=== PATIENT | female | born 1965 | race Caucasian/White ===

== ENCOUNTER 2019-06-19 15:06 | Outpatient (REF) | payer SELFPAY ==
[2019-06-19 17:06] LABS: Chol HDL Ratio 3.38 mg/dL (0.0-4.40); Cholesterol 169 mg/dL (0-200); Glucose 138 mg/dL (65-115); HDL Cholesterol 50 mg/dL (60-100); LDL Cholesterol Calculated 78 mg/dL (50-129); LDL HDL Ratio 1.56 RATIO (0.00-3.22); Triglycerides 207 mg/dL (0-150)
[2019-06-19 18:41] LABS: Estmated Average Glucose 148; Hemoglobin A1C 6.8 % (4.0-6.0)
== END 2019-06-19 15:07 | disposition home or self-care (01) ==
LOC: LAB 15:06
PROVIDERS: Family Provider Family Medicine; PCP Family Medicine; Visit Provider Dermatology
DX: Z13.9 Encounter for screening, unspecified (principal)
CPT/HCPCS: 80061; 82947; 83036

== ENCOUNTER 2019-12-12 13:38 | Emergency (ER) | payer MEDICARE, MEDICAID, SELFPAY ==
[2019-12-12 13:39] VITALS: BP 88/72; PULSE 121; RESP 17; TEMP 36.8; O2SAT 97; BMI 41.7
[2019-12-12 13:54] VITALS: BP 88/72; RESP 24; O2SAT 95
--- NOTE | 2019-12-12 13:54 | ECG_ITS ---
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 Measurements Intervals Willis Rate: 117 P: 197 ND: 238 QRS: 5 QRSD: 81 T: 30 QT: 346 QTc: 484 Interpretive Statements SINUS TACHYCARDIA WITH FIRST DEGREE AV BLOCK LOW QRS VOLTAGE IN PRECORDIAL LEADS [QRS DEFLECTION < 1.0 mV IN CHEST LEADS] NONSPECIFIC T-WAVE ABNORMALITY Compared to ECG 08/17/2016 05:46:40 First degree AV block now present Low QRS voltage now present T-wave abnormality now present Sinus rhythm no longer present Sinus arrhythmia no longer present Electronically Signed On 12-13-2019 19:34:55 CDT by Mamadou Mccarthy M.D. [id number]
--- NOTE | 2019-12-12 13:54 | XR_ITS ---
WS: [id number] EXAM: RIGHT HIP: 2 VIEWS DATE OF EXAMINATION: 12/12/2019, 1413 hours COMPARISON: None. HISTORY: Patient is 54 years old with hip pain status post fall. FINDINGS: Bone density is decreased in appearance. There are minimal changes of arthritis within the right hip. No fracture or dislocation is seen. No soft tissue abnormality noted other than slight arterial calc ified plaque changes. XR/XR hip RT 2-3V wo/w pel* [id number] IMPRESSION: No acute bony abnormality.
--- NOTE | 2019-12-12 13:54 | XR_ITS ---
WS: [id number] EXAM: XR lumbar spine 2-3V* [id number] DATE OF EXAMINATION: 12/12/2019, 1415 hours COMPARISON: CT of the abdomen and pelvis from 08/16/2016 HISTORY: 54 years old with fall injury. Complaining of pain. FINDINGS: Lower thoracic and lumbar vertebrae are of normal height. Multilevel degenerative spondylosis changes seen. Slight facet arthropathy changes lower lumbar spine. There is an abnormal appearance of the di stal sacrum involving segments from below S3 and extending inferiorly. There appears be marked demine ralization or bony destruction. Further evaluation with CT recommended for clarification. Aorta shows calcified plaque changes without aneurysmal dilatation. All pedicles are present on the AP radiograp h. Flecks of density within the bowel felt to be ingested material. Slight arthritis within the right SI joint. Changes of arthritis within the left hip joint. No acute fracture or subluxation is seen. No pars fracture noted. All pedicles are appreciated on the AP radiograph. XR/XR lumbar spine 2-3V* [id number] IMPRESSION: SCATTERED CHANGES OF ARTHRITIS IN LUMBAR SPINE. NO ACUTE FRACTURE IS SEEN. ABNORMAL APPEARANCE TO THE DISTAL SACRUM SUGGESTING A DESTRUCTIVE PROCESS. CT O F THE PELVIS RECOMMENDED WITH ATTENTION TO THE SACRUM FOR CLARIFICATION.
--- NOTE | 2019-12-12 13:54 | ED_ITS ---
HPI - Fall General: Chief Complaint: Fall Stated Complaint: FALL/ LE PAIN/ BACK PAIN Time Seen by Provider: 12/12/19 13:39 History of Present Illness: HPI Narrative: Patient arrives via ambulance with complaint of low back pain right hip pain from a fall when she tried to sit down on a bench and she missed a bench and landed on her buttocks low back area. right hip hurts in her low back hurts. Just finished dialysis she is tachycardic and she says she normally runs tachycardic for a couple hours after dialysis denies any other problem MD complaint: fall Onset (ago): minute(s) Fall from: standing (Trying to sit on the bench) Fall witnessed: yes, by family Place fall occurred: home Loss of consciousness: None Prolonged down time: no Symptoms prior to fall: lightheadedness Context: tripped/slipped Location of injury: back and pelvis Quality: aching Associated symptoms-after fall: Reports no associated symptoms; Denies abdominal pain, chest pain or headache(s) Review of Systems Const: Denies: fever(s), chills or body aches Eyes: Denies: change in vision or blurry vision ENMT: Denies: throat pain or nasal congestion Card: Denies: chest pain or dyspnea on exertion Resp: Denies: dyspnea, productive cough or non-productive cough GI: Denies: abdominal pain, nausea or vomiting Musc: Reports: back pain and joint pain (Right hip); Denies: extremity pain Skin/Breast: Denies: rash Neuro: Denies: headache(s) Psych: Denies: anxiety or depression Latrell/Lymph: Denies: easy bruising PFSH ED PFSH: Medical History (Updated 07/08/19 @ 08:46 by Chris Cohen DPM) Diabetes mellitus Kidney failure Psoriasis Surgical History (Updated 07/08/19 @ 08:43 by Chris Cohen DPM) H/O hernia repair History of appendectomy Family History Family/Other Diabetes Brother Diabetes Denies family history of CAD (coronary artery disease) Clotting disorder Dementia Hyperlipidemia Psychiatric illness Chronic kidney disease (CKD) Suicide Anesthesia complication Bleeding disorder Family history of premature coronary artery disease Lung disease Cancer Hypertension Stroke Social History (Reviewed 07/08/19 @ 08:18 by ZAHEER Atwood Smoking and tobacco status: never smoked Alcohol intake: never Current occupational status: disabled Physical Exam Const: COMMON NORMALS: no acute distress, average body habitus and patient oriented x3 HENMT: COMMON NORMALS: normocephalic HEAD & SCALP: normal to inspection and normocephalic FACE & SINUS: normal facial exam Eye: COMMON NORMALS: conjunctivae normal GENERAL EYE: appearance normal, both eyes and all related structures CONJUNCTIVA: Yes conjunctivae normal Neck/C-Spine: COMMON NORMALS: no JVD Chest: COMMONS NORMALS: normal inspection of the chest Resp: COMMON NORMALS: normal respiratory effort and clear to auscultation bilaterally AUSCULTATION: clear to auscultation bilaterally Cardio: COMMON NORMALS: no JVD, regular rate and regular rhythm RATE: regular rate RHYTHM: regular rhythm GI: COMMON NORMALS: Normal to inspection, nondistended, normoactive bowel sounds present Extremity: COMMON NORMALS: full ROM NARRATIVE EXTREMITY EXAM: Patient is able to lift the right leg and move it. Does have some pain lumbar hip area patient is obese does have psoriasis of the lower extremities Neuro: COMMON NORMALS: patient oriented x3 Course Vital Signs: Vital signs: Vital Signs Temperature 98.2 F 12/12/19 13:39 Pulse Rate 78 12/12/19 13:54 Respiratory Rate 24 H 12/12/19 13:54 Blood Pressure 93/48 12/12/19 13:54 Pulse Oximetry 97 12/12/19 13:39 Discharge Plan Discharge Prescriptions: No Action trazodone 50 mg tablet 50 mg PO .bedtime RF: 0 clopidogrel [Plavix] 75 mg tablet 75 mg PO DAILY RF: 0 pramipexole 0.5 mg tablet 0.5 mg PO .bedtime RF: 0 hydroxyzine HCl 25 mg tablet 25 mg PO TID RF: 0 citalopram [Celexa] 20 mg tablet 20 mg PO DAILY Qty: 30 RF: 2 citalopram [Celexa] 10 mg tablet 10 mg PO DAILY Qty: 30 RF: 2 bupropion HCl [Wellbutrin XL] 150 mg tablet extended release 24 hr 150 mg PO QAM Qty: 30 RF: 2 Coding Level of Care Code ED 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
--- NOTE | 2019-12-12 14:34 | CT_ITS ---
WS: [id number] EXAM: CT pelvis wo con [id number] DATE OF EXAMINATION: 12/12/2019, 1514 hours COMPARISON: Lumbar spine plain films from the same date. HISTORY: 54 years old with fall injury. Complaining of pain. Abnormal plain films of the sacrum. TECHNIQUE: Transaxial computed tomography images obtained through the pelvis without contrast. Images viewed in soft tissue and bone window with reconstructions. Iterative reconstruction dose reduction technique was utilized during the performance of the examinat ion. DLP: 1076.[address] scans at [facility] use at least one of these dose optimization techniques: automat ed exposure control; mA and/or kV adjustment per patient size (includes targeted exams where dose is matched to clinical indication); or iterative reconstruction. FINDINGS: Overall bone density is slightly decreased. There are degenerative spondylosis changes L3-4 level wit h spinal canal stenosis. Additional changes of spinal canal stenosis L4-5 level as well. Both sacroil iac joints are fairly normal in appearance. The abnormality on plain film is not reproduced on the CT exam. The sacrum appears normal without a destructive process. Presacral space is normal. No appreciable hematoma seen. 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 Bowel is normal in caliber. A large ventral hernia noted on the prior examination has undergone interval surgical repair. There is a recurrent hernia along superior margin of this larger hernia repair containing a loop of small bow el without evidence of incarceration. No acute fracture is seen. Uterus is unremarkable. No adnexal mass. CT/CT pelvis wo con [id number] IMPRESSION: Abnormality on plain film is not reproduced on the CT examination. No findings of an abnormality involving the sacrum demonstrated. Arthritis lower lumbar spine with findings of spinal canal stenosis. No fracture is seen. Interval repair of the anterior abdominal wall hernia with recurrence of hernia along the superior margin of the hernia repair containing a loop of small kristian l without incarceration.
[2019-12-12 16:44] VITALS: BP 97/49; RESP 20; O2SAT 96
== END 2019-12-12 16:36 | disposition home or self-care (01) ==
PROVIDERS: Emergency Provider Nurse Practitioner Family; PCP Family Medicine
DX: M54.5 Low back pain (principal); Z79.02 Long term (current) use of antithrombotics/antiplatelets; E11.9 Type 2 diabetes mellitus without complications
CPT/HCPCS: 12345; 72100; 72192; 73502; 93005; 99282; 99283

== ENCOUNTER 2020-02-26 11:04 | Outpatient (CLI) | payer MEDICARE, MEDICAID, SELFPAY ==
--- NOTE | 2020-02-26 11:30 | MM_ITS ---
WS: [id number] BILATERAL DIGITAL SCREENING MAMMOGRAPHY WITH CAD CLINICAL INFORMATION: Screening HISTORY: Screening mammogram. No current complaints. COMPARISON: TECHNIQUE: Bilateral CC and MLO views. FINDINGS: Scattered fibroglandular densities bilaterally. No suspicious focal mass, asymmetry, calcifications, or architectural distortion. No evidence of malignancy. Vascular calcification. Stable punctate and c lustered calcifications. MM/[place] [id number] IMPRESSION: BI-RADS: 2-Benign FOLLOW UP: 1 Year Follow-up Recommend return to annual screening mammography.
== END 2020-02-26 11:05 | disposition home or self-care (01) ==
LOC: RADSHAW 11:12
PROVIDERS: PCP Family Medicine; Visit Provider Family Medicine
DX: Z12.31 Encounter for screening mammogram for malignant neoplasm of breast (principal)
CPT/HCPCS: 77067

== ENCOUNTER → 2020-02-27 15:52 | Outpatient (BNVA) | payer MEDICARE, MEDICAID, SELFPAY | PROVIDERS: PCP Family Medicine; Visit Provider Surgery | DX: Z86.010 Personal history of colon polyps (principal) | CPT/HCPCS: 87635 ==

== ENCOUNTER 2020-03-02 07:47 | Day surgery (SDC) | payer MEDICARE, MEDICAID, SELFPAY ==
[2020-02-27 13:12] VITALS: BMI 24.0
[2020-03-02 08:18] VITALS: BP 123/70; PULSE 90; RESP 18; TEMP 36.6; O2SAT 93
[2020-03-02 08:42] LABS: Glucose Point of Care 149 mg/dL (70-110)
[2020-03-02] MEDS: sodium chloride 0.9% 1,000 ML 30 ML IV (09:03)
[2020-03-02 09:05] VITALS: BMI 44.6
--- NOTE | 2020-03-02 09:22 | ANES.PREANE2 ---
Pre-Anesthetic Assessment Pre-Anesthetic Assessment: Height/Weight: Height 1.63 m Weight 118 kg Temp Pulse Resp BP Pulse Ox 97.9 F 90 18 123/70 93 03/02/20 08:18 03/02/20 08:18 03/02/20 08:18 03/02/20 08:18 03/02/20 08:18 Preop Diagnosis: Surveillance colonoscopy Proposed Procedure: Operation Date: 03/02/20 09:30 Proposed Procedures p Colonoscopy 22654 Z86.010(Not Applicable) - Anand Brand MD Familial anesthetic complications: Says she developed alopecia after a previous surgery Was Beta Rodney taken within 24 hours: N/A Last intake: Intake Last Liquid Date 03/01/20 Last Liquid Time 22:00 Last Solid Date 03/01/20 Last Solid Time 20:00 Social: Social History: No alcohol and No tobacco Exam: Pre-Anes Outpt Exam: alert, oriented x 3, clear to auscultation bilaterally and regular rate & rhythm Airway: Cervical ROM: WNL MP: 3 Dentition: Full Pulmonary: Pulmonary: COPD and Sleep apnea CV/HEM: CV/HEM: HTN : : Chronic renal failure (ESRD on dialysis) Hepatic: Hepatic: None reported GI: GI: GERD Metabolic: Metabolic: DM and Morbid obesity Musc/skel: Comments: plaque psoriasis Anesthetic Plan: ASA status: 4 Anesthesia: MAC Risk of > 500 ml blood loss (7ml/kg in children): No Meds/Allergies Current Medications: Current Medications Generic Name Dose Route Start Last Admin Trade Name Freq PRN Reason Stop Dose Admin Sodium Chloride 1,000 mls @ 30 ml s/hr 03/02/20 08:30 03/02/20 09:03 Sodium Chloride 0.9% IV 03/03/20 08:29 30 mls/hr .Q24H ABIGAIL Administration PFSH Anesthesia PFSH: Medical History Allergic rhinitis CKD (chronic kidney disease) COPD (chronic obstructive pulmonary disease) Diabetes mellitus Encounter for screening colonoscopy Mixed stress and urge urinary incontinence LUIS EDUARDO (obstructive sleep apnea) Plaque psoriasis Psoriasis Surgical History H/O hernia repair History of appendectomy Family History Family/Other Diabetes Brother Diabetes Grandmother CAD (coronary artery disease) Mother CAD (coronary artery disease) Cancer Denies family history of Clotting disorder Dementia Hyperlipidemia Psychiatric illness Chronic kidney disease (CKD) Suicide Anesthesia complication Bleeding disorder Family history of premature coronary artery disease Lung disease Hypertension Stroke Social History (Updated 02/24/20 @ 14:36 by Nancy Lentz LPN) Smoking and tobacco status: never smoked Alcohol intake: never Lives independently: Yes Marital status: Single Current occupational status: disabled History of recent travel: No Current gender identity: Female Female Reproductive History: Spontaneous abortions: No Data Anesthesia Other Labs: Laboratory Results - last 48 hr 03/02/20 08:38 POC Glucose 149 Cardiac Studies: No Data to Display
--- NOTE | 2020-03-02 10:10 | W.PM.OPSUD ---
Surgery/Procedure H&P Update DATE OF PROCEDURE: March 02, 2020 DATE H&P PERFORMED: 02/24/20 H&P UPDATE INFORMATION: I have reviewed H&P completed within last 30 days, I have examined patient prior to procedure and No changes to prior documentation PREOP DIAGNOSIS: Surveillance colonoscopy PRIMARY INDICATION FOR PROCEDURE: The same PLANNED PROCEDURE: Operation Date: 03/02/20 09:30 Proposed Procedures p Colonoscopy 57118 Z86.010(Not Applicable) - Anand Brand MD
--- NOTE | 2020-03-02 10:47 | ANE.PACU2 ---
Inpatient post-anesthesia follow up: Airway intact: Yes Vital signs: Temperature 97.9 F Pulse Rate 90 Respiratory Rate 18 Blood Pressure 123/70 Pulse Oximetry 93 Oxygen Delivery Me thod Room Air Oxygen Flow Rate Fraction of Inspir ed Oxygen Hydration adequate: Yes Nausea and vomiting: No Pain level: 1 Mental status: Baseline
[2020-03-02 10:49] VITALS: BP 85/44; PULSE 81; RESP 16; TEMP 36.9; O2SAT 98
[2020-03-02 11:17] VITALS: BP 101/55; PULSE 84; RESP 18; O2SAT 100
== END 2020-03-02 11:19 | disposition home or self-care (01) ==
PROVIDERS: PCP Family Medicine; Visit Provider Surgery
PROC: 0DJD8ZZ Inspection of Lower Intestinal Tract, Via Natural or Artificial Opening Endoscopic (ICD-10-PCS; CPT 45378; principal; 2020-03-02 09:30)
DX: Z12.11 Encounter for screening for malignant neoplasm of colon (principal); Z86.010 Personal history of colon polyps; I12.0 Hypertensive chronic kidney disease with stage 5 chronic kidney disease or end stage renal disease; E11.22 Type 2 diabetes mellitus with diabetic chronic kidney disease; N18.6 End stage renal disease; Z99.2 Dependence on renal dialysis; G47.33 Obstructive sleep apnea (adult) (pediatric); E66.01 Morbid (severe) obesity due to excess calories; Z68.41 Body mass index [BMI] 40.0-44.9, adult; Z79.82 Long term (current) use of aspirin; Z79.02 Long term (current) use of antithrombotics/antiplatelets; L40.0 Psoriasis vulgaris; K21.9 Gastro-esophageal reflux disease without esophagitis; J44.9 Chronic obstructive pulmonary disease, unspecified
CPT/HCPCS: 12345; 36416; 45378; 82962; G0121; J2704; J7030

== ENCOUNTER 2020-03-09 08:10 | Outpatient (CLI) | payer MEDICARE, MEDICAID, SELFPAY ==
[2020-03-09 08:42] VITALS: BMI 42.0
--- NOTE | 2020-03-09 08:42 | ECG_ITS ---
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 Interpretive Statements NAME OF STUDY: LEXISCAN SESTAMIBI STRESS TEST INDICATION: Dyspnea PROCEDURE: At the baseline, the blood pressure was 122/57 mmHg, oxygen saturation 90% with a heart rate of 81 bpm. The electrocardiogram showed normal sinus rhythm, normal axis. Possible old anteroseptal infarct. The Lexiscan was infused over a period of 20 seconds. A total of 0.4 milligrams of Lexiscan was infused. The stress phase was continued for a total of 5 minutes. Heart rate at the end of the stress phase was 93 bpm, oxygen saturation 94% with a blood pressure of 122/57 mmHg. The EKG at the peak infusion revealed sinus rhythm with no significant ST-T wave changes. The study was terminated due to protocol completion. Sestamibi was injected 20 seconds after the Lexiscan infusion. Blood pressure at the end of the recovery phase was 127/66 mmHg, oxygen saturation 98% with a heart rate of 93 beats per minute. CONCLUSION: 1. Normal EKG response to LexiScan infusion. 2. No LexiScan induced chest pain or cardiac arrhythmia. 3. Normal blood pressure and heart rate response. 4. Sestamibi/sestamibi perfusion scan pending; see separate report. RESULTS TO WHITNEY CABRERA Electronically Signed On 03-10-2020 10:06:17 GLASS PRODUCTION MACHINE OPERATOR by Yasmin Priest M.D. [id number]
--- NOTE | 2020-03-09 08:43 | NMCV_ITS ---
NM marixa perf SPECT r/s* [id number] Kerri Fregoso Age: 54 Gender: F : 1965 Exam Date: 03/09/2020 09:44 Ordering Phys: Yasmin Priest MD ([email or web address]) Technologist: JANAY Hernadez Exam [facility]: [facility] Indications: DYSPNEA STRESS TEST Please see separate stress test report in [facility] for full findings IMAGE PROTOCOL Rest/Stress 1 Lexiscan Day Radiopharmaceutical Dose (mCi) Administration Site Administered by Rest: Tc-99m 10.8 IV JANAY Hernadez Sestamibi Stress:Tc-99m 32.9 IV JANAY Chris Sestamibi Rest: 09-Mar-2020 60 Discovery 630 Stress: 09-Mar-2020 30 Discovery 630 0.4mg Lexiscan. Supine position only as patient was unable to lay prone. SPECT RESULTS Technical Quality: Excellent Raw Data Analysis: Normal Image Corrections: No attenuation or motion correction applied Summed Stress Score: 3 Summed Rest Score: 1 Summed Difference Score: 3 PERFUSION FINDINGS Small sized perfusion abnormality of mild severity of basal inferior wall with some reversibility noted in mid inferoseptal and apical septal goldman on stress images. FUNCTIONAL RESULTS (calculated via Gated SPECT) Stress Image LV EF (%): 83 Stress EDV (mL):82 TID: 0.63 Stress ESV (mL):14 FUNCTIONAL FINDINGS: The left ventricle is normal in size. Transient Ischemia Dilatation of 0.63. There is normal left ventricular systolic function. The left ventricular ejection fraction is hyperdynamic with a value of 83%. Left ventricular ejection fraction is likely overestimated due to small left ventricle cavity. Normal left end-diastolic end-systolic volumes. IMPRESSIONS 1. Small sized reversible perfusion abnormality of mild severity of mid inferoseptal and apical septal goldman. 2. This may represent small area of ischemia in right coronary artery territory. However, in abscence of prone imaginng attenuation artifact cannot be completely ruled out. 3. Overall left ventricular systolic function is normal without regional wall motion abnormalities. 4. No prior similar studies to compare Yasmin Priest MD (Electronically Signed) Final Date: 10 March 2020 12:33 S
--- NOTE | 2020-03-09 10:35 | SUR.PREOP ---
Patient reports no pain or discomfort prior to the start of the procedure.
[2020-03-09] MEDS: regadenoson 0.4 Mg/5 ml Syringe IVP (10:41)
[2020-03-09 11:03] VITALS: BP 122/73; PULSE 99
== END 2020-03-09 08:11 | disposition home or self-care (01) ==
PROVIDERS: PCP Family Medicine; Visit Provider Internal Medicine Cardiovascular Disease
DX: R06.00 Dyspnea, unspecified (principal)
CPT/HCPCS: 78452; 93017; A9500; J2785

== ENCOUNTER → 2020-03-30 08:50 | Outpatient (BNVA) | payer MEDICARE, MEDICAID, SELFPAY | PROVIDERS: PCP Family Medicine; Visit Provider Podiatrist Foot & Ankle Surgery | DX: M25.571 Pain in right ankle and joints of right foot (principal) | CPT/HCPCS: 73610 ==

== ENCOUNTER → 2020-04-08 09:34 | Outpatient (BNVA) | payer MEDICARE, MEDICAID, SELFPAY | PROVIDERS: PCP Family Medicine; Visit Provider Family Medicine | DX: M54.5 Low back pain (principal); K59.00 Constipation, unspecified; F33.2 Major depressive disorder, recurrent severe without psychotic features; G47.00 Insomnia, unspecified; E11.22 Type 2 diabetes mellitus with diabetic chronic kidney disease; N18.6 End stage renal disease; J41.0 Simple chronic bronchitis; K59.04 Chronic idiopathic constipation; F51.04 Psychophysiologic insomnia | CPT/HCPCS: 80061; 83036 ==

== ENCOUNTER → 2020-05-24 09:39 | Outpatient (BNVA) | payer MEDICARE, MEDICAID, SELFPAY | PROVIDERS: PCP Family Medicine; Referring Provider Registered Nurse; Visit Provider Registered Nurse | DX: Z79.899 Other long term (current) drug therapy (principal) | CPT/HCPCS: 36415; 80061; 83036; 83721 ==

== ENCOUNTER → 2020-05-28 11:20 | Outpatient (BNVA) | payer MEDICARE, MEDICAID, SELFPAY ==
[2020-05-25 09:01] VITALS: BP 153/85; BMI 44.4
== END ==
PROVIDERS: PCP Family Medicine; Visit Provider Podiatrist Foot & Ankle Surgery
DX: I70.298 Other atherosclerosis of native arteries of extremities, other extremity (principal); E11.621 Type 2 diabetes mellitus with foot ulcer; L97.509 Non-pressure chronic ulcer of other part of unspecified foot with unspecified severity; M21.612 Bunion of left foot; M21.611 Bunion of right foot; M81.0 Age-related osteoporosis without current pathological fracture; M20.42 Other hammer toe(s) (acquired), left foot; M20.41 Other hammer toe(s) (acquired), right foot
CPT/HCPCS: 73630

== ENCOUNTER 2020-06-23 13:33 | Outpatient (CLI) | payer MEDICARE, MEDICAID, SELFPAY ==
[2020-05-25 09:01] VITALS: BP 153/85; BMI 44.4
--- NOTE | 2020-06-23 13:42 | USCV_ITS ---
Kerri Fregoso Age: 54 Gender: F : 1965 Exam Date: 06/23/2020 14:36 Ordering Phys: Zay Cohen Technologist: Luis Guy Exam [place] [facility] [place] Indication: FOOT PAIN Risk Factors: Previous Vascular Surgery: RIGHT LEFT BP: 152.0 / 104.00 BP: / 0 Waveform Velocity (cm/s) Velocity (cm/s) Waveform Triphasic 105.3 Iliac Prox 121.3 Triphasic Triphasic 99.5 Iliac Mid 92.2 Triphasic Triphasic Iliac Distal Triphasic 90.0 98.2 Triphasic 138.5 MUNICIPAL FIREFIGHTER 156.8 Triphasic Triphasic 154.7 SFA Prox 160.8 Triphasic Triphasic 142.1 SFA Mid 170.9 Triphasic Triphasic 160.1 SFA Dist 130.6 Triphasic Triphasic 102.0 POP 183.0 Triphasic Monophasic 94.0 SUPERVISOR CHASSIS ASSEMBLY 94.5 Monophasic Triphasic 139.3 DPA 138.7 Triphasic 0.7 MODESTO 0.7 FINDINGS Mild to moderate diffuse heterogeneous plaques in the femoral arteries bilaterally with color flow turbulence Diminished resting ABIs bilaterally. CONCLUSIONS 1. Abnormal resting ABIs and Doppler features suggestive of mild to moderate peripheral artery disease possibly involving the superficial femoral arteries bilaterally Consider exercise ABIs to better evaluate the functional significance Dr Jono Wilson MD [facility] (Electronically Signed) Final Date: 24 June 2020 09:18 S
== END 2020-06-23 13:34 | disposition home or self-care (01) ==
LOC: US 13:35
PROVIDERS: PCP Family Medicine; Visit Provider Emergency Medicine
DX: I73.9 Peripheral vascular disease, unspecified (principal); M79.672 Pain in left foot; M79.671 Pain in right foot
CPT/HCPCS: 93925

== ENCOUNTER → 2020-07-19 08:08 | Outpatient (BNVA) | payer MEDICARE, MEDICAID, SELFPAY ==
[2020-05-25 09:01] VITALS: BP 153/85; BMI 44.4
== END ==
PROVIDERS: PCP Family Medicine; Referring Provider Family Medicine; Visit Provider Internal Medicine
DX: E11.22 Type 2 diabetes mellitus with diabetic chronic kidney disease (principal); N18.6 End stage renal disease; E11.319 Type 2 diabetes mellitus with unspecified diabetic retinopathy without macular edema; E11.49 Type 2 diabetes mellitus with other diabetic neurological complication; L84 Corns and callosities
CPT/HCPCS: 99205

== ENCOUNTER → 2020-08-18 10:04 | Outpatient (BNVA) | payer MEDICARE, MEDICAID, SELFPAY ==
[2020-05-25 09:01] VITALS: BP 153/85; BMI 44.4
== END ==
PROVIDERS: PCP Family Medicine; Visit Provider Family Medicine
DX: M25.562 Pain in left knee (principal); J41.0 Simple chronic bronchitis; M23.50 Chronic instability of knee, unspecified knee; R06.02 Shortness of breath; G47.33 Obstructive sleep apnea (adult) (pediatric); M17.12 Unilateral primary osteoarthritis, left knee; M85.862 Other specified disorders of bone density and structure, left lower leg
CPT/HCPCS: 73562

== ENCOUNTER → 2020-09-13 10:09 | Outpatient (BNVA) | payer MEDICARE, MEDICAID, SELFPAY ==
[2020-05-25 09:01] VITALS: BP 153/85; BMI 44.4
== END ==
PROVIDERS: PCP Family Medicine; Referring Provider Family Medicine; Visit Provider Specialist
DX: M25.562 Pain in left knee (principal); M25.561 Pain in right knee
CPT/HCPCS: 73560; 73565

== ENCOUNTER → 2020-09-24 15:20 | Outpatient (BNVA) | payer MEDICARE, MEDICAID, SELFPAY ==
[2020-05-25 09:01] VITALS: BP 153/85; BMI 44.4
== END ==
PROVIDERS: PCP Family Medicine; Visit Provider Internal Medicine Critical Care Medicine
DX: Z20.822 Contact with and (suspected) exposure to COVID-19 (principal)
CPT/HCPCS: 87635

== ENCOUNTER → 2020-10-18 09:36 | Outpatient (BNVA) | payer MEDICARE, MEDICAID, SELFPAY ==
[2020-05-25 09:01] VITALS: BP 153/85; BMI 44.4
== END ==
PROVIDERS: PCP Family Medicine; Visit Provider Family Medicine
DX: Z00.00 Encounter for general adult medical examination without abnormal findings (principal); J44.9 Chronic obstructive pulmonary disease, unspecified; M54.5 Low back pain; G25.81 Restless legs syndrome; F51.04 Psychophysiologic insomnia; G47.33 Obstructive sleep apnea (adult) (pediatric); E11.9 Type 2 diabetes mellitus without complications; G47.00 Insomnia, unspecified; E11.22 Type 2 diabetes mellitus with diabetic chronic kidney disease; Z99.2 Dependence on renal dialysis; N18.6 End stage renal disease; J45.40 Moderate persistent asthma, uncomplicated; L40.0 Psoriasis vulgaris; F33.2 Major depressive disorder, recurrent severe without psychotic features; Z71.89 Other specified counseling; Z23 Encounter for immunization; Z12.11 Encounter for screening for malignant neoplasm of colon; Z12.4 Encounter for screening for malignant neoplasm of cervix
CPT/HCPCS: 80053; 80061; 83036; 83721; 85025; 87635

== ENCOUNTER 2020-10-20 12:10 | Emergency (ER) | payer MEDICARE, MEDICAID, SELFPAY ==
[2020-05-25 09:01] VITALS: BP 153/85; BMI 44.4
[2020-10-20] VITALS (7 sets, daily range): BP systolic 106–164; BP diastolic 59–84; PULSE 80–91; RESP 16–19; TEMP 37.3; O2SAT 97–98; BMI 42.9
--- NOTE | 2020-10-20 12:22 | CT_ITS ---
WS: [id number] CT HEAD TECHNIQUE: Noncontrast CT of the head obtained from the skullbase to the vertex. CLINICAL INFORMATION: trauma COMPARISON: None. DLP: 926.[address] scans at [facility] use at least one of these dose optimization techniques: automat ed exposure control; mA and/or kV adjustment per patient size (includes targeted exams where dose is matched to clinical indication); or iterative reconstruction. FINDINGS: No evidence of intracranial hemorrhage or mass effect. Ventricular system and basal cisterns are lara nt. Mild small vessel changes with mild parenchymal volume loss. Chronic lacunar infarct left caudate . Intracranial vascular calcifications. No extra-axial fluid collections. No evidence of mass or mass effect. Normal obrien-white differentiation. Soft tissue edema overlying the right frontal calvarium. Retention cyst left maxillary sinus. Paranas al sinuses are otherwise well aerated. Mastoid air cells well aerated. CT/CT head wo con* [id number] IMPRESSION: 1. No evidence of intracranial hemorrhage or mass effect. 2. Mild small vessel changes. Mild parenchymal volume loss. 3. Chronic lacunar infarct left caudate. 4. Soft tissue edema overlying the right frontal calvarium. No underlying frac tures. 5. No acute intracranial findings.
--- NOTE | 2020-10-20 12:22 | XR_ITS ---
WS: [id number] Right knee, 3 views, 10/20/2020 Clinical Data: trauma Comparison: AP knees, 09/13/2020. Findings: No fractures or dislocations are seen. There is slight medial and lateral joint compartment narrowing .. The patella is intact. There are vascular calcifications in the superolateral official femoral art joshua and its distal branches. XR/XR knee RT 3V* [id number] Impression: Mild osteoarthritis right knee with no fracture. Kellgren-Carlos Classification: grade 1 (doubtful): doubtful joint space narr owing and possible osteophytic lipping
--- NOTE | 2020-10-20 12:22 | CT_ITS ---
WS: [id number] CT CERVICAL TRAUMA TECHNIQUE: Noncontrast CT of the cervical spine with coronal and sagittal reformatted images. CLINICAL INFORMATION: trauma COMPARISON: None. DLP: 1207.[address] scans at [facility] use at least one of these dose optimization techniques: automat ed exposure control; mA and/or kV adjustment per patient size (includes targeted exams where dose is matched to clinical indication); or iterative reconstruction. FINDINGS: Straightening of the normal cervical lordosis. Mild cervical curve convex right. Mild spondylitic radha nges with disc osteophyte complexes worse at C5-C6 and C6-C7. Normal craniocervical junction. Normal C1-C2 articulation. Dens is normal in appearance. Normal occip ital condyles. No high-grade spinal canal narrowing. Normal C1 ring. No evidence of acute fracture or dislocation. Normal prevertebral soft tissues. 0.5 cm right thyroid nodule. Lung apices are well aerated. Mastoids air cells are well aerated. CT/CT cervical spin wo con* [id number] IMPRESSION: No evidence of acute fracture or dislocation.
--- NOTE | 2020-10-20 12:22 | XR_ITS ---
WS: [id number] Left shoulder, 3 views, 10/20/2020 Clinical Data: trauma Comparison: Left shoulder, 04/29/2015. Findings: No new fractures or dislocations are seen. The AC joint is normal. The adjacent left clavicle, left s capula and ribs are normal. The soft tissues are unremarkable. There is a healed fracture of the neck of the left humerus. XR/XR shoulder LT min 2V* [id number] Impression: Healed fracture of neck of left humerus.
--- NOTE | 2020-10-20 12:22 | XR_ITS ---
WS: [id number] Right hip, AP and frog-leg views, 10/20/2020 Clinical Data: trauma Comparison: Right hip, 12/12/2019. Findings: No fractures or dislocations are seen. The right hip joint is intact. There is acetabular lip. There are possible injection granulomas in the soft tissues of the right hip. There are calcifications in t he pelvis which may be calcified fibroids. XR/XR hip RT 2-3V wo/w pel* [id number] Impression: 1. Negative for right hip fracture. 2. Mild osteoarthritis of the right hip. Tonnis classification: grade 1: sclerosis of femoral head and acetabulum or sli ght joint space narrowing or slight lipping at joint margins
--- NOTE | 2020-10-20 12:27 | XR_ITS ---
WS: [id number] Portable AP upright chest, 10/20/2020 Clinical Data: cp Comparison: Portable chest, 07/03/2017. Findings: No nodules, masses or effusions are seen. The heart is slightly enlarged. The pulmonary vas cularity is not increased. No pneumonia or pneumothorax is seen. The patient has a poor inspiratory e ffort. XR/XR chest 1V portable [id number] Impression: Minimal cardiomegaly.
--- NOTE | 2020-10-20 12:27 | ECG_ITS ---
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 Measurements Intervals [place] Rate: 87 P: 73 [place]: 190 QRS: 59 QRSD: 84 T: 80 QT: 369 QTc: 446 Interpretive Statements SINUS RHYTHM WITH OCCASIONAL VENTRICULAR PREMATURE COMPLEXES POSSIBLE RIGHT VENTRICULAR CONDUCTION DELAY [RSR (QR) IN V1/V2] ANTEROSEPTAL MYOCARDIAL INFARCTION [40+ ms Q WAVE IN V1-V4], OF INDETERMINATE AGE Compared to ECG 12/12/2019 14:34:07 Ventricular premature complex(es) now present Myocardial infarct finding now present Sinus tachycardia no longer present First degree AV block no longer present T-wave abnormality no longer present Electronically Signed On 10-21-2020 7:03:09 CDT by Yasmin Priest M.D. [id number]
[2020-10-20 13:14] LABS: Basophils # 0.1 10^3/uL (0.0-0.1); Basophils % 0.8 %; Eosinophils # 0.7 10^3/uL (0.0-0.8); Eosinophils % 7.5 %; Hematocrit 38.2 % (37.0-47.0); Hemoglobin 11.9 g/dL (11.5-15.3); Lymphocytes # 0.9 10^3/uL (0.8-4.8); Lymphocytes % 10.2 %; Mean Corpuscular HGB Conc 31.2 g/dL (30.0-36.0); Mean Corpuscular Hemoglobin 31.5 pg (28.0-34.0); Mean Corpuscular Volume 101.1 fL (81-99); Mean Platelet Volume 10.7 fL (7.4-10.4); Monocytes # 0.5 10^3/uL (0.2-0.9); Monocytes % 5.6 %; Neutrophils # 6.72 10^3/uL (1.8-7.7); Neutrophils % 75.3 %; Nucleated Red Blood Cells % 0 %; Platelet Count 140 10^3/cmm (130-400); Red Blood Count 3.78 10^6/uL (4.1-5.3); Red Cell Distribution Width 15.2 % (12.1-15.1); White Blood Count 8.9 10^3/uL (4.0-10.0)
[2020-10-20 13:38] LABS: Troponin(5th) Baseline 64 ng/L (0-10)
[2020-10-20 13:41] LABS: Albumin Level 4.1 g/dL (3.5-5.2); Alkaline Phosphatase 123 IU/L (35-105); Blood Urea Nitrogen 43 mg/dL (6-20); Calcium 8.9 mg/dL (8.5-10.5); Carbon Dioxide 30 mmol/L (22-29); Chloride 95 mmol/L (98-107); Globulin 3.1 g/dL (1.3-4.6); Glomerular Filtration Rate 7.7 mL/min (90-130); Glucose 183 mg/dL (65-115); Osmolality Calculated 298 mOsm/kg (285-295); Sodium 136 mmol/L (136-145); Total Bilirubin 0.6 mg/dL (0.15-1.2); Total Protein 7.2 g/dL (6.6-8.7)
[2020-10-20 13:45] LABS: Alanine Aminotransferase 15 U/L (0-33); Anion Gap 15.8 (5-19); Aspartate Amino Transferase 19 U/L (0-32); Potassium 4.8 mmol/L (3.5-5.1)
--- NOTE | 2020-10-20 14:27 | ECG_ITS ---
[facility] Test Date: 2020-10-20 Pat Name: Kerri Fregoso Department: Room: Gender: Female Acute Care Clinical Nurse Specialist: : 1965 Requested By: Ramya Portillo Order Number: [id number] Reading MD: Yasmin Priest M.D. Measurements Intervals [place] Rate: 81 P: 17 [place]: 169 QRS: 74 QRSD: 87 T: 76 QT: 383 QTc: 446 Interpretive Statements SINUS RHYTHM SEPTAL MYOCARDIAL INFARCTION [40+ ms Q WAVE IN V1/V2], OF INDETERMINATE AGE Compared to ECG 10/20/2020 13:15:14 Ventricular premature complex(es) no longer present Myocardial infarct finding still present Electronically Signed On 10-21-2020 7:15:33 CDT by Yasmin Priest M.D. [id number]
[2020-10-20 15:36] LABS: Glucose Point of Care 132 mg/dL (70-110)
[2020-10-20 16:25] LABS: Troponin 5 2HR 59.28 ng/L (0-10)
[2020-10-20 16:26] LABS: Troponin 5 2HR Delta -4.72 ABS# (0-10)
--- NOTE | 2020-10-20 16:26 | W.ED.FALL ---
Documented by User: Ramya Christianolen 10/20/20 16:31 HPI - Fall General: Chief Complaint: Fall Stated Complaint: FALL Time Seen by Provider: 10/20/20 12:15 Source: patient Mode of arrival: EMS Limitations: no limitations History of Present Illness: HPI Narrative: 55 yo presents to ER c/o fall with pain to head neck, left shoulder, right knee and hip. Pt states she had diaylsis and got dizzy afterwards and fell at home. Pt denies any new symptoms currently and states she doesnt have any chest pain or dizziness just pain from the fall. Pt denies any LOC pt denies being on blood thinners. Associated symptoms-after fall: Reports neck pain; Denies abdominal pain, chest pain, confusion, difficulty walking, headache(s), hematuria, lightheadedness or vertigo Review of Systems Const: Denies: fever(s), chills, body aches, change in appetite, change in weight, fatigue, malaise or diaphoresis Eyes: Denies: change in vision, blurry vision, blind spots, photophobia, eye discomfort, eye discharge, eye redness, floaters or seeing flashes ENMT: Denies: throat pain, uvular edema, enlarged tonsils, odynophagia, hoarseness, mouth pain, swelling of lips/tongue, oral sores, bleeding gums, dental pain, dry mouth, ear or mastoid pain, ear discharge, change in hearing, tinnitus, disequilibrium, nasal discharge, nasal congestion, post nasal drip or sinus pain Card: Denies: chest pain, palpitations, irregular heart rhythm, edema, swelling of feet/ankles, lightheadedness, syncope, pre-syncope, dyspnea on exertion, orthopnea, leg pain with exertion or acrocyanosis Resp: Denies: dyspnea, productive cough, non-productive cough, wheezing, stridor, pain on inspiration, change in phlegm color, hemoptysis or chest congestion GI: Denies: abdominal pain, nausea, vomiting, hematemesis, dysphagia, diarrhea, constipation, GI cramping, change in bowel habits or rectal pain : Denies: flank pain, difficulty voiding, dysuria, urinary frequency, urinary urgency, urinary hesitancy or hematuria Musc: Reports: neck pain and extremity pain; Denies: back pain, extremity swelling, joint pain, joint swelling, joint redness, joint warmth or deformity Skin/Breast: Denies: rash, pruritus, erythema, sores, new lesions, changes in skin color or dry skin Neuro: Denies: headache(s), numbness in extremities, weakness in extremities, sensory changes, lack of coordination, difficulty walking, frequent falls, dizziness, vertigo, confusion, behavioral changes, Slurred speech present, difficulty communicating thoughts or seizure-like activity Psych: Denies: anxiety, depression, suicidal ideation or homicidal ideation Endo: Denies: polyuria, polydipsia, tired all the time, cold intolerance, excessive sweating, flushing, hot flashes or heat intolerance Latrell/Lymph: Denies: easy bruising, easy bleeding, petechiae, purpura, enlarged lymph nodes or tender lymph nodes All/Imm: Denies: urticaria, throat swelling, tongue swelling, facial swelling, acute wheezing or itchy eyes PFSH ED PFSH: Medical History Allergic rhinitis COPD (chronic obstructive pulmonary disease) Diabetes mellitus Encounter for screening colonoscopy History of 2019 novel coronavirus disease (COVID-19) + swab on 04/12/2020 Insomnia Major depressive disorder, recurrent severe without psychotic features Mixed stress and urge urinary incontinence LUIS EDUARDO (obstructive sleep apnea) Plaque psoriasis Psoriasis Restless leg syndrome Surgical History H/O hernia repair History of appendectomy Family History Family/Other Diabetes Brother Diabetes Grandmother CAD (coronary artery disease) Mother CAD (coronary artery disease) Cancer Denies family history of Clotting disorder Dementia Hyperlipidemia Psychiatric illness Chronic kidney disease (CKD) Suicide Anesthesia complication Bleeding disorder Family history of premature coronary artery disease Lung disease Hypertension Stroke Social History Smoking and tobacco status: never smoked Second hand smoke exposure: Yes Alcohol intake: never Adopted: No Caregiver/support person: No Lives independently: Yes Housing: Apartment Marital status: Single Current occupational status: disabled History of recent travel: No Current gender identity: Female Female Reproductive History: Spontaneous abortions: No Physical Exam Const: COMMON NORMALS: no acute distress, patient oriented x3, healthy appearing, alert and well nourished GENERAL APPEARANCE: cooperative, comfortable, well kempt and well developed; not ill appearing ORIENTATION/CONSCIOUSNESS: Yes awake, Yes oriented to person, Yes oriented to place and Yes oriented to time HENMT: COMMON NORMALS: normocephalic, atraumatic, hearing grossly normal bilaterally, external ears normal, EAC's normal, TM's normal bilaterally, Normal external nose present, Normal nasal mucous membranes and turbinates present and moist oral mucous membranes HEAD & SCALP: normal to inspection, normocephalic and atraumatic FACE & SINUS: normal facial exam, sinuses nontender and face symmetric NOSE: Normal external nose present, Normal nares present, Normal nasal mucous membranes and turbinates present, No nasal discharge present and Abnormal external nose present EXTERNAL EAR: Yes external ears normal and Yes mastoids normal EXTERNAL AUDITORY CANAL: EAC's normal TYMPANIC MEMBRANE: TM's normal bilaterally MOUTH: Normal oral and palatal mucosa present, lip normal, tongue normal and Normal salivary glands and ducts present THROAT: no uvular edema Eye: COMMON NORMALS: Equal, round and reactive pupils present, EOMs intact bilaterally, conjunctivae normal, no scleral icterus and no papilledema GENERAL EYE: appearance normal, both eyes and all related structures EYELID: eyelids normal CONJUNCTIVA: Yes conjunctivae normal SCLERA: sclerae normal CORNEA: Yes corneas normal PUPIL: Yes Equal, round and reactive pupils present DIRECT OPHTHALMOSCOPY: Yes no papilledema Neck/C-Spine: COMMON NORMALS: full ROM, no lymphadenopathy, supple, no meningeal signs, no JVD and Thyroid normal GENERAL: Yes normal visual inspection and Yes trachea midline THYROID: Thyroid normal CERVICAL SPINE: Yes cervical ROM normal Lymph: LYMPHATIC: no lymphadenopathy noted and no lymphedema noted Chest: COMMONS NORMALS: normal inspection of the chest and normal palpation of entire chest wall Resp: COMMON NORMALS: normal respiratory effort, No retractions, No use of accessory muscles and clear to auscultation bilaterally EFFORT & INSPECTION: Yes able to speak in complete sentences and Yes symmetric chest movement AUSCULTATION: clear to auscultation bilaterally Cardio: COMMON NORMALS: no JVD, regular rate and regular rhythm RATE: regular rate RHYTHM: regular rhythm GI: COMMON NORMALS: Normal to inspection, nondistended, normoactive bowel sounds present, Soft to palpation, non-tender, No hepatosplenomegaly present, no masses and no bruits INSPECTION: Yes normal to inspection AUSCULTATION: Yes normoactive bowel sounds PALPATION: Yes Soft to palpation and Yes No hepatosplenomegaly present PERCUSSION: normal to percussion RECTAL EXAM: deferred : COMMON NORMALS: Yes no CVA tenderness, Yes normal external appearance, Yes normal appearance of the vagina, Yes normal appearance of the cervix, Yes normal bimanual exam, Yes No adnexal tenderness and Yes no masses BLADDER/KIDNEY EXAM: Yes no CVA tenderness BIMANUAL EXAM - VAGINA & UTERUS: Yes normal bimanual exam Back/Pelvis: COMMON NORMALS: no CVA tenderness, thoracic and lumbar spine normal to inspection, no thoracic nor lumbar tenderness, thoraco-lumbar ROM normal and straight leg raise negative bilaterally THORACIC SPINE/UPPER BACK: Yes normal to inspection LUMBAR SPINE/LOWER BACK: Yes normal to inspection Extremity: COMMON NORMALS: normal to inspection, full ROM and capillary refill normal GENERAL: Yes normal exam except as noted OTHER: Pt has abrasion to right knee. Pt has pain with ROM to left shoulder but is NVI distally. Pt has pain with rocking to left hip Neuro: COMMON NORMALS: patient oriented x3, CN's II-XII intact bilaterally, moves all extremities, no focal motor deficits, no sensory deficits noted, deep tendon reflexes 2+ bilaterally and gait normal SENSORIUM/ORIENTATION: Yes alert, Yes oriented to person, Yes oriented to place and Yes oriented to time MENINGEAL SIGNS: Yes no meningeal signs CRANIAL NERVES: Yes CN normal except as noted SPEECH: speech normal GAIT: Yes Normal gait present SENSORY EXAM: Yes extremities MOTOR EXAM: 5/5 motor strength present throughout Psych: COMMON NORMALS: mental status grossly normal, Normal thought process present, cooperative, normal affect, speech normal, activity/motor behavior normal, denies hallucinations, denies homicidal ideation and denies suicidal ideation APPEARANCE: Yes grossly normal and Yes well kempt ATTITUDE: Yes calm ACTIVITY/MOTOR BEHAVIOR: Yes appropriate eye contact SPEECH: Yes normal speech THOUGHT PROCESS: Normal thought process present THOUGHT CONTENT: Yes Normal thought content present ATTENTION/CONCENTRATION: Yes attention grossly intact MEMORY/COGNITION: Yes memory grossly intact INSIGHT: Good insight present (Psych) JUDGEMENT: Good judgement present (Psych) Skin: COMMON NORMALS: no rashes or lesions noted, no wounds, turgor normal, no jaundice, no petechiae and no mottling GENERAL SKIN EXAM: no rashes or lesions noted and turgor normal Course Vital Signs: Vital signs: Vital Signs Temperature 99.1 F 10/20/20 12:16 Pulse Rate 91 10/20/20 20:44 Respiratory Rate 18 10/20/20 20:44 Blood Pressure 149/82 10/20/20 20:44 Pulse Oximetry 98 10/20/20 20:44 - Fall Lab Data: Labs: Lab Results 10/20/20 10/20/20 10/20/20 Range/Units 13:07 13:07 13:07 WBC 8.9 (4.0-10.0) 10^3/ uL RBC 3.78 L (4.1-5.3) 10^6/u L Hgb 11.9 (11.5-15.3) g/dL Hct 38.2 (37.0-47.0) % MCV 101.1 H (81-99) fL MCH 31.5 (28.0-34.0) pg MCHC 31.2 (30.0-36.0) g/dL RDW 15.2 H (12.1-15.1) % Plt Count 140 (130-400) 10^3/c mm MPV 10.7 H (7.4-10.4) fL Neut % (Auto) 75.3 % Lymph % (Auto) 10.2 % [place] % (Auto) 5.6 % Eos % (Auto) 7.5 % Baso % (Auto) 0.8 % Neut # (Auto) 6.72 (1.8-7.7) 10^3/u L Lymph # (Auto) 0.9 (0.8-4.8) 10^3/u L [place] # (Auto) 0.5 (0.2-0.9) 10^3/u L Eos # (Auto) 0.7 (0.0-0.8) 10^3/u L Baso # (Auto) 0.1 (0.0-0.1) 10^3/u L Nucleated RBC % (a uto) 0 % Nucleated RBCs # 0.0 /100WBC Sodium 136 (136-145) mmol/L Potassium 4.8 (3.5-5.1) mmol/L Chloride 95 L (98-107) mmol/L Carbon Dioxide 30 H (22-29) mmol/L Anion Gap 15.8 (5-19) BUN 43 H (6-20) mg/dL Creatinine 5.7 H* (0.5-0.9) mg/dL GFR Calculation 7.7 L (90-130) mL/min Glucose 183 H (65-115) mg/dL POC Glucose (70-110) mg/dL Calculated Osmolal ity 298 H (285-295) mOsm/k g Calcium 8.9 (8.5-10.5) mg/dL Total Bilirubin 0.6 (0.15-1.2) mg/dL AST 19 (0-32) U/L ALT 15 (0-33) U/L Alkaline Phosphata se 123 H (35-105) IU/L Troponin T Baselin e 64 H (0-10) ng/L Troponin T 120 Min [place] (0-10) ng/L Delta Troponin T (0-10) ABS# Troponin T Hi Sens 6Hr (0-10) ng/L Troponin T Hi Sens 6Hr Delta (0-12) ng/L Total Protein 7.2 (6.6-8.7) g/dL Albumin 4.1 (3.5-5.2) g/dL Globulin 3.1 (1.3-4.6) g/dL 10/20/20 10/20/20 10/20/20 Range/Units 15:30 15:33 19:10 WBC (4.0-10.0) 10^3/ uL RBC (4.1-5.3) 10^6/u L Hgb (11.5-15.3) g/dL Hct (37.0-47.0) % MCV (81-99) fL MCH (28.0-34.0) pg MCHC (30.0-36.0) g/dL RDW (12.1-15.1) % Plt Count (130-400) 10^3/c mm MPV (7.4-10.4) fL Neut % (Auto) % Lymph % (Auto) % [place] % (Auto) % Eos % (Auto) % Baso % (Auto) % Neut # (Auto) (1.8-7.7) 10^3/u L Lymph # (Auto) (0.8-4.8) 10^3/u L [place] # (Auto) (0.2-0.9) 10^3/u L Eos # (Auto) (0.0-0.8) 10^3/u L Baso # (Auto) (0.0-0.1) 10^3/u L Nucleated RBC % (a uto) % Nucleated RBCs # /100WBC Sodium (136-145) mmol/L Potassium (3.5-5.1) mmol/L Chloride (98-107) mmol/L Carbon Dioxide (22-29) mmol/L Anion Gap (5-19) BUN (6-20) mg/dL Creatinine (0.5-0.9) mg/dL GFR Calculation (90-130) mL/min Glucose (65-115) mg/dL POC Glucose 132 H 124 H (70-110) mg/dL Calculated Osmolal ity (285-295) mOsm/k g Calcium (8.5-10.5) mg/dL Total Bilirubin (0.15-1.2) mg/dL AST (0-32) U/L ALT (0-33) U/L Alkaline Phosphata se (35-105) IU/L Troponin T Baselin e (0-10) ng/L Troponin T 120 Min [place] 59.28 H (0-10) ng/L Delta Troponin T -4.72 L (0-10) ABS# Troponin T Hi Sens 6Hr (0-10) ng/L Troponin T Hi Sens 6Hr Delta (0-12) ng/L Total Protein (6.6-8.7) g/dL Albumin (3.5-5.2) g/dL Globulin (1.3-4.6) g/dL 10/20/20 Range/Units 19:18 WBC (4.0-10.0) 10^3/ uL RBC (4.1-5.3) 10^6/u L Hgb (11.5-15.3) g/dL Hct (37.0-47.0) % MCV (81-99) fL MCH (28.0-34.0) pg MCHC (30.0-36.0) g/dL RDW (12.1-15.1) % Plt Count (130-400) 10^3/c mm MPV (7.4-10.4) fL Neut % (Auto) % Lymph % (Auto) % [place] % (Auto) % Eos % (Auto) % Baso % (Auto) % Neut # (Auto) (1.8-7.7) 10^3/u L Lymph # (Auto) (0.8-4.8) 10^3/u L [place] # (Auto) (0.2-0.9) 10^3/u L Eos # (Auto) (0.0-0.8) 10^3/u L Baso # (Auto) (0.0-0.1) 10^3/u L Nucleated RBC % (a uto) % Nucleated RBCs # /100WBC Sodium (136-145) mmol/L Potassium (3.5-5.1) mmol/L Chloride (98-107) mmol/L Carbon Dioxide (22-29) mmol/L Anion Gap (5-19) BUN (6-20) mg/dL Creatinine (0.5-0.9) mg/dL GFR Calculation (90-130) mL/min Glucose (65-115) mg/dL POC Glucose (70-110) mg/dL Calculated Osmolal ity (285-295) mOsm/k g Calcium (8.5-10.5) mg/dL Total Bilirubin (0.15-1.2) mg/dL AST (0-32) U/L ALT (0-33) U/L Alkaline Phosphata se (35-105) IU/L Troponin T Baselin e (0-10) ng/L Troponin T 120 Min [place] (0-10) ng/L Delta Troponin T (0-10) ABS# Troponin T Hi Sens 6Hr 62.82 H (0-10) ng/L Troponin T Hi Sens 6Hr Delta -1.18 L (0-12) ng/L Total Protein (6.6-8.7) g/dL Albumin (3.5-5.2) g/dL Globulin (1.3-4.6) g/dL Discharge Plan Discharge Patient Disposition: Home Clinical Impression: Fall as cause of accidental injury at home as place of occurrence Qualifiers: Encounter type: initial encounter Qualified Code(s): W19.XXXA - Unspecified fall, initial encounter Knee pain Qualifiers: Chronicity: acute Laterality: right Qualified Code(s): M25.561 - Pain in right knee Headache Qualifiers: Headache type: post-traumatic Headache chronicity pattern: acute headache Intractability: not intractable Qualified Code(s): G44.319 - Acute post-traumatic headache, not intractable Condition: Stable Prescriptions: No Action epoetin favio 10,000 unit/mL solution See Rx Instructions .ROUTE .COMPLEX RF: 0 acetaminophen 325 mg tablet 650 mg PO Q6H PRN (Reason: Pain) RF: 0 polyethylene glycol 3350 17 gram/dose powder 17 g PO DAILY RF: 0 Venofer 100 mg iron/5 mL solution 100 mg IV DAILY RF: 0 midodrine 10 mg tablet 10 mg PO DAILY RF: 0 miscellaneous medical supply Misc See Rx Instructions miscellaneous .COMPLEX Qty: 1 RF: 0 magnesium sulfate (bulk) [Epsom Salt] 100 % crystals 1 applic topical BID Qty: 2500 RF: 1 mupirocin 2 % ointment 1 applic topical BID Qty: 22 RF: 1 insulin lispro 100 unit/mL insulin pen 5 unit SUBCUT TID RF: 0 ammonium lactate 12 % cream 1 applic topical BID Qty: 140 RF: 5 albuterol sulfate [ProAir HFA] 90 mcg/actuation HFA aerosol inhaler 2 puff INHALATION QID PRN (Reason: shortness of breath or wheezing) 30 Days Qty: 18 RF: 5 clopidogrel [Plavix] 75 mg tablet 75 mg PO DAILY 90 Days Qty: 90 RF: 1 gabapentin 300 mg capsule 300 mg PO TID PRN (Reason: pain in leg) 30 Days Qty: 90 RF: 2 cyclobenzaprine 5 mg tablet 5 mg PO TID PRN (Reason: muscle spasm) Qty: 90 RF: 2 ropinirole 0.5 mg tablet 0.5 mg PO DAILY 30 Days Qty: 30 RF: 2 trazodone 50 mg tablet 150 mg PO BEDTIME Qty: 30 RF: 2 citalopram [Celexa] 20 mg tablet 20 mg PO DAILY Qty: 30 RF: 2 aspirin [Adult Aspirin Regimen] 81 mg tablet,delayed release (DR/EC) 81 mg PO DAILY RF: 0 Lactobacillus acidophilus [Acidophilus] Capsule 10 mg PO DAILY RF: 0 Breo Ellipta 100-25 mcg/dose blister with device 1 inh inhalation DAILY 30 Days Qty: 60 RF: 3 (DME) Depend Underwear For Women [facility] See Rx Instructions .ROUTE .MEDSUPPLY Qty: 120 RF: 11 triamcinolone acetonide 0.1 % ointment 1 applic topical BID Qty: 453.6 RF: 2 hydrocortisone 2.5 % ointment 1 applic topical BID PRN (Reason: skin irritation) Qty: 453.6 RF: 1 miscellaneous medical supply [facility] See Rx Instructions miscellaneous .COMPLEX Qty: 1 RF: 0 nitroglycerin 0.4 mg tablet, sublingual 0.4 mg sublingual Q5M PRN (Reason: chest pain) Qty: 25 RF: 3 pravastatin 10 mg tablet 10 mg PO DAILY Qty: 30 RF: 5 midodrine 5 mg tablet See Rx Instructions .ROUTE .COMPLEX RF: 0 calcium acetate(phosphat bind) 667 mg capsule See Rx Instructions .ROUTE .COMPLEX RF: 0 lanthanum 750 mg tablet,chewable See Rx Instructions .ROUTE .COMPLEX RF: 0 RenaPlex-D 800 mcg-12.5 mg -2,000 unit tablet 1 tab PO DAILY RF: 0 hydroxyzine pamoate 25 mg capsule 25 mg PO TID RF: 0 Wellbutrin XL 150 mg tablet extended release 24 hr 150 mg PO DAILY RF: 0 atorvastatin 10 mg Tablet 10 mg PO DAILY RF: 0 pramipexole 0.5 mg tablet 1 mg PO TID RF: 0 Discharge Orders: Discharge ED (Routine); Ordered 10/20/20 Ordered By: Arjun Pemberton Referrals: Kate Marcelino MD [Primary Care Provider] - Discharge Diet: Regular Discharge Activity: Increase activity as tolerated Patient Instructions: Fall Prevention (ED) Activity Restrictions/Additional Instructions: Follow-up with medical provider as directed in 5 to 7 days for reevaluation. Continue taking all home medications as prescribed. Rest, ice and elevate right leg to help with symptoms. Take lnop-lcl-[id number] Tylenol as needed for pain. Return to the ER or your medical provider if condition worsens. Please read and understand discharge instructions. Thank you for choosing [facility] for your healthcare needs today. Please realize this is an emergency room and that we are providing you with a medical screening exam and this may not be complete and all inclusive of all the testing and or work up that you may need to determine your ailment or severity of your illness. It is very important that you follow up as instructed or that you return to the Emergency Department should you have concerns or if your condition changes or worsens in any way. Sign Out Sign Out Data: Patient Sign Out occurred on 10/20/20 at 17:15. Patient's care was discussed, and care was transferred from to REJI Camacho. Coding Level of Care Code ED Cloth Measurer for Chg Fwd Exam Comprehensive Documented by User: REJI Camacho 10/21/20 02:59 HPI - Fall General: Chief Complaint: Fall Stated Complaint: FALL Time Seen by Provider: 10/20/20 12:15 PFSH ED PFSH: Medical History Allergic rhinitis COPD (chronic obstructive pulmonary disease) Diabetes mellitus Encounter for screening colonoscopy History of 2019 novel coronavirus disease (COVID-19) + swab on 04/12/2020 Insomnia Major depressive disorder, recurrent severe without psychotic features Mixed stress and urge urinary incontinence LUIS EDUARDO (obstructive sleep apnea) Plaque psoriasis Psoriasis Restless leg syndrome Surgical History H/O hernia repair History of appendectomy Family History Family/Other Diabetes Brother Diabetes Grandmother CAD (coronary artery disease) Mother CAD (coronary artery disease) Cancer Denies family history of Clotting disorder Dementia Hyperlipidemia Psychiatric illness Chronic kidney disease (CKD) Suicide Anesthesia complication Bleeding disorder Family history of premature coronary artery disease Lung disease Hypertension Stroke Social History Smoking and tobacco status: never smoked Second hand smoke exposure: Yes Alcohol intake: never Adopted: No Caregiver/support person: No Lives independently: Yes Housing: Apartment Marital status: Single Current occupational status: disabled History of recent travel: No Current gender identity: Female Course Vital Signs: Vital signs: Vital Signs Temperature 99.1 F 10/20/20 12:16 Pulse Rate 91 10/20/20 20:44 Respiratory Rate 18 10/20/20 20:44 Blood Pressure 149/82 10/20/20 20:44 Pulse Oximetry 98 10/20/20 20:44 MDM - Fall MDM Narrative: Medical decision making narrative: Patient is a 55-year-old female comes to the ED after having a fall. Patient says she was weak from getting dialysis yesterday and states that she had a fall she has right knee pain, headache. I took over patient care from Ramya Portillo nurse practitioner at 5 PM today. She performed the initial history physical exam lab and imaging work-up. When I took over patient, Ramya discussed patient with Dr. Kramer and they wanted a 6-hour troponin done and if that lab looks good she can be discharged. All imaging done, chest x-ray, shoulder x-ray, knee x-ray, hip x-ray, head CT and CT cervical spine all came back negative for any acute findings or fractures. 6-hour troponin was negative. Patient was diagnosed with a fall, right knee pain and headache. She was told to follow-up with her PCP 7 days for reevaluation. Return to ED precautions given. Patient understood and agreed with plan. Lab Data: Attestation: I reviewed the patient's lab results. Labs: Lab Results 10/20/20 10/20/20 10/20/20 Range/Units 13:07 13:07 13:07 WBC 8.9 (4.0-10.0) 10^3/ uL RBC 3.78 L (4.1-5.3) 10^6/u L Hgb 11.9 (11.5-15.3) g/dL Hct 38.2 (37.0-47.0) % MCV 101.1 H (81-99) fL MCH 31.5 (28.0-34.0) pg MCHC 31.2 (30.0-36.0) g/dL RDW 15.2 H (12.1-15.1) % Plt Count 140 (130-400) 10^3/c mm MPV 10.7 H (7.4-10.4) fL Neut % (Auto) 75.3 % Lymph % (Auto) 10.2 % [place] % (Auto) 5.6 % Eos % (Auto) 7.5 % Baso % (Auto) 0.8 % Neut # (Auto) 6.72 (1.8-7.7) 10^3/u L Lymph # (Auto) 0.9 (0.8-4.8) 10^3/u L [place] # (Auto) 0.5 (0.2-0.9) 10^3/u L Eos # (Auto) 0.7 (0.0-0.8) 10^3/u L Baso # (Auto) 0.1 (0.0-0.1) 10^3/u L Nucleated RBC % (a uto) 0 % Nucleated RBCs # 0.0 /100WBC Sodium 136 (136-145) mmol/L Potassium 4.8 (3.5-5.1) mmol/L Chloride 95 L (98-107) mmol/L Carbon Dioxide 30 H (22-29) mmol/L Anion Gap 15.8 (5-19) BUN 43 H (6-20) mg/dL Creatinine 5.7 H* (0.5-0.9) mg/dL GFR Calculation 7.7 L (90-130) mL/min Glucose 183 H (65-115) mg/dL POC Glucose (70-110) mg/dL Calculated Osmolal ity 298 H (285-295) mOsm/k g Calcium 8.9 (8.5-10.5) mg/dL Total Bilirubin 0.6 (0.15-1.2) mg/dL AST 19 (0-32) U/L ALT 15 (0-33) U/L Alkaline Phosphata se 123 H (35-105) IU/L Troponin T Baselin e 64 H (0-10) ng/L Troponin T [address] [place] (0-10) ng/L Delta Troponin T (0-10) ABS# Troponin T Hi Sens 6Hr (0-10) ng/L Troponin T Hi Sens 6Hr Delta (0-12) ng/L Total Protein 7.2 (6.6-8.7) g/dL Albumin 4.1 (3.5-5.2) g/dL Globulin 3.1 (1.3-4.6) g/dL 10/20/20 10/20/20 10/20/20 Range/Units 15:30 15:33 19:10 WBC (4.0-10.0) 10^3/ uL RBC (4.1-5.3) 10^6/u L Hgb (11.5-15.3) g/dL Hct (37.0-47.0) % MCV (81-99) fL MCH (28.0-34.0) pg MCHC (30.0-36.0) g/dL RDW (12.1-15.1) % Plt Count (130-400) 10^3/c mm MPV (7.4-10.4) fL Neut % (Auto) % Lymph % (Auto) % [place] % (Auto) % Eos % (Auto) % Baso % (Auto) % Neut # (Auto) (1.8-7.7) 10^3/u L Lymph # (Auto) (0.8-4.8) 10^3/u L [place] # (Auto) (0.2-0.9) 10^3/u L Eos # (Auto) (0.0-0.8) 10^3/u L Baso # (Auto) (0.0-0.1) 10^3/u L Nucleated RBC % (a uto) % Nucleated RBCs # /100WBC Sodium (136-145) mmol/L Potassium (3.5-5.1) mmol/L Chloride (98-107) mmol/L Carbon Dioxide (22-29) mmol/L Anion Gap (5-19) BUN (6-20) mg/dL Creatinine (0.5-0.9) mg/dL GFR Calculation (90-130) mL/min Glucose (65-115) mg/dL POC Glucose 132 H 124 H (70-110) mg/dL Calculated Osmolal ity (285-295) mOsm/k g Calcium (8.5-10.5) mg/dL Total Bilirubin (0.15-1.2) mg/dL AST (0-32) U/L ALT (0-33) U/L Alkaline Phosphata se (35-105) IU/L Troponin T Baselin e (0-10) ng/L Troponin T 120 Min [place] 59.28 H (0-10) ng/L Delta Troponin T -4.72 L (0-10) ABS# Troponin T Hi Sens 6Hr (0-10) ng/L Troponin T Hi Sens 6Hr Delta (0-12) ng/L Total Protein (6.6-8.7) g/dL Albumin (3.5-5.2) g/dL Globulin (1.3-4.6) g/dL 10/20/20 Range/Units 19:18 WBC (4.0-10.0) 10^3/ uL RBC (4.1-5.3) 10^6/u L Hgb (11.5-15.3) g/dL Hct (37.0-47.0) % MCV (81-99) fL MCH (28.0-34.0) pg MCHC (30.0-36.0) g/dL RDW (12.1-15.1) % Plt Count (130-400) 10^3/c mm MPV (7.4-10.4) fL Neut % (Auto) % Lymph % (Auto) % [place] % (Auto) % Eos % (Auto) % Baso % (Auto) % Neut # (Auto) (1.8-7.7) 10^3/u L Lymph # (Auto) (0.8-4.8) 10^3/u L [place] # (Auto) (0.2-0.9) 10^3/u L Eos # (Auto) (0.0-0.8) 10^3/u L Baso # (Auto) (0.0-0.1) 10^3/u L Nucleated RBC % (a uto) % Nucleated RBCs # /100WBC Sodium (136-145) mmol/L Potassium (3.5-5.1) mmol/L Chloride (98-107) mmol/L Carbon Dioxide (22-29) mmol/L Anion Gap (5-19) BUN (6-20) mg/dL Creatinine (0.5-0.9) mg/dL GFR Calculation (90-130) mL/min Glucose (65-115) mg/dL POC Glucose (70-110) mg/dL Calculated Osmolal ity (285-295) mOsm/k g Calcium (8.5-10.5) mg/dL Total Bilirubin (0.15-1.2) mg/dL AST (0-32) U/L ALT (0-33) U/L Alkaline Phosphata se (35-105) IU/L Troponin T Baselin e (0-10) ng/L Troponin T [address] [place] (0-10) ng/L Delta Troponin T (0-10) ABS# Troponin T Hi Sens 6Hr 62.82 H (0-10) ng/L Troponin T Hi Sens 6Hr Delta -1.18 L (0-12) ng/L Total Protein (6.6-8.7) g/dL Albumin (3.5-5.2) g/dL Globulin (1.3-4.6) g/dL Discharge Plan Discharge Patient Disposition: Home Clinical Impression: Fall as cause of accidental injury at home as place of occurrence Qualifiers: Encounter type: initial encounter Qualified Code(s): W19.XXXA - Unspecified fall, initial encounter Knee pain Qualifiers: Chronicity: acute Laterality: right Qualified Code(s): M25.561 - Pain in right knee Headache Qualifiers: Headache type: post-traumatic Headache chronicity pattern: acute headache Intractability: not intractable Qualified Code(s): G44.319 - Acute post-traumatic headache, not intractable Condition: Stable Prescriptions: No Action epoetin favio 10,000 unit/mL solution See Rx Instructions .ROUTE .COMPLEX RF: 0 acetaminophen 325 mg tablet 650 mg PO Q6H PRN (Reason: Pain) RF: 0 polyethylene glycol 3350 17 gram/dose powder 17 g PO DAILY RF: 0 Venofer 100 mg iron/5 mL solution 100 mg IV DAILY RF: 0 midodrine 10 mg tablet 10 mg PO DAILY RF: 0 miscellaneous medical supply Misc See Rx Instructions miscellaneous .COMPLEX Qty: 1 RF: 0 magnesium sulfate (bulk) [Epsom Salt] 100 % crystals 1 applic topical BID Qty: 2500 RF: 1 mupirocin 2 % ointment 1 applic topical BID Qty: 22 RF: 1 insulin lispro 100 unit/mL insulin pen 5 unit SUBCUT TID RF: 0 ammonium lactate 12 % cream 1 applic topical BID Qty: 140 RF: 5 albuterol sulfate [ProAir HFA] 90 mcg/actuation HFA aerosol inhaler 2 puff INHALATION QID PRN (Reason: shortness of breath or wheezing) 30 Days Qty: 18 RF: 5 clopidogrel [Plavix] 75 mg tablet 75 mg PO DAILY 90 Days Qty: 90 RF: 1 gabapentin 300 mg capsule 300 mg PO TID PRN (Reason: pain in leg) 30 Days Qty: 90 RF: 2 cyclobenzaprine 5 mg tablet 5 mg PO TID PRN (Reason: muscle spasm) Qty: 90 RF: 2 ropinirole 0.5 mg tablet 0.5 mg PO DAILY 30 Days Qty: 30 RF: 2 trazodone 50 mg tablet 150 mg PO BEDTIME Qty: 30 RF: 2 citalopram [Celexa] 20 mg tablet 20 mg PO DAILY Qty: 30 RF: 2 aspirin [Adult Aspirin Regimen] 81 mg tablet,delayed release (DR/EC) 81 mg PO DAILY RF: 0 Lactobacillus acidophilus [Acidophilus] Capsule 10 mg PO DAILY RF: 0 Breo Ellipta 100-25 mcg/dose blister with device 1 inh inhalation DAILY 30 Days Qty: 60 RF: 3 (DME) Depend Underwear For Women XL Misc See Rx Instructions .ROUTE .MEDSUPPLY Qty: 120 RF: 11 triamcinolone acetonide 0.1 % ointment 1 applic topical BID Qty: 453.6 RF: 2 hydrocortisone 2.5 % ointment 1 applic topical BID PRN (Reason: skin irritation) Qty: 453.6 RF: 1 [facility] See Rx Instructions miscellaneous .COMPLEX Qty: 1 RF: 0 nitroglycerin 0.4 mg tablet, sublingual 0.4 mg sublingual Q5M PRN (Reason: chest pain) Qty: 25 RF: 3 pravastatin 10 mg tablet 10 mg PO DAILY Qty: 30 RF: 5 midodrine 5 mg tablet See Rx Instructions .ROUTE .COMPLEX RF: 0 calcium acetate(phosphat bind) 667 mg capsule See Rx Instructions .ROUTE .COMPLEX RF: 0 lanthanum 750 mg tablet,chewable See Rx Instructions .ROUTE .COMPLEX RF: 0 RenaPlex-D 800 mcg-12.5 mg -2,000 unit tablet 1 tab PO DAILY RF: 0 hydroxyzine pamoate 25 mg capsule 25 mg PO TID RF: 0 Wellbutrin XL 150 mg tablet extended release 24 hr 150 mg PO DAILY RF: 0 atorvastatin 10 mg Tablet 10 mg PO DAILY RF: 0 pramipexole 0.5 mg tablet 1 mg PO TID RF: 0 Discharge Orders: Discharge ED (Routine); Ordered 10/20/20 Ordered By: Arjun Pemberton Referrals: Kate Marcelino MD [Primary Care Provider] - Discharge Diet: Regular Discharge Activity: Increase activity as tolerated Patient Instructions: Fall Prevention (ED) Activity Restrictions/Additional Instructions: Follow-up with medical provider as directed in 5 to 7 days for reevaluation. Continue taking all home medications as prescribed. Rest, ice and elevate right leg to help with symptoms. Take [id number] Tylenol as needed for pain. Return to the ER or your medical provider if condition worsens. Please read and understand discharge instructions. Thank you for choosing [facility] for your healthcare needs today. Please realize this is an emergency room and that we are providing you with a medical screening exam and this may not be complete and all inclusive of all the testing and or work up that you may need to determine your ailment or severity of your illness. It is very important that you follow up as instructed or that you return to the Emergency Department should you have concerns or if your condition changes or worsens in any way. Sign Out Sign Out Data: Patient Sign Out occurred on 10/20/20 at 17:15. Patient's care was discussed, and care was transferred from to REJI Camacho. Coding Level of Care Code ED Cloth Measurer for Chg Fwd Exam Comprehensive Documented by User: Mick Kramer MD 10/21/20 11:15 HPI - Fall General: Chief Complaint: Fall Stated Complaint: FALL Time Seen by Provider: 10/20/20 12:15 [facility] PFSH: Medical History Allergic rhinitis COPD (chronic obstructive pulmonary disease) Diabetes mellitus Encounter for screening colonoscopy History of 2019 novel coronavirus disease (COVID-19) + swab on 04/12/2020 Insomnia Major depressive disorder, recurrent severe without psychotic features Mixed stress and urge urinary incontinence LUIS EDUARDO (obstructive sleep apnea) Plaque psoriasis Psoriasis Restless leg syndrome Surgical History H/O hernia repair History of appendectomy Family History Family/Other Diabetes Brother Diabetes Grandmother CAD (coronary artery disease) Mother CAD (coronary artery disease) Cancer Denies family history of Clotting disorder Dementia Hyperlipidemia Psychiatric illness Chronic kidney disease (CKD) Suicide Anesthesia complication Bleeding disorder Family history of premature coronary artery disease Lung disease Hypertension Stroke Social History Smoking and tobacco status: never smoked Second hand smoke exposure: Yes Alcohol intake: never Adopted: No Caregiver/support person: No Lives independently: Yes Housing: Apartment Marital status: Single Current occupational status: disabled History of recent travel: No Current gender identity: Female Course Vital Signs: Vital signs: Vital Signs Temperature 99.1 F 10/20/20 12:16 Pulse Rate 91 10/20/20 20:44 Respiratory Rate 18 10/20/20 20:44 Blood Pressure 149/82 10/20/20 20:44 Pulse Oximetry 98 10/20/20 20:44 MDM - Fall Lab Data: Labs: Lab Results 10/20/20 10/20/20 10/20/20 Range/Units 13:07 13:07 13:07 WBC 8.9 (4.0-10.0) 10^3/ uL RBC 3.78 L (4.1-5.3) 10^6/u L Hgb 11.9 (11.5-15.3) g/dL Hct 38.2 (37.0-47.0) % MCV 101.1 H (81-99) fL MCH 31.5 (28.0-34.0) pg MCHC 31.2 (30.0-36.0) g/dL RDW 15.2 H (12.1-15.1) % Plt Count 140 (130-400) 10^3/c mm MPV 10.7 H (7.4-10.4) fL Neut % (Auto) 75.3 % Lymph % (Auto) 10.2 % [place] % (Auto) 5.6 % Eos % (Auto) 7.5 % Baso % (Auto) 0.8 % Neut # (Auto) 6.72 (1.8-7.7) 10^3/u L Lymph # (Auto) 0.9 (0.8-4.8) 10^3/u L [place] # (Auto) 0.5 (0.2-0.9) 10^3/u L Eos # (Auto) 0.7 (0.0-0.8) 10^3/u L Baso # (Auto) 0.1 (0.0-0.1) 10^3/u L Nucleated RBC % (a uto) 0 % Nucleated RBCs # 0.0 /100WBC Sodium 136 (136-145) mmol/L Potassium 4.8 (3.5-5.1) mmol/L Chloride 95 L (98-107) mmol/L Carbon Dioxide 30 H (22-29) mmol/L Anion Gap 15.8 (5-19) BUN 43 H (6-20) mg/dL Creatinine 5.7 H* (0.5-0.9) mg/dL GFR Calculation 7.7 L (90-130) mL/min Glucose 183 H (65-115) mg/dL POC Glucose (70-110) mg/dL Calculated Osmolal ity 298 H (285-295) mOsm/k g Calcium 8.9 (8.5-10.5) mg/dL Total Bilirubin 0.6 (0.15-1.2) mg/dL AST 19 (0-32) U/L ALT 15 (0-33) U/L Alkaline Phosphata se 123 H (35-105) IU/L Troponin T Baselin e 64 H (0-10) ng/L Troponin T [address] [place] (0-10) ng/L Delta Troponin T (0-10) ABS# Troponin T Hi Sens 6Hr (0-10) ng/L Troponin T Hi Sens 6Hr Delta (0-12) ng/L Total Protein 7.2 (6.6-8.7) g/dL Albumin 4.1 (3.5-5.2) g/dL Globulin 3.1 (1.3-4.6) g/dL 10/20/20 10/20/20 10/20/20 Range/Units 15:30 15:33 19:10 WBC (4.0-10.0) 10^3/ uL RBC (4.1-5.3) 10^6/u L Hgb (11.5-15.3) g/dL Hct (37.0-47.0) % MCV (81-99) fL MCH (28.0-34.0) pg MCHC (30.0-36.0) g/dL RDW (12.1-15.1) % Plt Count (130-400) 10^3/c mm MPV (7.4-10.4) fL Neut % (Auto) % Lymph % (Auto) % [place] % (Auto) % Eos % (Auto) % Baso % (Auto) % Neut # (Auto) (1.8-7.7) 10^3/u L Lymph # (Auto) (0.8-4.8) 10^3/u L [place] # (Auto) (0.2-0.9) 10^3/u L Eos # (Auto) (0.0-0.8) 10^3/u L Baso # (Auto) (0.0-0.1) 10^3/u L Nucleated RBC % (a uto) % Nucleated RBCs # /100WBC Sodium (136-145) mmol/L Potassium (3.5-5.1) mmol/L Chloride (98-107) mmol/L Carbon Dioxide (22-29) mmol/L Anion Gap (5-19) BUN (6-20) mg/dL Creatinine (0.5-0.9) mg/dL GFR Calculation (90-130) mL/min Glucose (65-115) mg/dL POC Glucose 132 H 124 H (70-110) mg/dL Calculated Osmolal ity (285-295) mOsm/k g Calcium (8.5-10.5) mg/dL Total Bilirubin (0.15-1.2) mg/dL AST (0-32) U/L ALT (0-33) U/L Alkaline Phosphata se (35-105) IU/L Troponin T Baselin e (0-10) ng/L Troponin T [address] [place] 59.28 H (0-10) ng/L Delta Troponin T -4.72 L (0-10) ABS# Troponin T Hi Sens 6Hr (0-10) ng/L Troponin T Hi Sens 6Hr Delta (0-12) ng/L Total Protein (6.6-8.7) g/dL Albumin (3.5-5.2) g/dL Globulin (1.3-4.6) g/dL 10/20/20 Range/Units 19:18 WBC (4.0-10.0) 10^3/ uL RBC (4.1-5.3) 10^6/u L Hgb (11.5-15.3) g/dL Hct (37.0-47.0) % MCV (81-99) fL MCH (28.0-34.0) pg MCHC (30.0-36.0) g/dL RDW (12.1-15.1) % Plt Count (130-400) 10^3/c mm MPV (7.4-10.4) fL Neut % (Auto) % Lymph % (Auto) % [place] % (Auto) % Eos % (Auto) % Baso % (Auto) % Neut # (Auto) (1.8-7.7) 10^3/u L Lymph # (Auto) (0.8-4.8) 10^3/u L [place] # (Auto) (0.2-0.9) 10^3/u L Eos # (Auto) (0.0-0.8) 10^3/u L Baso # (Auto) (0.0-0.1) 10^3/u L Nucleated RBC % (a uto) % Nucleated RBCs # /100WBC Sodium (136-145) mmol/L Potassium (3.5-5.1) mmol/L Chloride (98-107) mmol/L Carbon Dioxide (22-29) mmol/L Anion Gap (5-19) BUN (6-20) mg/dL Creatinine (0.5-0.9) mg/dL GFR Calculation (90-130) mL/min Glucose (65-115) mg/dL POC Glucose (70-110) mg/dL Calculated Osmolal ity (285-295) mOsm/k g Calcium (8.5-10.5) mg/dL Total Bilirubin (0.15-1.2) mg/dL AST (0-32) U/L ALT (0-33) U/L Alkaline Phosphata se (35-105) IU/L Troponin T Baselin e (0-10) ng/L Troponin T 120 Min [place] (0-10) ng/L Delta Troponin T (0-10) ABS# Troponin T Hi Sens 6Hr 62.82 H (0-10) ng/L Troponin T Hi Sens 6Hr Delta -1.18 L (0-12) ng/L Total Protein (6.6-8.7) g/dL Albumin (3.5-5.2) g/dL Globulin (1.3-4.6) g/dL Discharge Plan Discharge Patient Disposition: Home Clinical Impression: Fall as cause of accidental injury at home as place of occurrence Qualifiers: Encounter type: initial encounter Qualified Code(s): W19.XXXA - Unspecified fall, initial encounter Knee pain Qualifiers: Chronicity: acute Laterality: right Qualified Code(s): M25.561 - Pain in right knee Headache Qualifiers: Headache type: post-traumatic Headache chronicity pattern: acute headache Intractability: not intractable Qualified Code(s): G44.319 - Acute post-traumatic headache, not intractable Condition: Stable Prescriptions: No Action epoetin favio 10,000 unit/mL solution See Rx Instructions .ROUTE .COMPLEX RF: 0 acetaminophen 325 mg tablet 650 mg PO Q6H PRN (Reason: Pain) RF: 0 polyethylene glycol 3350 17 gram/dose powder 17 g PO DAILY RF: 0 Venofer 100 mg iron/5 mL solution 100 mg IV DAILY RF: 0 midodrine 10 mg tablet 10 mg PO DAILY RF: 0 miscellaneous medical supply Misc See Rx Instructions miscellaneous .COMPLEX Qty: 1 RF: 0 magnesium sulfate (bulk) [Epsom Salt] 100 % crystals 1 applic topical BID Qty: 2500 RF: 1 mupirocin 2 % ointment 1 applic topical BID Qty: 22 RF: 1 insulin lispro 100 unit/mL insulin pen 5 unit SUBCUT TID RF: 0 ammonium lactate 12 % cream 1 applic topical BID Qty: 140 RF: 5 albuterol sulfate [ProAir HFA] 90 mcg/actuation HFA aerosol inhaler 2 puff INHALATION QID PRN (Reason: shortness of breath or wheezing) 30 Days Qty: 18 RF: 5 clopidogrel [Plavix] 75 mg tablet 75 mg PO DAILY 90 Days Qty: 90 RF: 1 gabapentin 300 mg capsule 300 mg PO TID PRN (Reason: pain in leg) 30 Days Qty: 90 RF: 2 cyclobenzaprine 5 mg tablet 5 mg PO TID PRN (Reason: muscle spasm) Qty: 90 RF: 2 ropinirole 0.5 mg tablet 0.5 mg PO DAILY 30 Days Qty: 30 RF: 2 trazodone 50 mg tablet 150 mg PO BEDTIME Qty: 30 RF: 2 citalopram [Celexa] 20 mg tablet 20 mg PO DAILY Qty: 30 RF: 2 aspirin [Adult Aspirin Regimen] 81 mg tablet,delayed release (DR/EC) 81 mg PO DAILY RF: 0 Lactobacillus acidophilus [Acidophilus] Capsule 10 mg PO DAILY RF: 0 Breo Ellipta 100-25 mcg/dose blister with device 1 inh inhalation DAILY 30 Days Qty: 60 RF: 3 (DME) Depend Underwear For Women XL Misc See Rx Instructions .ROUTE .MEDSUPPLY Qty: 120 RF: 11 triamcinolone acetonide 0.1 % ointment 1 applic topical BID Qty: 453.6 RF: 2 hydrocortisone 2.5 % ointment 1 applic topical BID PRN (Reason: skin irritation) Qty: 453.6 RF: 1 miscellaneous medical supply Misc See Rx Instructions miscellaneous .COMPLEX Qty: 1 RF: 0 nitroglycerin 0.4 mg tablet, sublingual 0.4 mg sublingual Q5M PRN (Reason: chest pain) Qty: 25 RF: 3 pravastatin 10 mg tablet 10 mg PO DAILY Qty: 30 RF: 5 midodrine 5 mg tablet See Rx Instructions .ROUTE .COMPLEX RF: 0 calcium acetate(phosphat bind) 667 mg capsule See Rx Instructions .ROUTE .COMPLEX RF: 0 lanthanum 750 mg tablet,chewable See Rx Instructions .ROUTE .COMPLEX RF: 0 RenaPlex-D 800 mcg-12.5 mg -2,000 unit tablet 1 tab PO DAILY RF: 0 hydroxyzine pamoate 25 mg capsule 25 mg PO TID RF: 0 Wellbutrin XL 150 mg tablet extended release 24 hr 150 mg PO DAILY RF: 0 atorvastatin 10 mg Tablet 10 mg PO DAILY RF: 0 pramipexole 0.5 mg tablet 1 mg PO TID RF: 0 Discharge Orders: Discharge ED (Routine); Ordered 10/20/20 Ordered By: Arjun Pemberton Referrals: Kate Marcelino MD [Primary Care Provider] - Discharge Diet: Regular Discharge Activity: Increase activity as tolerated Patient Instructions: Fall Prevention (ED) Activity Restrictions/Additional Instructions: Follow-up with medical provider as directed in 5 to 7 days for reevaluation. Continue taking all home medications as prescribed. Rest, ice and elevate right leg to help with symptoms. Take [id number] Tylenol as needed for pain. Return to the ER or your medical provider if condition worsens. Please read and understand discharge instructions. Thank you for choosing [facility] for your healthcare needs today. Please realize this is an emergency room and that we are providing you with a medical screening exam and this may not be complete and all inclusive of all the testing and or work up that you may need to determine your ailment or severity of your illness. It is very important that you follow up as instructed or that you return to the Emergency Department should you have concerns or if your condition changes or worsens in any way. Sign Out Sign Out Data: Patient Sign Out occurred on 10/20/20 at 17:15. Patient's care was discussed, and care was transferred from to REJI Camacho. Coding Level of Care Code ED Cloth Measurer for Kulwinder Fwaldo Exam Comprehensive
--- NOTE | 2020-10-20 18:27 | ECG_ITS ---
[facility] Test Date: 2020-10-20 Pat Name: Kerri Fregoso Department: Room: Gender: Female Wig Stylist: : 1965 Requested By: Ramya Portillo Order Number: [id number] Marisela MD: Yasmin Priest M.D. Measurements Intervals Roland Rate: 79 P: 56 [place]: 180 QRS: 84 QRSD: 88 T: 77 QT: 381 QTc: 437 Interpretive Statements SINUS RHYTHM LOW QRS VOLTAGE IN PRECORDIAL LEADS [QRS DEFLECTION < 1.0 mV IN CHEST LEADS] SEPTAL MYOCARDIAL INFARCTION [40+ ms Q WAVE IN V1/V2], OF INDETERMINATE AGE Compared to ECG 10/20/2020 15:24:48 Low QRS voltage now present Myocardial infarct finding still present Electronically Signed On 10-21-2020 7:07:34 CDT by Yasmin Priest M.D. [email or web address]
[2020-10-20 19:13] LABS: Glucose Point of Care 124 mg/dL (70-110)
--- NOTE | 2020-10-20 19:13 | PC.NURSE ---
pt updates on plan of care of possible dc pending results of 2hr trop
[2020-10-20 20:10] LABS: Troponin 5 6HR 62.82 ng/L (0-10); Troponin 5 6HR Delta -1.18 ng/L (0-12)
== END 2020-10-20 20:38 | disposition home or self-care (01) ==
PROVIDERS: Registered Nurse; Emergency Provider Physician Assistant; PCP Family Medicine
DX: G44.319 Acute post-traumatic headache, not intractable (principal); M25.561 Pain in right knee; Z79.02 Long term (current) use of antithrombotics/antiplatelets; Z79.82 Long term (current) use of aspirin; J44.9 Chronic obstructive pulmonary disease, unspecified; E11.9 Type 2 diabetes mellitus without complications; Z77.22 Contact with and (suspected) exposure to environmental tobacco smoke (acute) (chronic)
CPT/HCPCS: 36416; 70450; 71045; 72125; 73030; 73502; 73562; 80053; 82962; 84484; 85025; 93005; 99284

== ENCOUNTER 2020-10-21 04:12 | Emergency (ER) | payer MEDICARE, MEDICAID, SELFPAY ==
[2020-05-25 09:01] VITALS: BP 153/85; BMI 44.4
[2020-10-21] MEDS: HYDROcodone-acetaminophen 7.5-325 mg Tablet 1 TAB PO (04:31)
[2020-10-21 04:32] VITALS: BP 99/45; PULSE 74; RESP 18; TEMP 36.6; O2SAT 99; BMI 42.9
--- NOTE | 2020-10-21 04:35 | PC.NURSE ---
vo obtained from for АННА wrap R knee and apply ice pack. Pt tolerated procedure well
--- NOTE | 2020-10-21 04:36 | ED_ITS ---
HPI - Extremity Problem General: Chief complaint: Extremity Problem,Nontraumatic Stated complaint: Rt leg Pain Time Seen by Provider: 10/21/20 04:23 Source: patient Mode of arrival: ambulatory Limitations: no limitations History of Present Illness: HPI Narrative: 55-year-old female who came in by ambulance 12 hours ago and was seen here in the ER after a fall. Patient had imaging done was all negative discharge. She has been waiting for ride outside states her knee is gotten stiff and painful. She states it is her right knee and rates the pain a 4 out of 10 currently. Denies any worsening proving factors. Associated symptoms: Deny chest pain, fever(s) or rash Review of Systems Const: Denies: fever(s), chills, body aches or change in appetite Eyes: Denies: blurry vision or eye discomfort ENMT: Denies: throat pain or dental pain Card: Denies: chest pain Resp: Denies: dyspnea GI: Denies: abdominal pain, nausea, vomiting or diarrhea : Denies: dysuria Musc: Reports: extremity pain Skin/Breast: Denies: rash Neuro: Denies: headache(s) Psych: Denies: depression Latrell/Lymph: Denies: easy bruising All/Imm: Denies: urticaria PFSH ED PFSH: Medical History Allergic rhinitis COPD (chronic obstructive pulmonary disease) Diabetes mellitus Encounter for screening colonoscopy History of 2019 novel coronavirus disease (COVID-19) + swab on 04/12/2020 Insomnia Major depressive disorder, recurrent severe without psychotic features Mixed stress and urge urinary incontinence LUIS EDUARDO (obstructive sleep apnea) Plaque psoriasis Psoriasis Restless leg syndrome Surgical History H/O hernia repair History of appendectomy Family History Family/Other Diabetes Brother Diabetes Grandmother CAD (coronary artery disease) Mother CAD (coronary artery disease) Cancer Denies family history of Clotting disorder Dementia Hyperlipidemia Psychiatric illness Chronic kidney disease (CKD) Suicide Anesthesia complication Bleeding disorder Family history of premature coronary artery disease Lung disease Hypertension Stroke Social History Smoking and tobacco status: never smoked Second hand smoke exposure: Yes Alcohol intake: never Adopted: No Caregiver/support person: No Lives independently: Yes Housing: Apartment Marital status: Single Current occupational status: disabled History of recent travel: No Current gender identity: Female Female Reproductive History: Spontaneous abortions: No Physical Exam Const: COMMON NORMALS: no acute distress, patient oriented x3 and healthy appearing HENMT: COMMON NORMALS: normocephalic and atraumatic HEAD & SCALP: normocephalic and atraumatic Eye: COMMON NORMALS: Equal, round and reactive pupils present and EOMs intact bilaterally PUPIL: Yes Equal, round and reactive pupils present Neck/C-Spine: COMMON NORMALS: full ROM and supple Chest: COMMONS NORMALS: normal inspection of the chest and normal palpation of entire chest wall Resp: COMMON NORMALS: normal respiratory effort, No retractions, No use of accessory muscles and clear to auscultation bilaterally AUSCULTATION: clear to auscultation bilaterally Cardio: COMMON NORMALS: regular rate, regular rhythm and No murmurs present (Cardio) RATE: regular rate RHYTHM: regular rhythm GI: COMMON NORMALS: Normal to inspection, nondistended, normoactive bowel sounds present, Soft to palpation, non-tender and no masses PALPATION: Yes Soft to palpation Extremity: COMMON NORMALS: full ROM NARRATIVE EXTREMITY EXAM: Slight tenderness to right knee with no obvious deformity patient is able to ambulate. Neuro: COMMON NORMALS: patient oriented x3, moves all extremities and no focal motor deficits Psych: COMMON NORMALS: mental status grossly normal, Normal thought process present and cooperative THOUGHT PROCESS: Normal thought process present Skin: COMMON NORMALS: no rashes or lesions noted and no wounds GENERAL SKIN EXAM: no rashes or lesions noted Course Vital Signs: Vital signs: Vital Signs Temperature 97.9 F 10/21/20 04:32 Pulse Rate 74 10/21/20 04:32 Respiratory Rate 18 10/21/20 04:32 Blood Pressure 99/45 10/21/20 04:32 Pulse Oximetry 99 10/21/20 04:32 MDM - Extremity (Nontraumatic) MDM Narrative: Medical decision making narrative: Patient presents with knee pain. Her x-ray earlier was negative. She likely got stiff sitting in chair in the waiting room for 12 hours. Patient given pain meds here and she feels improved. She is stable for discharge. Discharge Plan Discharge Patient Disposition: Home Clinical Impression: Pain in right knee Qualifiers: Chronicity: acute Qualified Code(s): M25.561 - Pain in right knee Condition: Stable Prescriptions: No Action epoetin favio 10,000 unit/mL solution See Rx Instructions .ROUTE .COMPLEX RF: 0 acetaminophen 325 mg tablet 650 mg PO Q6H PRN (Reason: Pain) RF: 0 polyethylene glycol 3350 17 gram/dose powder 17 g PO DAILY RF: 0 Venofer 100 mg iron/5 mL solution 100 mg IV DAILY RF: 0 midodrine 10 mg tablet 10 mg PO DAILY RF: 0 miscellaneous medical supply Misc See Rx Instructions miscellaneous .COMPLEX Qty: 1 RF: 0 magnesium sulfate (bulk) [Epsom Salt] 100 % crystals 1 applic topical BID Qty: 2500 RF: 1 mupirocin 2 % ointment 1 applic topical BID Qty: 22 RF: 1 insulin lispro 100 unit/mL insulin pen 5 unit SUBCUT TID RF: 0 ammonium lactate 12 % cream 1 applic topical BID Qty: 140 RF: 5 albuterol sulfate [ProAir HFA] 90 mcg/actuation HFA aerosol inhaler 2 puff INHALATION QID PRN (Reason: shortness of breath or wheezing) 30 Days Qty: 18 RF: 5 clopidogrel [Plavix] 75 mg tablet 75 mg PO DAILY 90 Days Qty: 90 RF: 1 gabapentin 300 mg capsule 300 mg PO TID PRN (Reason: pain in leg) 30 Days Qty: 90 RF: 2 cyclobenzaprine 5 mg tablet 5 mg PO TID PRN (Reason: muscle spasm) Qty: 90 RF: 2 ropinirole 0.5 mg tablet 0.5 mg PO DAILY 30 Days Qty: 30 RF: 2 trazodone 50 mg tablet 150 mg PO BEDTIME Qty: 30 RF: 2 citalopram [Celexa] 20 mg tablet 20 mg PO DAILY Qty: 30 RF: 2 aspirin [Adult Aspirin Regimen] 81 mg tablet,delayed release (DR/EC) 81 mg PO DAILY RF: 0 Lactobacillus acidophilus [Acidophilus] Capsule 10 mg PO DAILY RF: 0 Breo Ellipta 100-25 mcg/dose blister with device 1 inh inhalation DAILY 30 Days Qty: 60 RF: 3 (DME) Depend Underwear For Women XL Misc See Rx Instructions .ROUTE .MEDSUPPLY Qty: 120 RF: 11 triamcinolone acetonide 0.1 % ointment 1 applic topical BID Qty: 453.6 RF: 2 hydrocortisone 2.5 % ointment 1 applic topical BID PRN (Reason: skin irritation) Qty: 453.6 RF: 1 miscellaneous medical supply Misc See Rx Instructions miscellaneous .COMPLEX Qty: 1 RF: 0 nitroglycerin 0.4 mg tablet, sublingual 0.4 mg sublingual Q5M PRN (Reason: chest pain) Qty: 25 RF: 3 pravastatin 10 mg tablet 10 mg PO DAILY Qty: 30 RF: 5 midodrine 5 mg tablet See Rx Instructions .ROUTE .COMPLEX RF: 0 calcium acetate(phosphat bind) 667 mg capsule See Rx Instructions .ROUTE .COMPLEX RF: 0 lanthanum 750 mg tablet,chewable See Rx Instructions .ROUTE .COMPLEX RF: 0 RenaPlex-D 800 mcg-12.5 mg -2,000 unit tablet 1 tab PO DAILY RF: 0 hydroxyzine pamoate 25 mg capsule 25 mg PO TID RF: 0 Wellbutrin XL 150 mg tablet extended release 24 hr 150 mg PO DAILY RF: 0 atorvastatin 10 mg Tablet 10 mg PO DAILY RF: 0 pramipexole 0.5 mg tablet 1 mg PO TID RF: 0 Discharge Orders: Discharge ED (Routine); Ordered 10/21/20 Ordered By: Efren Husain Referrals: Kate Marcelino MD [Primary Care Provider] - Discharge Diet: Advance as tolerated Discharge Activity: Resume usual activity Patient Instructions: Knee Pain (ED) Coding Level of Care Code ED Manufacturing Maintenance Technician for Chg Fwd Exam Comprehensive
[2020-10-21 05:46] VITALS: BP 109/57; PULSE 81; RESP 16; O2SAT 95
== END 2020-10-21 05:47 | disposition home or self-care (01) ==
PROVIDERS: Emergency Provider Emergency Medicine; PCP Family Medicine
DX: M25.561 Pain in right knee (principal)
CPT/HCPCS: 99283

== ENCOUNTER → 2020-11-15 15:35 | Outpatient (BNVA) | payer MEDICARE, MEDICAID, SELFPAY ==
[2020-05-25 09:01] VITALS: BP 153/85; BMI 44.4
== END ==
PROVIDERS: PCP Family Medicine; Referring Provider Family Medicine; Visit Provider Obstetrics & Gynecology
DX: Z12.4 Encounter for screening for malignant neoplasm of cervix (principal)
CPT/HCPCS: 88175

== ENCOUNTER 2020-12-28 16:16 | Emergency (ER) | payer MEDICARE, MEDICAID, SELFPAY ==
[2020-05-25 09:01] VITALS: BP 153/85; BMI 44.4
[2020-12-28 16:27] VITALS: BP 116/54; PULSE 92; RESP 20; TEMP 36.9; O2SAT 91; BMI 41.5
--- NOTE | 2020-12-28 19:34 | W.ED.GENADLT ---
HPI - General Adult General: Chief complaint: General Medical Stated complaint: PAIN ALL EXTREMITIES/ CHAUDHRY Time Seen by Provider: 12/28/20 19:27 History of Present Illness: HPI narrative: Patient said she felt bad after dialysis today that she had pain all over but now that it is gone she did arrive by EMS. She has no complaints or problems at this time and requesting go home. Onset (ago): hour(s) Associated symptoms: Reports nausea and rash; Deny chest pain, dyspnea, headache(s) or vomiting Review of Systems Narrative: Originally had pain and weakness after dialysis today but has no complaints problems this time Const: Denies: fever(s), chills or body aches Eyes: Denies: change in vision or blurry vision ENMT: Denies: throat pain or nasal congestion Card: Denies: chest pain or dyspnea on exertion Resp: Denies: dyspnea, productive cough or non-productive cough GI: Reports: nausea; Denies: abdominal pain or vomiting Musc: Denies: extremity pain Skin/Breast: Reports: rash Neuro: Denies: headache(s) Psych: Denies: anxiety or depression Latrell/Lymph: Denies: easy bruising PFSH ED PFSH: Medical History Allergic rhinitis COPD (chronic obstructive pulmonary disease) Diabetes mellitus Encounter for screening colonoscopy History of 2019 novel coronavirus disease (COVID-19) + swab on 04/12/2020 Insomnia Major depressive disorder, recurrent severe without psychotic features Mixed stress and urge urinary incontinence LUIS EDUARDO (obstructive sleep apnea) Plaque psoriasis Psoriasis Restless leg syndrome Surgical History H/O hernia repair History of appendectomy Family History Family/Other Diabetes Brother Diabetes Grandmother CAD (coronary artery disease) Bleeding disorder Maternal Mother CAD (coronary artery disease) Cancer stomach cancer Denies family history of Clotting disorder Dementia Hyperlipidemia Psychiatric illness Chronic kidney disease (CKD) Suicide Anesthesia complication Family history of premature coronary artery disease Lung disease Hypertension Stroke Social History Smoking and tobacco status: never smoked Second hand smoke exposure: Yes Alcohol intake: never Adopted: No Caregiver/support person: No Lives independently: Yes Housing: Apartment Marital status: Single Current occupational status: disabled History of recent travel: No Current gender identity: Female Female Reproductive History: Spontaneous abortions: No Physical Exam Const: COMMON NORMALS: no acute distress GENERAL APPEARANCE: cooperative Resp: COMMON NORMALS: normal respiratory effort and No use of accessory muscles Psych: COMMON NORMALS: mental status grossly normal Skin: OTHER: Has dry skin to face and forehead. Chronic Course Vital Signs: Vital signs: Vital Signs Temperature 98.5 F 12/28/20 16:27 Pulse Rate 92 12/28/20 16:27 Respiratory Rate 20 H 12/28/20 16:27 Blood Pressure 116/54 12/28/20 16:27 Pulse Oximetry 91 12/28/20 16:27 MDM - General Adult MDM Narrative: Medical decision making narrative: Patient says she feels fine now requesting go home. Asked for a ride to get her home. Does not want a work-up. Discharge Plan Discharge Patient Disposition: Home Clinical Impression: ESRD on dialysis Condition: Stable Prescriptions: No Action epoetin favio 10,000 unit/mL solution See Rx Instructions .ROUTE .COMPLEX RF: 0 acetaminophen 325 mg tablet 650 mg PO Q6H PRN (Reason: Pain) RF: 0 polyethylene glycol 3350 17 gram/dose powder 17 g PO DAILY RF: 0 Venofer 100 mg iron/5 mL solution 100 mg IV DAILY RF: 0 midodrine 10 mg tablet 10 mg PO DAILY RF: 0 magnesium sulfate (bulk) [Epsom Salt] 100 % crystals 1 applic topical BID Qty: 2500 RF: 1 mupirocin 2 % ointment 1 applic topical BID Qty: 22 RF: 1 insulin lispro 100 unit/mL insulin pen 5 unit SUBCUT TID PRNRF: 0 ammonium lactate 12 % cream 1 applic topical BID Qty: 140 RF: 5 albuterol sulfate [ProAir HFA] 90 mcg/actuation HFA aerosol inhaler 2 puff INHALATION QID PRN (Reason: shortness of breath or wheezing) 30 Days Qty: 18 RF: 5 clopidogrel [Plavix] 75 mg tablet 75 mg PO DAILY 90 Days Qty: 90 RF: 1 gabapentin 300 mg capsule 300 mg PO TID PRN (Reason: pain in leg) 30 Days Qty: 90 RF: 2 cyclobenzaprine 5 mg tablet 5 mg PO TID PRN (Reason: muscle spasm) Qty: 90 RF: 2 ropinirole 0.5 mg tablet 0.5 mg PO DAILY 30 Days Qty: 30 RF: 2 trazodone 50 mg tablet 150 mg PO BEDTIME Qty: 30 RF: 2 aspirin [Adult Aspirin Regimen] 81 mg tablet,delayed release (DR/EC) 81 mg PO DAILY RF: 0 Lactobacillus acidophilus [Acidophilus] Capsule 10 mg PO DAILY RF: 0 Breo Ellipta 100-25 mcg/dose blister with device 1 inh inhalation DAILY 30 Days Qty: 60 RF: 3 (DME) Depend Underwear For Women XL Misc See Rx Instructions .ROUTE .MEDSUPPLY Qty: 120 RF: 11 triamcinolone acetonide 0.1 % ointment 1 applic topical BID Qty: 453.6 RF: 2 calcipotriene 0.005 % cream 1 applic topical BID Qty: 120 RF: 2 clobetasol 0.05 % ointment 1 applic topical BID 14 Days Qty: 60 RF: 3 hydrocortisone 2.5 % ointment 1 applic topical BID PRN (Reason: skin irritation) Qty: 453.6 RF: 1 Wellbutrin XL 150 mg tablet extended release 24 hr 150 mg PO DAILY Qty: 30 RF: 3 citalopram [Celexa] 20 mg tablet 20 mg PO DAILY Qty: 30 RF: 3 miscellaneous medical supply Misc See Rx Instructions miscellaneous .COMPLEX Qty: 1 RF: 0 miscellaneous medical supply [facility] [place] Rx Instructions miscellaneous .COMPLEX Qty: 1 RF: 0 nitroglycerin 0.4 mg tablet, sublingual 0.4 mg sublingual Q5M PRN (Reason: chest pain) Qty: 25 RF: 3 pravastatin 10 mg tablet 10 mg PO DAILY Qty: 30 RF: 5 midodrine 5 mg tablet See Rx Instructions .ROUTE .COMPLEX RF: 0 calcium acetate(phosphat bind) 667 mg capsule See Rx Instructions .ROUTE .COMPLEX RF: 0 lanthanum 750 mg tablet,chewable See Rx Instructions .ROUTE .COMPLEX RF: 0 RenaPlex-D 800 mcg-12.5 mg -2,000 unit tablet 1 tab PO DAILY RF: 0 hydroxyzine pamoate 25 mg capsule 25 mg PO TID RF: 0 atorvastatin 10 mg Tablet 10 mg PO DAILY RF: 0 pramipexole 0.5 mg tablet 1 mg PO TID RF: 0 Discharge Orders: Discharge ED (Routine); Ordered 12/28/20 Ordered By: Cosme Rowley Referrals: Kate Marcelino MD [Primary Care Provider] - Discharge Diet: Usual diet Discharge Activity: Increase activity as tolerated Activity Restrictions/Additional Instructions: Follow-up with dialysis clinic as scheduled. Follow-up your family medical provider as necessary. Can return to ER if condition worsens. 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
--- NOTE | 2020-12-28 19:45 | PC.NURSE ---
pt states she had dialysis today and she 'never feels this bad' everyone told her she needed to be here. pt had o2 had home.
[2020-12-28 20:03] VITALS: BP 103/66; PULSE 88; RESP 21; O2SAT 98
== END 2020-12-28 20:10 | disposition home or self-care (01) ==
PROVIDERS: Emergency Provider Nurse Practitioner Family; PCP Family Medicine
DX: E11.22 Type 2 diabetes mellitus with diabetic chronic kidney disease (principal); N18.6 End stage renal disease; Z99.2 Dependence on renal dialysis; Z79.02 Long term (current) use of antithrombotics/antiplatelets; Z79.82 Long term (current) use of aspirin; Z79.4 Long term (current) use of insulin; J44.9 Chronic obstructive pulmonary disease, unspecified; Z77.22 Contact with and (suspected) exposure to environmental tobacco smoke (acute) (chronic)
CPT/HCPCS: 99281

== ENCOUNTER → 2021-01-18 09:50 | Outpatient (BNVA) | payer MEDICARE, MEDICAID, SELFPAY ==
[2020-05-25 09:01] VITALS: BP 153/85; BMI 44.4
== END ==
PROVIDERS: PCP Family Medicine; Visit Provider Family Medicine
DX: E11.22 Type 2 diabetes mellitus with diabetic chronic kidney disease (principal); N18.6 End stage renal disease
CPT/HCPCS: 80048; 83036

== ENCOUNTER → 2021-01-20 08:38 | Outpatient (BNVA) | payer MEDICARE, MEDICAID, SELFPAY ==
[2020-05-25 09:01] VITALS: BP 153/85; BMI 44.4
== END ==
PROVIDERS: PCP Family Medicine; Visit Provider Internal Medicine
DX: E11.49 Type 2 diabetes mellitus with other diabetic neurological complication (principal); E11.319 Type 2 diabetes mellitus with unspecified diabetic retinopathy without macular edema; E11.22 Type 2 diabetes mellitus with diabetic chronic kidney disease; N18.6 End stage renal disease; L84 Corns and callosities
CPT/HCPCS: 99214

== ENCOUNTER → 2021-04-14 14:38 | Outpatient (BNVA) | payer MEDICARE, MEDICAID, SELFPAY ==
[2020-05-25 09:01] VITALS: BP 153/85; BMI 44.4
== END ==
PROVIDERS: PCP Family Medicine; Visit Provider Registered Nurse
DX: Z79.899 Other long term (current) drug therapy (principal)
CPT/HCPCS: 36415; 80061

== ENCOUNTER 2021-04-18 08:04 | Inpatient (IN) | payer MEDICARE, MEDICAID, SELFPAY ==
[2020-05-25 09:01] VITALS: BP 153/85; BMI 44.4
[2021-04-18] VITALS (13 sets, daily range): BP systolic 67–136; BP diastolic 37–83; PULSE 104–147; RESP 18–24; TEMP 37–39; O2SAT 91–97; BMI 38.6
--- NOTE | 2021-04-18 08:18 | CT_ITS ---
WS: [id number] CT HEAD TECHNIQUE: Noncontrast CT of the head obtained from the skullbase to the vertex. CLINICAL INFORMATION: AMS COMPARISON: October 20, 2020 DLP: 1549.[address] scans at [facility] use at least one of these dose optimization techniques: automated e xposure control; mA and/or kV adjustment per patient size (includes targeted exams where dose is matc hed to clinical indication); or iterative reconstruction. FINDINGS: No evidence of intracranial hemorrhage or mass effect. Ventricular system and basal cisterns are lara nt. Moderate small vessel changes with mild parenchymal volume loss. Chronic lacunar infarcts left co shravan radiata and left thalamus. This is unchanged from previous. Intracranial vascular calcification. No extra-axial fluid collections. No evidence of mass or mass effect. Normal obrien-white differentiat ion. Paranasal sinuses and mastoid air cells are well aerated. .Normal visualized soft tissues. CT/CT head wo con* [id number] IMPRESSION: 1. No evidence of intracranial hemorrhage or mass effect. 2. Moderate small vessel changes. Mild parenchymal volume loss. 3. No acute intracranial findings.
--- NOTE | 2021-04-18 08:19 | XR_ITS ---
WS: [id number] Portable AP supine chest, 04/18/2021 Clinical Data: dyspnea/cough Comparison: Portable chest, 10/20/2020. Findings: No nodules, masses or effusions are seen. The heart is enlarged. The pulmonary vascularity is not increased. No pneumonia or pneumothorax is seen. There is a dialysis catheter entering the rig ht internal jugular vein and ending in the caval atrial junction. Monitor leads are on the chest wall . XR/XR chest 1V portable [id number] Impression: 1. Cardiomegaly. 2. Right dialysis catheter.
--- NOTE | 2021-04-18 08:19 | XR_ITS ---
WS: [id number] Pelvis, AP view, 04/18/2021 Clinical Data: fall Comparison: Bilateral hips, 10/20/2020 Findings: No fractures or dislocations are seen. The SI joints and pubic symphysis are intact. The soft tissues are not remarkable. The patient's soft tissue obscures detail over the hips and pelvis. XR/XR pelvis 1-2V* [id number] Impression: Negative AP pelvis with limitation of detail.
--- NOTE | 2021-04-18 08:19 | ECG_ITS ---
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 Measurements Intervals [place] Rate: 110 P: AK: QRS: 64 QRSD: 89 T: 78 QT: 317 QTc: 430 Interpretive Statements POSSIBLE ATRIAL FIBRILLATION WITH RAPID VENTRICULAR RESPONSE SEPTAL MYOCARDIAL INFARCTION , OF INDETERMINATE AGE [40+ ms Q WAVE IN V1/V2] Compared to ECG 10/20/2020 18:40:50 Sinus rhythm no longer present Myocardial infarct finding still present Electronically Signed On 04-18-2021 22:21:50 OIL SPREADER OPERATOR by Yasmin Priest M.D. [email or web address]
--- NOTE | 2021-04-18 08:20 | ED_ITS ---
HPI - General Adult General: Chief complaint: Fall Stated complaint: FALL FROM CHAIR/ HIP PAIN Time Seen by Provider: 04/18/21 08:09 History of Present Illness: HPI narrative: 55-year-old female presents emergency room from home via ambulance complaining of pelvic and hip pain. She has limited mobility and usually uses a walker. She went to sit in a chair this morning slipped out of the chair and went to the ground has a controlled fall she essentially just landed on her hip. She was unable to get herself back up so she was down for around 3 to 3-1/2 hours. She had a scheduled appointment with a neighbor for breakfast did not show up on times her neighbors and her caregiver over to check on this patient. They found her unable to get up and EMS was called. On her presentation here she is febrile although she does not have any complaints past the buttock and hip pain. She complains of pain in both hips. She is diabetic she denies any recent change in medications or missing any medication she denies any shortness of breath any chest pain any abdominal pain dysuria urgency or frequency. No nausea or vomiting. Onset (ago): hour(s) Location: buttocks Radiation: non-radiation Severity: mild Relieving factors: none Exacerbating factors: none Associated symptoms: Deny chest pain, confusion, cough, diaphoresis, decreased appetite, dyspnea, fevers/chills, headache(s), malaise, nausea, rash, palpitations, seizures, short of breath, syncope, vomiting or weakness Treatments prior to arrival: none Review of Systems Const: Denies: malaise or diaphoresis ENMT: Denies: throat pain, ear or mastoid pain, nasal discharge or nasal congestion Card: Denies: chest pain, palpitations or syncope Resp: Denies: dyspnea GI: Denies: nausea or vomiting : Denies: flank pain, difficulty voiding, dysuria, urinary frequency or urin christiano urgency Skin/Breast: Denies: rash Neuro: Denies: headache(s) or confusion PFS ED PFSH: Medical History Allergic rhinitis COPD (chronic obstructive pulmonary disease) Diabetes mellitus Encounter for screening colonoscopy History of 2019 novel coronavirus disease (COVID-19) + swab on 04/12/2020 Insomnia Major depressive disorder, recurrent severe without psychotic features Mixed stress and urge urinary incontinence LUIS EDUARDO (obstructive sleep apnea) Plaque psoriasis Psoriasis Psychiatric care Restless leg syndrome Surgical History H/O hernia repair History of appendectomy Family History Family/Other Diabetes Brother Diabetes Grandmother CAD (coronary artery disease) Bleeding disorder Maternal Mother CAD (coronary artery disease) Cancer stomach cancer Denies family history of Clotting disorder Dementia Hyperlipidemia Psychiatric illness Chronic kidney disease (CKD) Suicide Anesthesia complication Family history of premature coronary artery disease Lung disease Hypertension Stroke Social History Second hand smoke exposure: Yes Alcohol intake: never Adopted: No Caregiver/support person: Yes Lives independently: Yes Household members: none Housing: Apartment Marital status: Single Number of children: 0 Number of grandchildren: 0 Highest education level completed: Bachelor's Degree Education level details: Education service: No Current occupational status: disabled Current occupational exposures/hazards: No Pets and animals: No History of recent travel: Yes ([facility] to [place]) Out of state: Yes Leisure activites: music, reading and other Leisure activities details: crafting Sexually active: Yes Current gender identity: Female Anna/Spiritism: Taoist Special anna needs: No Agree to transfusion: Yes Financial difficulty paying for basics: Somewhat Hard Female Reproductive History: Para: 0 Spontaneous abortions: No Physical Exam Const: COMMON NORMALS: no acute distress GENERAL APPEARANCE: cooperative and comfortable ORIENTATION/CONSCIOUSNESS: Yes awake HENMT: COMMON NORMALS: normocephalic, atraumatic and hearing grossly normal bilaterally HEAD & SCALP: normocephalic and atraumatic Neck/C-Spine: COMMON NORMALS: no JVD Resp: COMMON NORMALS: normal respiratory effort, No retractions, No use of accessory muscles and clear to auscultation bilaterally AUSCULTATION: clear to auscultation bilaterally Cardio: COMMON NORMALS: no JVD, regular rate, regular rhythm and No murmurs present (Cardio) RATE: regular rate RHYTHM: regular rhythm GI: COMMON NORMALS: Soft to palpation and No hepatosplenomegaly present AUSCULTATION: Yes normoactive bowel sounds PALPATION: Yes Soft to palpation, No Tenderness to palpation present (GI), No Guarding due to palpation present (GI) and Yes No hepatosplenomegaly present Extremity: COMMON NORMALS: normal to inspection, capillary refill normal, no clubbing, cyanosis or edema, no calf tenderness and no pedal edema Skin: COMMON NORMALS: no rashes or lesions noted GENERAL SKIN EXAM: no rashes or lesions noted Course Vital Signs: Vital signs: Vital Signs Temperature 98.6 F 04/18/21 10:10 Pulse Rate 104 H 04/18/21 10:10 Blood Pressure 101/56 04/18/21 10:10 Pulse Oximetry 96 04/18/21 10:53 MDM - General Adult MDM Narrative: Medical decision making narrative: Patient acute exacerbation of his end-stage renal disease and needs dialysis. Was given treatment for hyperkalemia. Contacted nephrology they will write orders for dialysis. Also need empiric treatment for possible sepsis was started on ceftriaxone and blood cultures are done. Patient does still make small amount of urine daily and has a Bowie in place to evaluate that. Chest x-ray did not show any acute infiltrates. She is on oxygen but is chronically on that same dose. Discussed with hospitalist and with nephrology. Lab Data: Labs: Lab Results 04/18/21 04/18/21 04/18/21 08:28 08:28 08:28 WBC 13.1 10^3/uL H 10 ^3/uL (4.0-10.0) RBC 3.26 10^6/uL L 10 ^6/uL (4.1-5.3) Hgb 10.0 g/dL L g/dL (11.5-15.3) Hct 33.4 % L % (37.0-47.0) MCV 102.5 fl H fl (81-99) MCH 30.7 pg pg (28.0-34.0) MCHC 29.9 g/dL L g/dL (30.0-36.0) RDW 17.0 % H % (12.1-15.1) Plt Count 140 10^3/cmm 10^3 /cmm (130-400) MPV 10.8 fL H fL (7.4-10.4) Neut % (Auto) 91.3 % % Lymph % (Auto) 3.6 % % Tate % (Auto) 3.6 % % Eos % (Auto) 0.5 % % Baso % (Auto) 0.5 % % Neut # (Auto) 11.99 10^3/uL H 1 0^3/uL (1.8-7.7) Lymph # (Auto) 0.5 10^3/uL L 10^ 3/uL (0.8-4.8) Tate # (Auto) 0.5 10^3/uL 10^3/ uL (0.2-0.9) Eos # (Auto) 0.1 10^3/uL 10^3/ uL (0.0-0.8) Baso # (Auto) 0.1 10^3/uL 10^3/ uL (0.0-0.1) Nucleated RBC % (a uto) 0 % % Nucleated RBCs # 0.0 /100WBC /100W BC Specimen Type Sample Site ABG pH ABG pCO2 ABG pO2 ABG HCO3 ABG O2 Saturation ABG Base Excess Joel Test A-a O2 Gradient Hematocrit Hgb O2 Saturation Carboxyhemoglobin Methemoglobin Total Hemoglobin Ionized Calcium O2 Delivery Device O2 Liters/Min FiO2 [employer] ID Sodium 134 mmol/L L mmol /L (136-145) Potassium 6.9 mmol/L H* mmo l/L (3.5-5.1) Chloride 92 mmol/L L mmol/ L (98-107) Carbon Dioxide 22 mmol/L mmol/L (22-29) Anion Gap 26.9 H (5-19) BUN 48 mg/dL H mg/dL (6-20) Creatinine 7.7 mg/dL H* mg/d L (0.5-0.9) GFR Calculation 5.4 mL/min L mL/m in (90-130) Glucose 317 mg/dL H mg/dL (65-115) Calculated Osmolal ity 303 mOsm/kg H mOs m/kg (285-295) Lactic Acid 1.9 mmol/L mmol/L (0.5-2.2) Calcium 8.2 mg/dL L mg/dL (8.5-10.5) Magnesium 2.3 mg/dL mg/dL (1.7-2.3) Total Bilirubin 0.7 mg/dL mg/dL (0.15-1.2) AST 20 U/L U/L (0-32) ALT 22 U/L U/L (0-33) Alkaline Phosphata se 101 IU/L IU/L (35-105) Creatine Kinase 28 U/L U/L (26-192) Troponin T Baselin e Total Protein 8.9 g/dL H g/dL (6.6-8.7) Albumin 3.8 g/dL g/dL (3.5-5.2) Globulin 5.1 g/dL H g/dL (1.3-4.6) Lipase 14 U/L U/L (13-60) 04/18/21 04/18/21 08:28 09:12 WBC RBC Hgb Hct MCV MCH MCHC RDW Plt Count MPV Neut % (Auto) Lymph % (Auto) Tate % (Auto) Eos % (Auto) Baso % (Auto) Neut # (Auto) Lymph # (Auto) Tate # (Auto) Eos # (Auto) Baso # (Auto) Nucleated RBC % (a uto) Nucleated RBCs # Specimen Type Arterial Sample Site Radial, right ABG pH 7.34 L (7.35-7.45) ABG pCO2 43.3 mmHg mmHg (35-45) ABG pO2 73.9 mmHg L mmHg (80.0-100.0) ABG HCO3 23.6 mmol/L mmol/ L (22-26) ABG O2 Saturation 94.2 ABG Base Excess -2.1 mmol/L L mmo l/L (-2.0-2.0) Joel Test Pos A-a O2 Gradient 9.2 mmHg mmHg (5-10) Hematocrit 29.9 % L % (37-47) Hgb O2 Saturation 91.5 % L % (95-100) Carboxyhemoglobin 1.8 %THgb %THgb (0.4-20.1) Methemoglobin 1.1 % % (0.4-1.5) Total Hemoglobin 9.8 g/dL L g/dL (12-16) Ionized Calcium 1.1 mmol/L mmol/L (1.1-1.4) O2 Delivery Device Nc O2 Liters/Min 2.0 % % FiO2 28.0 % % [employer] ID Alex Sodium 137.0 mmol/L mmol /L (131-143) Potassium 6.0 mmol/L H mmol /L (3.5-5.0) Chloride Carbon Dioxide Anion Gap BUN Creatinine GFR Calculation Glucose 365.0 mg/dL H mg/ dL (70-115) Calculated Osmolal ity Lactic Acid Calcium Magnesium Total Bilirubin AST ALT Alkaline Phosphata se Creatine Kinase Troponin T Baselin e 127 ng/L H* ng/L (0-10) Total Protein Albumin Globulin Lipase Discharge Plan Discharge Patient Disposition: Admitted As Inpatient Clinical Impression: ESRD on dialysis, Fever, COPD (chronic obstructive pulmonary disease), LUIS EDUARDO (obstructive sleep apnea), 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 renal disease) Condition: Stable Coding Level of Care Code ED Atmospheric Technician for Chg Fwd Exam Comprehensive
[2021-04-18 09:03] LABS: Lactic Sepsis W/Reflex 1.9 mmol/L (0.5-2.2)
[2021-04-18 09:05] LABS: Alanine Aminotransferase 22 U/L (0-33); Albumin Level 3.8 g/dL (3.5-5.2); Alkaline Phosphatase 101 IU/L (35-105); Anion Gap 26.9 (5-19); Aspartate Amino Transferase 20 U/L (0-32); Blood Urea Nitrogen 48 mg/dL (6-20); Calcium 8.2 mg/dL (8.5-10.5); Carbon Dioxide 22 mmol/L (22-29); Chloride 92 mmol/L (98-107); Creatine Phosphokinase 28 U/L (26-192); Globulin 5.1 g/dL (1.3-4.6); Glomerular Filtration Rate 5.4 mL/min (90-130); Glucose 317 mg/dL (65-115); Lipase 14 U/L (13-60); Magnesium 2.3 mg/dL (1.7-2.3); Osmolality Calculated 303 mOsm/kg (285-295); Sodium 134 mmol/L (136-145); Total Bilirubin 0.7 mg/dL (0.15-1.2); Total Protein 8.9 g/dL (6.6-8.7)
[2021-04-18 09:28] LABS: ABG PCO2 43.3 mmHg (35-45); ABG PH Result 7.34 (7.35-7.45); Alveolar-Arterial Oxygen Gradi 9.2 mmHg (5-10); Arterial Blood Gas Hematocrit 29.9 % (37-47); Base Excess ABG -2.1 mmol/L (-2.0-2.0); Blood Gas Allen Test Pos; Blood Gas Sample Site Radial, right; Blood Gas Sample Type Arterial; Carboxyhemoglobin 1.8 %THgb (0.4-20.1); HCO3 ABG 23.6 mmol/L (22-26); HGB O2 Sat 91.5 % (95-100); Ionized Calcium Level - ABG 1.1 mmol/L (1.1-1.4); Methemoglobin 1.1 % (0.4-1.5); Oxygen Device NC; Oxygen Saturation ABG 94.2; PO2 ABG 73.9 mmHg (80.0-100.0); Total Hemoglobin 9.8 g/dL (12-16)
[2021-04-18 09:36] LABS: Potassium 6.9 mmol/L (3.5-5.1)
[2021-04-18 09:37] LABS: Troponin(5th) Baseline 127 ng/L (0-10)
[2021-04-18] MEDS: insulin regular-human 100 units/1 mL 10 UNIT IVP (09:59)
[2021-04-18] MEDS: calcium gluconate 0.1 gm/mL 10% SDV 10mL 2 GM IVP (10:04)
[2021-04-18] MEDS: sodium bicarbonate 8.4% 1 mEq/mL 50mL Syr 100 MEQ IVP (10:06)
--- NOTE | 2021-04-18 10:19 | ECG_ITS ---
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 Measurements Intervals Kane Rate: 103 P: AL: QRS: 36 QRSD: 85 T: 49 QT: 325 QTc: 427 Interpretive Statements Sinus tachycardia with PACs LOW QRS VOLTAGE IN PRECORDIAL LEADS [QRS DEFLECTION < 1.0 mV IN CHEST LEADS] POSSIBLE RIGHT VENTRICULAR CONDUCTION DELAY [RSR (QR) IN V1/V2] SEPTAL MYOCARDIAL INFARCTION , OF INDETERMINATE AGE [40+ ms Q WAVE IN V1/V2] Compared to ECG 10/20/2020 18:40:50 Sinus rhythm no longer present Myocardial infarct finding still present Electronically Signed On 04-20-2021 0:08:48 TILE DECORATOR by Jono Wilson M.D. [id number]
[2021-04-18] MEDS: cefTRIAXone 1,000 MG in sodium chloride 0.9% (plus) 50 ML 100 MG IV (11:39)
[2021-04-18 11:43] LABS: Ketone (Acetest) Serum Negative (Negative)
[2021-04-18] MEDS: sodium chloride 0.9% 1,000 ML 999 ML IV (11:44)
[2021-04-18 12:09] LABS: Troponin 5 2HR 124.4 ng/L (0-10); Troponin 5 2HR Delta -2.6 ABS# (0-10)
[2021-04-18 14:15] LABS: Adenovirus Not Detected (NOT DETECT); Chlamydia Pneumoniae Not Detected (NOT DETECT); Coronavirus 229E,HKU1,NL63,OC4 Not Detected (NOT DETECT); Human Metapneumovirus Not Detected (NOT DETECT); Human Rhinovirus/Enterovirus Not Detected (NOT DETECT); Influenza A Not Detected (NOT DETECT); Influenza A H1 Not Detected (NOT DETECT); Influenza A H1-2009 Not Detected (NOT DETECT); Influenza A H3 Not Detected (NOT DETECT); Influenza B Not Detected (NOT DETECT); Mycoplasma Pneumoniae Not Detected (NOT DETECT); Parainfluenza Virus Type 1 Not Detected (NOT DETECT); Parainfluenza Virus Type 2 Not Detected (NOT DETECT); Parainfluenza Virus Type 3 Not Detected (NOT DETECT); Parainfluenza Virus Type 4 Not Detected (NOT DETECT); Respiratory Syncytial Virus A Not Detected (NOT DETECT); Respiratory Syncytial Virus B Not Detected (NOT DETECT); SARS-COV-2 Not Detected (NOT DETECT)
--- NOTE | 2021-04-18 14:45 | P.CONIM_ITS ---
Providers/Reason For Consult Consulting Physician/Specialty*: Nephrology Reason for Consult*: Eval for ESRD mgmt Primary Care Provider: Kate Marcelino MD History of Present Illness History of Present Illness Thank for consultation comments that the pleasure of reviewing this 55 old female for evaluation and management of end-stage kidney disease. She been on dialysis now for for 5 years. Recently had a line placed as her fistula thrombosed and is yet to be surgically corrected. She felt generally unwell for the last few days although she denies specific fevers and chills. It is noted that she does not have a clean dressing on her dialysis catheter and the is some crusting over it. She last got dialysis on Sunday She was weak today, and she went to sit down and slumped off a chair onto the floor, she did not sustain any injury. Due to her weakness she came to the hospital for evaluation. On arrival here she is noted to have leukocytosis of 13.1, heart rate 105, blood pressure 107/41 afebrile. She is also noted to have a potassium of 6.9. Review of Systems Narrative: 12 point review of systems completed per HPI and subjective assessment, this includes....Constitutional: Some weakness, fatigue. Respiratory: No SOB on exertion, comfortable at rest. CardioVasc: No chest pain, palpitations. Gastrointestinal: No nausea, no vomiting. Neurological: No seizures, no AMS. Derm: No new rashes, lesions or wounds. Immunological: No seasonal and no food allergies Meds/Allergies Home Medications and Allergies Home Medications Medication Instructions Recorded Confirmed Last Taken Type RenaPlex-D 1 tab PO DAILY 12/12/19 04/18/21 10/19/20 History calcium acetate(phosphat bind) See Rx Instructions .ROUTE .COMPLEX 12/12/19 04/18/21 10/19/20 History lanthanum See Rx Instructions .ROUTE .COMPLEX 12/12/19 04/18/21 10/19/20 History diaper,brief,adult,disposable #120 each 02/04/20 04/18/21 Unknown Rx miscellaneous medical supply See Rx Instructions MISCELLANEOUS 02/09/20 04/18/21 Unknown Rx .COMPLEX #1 each acetaminophen 325 mg tablet 650 mg PO Q6H PRN tab 05/12/20 04/18/21 10/19/20 History epoetin favio 10,000 unit/mL See Rx Instructions .ROUTE .COMPLEX 05/12/20 04/18/21 Unknown History injection solution iron sucrose 100 mg iron/5 mL 100 mg IV DAILY 05/12/20 04/18/21 Unknown History intravenous solution polyethylene glycol 3350 17 17 g PO DAILY 05/12/20 04/18/21 Unknown History gram/dose oral powder magnesium sulfate (bulk) 100 % 1 applic TOPICAL BID #2500 g 05/19/20 04/18/21 10/19/20 Rx crystals mupirocin 2 % topical ointment 1 applic TOPICAL BID #22 g 05/19/20 04/18/21 10/19/20 Rx ammonium lactate 12 % topical cream 1 applic TOPICAL BID #140 g 06/11/20 04/18/21 10/19/20 Rx Lactobacillus acidophilus 10 mg PO DAILY 09/06/20 04/18/21 10/19/20 History aspirin 81 mg tablet,delayed 81 mg PO DAILY 09/06/20 04/18/21 10/19/20 History release fluticasone furoate 100 1 inh INHALATION DAILY 30 Days #60 09/06/20 04/18/21 10/19/20 Rx mcg-vilanterol 25 mcg/dose ea inhalation powder pravastatin 10 mg tablet 10 mg PO DAILY #30 tab 09/21/20 04/18/21 10/19/20 Rx albuterol sulfate 90 mcg/actuation 2 puff INHALATION QID PRN 30 Days 10/18/20 04/18/21 10/19/20 Rx aerosol inhaler #18 gm clopidogrel 75 mg tablet 75 mg PO DAILY 90 Days #90 tab 10/18/20 04/18/21 10/19/20 Rx miscellaneous medical supply See Rx Instructions MISCELLANEOUS 11/03/20 04/18/21 Unknown Rx .COMPLEX #1 ea calcipotriene 0.005 % topical cream 1 applic TOPICAL BID #120 g 11/17/20 04/18/21 Unknown Rx clobetasol 0.05 % topical ointment 1 applic TOPICAL BID 14 Days #60 g 11/17/20 04/18/21 Unknown Rx hydrocortisone 2.5 % topical 1 applic TOPICAL BID PRN #453.6 g 11/17/20 04/18/21 Unknown Rx ointment triamcinolone acetonide 0.1 % 1 applic TOPICAL BID #453.6 g 11/17/20 04/18/21 Unknown Rx topical ointment cyclobenzaprine 5 mg tablet 5 mg PO TID PRN #90 tab 01/18/21 04/18/21 Unknown Rx gabapentin 300 mg capsule 300 mg PO TID PRN 30 Days #90 cap 01/18/21 04/18/21 Unknown Rx ropinirole 0.5 mg tablet 0.5 mg PO DAILY 30 Days #30 tab 01/18/21 04/18/21 Unknown Rx linagliptin 5 mg tablet 5 mg PO DAILY #90 tab 01/20/21 04/18/21 Unknown Rx cetirizine 10 mg tablet 10 mg PO DAILY 30 Days #30 tab 01/23/21 04/18/21 Unknown Rx midodrine 5 mg tablet See Rx Instructions .ROUTE 01/27/21 04/18/21 Unknown Rx .COMPLEX #30 tab nitroglycerin 0.4 mg sublingual 0.4 mg SUBLINGUAL Q5M PRN #30 tab 01/27/21 04/18/21 Unknown Rx tablet hydroxyzine pamoate 25 mg capsule See Rx Instructions .ROUTE 02/23/21 04/18/21 Unknown Rx .COMPLEX #90 capsule bupropion HCl 150 mg 24 hr tablet, 150 mg PO DAILY #30 tab 04/14/21 04/18/21 Unknown Rx extended release citalopram 20 mg tablet 20 mg PO DAILY #30 tab 04/14/21 04/18/21 Unknown Rx trazodone 150 mg tablet 75 - 150 mg PO BEDTIME #30 tab 04/14/21 04/18/21 Unknown Rx lidocaine-prilocaine 1 applic TOPICAL . DIRECTED PRN 04/18/21 04/18/21 Unknown History Allergies Allergy/AdvReac Type Severity Reaction Status Date / Time codeine Allergy algy-rash Verified 04/18/21 08:12 latex Allergy algy-rash Verified 04/18/21 08:12 Milk Containing Products Allergy ADR-Abdominal Verified 04/18/21 08:12 Pain penicillamine Allergy ALGY-Difficulty Verified 04/18/21 08:12 Swallowing PFSH Acute PFSH: Medical History Allergic rhinitis COPD (chronic obstructive pulmonary disease) Diabetes mellitus Encounter for screening colonoscopy History of 2019 novel coronavirus disease (COVID-19) + swab on 04/12/2020 Insomnia Major depressive disorder, recurrent severe without psychotic features Mixed stress and urge urinary incontinence LUIS EDUARDO (obstructive sleep apnea) Plaque psoriasis Psoriasis Psychiatric care Restless leg syndrome Surgical History H/O hernia repair History of appendectomy Family History Family/Other Diabetes Brother Diabetes Grandmother CAD (coronary artery disease) Bleeding disorder Maternal Mother CAD (coronary artery disease) Cancer stomach cancer Denies family history of Clotting disorder Dementia Hyperlipidemia Psychiatric illness Chronic kidney disease (CKD) Suicide Anesthesia complication Family history of premature coronary artery disease Lung disease Hypertension Stroke Social History Second hand smoke exposure: Yes Alcohol intake: never Adopted: No Caregiver/support person: Yes Lives independently: Yes Household members: none Housing: Apartment Marital status: Single Number of children: 0 Number of grandchildren: 0 Highest education level completed: Bachelor's Degree Education level details: Education service: No Current occupational status: disabled Current occupational exposures/hazards: No Pets and animals: No History of recent travel: Yes (wet to [place]) Out of state: Yes Leisure activites: music, reading and other Leisure activities details: crafting Sexually active: Yes Current gender identity: Female Anna/Adventist: Denominational Special anna needs: No Agree to transfusion: Yes Financial difficulty paying for basics: Somewhat Hard Female Reproductive History: Para: 0 Spontaneous abortions: No Vitals/I&O/Wt Last Vital Signs Temp 98.6 F 04/18/21 10:10 Pulse 105 H 04/18/21 13:34 BP 107/41 04/18/21 13:34 Pulse Ox 95 04/18/21 13:34 Weight last 48 hrs Weight 102.058 kg Physical Exam Narrative: EXAM NARRATIVE: Constitutional: Awake, comfortable. HEENT: Wet mucosa, no jvp, non icteric. Lungs: Bilaterally clear without discernible wheeze, rales in all lung zones. CVS: S1, S2, no murmurs. Abdo: Soft, BS ok. Ext 4: Minimal edema, peripheral perfusion with no cyanosis. Neurological: Grossly non-focal Data Micro: Micro: Microbiology 12/27/21 11:22 Blood Culture - Pr eliminary Blood SPECIMEN THERESA MCNAMARA A&P Additional A&P Information 1. ESRD We will plan to dialyze her today to bring down the critically elevated potassium. 2K bath, ultrafiltration 3 L. Continue Sunday, Sunday and Sunday dialysis schedule Dose medications for GFR less than 15 on dialysis 2. Hyperkalemia Dialysis will definitively treat, to get some temporizing therapy in the emergency room 3. Weakness Given leukocytosis and crusting over her exit site, I am suspicious that she has a central line associated bacteremia We will use it today, monitor closely for dissemination of sepsis, if blood cultures turn positive, will remove the line. Broad-spectrum antibiotics in the meantime per medical team. 4. Hemodynamics Hemodynamics currently soft, she was given midodrine prior to dialysis and I prescribed this for her. Close monitoring during dialysis 5. Chronic ESRD issues These will be managed as an outpatient including management of anemia of ESRD, secondary hyperparathyroidism, hyperphosphatemia etc. She is on lanthanum as an outpatient, give her some PhosLo while she is admitted. 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
[2021-04-18] MEDS: midodrine 5 mg TABLET 10 MG PO (15:07)
--- NOTE | 2021-04-18 16:53 | PM.HP ---
Providers/Chief Complaint Admitting Physician: Leelee Love MD Primary Care Provider: Kate Marcelino MD Chief Complaint: FALL FROM CHAIR/ HIP PAIN History of Present Illness Kerri Fregoso is a 55 year old female who has history of multiple comorbid conditions, end-stage renal disease, COPD, psoriasis, restless leg syndrome, presented today for evaluation of fall. Patient is stating that she missed her last 2 dialysis sessions, she did not go for dialysis on Sunday and on Sunday. Today she was trying to sit in a chair when she felt weak and landed on the floor on her hips. She did not lose consciousness, no seizure-like activities. No recent fever. She has been experiencing diarrhea for quite some time which is chronic for her. She been on dialysis for last 5 years, she has a dialysis catheter, AV fistula has been thrombosed no surgical intervention has been done yet. She also carries history of sleep apnea. In the ER her BMP was consistent with hyperkalemia for which she received hyperkalemia treatment cocktail, EKG was consistent with A. fib which is new onset, however when I saw her in dialysis room her EKGs revealed sinus tachycardia, patient was complaining of leg cramps, her blood pressure was soft during dialysis after removal of 2 L, 250ml bolus was given which improved her blood pressure and heart rate Review of Systems Const: Reports: chills, body aches and fatigue; Denies: fever(s) Eyes: Denies: change in vision ENMT: Denies: throat pain Card: Reports: palpitations and irregular heart rhythm; Denies: chest pain Resp: Reports: dyspnea GI: Reports: abdominal pain : Denies: flank pain Musc: Denies: neck pain Skin/Breast: Reports: rash and lesions Neuro: Reports: difficulty walking; Denies: headache(s) Psych: Reports: anxiety Endo: Denies: polyuria Latrell/Lymph: Denies: easy bruising All/Imm: Denies: urticaria Medications/Allergies Home Medications Medication Instructions Recorded Confirmed Last Taken Type RenaPlex-D 1 tab PO DAILY 12/12/19 04/18/21 10/19/20 History calcium acetate(phosphat bind) See Rx Instructions .ROUTE .COMPLEX 12/12/19 04/18/21 10/19/20 History lanthanum See Rx Instructions .ROUTE .COMPLEX 0804/18/21 10/19/20 History diaper,brief,adult,disposable #120 each 02/04/20 04/18/21 Unknown Rx miscellaneous medical supply See Rx Instructions MISCELLANEOUS 02/09/20 04/18/21 Unknown Rx .COMPLEX #1 each acetaminophen 325 mg tablet 650 mg PO Q6H PRN tab 05/12/20 04/18/21 10/19/20 History epoetin favio 10,000 unit/mL See Rx Instructions .ROUTE .COMPLEX 05/12/20 04/18/21 Unknown History injection solution iron sucrose 100 mg iron/5 mL 100 mg IV DAILY 05/12/20 04/18/21 Unknown History intravenous solution polyethylene glycol 3350 17 17 g PO DAILY 05/12/20 04/18/21 Unknown History gram/dose oral powder magnesium sulfate (bulk) 100 % 1 applic TOPICAL BID #2500 g 05/19/20 04/18/21 10/19/20 Rx crystals mupirocin 2 % topical ointment 1 applic TOPICAL BID #22 g 05/19/20 04/18/21 10/19/20 Rx ammonium lactate 12 % topical cream 1 applic TOPICAL BID #140 g 06/11/20 04/18/21 10/19/20 Rx Lactobacillus acidophilus 10 mg PO DAILY 09/06/20 04/18/21 10/19/20 History aspirin 81 mg tablet,delayed 81 mg PO DAILY 09/06/20 04/18/21 10/19/20 History release fluticasone furoate 100 1 inh INHALATION DAILY 30 Days #60 09/06/20 04/18/21 10/19/20 Rx mcg-vilanterol 25 mcg/dose ea inhalation powder pravastatin 10 mg tablet 10 mg PO DAILY #30 tab 09/21/20 04/18/21 10/19/20 Rx albuterol sulfate 90 mcg/actuation 2 puff INHALATION QID PRN 30 Days 10/18/20 04/18/21 10/19/20 Rx aerosol inhaler #18 gm clopidogrel 75 mg tablet 75 mg PO DAILY 90 Days #90 tab 10/18/20 04/18/21 10/19/20 Rx miscellaneous medical supply See Rx Instructions MISCELLANEOUS 11/03/20 04/18/21 Unknown Rx .COMPLEX #1 ea calcipotriene 0.005 % topical cream 1 applic TOPICAL BID #120 g 11/17/20 04/18/21 Unknown Rx clobetasol 0.05 % topical ointment 1 applic TOPICAL BID 14 Days #60 g 11/17/20 04/18/21 Unknown Rx hydrocortisone 2.5 % topical 1 applic TOPICAL BID PRN #453.6 g 11/17/20 04/18/21 Unknown Rx ointment triamcinolone acetonide 0.1 % 1 applic TOPICAL BID #453.6 g 11/17/20 04/18/21 Unknown Rx topical ointment cyclobenzaprine 5 mg tablet 5 mg PO TID PRN #90 tab 01/18/21 04/18/21 Unknown Rx gabapentin 300 mg capsule 300 mg PO TID PRN 30 Days #90 cap 01/18/21 04/18/21 Unknown Rx ropinirole 0.5 mg tablet 0.5 mg PO DAILY 30 Days #30 tab 01/18/21 04/18/21 Unknown Rx linagliptin 5 mg tablet 5 mg PO DAILY #90 tab 01/20/21 04/18/21 Unknown Rx cetirizine 10 mg tablet 10 mg PO DAILY 30 Days #30 tab 01/23/21 04/18/21 Unknown Rx midodrine 5 mg tablet See Rx Instructions .ROUTE 01/27/21 04/18/21 Unknown Rx .COMPLEX #30 tab nitroglycerin 0.4 mg sublingual 0.4 mg SUBLINGUAL Q5M PRN #30 tab 01/27/21 04/18/21 Unknown Rx tablet hydroxyzine pamoate 25 mg capsule See Rx Instructions .ROUTE 02/23/21 04/18/21 Unknown Rx .COMPLEX #90 capsule bupropion HCl 150 mg 24 hr tablet, 150 mg PO DAILY #30 tab 04/14/21 04/18/21 Unknown Rx extended release citalopram 20 mg tablet 20 mg PO DAILY #30 tab 04/14/21 04/18/21 Unknown Rx trazodone 150 mg tablet 75 - 150 mg PO BEDTIME #30 tab 04/14/21 04/18/21 Unknown Rx lidocaine-prilocaine 1 applic TOPICAL . DIRECTED PRN 04/18/21 04/18/21 Unknown History Allergies Allergy/AdvReac Type Severity Reaction Status Date / Time codeine Allergy algy-rash Verified 04/18/21 08:12 latex Allergy algy-rash Verified 04/18/21 08:12 Milk Containing Products Allergy ADR-Abdominal Verified 04/18/21 08:12 Pain penicillamine Allergy ALGY-Difficulty Verified 04/18/21 08:12 Swallowing PFSH Acute PFSH: Medical History Allergic rhinitis COPD (chronic obstructive pulmonary disease) Diabetes mellitus Encounter for screening colonoscopy History of 2019 novel coronavirus disease (COVID-19) + swab on 04/12/2020 Insomnia Major depressive disorder, recurrent severe without psychotic features Mixed stress and urge urinary incontinence LUIS EDUARDO (obstructive sleep apnea) Plaque psoriasis Psoriasis Psychiatric care Restless leg syndrome Surgical History H/O hernia repair History of appendectomy Family History Family/Other Diabetes Brother Diabetes Grandmother CAD (coronary artery disease) Bleeding disorder Maternal Mother CAD (coronary artery disease) Cancer stomach cancer Denies family history of Clotting disorder Dementia Hyperlipidemia Psychiatric illness Chronic kidney disease (CKD) Suicide Anesthesia complication Family history of premature coronary artery disease Lung disease Hypertension Stroke Social History Second hand smoke exposure: Yes Alcohol intake: never Adopted: No Caregiver/support person: Yes Lives independently: Yes Household members: none Housing: Apartment Marital status: Single Number of children: 0 Number of grandchildren: 0 Highest education level completed: Bachelor's Degree Education level details: Education service: No Current occupational status: disabled Current occupational exposures/hazards: No Pets and animals: No History of recent travel: Yes ([facility] to [place]) Out of state: Yes Leisure activites: music, reading and other Leisure activities details: crafting Sexually active: Yes Current gender identity: Female Anna/Protestant: Yazidi Special anna needs: No Agree to transfusion: Yes Financial difficulty paying for basics: Somewhat Hard Female Reproductive History: Para: 0 Spontaneous abortions: No Vitals/I&O/Wt Last Vital Signs Temp 98.6 F 04/18/21 10:10 Pulse 105 H 04/18/21 15:08 BP 107/41 04/18/21 15:08 Pulse Ox 95 04/18/21 15:08 Weight last 48 hrs Weight 102.058 kg Physical Exam Narrative: EXAM NARRATIVE: Middle-age female who appears more than stated age Diffuse psoriatic skin rash Patient is a dialysis home Tachyarrhythmia noted Tachycardia Patient is awake and alert Nonfocal neuro exam Diminished airflow Currently on 2 L nasal cannula Distended abdomen cramps obesity No signs of peritonitis, deep tenderness does elicit pain Data : 04/18/21 08:28 04/18/21 08:28 Micro: Microbiology 04/18/21 15:59 Blood Culture - Preliminary Blood SPECIMEN COLLECTED 04/18/21 11:22 Blood Culture - Preliminary Blood SPECIMEN COLLECTED A&P Assessment and plan (1) ESRD on dialysis: Status: Acute (2) Fall: Status: Acute (3) Obesity, morbid, BMI 40.0-49.9: Status: Acute (4) Restless leg syndrome: Status: Acute (5) 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 renal disease): Status: Acute (6) LUIS EDUARDO (obstructive sleep apnea): Status: Acute (7) Plaque psoriasis: Status: Acute (8) Hyperkalemia: Status: Acute Additional A&P Information Generalized weakness and fall seems secondary to underlying comorbid condition with hyperkalemia Patient is stating that she lives with her family at home, We will get PT evaluation Nonfocal neuro exam my suspicion for stroke is low at this point End-stage renal disease: She has missed 2 dialysis session, patient was examined in the hemodialysis room Hypotension and tachyarrhythmia noted during dialysis: Which improved with 250 mL bolus Decrease ultrafiltration, nephrology updated Hyperkalemia: Treated, will repeat BMP after the dialysis Obstructive sleep apnea/COPD: We will keep her on CPAP overnight DuoNeb Restless leg syndrome: Psoriasis plaque: Conservative management Paroxysmal atrial fibrillation she is not on any anticoagulating agent, current EKG did show sinus tachycardia, will monitor on telemetry for now , Hyperglycemia: Sliding scale, she received fluids in the ER as well No signs of DKA DVT prophylaxis: Heparin Renal diet, Sliding scale Full code Attestations Medical Necessity Statement*: More than 2 midnights anticipated Time Spent in Patient Care: Greater than 35 minutes Coding Level of Care Code Acute Director Of Emergency Nursing for [facility] Fwd Diagnoses ESRD on dialysis N18.6; Z99.2 Fall W19.XXXA Obesity, morbid, BMI 40.0-49.9 E66.01 Restless leg syndrome G25.81 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 renal disease) E11.22; N18.6 LUIS EDUARDO (obstructive sleep apnea) G47.33 Plaque psoriasis L40.0 Hyperkalemia E87.5
[2021-04-18 16:54] LABS: Troponin 5 6HR 121.2 ng/L (0-10); Troponin 5 6HR Delta -5.8 ng/L (0-12)
--- NOTE | 2021-04-18 17:05 | ECG_ITS ---
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 Measurements Intervals [place] Rate: 110 P: 87 [place]: 151 QRS: 54 QRSD: 81 T: 51 QT: 317 QTc: 430 Interpretive Statements SINUS TACHYCARDIA LOW QRS VOLTAGE IN PRECORDIAL LEADS [QRS DEFLECTION < 1.0 mV IN CHEST LEADS] SEPTAL MYOCARDIAL INFARCTION , OF INDETERMINATE AGE [40+ ms Q WAVE IN V1/V2] Compared to ECG 04/18/2021 11:14:03 Atrial fibrillation no longer present Myocardial infarct finding still present Electronically Signed On 04-18-2021 22:20:11 [employer] SERV[employer] SUPERVISOR by Yasmin Priest M.D. [id number]
--- NOTE | 2021-04-18 19:14 | PC.NURSE ---
Shift report received from Lelo RUSSO. Patient in bed/resting. O2 4L NC. Bowie / no output in bag at this time. No s/s of pain or discomfort. No needs noted at this time.
[2021-04-18 21:13] LABS: Glucose Point of Care 151 mg/dL (70-110)
[2021-04-18] MEDS: calcium acetate 667 mg Capsule 1334 MG PO (22:40)
[2021-04-18] MEDS: mupirocin oint 22 gm 1 APPLIC TOPICAL (22:47)
--- NOTE | 2021-04-18 22:49 | PC.NURSE ---
Patient is alittle more alert than at shift change. Able to state name// place. Able to follow commands/ drink water and swallow night medications. Denies pain. No s/s of pain or discomfort. No needs voiced at this time.
[2021-04-19] VITALS (10 sets, daily range): BP systolic 88–110; BP diastolic 46–66; PULSE 87–110; RESP 16–20; TEMP 36.4–39; O2SAT 94–100
--- NOTE | 2021-04-19 00:28 | PC.NURSE ---
Patient sleeping at this time. No s/s of pain or discomfort. No needs noted.
--- NOTE | 2021-04-19 03:33 | PC.NURSE ---
patient in bed resting/ no s/s of pain or discomfort. Patient has had intermittent episodes of confusion: yelling out for help thinking it is dinnertime/ wanting to color and points to objects that are not there. Bed alarm on for fall prevention.
[2021-04-19] MEDS: acetaminophen 325 mg Tablet 650 MG PO (04:54)
[2021-04-19] MEDS: heparin 5,000 unit/mL INJ 1 mL 5000 UNIT SUBCUT ×3 (04:55→22:34)
[2021-04-19 06:17] LABS: Basophils % 0.4 %; Eosinophils # 0.1 10^3/uL (0.0-0.8); Eosinophils % 0.8 %; Hematocrit 28.6 % (37.0-47.0); Hemoglobin 8.6 g/dL (11.5-15.3); Lymphocytes # 0.8 10^3/uL (0.8-4.8); Lymphocytes % 7.7 %; Mean Corpuscular HGB Conc 30.1 g/dL (30.0-36.0); Mean Corpuscular Hemoglobin 30.7 pg (28.0-34.0); Mean Corpuscular Volume 102.1 fl (81-99); Mean Platelet Volume 11.3 fL (7.4-10.4); Monocytes # 0.6 10^3/uL (0.2-0.9); Monocytes % 5.8 %; Neutrophils # 8.65 10^3/uL (1.8-7.7); Neutrophils % 84.8 %; Nucleated Red Blood Cells % 0 %; Platelet Count 123 10^3/cmm (130-400); Red Cell Distribution Width 16.8 % (12.1-15.1); White Blood Count 10.2 10^3/uL (4.0-10.0)
--- NOTE | 2021-04-19 06:21 | PC.NURSE ---
patient in bed/resting Denies pain. No s/s of pain or discomfort. No urine output this shift. No needs voiced at this time.
[2021-04-19 06:33] LABS: Anion Gap 19.4 (5-19); Blood Urea Nitrogen 29 mg/dL (6-20); C Reactive Protein 343.4 mg/L (0.0-4.9); Calcium 8.3 mg/dL (8.5-10.5); Carbon Dioxide 27 mmol/L (22-29); Chloride 93 mmol/L (98-107); Glomerular Filtration Rate 8.3 mL/min (90-130); Glucose 146 mg/dL (65-115); Osmolality Calculated 286 mOsm/kg (285-295); Potassium 5.4 mmol/L (3.5-5.1); Sodium 134 mmol/L (136-145)
[2021-04-19 06:35] LABS: Creatinine Clr Calc Pharmacy 14.6215
[2021-04-19] MEDS: atorvastatin 40 mg Tablet 20 MG PO (08:36)
[2021-04-19] MEDS: ropinirole 0.25 mg Tablet 0.5 MG PO (08:36)
[2021-04-19] MEDS: citalopram 20 mg Tablet PO (08:36)
[2021-04-19] MEDS: buPROPion XL (24 HR) 150 mg Tablet PO (08:36)
[2021-04-19] MEDS: clopidogrel 75 mg Tablet PO (08:36)
[2021-04-19] MEDS: calcium acetate 667 mg Capsule 1334 MG PO ×2 (08:37→22:35)
[2021-04-19] MEDS: aspirin 81 mg EC Tablet PO (08:37)
--- NOTE | 2021-04-19 10:36 | P.PN_ITS ---
Subjective Subjective: Interval history: She feels better today than yesterday. More energy. She did spike a fever this morning, afebrile on my examination. No uremic symptoms. Blood pressure is a little soft this morning. Vitals/I&O/Wt Last Vital Signs Temp 100.7 F H 04/19/21 07:25 Pulse 97 04/19/21 08:36 Resp 18 04/19/21 08:36 BP 91/55 04/19/21 07:25 Pulse Ox 96 04/19/21 08:36 04/18/21 04/19/21 04/19/21 22:59 06:59 14:59 Intake Total 670 / 670 240 / 240 Output Total 2904 / 2904 Balance -2234 / -2234 240 / 240 Weight last 48 hrs Weight 115.666 kg Weight 102.058 kg Physical Exam Narrative: EXAM NARRATIVE: Constitutional: Awake, comfortable. HEENT: Wet mucosa, no jvp, non icteric. Lungs: Bilaterally clear without discernible wheeze, rales in all lung zones. CVS: S1, S2, no murmurs. Abdo: Soft, BS ok. Ext 4: Minimal edema, peripheral perfusion with no cyanosis. Neurological: Grossly non-focal Data : 04/19/21 05:35 04/19/21 05:35 Micro: Microbiology 04/18/21 11:22 Blood Culture - Preliminary Blood 04/18/21 15:59 Blood Culture - Preliminary Blood SPECIMEN COLLECTED A&P Additional A&P Information 1. ESRD Dialysis planned for tomorrow. 2K bath, ultrafiltration 3 L. Continue Sunday, Sunday and Sunday dialysis schedule Dose medications for GFR less than 15 on dialysis 2. Hyperkalemia Dialysis will bring down tomorrow, non critical today 3. Weakness Given leukocytosis and crusting over her exit site, I am suspicious that she has a central line associated bacteremia We will use it today, monitor closely for dissemination of sepsis, if blood cultures turn positive, will remove the line. Broad-spectrum antibiotics in the meantime per medical team. D/w team to add Vanco and cefepime today 4. Hemodynamics Hemodynamics currently soft, she was given midodrine prior to dialysis and I prescribed this for her. Close monitoring during dialysis 5. Chronic ESRD issues These will be managed as an outpatient including management of anemia of ESRD, secondary hyperparathyroidism, hyperphosphatemia etc. She is on lanthanum as an outpatient, give her some PhosLo while she is admitted. Arjun Cavazos MD Nephrology [phone] Patient seen and examined via telemedicine, with the assistance of the bedside RN > 25 min spent in evaluation and mgmt of patient Attestations Medical Necessity Statement*: Eval for eSRD mgmt Coding Level of Care Code Acute Palliative Care Physician for [facility]
[2021-04-19] MEDS: vancomycin 1,500 MG/300 ML PIGGYBACK 200 MG IV (11:12)
--- NOTE | 2021-04-19 11:37 | PM.PN ---
Subjective Subjective: Interval history: Overnight febrile episodes, leukocytosis 10.2, potassium improved Blood culture pending Started vancomycin and cefepime Concern for dialysis catheter infection Has history of AV fistula thrombosis Clinically she is doing better No active complaints this morning Heart rate seems to be in sinus rhythm less than 100 Vitals/I&O/Wt Last Vital Signs Temp 100.7 F H 04/19/21 07:25 Pulse 97 04/19/21 08:36 Resp 18 04/19/21 08:36 BP 91/55 04/19/21 07:25 Pulse Ox 96 04/19/21 08:36 04/18/21 04/19/21 04/19/21 22:59 06:59 14:59 Intake Total 670 / 670 240 / 240 Output Total 2904 / 2904 Balance -2234 / -2234 240 / 240 Weight last 48 hrs Weight 115.666 kg Weight 102.058 kg Physical Exam Narrative: EXAM NARRATIVE: Patient was feeling much better today Was able to work with physical therapist She has psoriasis plaque all over her body No active signs of cellulitis Dialysis catheter does not show any active signs of infection Awake and alert Doing well on 4 L nasal cannula, at home she uses 2 L Distended abdomen, nontender Bowel sound present Data : 04/19/21 05:35 04/19/21 05:35 Micro: Microbiology 04/18/21 11:22 Blood Culture - Preliminary Blood 04/18/21 15:59 Blood Culture - Preliminary Blood SPECIMEN COLLECTED A&P Assessment and plan (1) Hyperkalemia: Status: Acute (2) Fall: Status: Acute (3) ESRD on dialysis: Status: Acute (4) Fever: Status: Acute (5) 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 renal disease): Status: Acute (6) Callus of foot: Status: Acute (7) LUIS EDUARDO (obstructive sleep apnea): Status: Acute (8) Plaque psoriasis: Status: Acute (9) Restless leg syndrome: Status: Acute Additional A&P Information Hyperkalemia, Improved Patient fell at home secondary to weakness and hyperkalemia: Patient was able to participate for physical therapy We will follow up with PT recommendations, patient lives alone, she 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 fib which improved: Patient is stating that she does have history of persistent A. fib, she was never put on any anticoagulating agent, monitor on telemetry for now Attestations Medical Necessity Statement*: Continue medical management, anticipating her stay to be prolonged secondary to positive blood cultures Time Spent in Patient Care: 16 - 35 minutes Coding Level of Care Code Acute Used Car Make Ready Worker for g Fwd Diagnoses Hyperkalemia E87.5 Fall W19.XXXA ESRD on dialysis N18.6; Z99.2 Fever R50.9 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 renal disease) E11.22; N18.6 Callus of foot L84 LUIS EDUARDO (obstructive sleep apnea) G47.33 Plaque psoriasis L40.0 Restless leg syndrome G25.81
--- NOTE | 2021-04-19 11:46 | USCV_ITS ---
Kerri Fregoso Age: 55 Gender: F : 1965 Exam Date: 04/19/2021 14:11 Ordering Phys: Leelee Love MD Technologist: ILIA [place] [facility] [place]: bacteremia. No hx cadiac intervention per patient. BP: 93 / 57 HR: 92 Rhythm: Sinus Technical Quality: Adequate MEASUREMENTS (Male / Female) Normal Values 2D ECHO LV Diastolic Diameter PLAX 4.4 cm 4.2 - 5.9 / 3.9 - 5.3 cm LV Systolic Diameter PLAX 2.8 cm IVS Diastolic Thickness 1.7 cm 0.6 - 1.0 / 0.6 - 0.9 cm IVS Systolic Thickness 1.7 cm LVPW Diastolic Thickness 1.3 cm 0.6 - 1.0 / 0.6 - 0.9 cm LVPW Systolic Thickness 1.7 cm LVOT Diameter 1.9 cm LV Ejection Fraction 2D Teich 65.3 % LV Ejection Fraction MOD 2C 54.2 % LV Ejection Fraction 2C AL 52.7 % LA Diameter 4.2 cm LA Width 3.9 cm LA Height 4.4 cm RA Width 4.8 cm RA Height 5.3 cm Aorta at Sinotubular Diameter 2.6 cm M-MODE Aortic Annulus Diameter 2.8 cm LA Ao Ratio MM 1.5 MV E Point Septal Separation 0.4 cm DOPPLER AV Peak Velocity 136.0 cm/s LVOT Peak Velocity 88.0 cm/s AV Area Cont Eq vti 2.0 cm squared AV Area Cont Eq pk 1.8 cm squared MV Peak Velocity 108.0 cm/s MV Area PHT 4.6 cm squared Mitral E to A Ratio 1.2 MV E' Velocity 63.0 cm/s Mitral E to MV E' Ratio 9.1 Mitral E to LV E' Lateral Ratio 7.8 Mitral E to LV E' Septal Ratio 10.8 TR Peak Velocity 306.0 cm/s TR Peak Gradient 37.5 mmHg TV Peak E Velocity 45.0 cm/s Right Atrial Pressure 5.0 mmHg Pulmonary Artery Systolic Pressu 42.5 mmHg PV Peak Velocity 113.0 cm/s RV Acceleration Time 0.1 s RV Ejection Time 0.3 s RV AcT/ET 0.3 FINDINGS Left Ventricle Normal left ventricular size and systolic function, EF 56 %. No regional wall motion abnormalities. Right Ventricle The right ventricle is normal in size and function. Right Atrium Echodensity in the right atrium, may suggest a catheter tip Left Atrium The left atrium is normal in size. Mitral Valve Echodensity in the posterior mitral annulus may suggest calcification. Cannot exclude any vegetation on the structure Aortic Valve Trace aortic valve regurgitation. Tricuspid Valve Moderate tricuspid valve regurgitation. Mild pulmonary hypertension with estimated pulmonary artery peak systolic pressure of 43 mmHg Pulmonic Valve Trace pulmonary valve regurgitation. Pericardium Normal pericardium without effusion. Aorta Normal ascending aorta dimension. CONCLUSIONS Normal left ventricular size and systolic function, EF 56 %. No regional wall motion abnormalities. Echodensity in the right atrium, may suggest a catheter tip. Echodensity in the posterior mitral annulus may suggest calcification. Cannot exclude any vegetation on this structure. Moderate tricuspid valve regurgitation. Mild pulmonary hypertension with estimated pulmonary artery peak systolic pressure of 43 mmHg. Trace pulmonary valve regurgitation. There is no pericardial effusion. There are no intracardiac masses. Consider DONI, to better evaluate for any vegetation, if clinically indicated Dr Jono Wilson MD FACC (Electronically Signed) Final Date: 19 April 2021 23:00 S
[2021-04-19 12:15] LABS: Glucose Point of Care 181 mg/dL (70-110)
[2021-04-19] MEDS: insulin lispro 100 unit/1 mL SUBCUT ×2 (12:41→17:16)
[2021-04-19] MEDS: cefepime 1,000 MG in sodium chloride 0.9% (plus) 50 ML 100 MG IV (12:42)
[2021-04-19 16:45] LABS: Glucose Point of Care 142 mg/dL (70-110)
[2021-04-19 17:02] LABS: Glucose Point of Care 215 mg/dL (70-110)
--- NOTE | 2021-04-19 19:07 | PC.NURSE ---
report to Cherise Lopez RN at this time.
--- NOTE | 2021-04-19 20:38 | PC.NURSE ---
Shift report received from Kami RUSSO. Patient in bed/ awake. Denies pain / no s/s of pain or discomfort. O2 3 1/2L NC. IV patent/SL. No needs noted at this time.
[2021-04-19 21:38] LABS: Glucose Point of Care 145 mg/dL (70-110)
[2021-04-19] MEDS: trazodone 150 mg Tablet 75 MG PO (22:34)
--- NOTE | 2021-04-19 22:43 | PC.NURSE ---
patient refuses to leave telemetry monitoring on
[2021-04-20] VITALS (8 sets, daily range): BP systolic 83–116; BP diastolic 52–78; PULSE 88–106; RESP 16–18; TEMP 36.7–37.1; O2SAT 91–97
--- NOTE | 2021-04-20 00:24 | PC.NURSE ---
patient resting at this time/ no s/s of pain or discomfort
[2021-04-20] MEDS: heparin 5,000 unit/mL INJ 1 mL 5000 UNIT SUBCUT (04:25)
[2021-04-20 06:05] LABS: Basophils % 0.4 %; Eosinophils # 0.6 10^3/uL (0.0-0.8); Eosinophils % 7.3 %; Hematocrit 26.5 % (37.0-47.0); Lymphocytes # 0.6 10^3/uL (0.8-4.8); Lymphocytes % 7.8 %; Mean Corpuscular HGB Conc 30.2 g/dL (30.0-36.0); Mean Corpuscular Hemoglobin 30.5 pg (28.0-34.0); Mean Corpuscular Volume 101.1 fl (81-99); Mean Platelet Volume 11.4 fL (7.4-10.4); Monocytes # 0.6 10^3/uL (0.2-0.9); Monocytes % 7.6 %; Neutrophils # 5.95 10^3/uL (1.8-7.7); Neutrophils % 76.3 %; Nucleated Red Blood Cells % 0 %; Platelet Count 115 10^3/cmm (130-400); Red Blood Count 2.62 10^6/uL (4.1-5.3); Red Cell Distribution Width 16.4 % (12.1-15.1); White Blood Count 7.8 10^3/uL (4.0-10.0)
[2021-04-20 06:35] LABS: Procalcitonin 86.96 ng/mL (0-0.5)
[2021-04-20 06:37] LABS: Anion Gap 25.2 (5-19); Blood Urea Nitrogen 48 mg/dL (6-20); Calcium 8.4 mg/dL (8.5-10.5); Carbon Dioxide 21 mmol/L (22-29); Chloride 94 mmol/L (98-107); Glomerular Filtration Rate 5.7 mL/min (90-130); Glucose 103 mg/dL (65-115); Osmolality Calculated 293 mOsm/kg (285-295); Potassium 5.2 mmol/L (3.5-5.1); Sodium 135 mmol/L (136-145)
[2021-04-20 06:56] LABS: Glucose Point of Care 120 mg/dL (70-110)
[2021-04-20] MEDS: calcium acetate 667 mg Capsule 1334 MG PO ×3 (08:00→20:45)
[2021-04-20] MEDS: aspirin 81 mg EC Tablet PO (08:00)
[2021-04-20] MEDS: ropinirole 0.25 mg Tablet 0.5 MG PO (08:00)
[2021-04-20] MEDS: clopidogrel 75 mg Tablet PO (08:00)
[2021-04-20] MEDS: atorvastatin 40 mg Tablet 20 MG PO (08:00)
[2021-04-20] MEDS: midodrine 5 mg TABLET PO (08:00)
[2021-04-20] MEDS: citalopram 20 mg Tablet PO (08:00)
[2021-04-20] MEDS: buPROPion XL (24 HR) 150 mg Tablet PO (08:07)
--- NOTE | 2021-04-20 10:08 | PM.PN ---
Subjective Subjective: Interval history: Doing ok on dialysis, got midodrine prior to dialysis. She feels a lot better today. Mild trace edema otherwise no new hypervolemic Sx. Last fever yesterday morning Mobilizing without assistance NC with 3.5L Vitals/I&O/Wt Last Vital Signs Temp 98.8 F 04/20/21 07:30 Pulse 88 04/20/21 07:30 Resp 16 04/20/21 07:30 BP 116/64 04/20/21 07:30 Pulse Ox 97 04/20/21 07:30 04/19/21 04/20/21 04/20/21 22:59 06:59 14:59 Intake Total 480 / 1070 240 / 1310 250 / 250 Balance 480 / 1070 240 / 1310 250 / 250 Weight last 48 hrs Weight 115.666 kg Physical Exam Narrative: EXAM NARRATIVE: Constitutional: Awake, comfortable. HEENT: Wet mucosa, no jvp, non icteric. Lungs: Bilaterally clear without discernible wheeze, rales in all lung zones. CVS: S1, S2, no murmurs. Abdo: Soft, BS ok. Ext 4: Minimal edema, peripheral perfusion with no cyanosis. Neurological: Grossly non-focal Data : 04/20/21 05:30 04/20/21 05:30 Micro: Microbiology 04/20/21 08:30 Blood Culture - Preliminary Blood SPECIMEN COLLECTED 04/18/21 15:59 Blood Culture - Preliminary Blood NEGATIVE TO DATE 04/18/21 11:22 Blood Culture - Preliminary Blood A&P Additional A&P Information 1. ESRD Seen on dialysis 2K bath, ultrafiltration 3 L. Continue Sunday, Sunday and Sunday dialysis schedule Dose medications for GFR less than 15 on dialysis 2. Lytes Pre-dialysis, anticipate dialysis will help to correct 3. Weakness Blood cultures remain negative I'm concerned about a line infiection Broad-spectrum antibiotics in the meantime per medical team. D/w team to add Vanco and cefepime today 4. Hemodynamics Hemodynamics currently soft, she was given midodrine prior to dialysis and I prescribed this for her. Close monitoring during dialysis 5. Chronic ESRD issues These will be managed as an outpatient including management of anemia of ESRD, secondary hyperparathyroidism, hyperphosphatemia etc. She is on lanthanum as an outpatient, give her some PhosLo while she is admitted. 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
--- NOTE | 2021-04-20 10:30 | PC.CHAP ---
Pastoral Care Encounter/Spiritual Assessment Type of Contact [] Declined dyed yarn operator visit [] Patient/Family/Request visit [] Outpatient visit [] Follow-up visit [] Physician referral [] Code/Alert [x] Routine visit [] Staff referral [] Actively dying [] Patient sleeping [] Family support [] [x] Out of room [] Palliative care [] [] Receiving care in room [] Pre-surgical visit [] Trauma [] Long length of stay [] ICU visit [] Other: Relational/Emotional Strength [] Patient feels connected with others/family/visitors/staff [] Distress [] Loneliness/isolation [] Abandonment Spirituality of Patient [] Person of Anna [] Attends Episcopal of their Anna [] Believes in Prayer [] Reads Bible or Religion materials [] There are Spiritual issues to be addressed Replenishment Specialist Interventions [] Prayer [] Active listening [] Non-anxious presence [] Spiritual/emotional support [] Crisis/trauma care [] Spiritual counseling [] Bereavement support [] Provided bereavement packet [] Provided Bible/devotional materials [] Provided toy/stuffed animal, coloring book to patient or family member [] Provided Communion [] Anointing/[place] [] Salvation [x] Completed spiritual assessment [] Other: Impact on Illness or Injury [] Angry [] Fearful [] Anxious [] Often cries [] Exhaustion [] Unable to work [] Unable to attend yazidi [] Unable to walk/stand [] Unable to read [] Unable to drive [] Unable to eat/drink [] Unable to sleep [] Unable to be with family [] Patient intubated [] Other: Summary Time spent with patient
[2021-04-20] MEDS: acetaminophen 325 mg Tablet 650 MG PO ×2 (10:56→20:45)
[2021-04-20 11:28] LABS: Glucose Point of Care 135 mg/dL (70-110)
--- NOTE | 2021-04-20 11:51 | P.PN_ITS ---
Subjective Subjective: Interval history: Blood culture final report pending Afebrile since initiation of antibiotics, getting dialyzed today She was able to participate for physical therapy Vitals/I&O/Wt Last Vital Signs Temp 98.8 F 04/20/21 07:30 Pulse 88 04/20/21 07:30 Resp 16 04/20/21 07:30 BP 116/64 04/20/21 07:30 Pulse Ox 97 04/20/21 07:30 04/19/21 04/20/21 04/20/21 22:59 06:59 14:59 Intake Total 480 / 1070 240 / 1310 250 / 250 Balance 480 / 1070 240 / 1310 250 / 250 Weight last 48 hrs Weight 115.666 kg Physical Exam Narrative: EXAM NARRATIVE: Clinically looks less fluid overloaded On 2 L nasal cannula No acute respiratory distress S1, S2 Distended abdomen nontender Venous stasis dermatitis Psoriasis plaque Nonfocal neuro exam Data : 04/20/21 05:30 04/20/21 05:30 Micro: Microbiology 04/20/21 10:39 Blood Culture - Preliminary Blood SPECIMEN COLLECTED 04/20/21 08:30 Blood Culture - Preliminary Blood SPECIMEN COLLECTED 04/18/21 15:59 Blood Culture - Preliminary Blood NEGATIVE TO DATE 04/18/21 11:22 Blood Culture - Preliminary Blood A&P Assessment and plan (1) Hyperkalemia: Status: Acute (2) Fall: Status: Acute (3) ESRD on dialysis: Status: Acute (4) Fever: Status: Acute (5) Restless leg syndrome: Status: Acute (6) LUIS EDUARDO (obstructive sleep apnea): Status: Acute (7) COPD (chronic obstructive pulmonary disease): Status: Acute (8) 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 renal disease): Status: Acute Additional A&P Information Fall secondary to electrolyte imbalance and underlying comorbid conditions Currently patient is doing well, able to participate for physical therapy Might benefit from home health services on discharge End-stage renal disease: Dialysis today Bacteremia: We will follow up with repeat blood cultures today, afebrile since initiation of antibiotics Hemodynamically stable Sleep apnea: CPAP overnight Tachyarrhythmia: Sinus rhythm, heart rate stable, heart rate did respond to fluid bolus Patient lives alone Type 2 diabetes renal dialysis diet Euglycemic continue sliding scale procalcitonin is high Calcium 8.4 Electrolyte replenishment as per nephro Attestations Medical Necessity Statement*: Continue medical management Time Spent in Patient Care: less than 15 minutes Coding Level of Care Code Acute Traffic Recorder for Chg Fwd Diagnoses Hyperkalemia E87.5 Fall W19.XXXA ESRD on dialysis N18.6; Z99.2 Fever R50.9 Restless leg syndrome G25.81 LUIS EDUARDO (obstructive sleep apnea) G47.33 COPD (chronic obstructive pulmonary disease) J44.9 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 renal disease) E11.22; N18.6
[2021-04-20] MEDS: cefepime 1,000 MG in sodium chloride 0.9% (plus) 50 ML 100 MG IV (13:00)
[2021-04-20] MEDS: vancomycin 1,000 MG in sodium chloride 0.9% 250 ML 250 MG IV (15:29)
--- NOTE | 2021-04-20 16:55 | PM.CONSULT ---
Providers/Reason For Consult Consulting Physician/Specialty*: General Surgery Dr. Chung Reason for Consult*: Removal of dialysis catheter Attending Physician: Leelee Love MD Primary Care Provider: Kate Marcelino MD History of Present Illness History of Present Illness Kerri Fregoso is a 55 year old female with ESRD who had a tunneled hemodialysis catheter placed due to thrombosis of her AV fistula.She was admitted after a fall and she missed her last 2 dialysis sessions. She was noted to be bacteremic and therefore the unstacker would like to have the dialysis catheter removed and sent for cultures. Review of Systems General: Reports: 10 or more systems reviewed and unremarkable except in HPI and below Meds/Allergies Home Medications and Allergies Home Medications Medication Instructions Recorded Confirmed Last Taken Type RenaPlex-D 1 tab PO DAILY 12/12/19 04/18/21 10/19/20 History calcium acetate(phosphat bind) See Rx Instructions .ROUTE .COMPLEX 12/12/19 04/18/21 10/19/20 History lanthanum See Rx Instructions .ROUTE .COMPLEX 12/12/19 04/18/21 10/19/20 History diaper,brief,adult,disposable #120 each 02/04/20 04/18/21 Unknown Rx miscellaneous medical supply See Rx Instructions MISCELLANEOUS 02/09/20 04/18/21 Unknown Rx .COMPLEX #1 each acetaminophen 325 mg tablet 650 mg PO Q6H PRN tab 05/12/20 04/18/21 10/19/20 History epoetin favio 10,000 unit/mL See Rx Instructions .ROUTE .COMPLEX 05/12/20 04/18/21 Unknown History injection solution iron sucrose 100 mg iron/5 mL 100 mg IV DAILY 05/12/20 04/18/21 Unknown History intravenous solution polyethylene glycol 3350 17 17 g PO DAILY 05/12/20 04/18/21 Unknown History gram/dose oral powder magnesium sulfate (bulk) 100 % 1 applic TOPICAL BID #2500 g 05/19/20 04/18/21 10/19/20 Rx crystals mupirocin 2 % topical ointment 1 applic TOPICAL BID #22 g 05/19/20 04/18/21 10/19/20 Rx ammonium lactate 12 % topical cream 1 applic TOPICAL BID #140 g 06/11/20 04/18/21 10/19/20 Rx Lactobacillus acidophilus 10 mg PO DAILY 09/06/20 04/18/21 10/19/20 History aspirin 81 mg tablet,delayed 81 mg PO DAILY 09/06/20 04/18/21 10/19/20 History release fluticasone furoate 100 1 inh INHALATION DAILY 30 Days #60 09/06/20 04/18/21 10/19/20 Rx mcg-vilanterol 25 mcg/dose ea inhalation powder pravastatin 10 mg tablet 10 mg PO DAILY #30 tab 09/21/20 04/18/21 10/19/20 Rx albuterol sulfate 90 mcg/actuation 2 puff INHALATION QID PRN 30 Days 10/18/20 04/18/21 10/19/20 Rx aerosol inhaler #18 gm clopidogrel 75 mg tablet 75 mg PO DAILY 90 Days #90 tab 10/18/20 04/18/21 10/19/20 Rx miscellaneous medical supply See Rx Instructions MISCELLANEOUS 11/03/20 04/18/21 Unknown Rx .COMPLEX #1 ea calcipotriene 0.005 % topical cream 1 applic TOPICAL BID #120 g 11/17/20 04/18/21 Unknown Rx clobetasol 0.05 % topical ointment 1 applic TOPICAL BID 14 Days #60 g 11/17/20 04/18/21 Unknown Rx hydrocortisone 2.5 % topical 1 applic TOPICAL BID PRN #453.6 g 11/17/20 04/18/21 Unknown Rx ointment triamcinolone acetonide 0.1 % 1 applic TOPICAL BID #453.6 g 11/17/20 04/18/21 Unknown Rx topical ointment cyclobenzaprine 5 mg tablet 5 mg PO TID PRN #90 tab 01/18/21 04/18/21 Unknown Rx gabapentin 300 mg capsule 300 mg PO TID PRN 30 Days #90 cap 01/18/21 04/18/21 Unknown Rx ropinirole 0.5 mg tablet 0.5 mg PO DAILY 30 Days #30 tab 01/18/21 04/18/21 Unknown Rx linagliptin 5 mg tablet 5 mg PO DAILY #90 tab 01/20/21 04/18/21 Unknown Rx cetirizine 10 mg tablet 10 mg PO DAILY 30 Days #30 tab 01/23/21 04/18/21 Unknown Rx midodrine 5 mg tablet See Rx Instructions .ROUTE 01/27/21 04/18/21 Unknown Rx .COMPLEX #30 tab nitroglycerin 0.4 mg sublingual 0.4 mg SUBLINGUAL Q5M PRN #30 tab 01/27/21 04/18/21 Unknown Rx tablet hydroxyzine pamoate 25 mg capsule See Rx Instructions .ROUTE 02/23/21 04/18/21 Unknown Rx .COMPLEX #90 capsule bupropion HCl 150 mg 24 hr tablet, 150 mg PO DAILY #30 tab 04/14/21 04/18/21 Unknown Rx extended release citalopram 20 mg tablet 20 mg PO DAILY #30 tab 04/14/21 04/18/21 Unknown Rx trazodone 150 mg tablet 75 - 150 mg PO BEDTIME #30 tab 04/14/21 04/18/21 Unknown Rx lidocaine-prilocaine 1 applic TOPICAL . DIRECTED PRN 04/18/21 04/18/21 Unknown History Allergies Allergy/AdvReac Type Severity Reaction Status Date / Time codeine Allergy algy-rash Verified 04/18/21 08:12 latex Allergy algy-rash Verified 04/18/21 08:12 Milk Containing Products Allergy ADR-Abdominal Verified 04/18/21 08:12 Pain penicillamine Allergy ALGY-Difficulty Verified 04/18/21 08:12 Swallowing Current Medications Current Medications Generic Name Dose Route Start Last Admin Trade Name Freq PRN Reason Stop Dose Admin Acetaminophen 650 mg 04/19/21 03:44 04/20/21 10:56 Acetaminophen 325 Mg Tablet PO 650 mg Q6H PRN Administration MILD PAIN Aspirin 81 mg 04/19/21 09:00 04/20/21 08:00 Aspirin 81 Mg Ec Tablet PO 81 mg DAILY ABIGAIL Administration Atorvastatin Calcium 20 mg 04/19/21 09:00 04/20/21 08:00 Atorvastatin 40 Mg Tablet PO 20 mg DAILY ABIGAIL Administration Bupropion HCl 150 mg 04/19/21 09:00 04/20/21 08:07 Bupropion Xl (24 Hr) 150 Mg Tablet PO 150 mg DAILY ABIGAIL Administration Calcium Acetate 1,334 mg 04/18/21 15:00 04/20/21 15:29 Calcium Acetate 667 Mg Capsule PO 1,334 mg TID ABIGAIL Administration Citalopram Hydrobromide 20 mg 04/19/21 09:00 04/20/21 08:00 Citalopram 20 Mg Tablet PO 20 mg DAILY ABIGAIL Administration Clopidogrel Bisulfate 75 mg 04/19/21 09:00 04/20/21 08:00 Clopidogrel 75 Mg Tablet PO 75 mg DAILY ABIGAIL Administration Heparin Sodium (Porcine) 5,000 unit 04/19/21 20:30 04/20/21 12:38 Heparin 5,000 Unit/Ml Inj 1 Ml SUBCUT Not Given Q8H ABIGAIL Vancomycin HCl 1,000 mg/ 250 mls @ 250 mls/hr 04/20/21 16:00 04/20/21 15:29 Sodium Chloride IV 250 mls/hr MoWeFr ABIGAIL Administration Protocol Insulin Human Lispro 0 unit 04/18/21 18:00 04/20/21 12:38 Insulin Lispro 100 Unit/1 Ml SUBCUT Not Given TIDWM [facility] Protocol Midodrine 5 mg 04/18/21 17:45 04/20/21 08:00 Midodrine 5 Mg Tablet PO 5 mg MoWeFr PRN Administration NEEDED BEFORE DIALYSIS Mupirocin 1 applic 04/18/21 18:00 04/20/21 08:03 Mupirocin Oint 22 Gm TOPICAL Not Given BID ABIGAIL Ropinirole HCl 0.5 mg 04/19/21 09:00 04/20/21 08:00 Ropinirole 0.25 Mg Tablet PO 0.5 mg DAILY ABIGAIL Administration Trazodone HCl 75 mg 04/18/21 21:00 04/19/21 22:34 Trazodone 150 Mg Tablet PO 75 mg BEDTIME ABIGAIL Administration PFSH Acute PFSH: Medical History Allergic rhinitis COPD (chronic obstructive pulmonary disease) Diabetes mellitus Encounter for screening colonoscopy History of 2019 novel coronavirus disease (COVID-19) + swab on 04/12/2020 Insomnia Major depressive disorder, recurrent severe without psychotic features Mixed stress and urge urinary incontinence LUIS EDUARDO (obstructive sleep apnea) Plaque psoriasis Psoriasis Psychiatric care Restless leg syndrome Surgical History H/O hernia repair History of appendectomy History of colonoscopy Family History Family/Other Diabetes Brother Diabetes Grandmother CAD (coronary artery disease) Bleeding disorder Maternal Mother CAD (coronary artery disease) Cancer stomach cancer Denies family history of Clotting disorder Dementia Hyperlipidemia Psychiatric illness Chronic kidney disease (CKD) Suicide Anesthesia complication Family history of premature coronary artery disease Lung disease Hypertension Stroke Social History Second hand smoke exposure: Yes Alcohol intake: never Adopted: No Caregiver/support person: Yes Lives independently: Yes Household members: none Housing: Apartment Marital status: Single Number of children: 0 Number of grandchildren: 0 Highest education level completed: Bachelor's Degree Education level details: Education service: No Current occupational status: disabled Current occupational exposures/hazards: No Pets and animals: No History of recent travel: Yes ([facility] to [place]) Out of state: Yes Leisure activites: music, reading and other Leisure activities details: crafting Sexually active: Yes Current gender identity: Female Anna/Faith: Lutheran Special anna needs: No Agree to transfusion: Yes Financial difficulty paying for basics: Somewhat Hard Female Reproductive History: Para: 0 Spontaneous abortions: No Vitals/I&O/Wt Last Vital Signs Temp 98.5 F 04/20/21 15:28 Pulse 99 04/20/21 15:28 Resp 17 04/20/21 15:28 BP 96/57 04/20/21 15:28 Pulse Ox 94 04/20/21 15:28 04/20/21 04/20/21 04/20/21 06:59 14:59 22:59 Intake Total 240 / 1310 840 / 840 Output Total 2330 / 2330 Balance 240 / 1310 -1490 / -1490 Weight last 48 hrs Weight 255 lb Physical Exam Narrative: EXAM NARRATIVE: HEENT: Normocephalic Eye: Sclera /conjunctiva normal Chest: IJ tunneled hemodialysis catheter Abdomen: Soft to palpation Neurological: Oriented to place person and time Skin: Intact, no lesions appreciated on gross exam Data Micro: Micro: Microbiology 04/18/21 11:22 Blood Culture - Pr eliminary Blood Staphylococcus aureus 04/18/21 15:59 Blood Culture - Pr eliminary Blood NEGATIVE TO BRUCE E 04/20/21 10:39 Blood Culture - Pr eliminary Blood SPECIMEN [facility]ERS 04/20/21 08:30 Blood Culture - Pr eliminary Blood SPECIMEN [facility] A&P Assessment and plan (1) ESRD on dialysis: 57-year-old female with ESRD who has a clotted AV fistula and bacteremia. Plan for removal of tunneled hemodialysis catheter under local anesthetic at the bedside Procedure, risks, benefits and alternatives have been discussed with the patient who wishes to proceed with surgery. If cultures remain negative for 48 hours then she will need a new tunneled dialysis catheter placed later this week Status: Acute Consult Attestations Medical Necessity Statement: As per attending physician Coding Level of Care Code Acute Public Records Officer for Kulwinder Hilario Diagnoses ESRD on dialysis N18.6; Z99.2
[2021-04-20 17:00] LABS: Glucose Point of Care 202 mg/dL (70-110)
--- NOTE | 2021-04-20 17:33 | PC.NURSE ---
Dr. Chung gave verbal order to stop plavix for now until after surgery. Order stopped
[2021-04-20] MEDS: lidocaine 1% INJ 20 mL 5 ML IV (17:42)
[2021-04-20] MEDS: insulin lispro 100 unit/1 mL SUBCUT (17:46)
--- NOTE | 2021-04-20 18:26 | PM.ACPR ---
Procedure/Consent Time out: Time Out Performed: Yes Consent: Consent for Procedure: Consent obtained from patient Procedure Narrative: Preop diagnosis: ESRD with bacteremia Postop diagnosis: Same Procedure: Removal of tunneled hemodialysis catheter from the right subclavian vein Anesthesia: Local Surgeon: Sheldon Culture: Catheter tip Description of the procedure: The right chest around the catheter was prepped and draped in sterile manner after consent was obtained. 1% lidocaine was infiltrated around the catheter entry site. Using hemostat the catheter was surgically dissected free from the surrounding subcutaneous tissue up to the cuff and the catheter was removed intact and the tip sent for cultures. Pressure dressings were applied. Patient tolerated the procedure well. Acute Procedures Epistaxis Control: Time out performed: Yes
--- NOTE | 2021-04-20 18:57 | PC.NURSE ---
Report to [facility] at this time.
--- NOTE | 2021-04-20 19:48 | P.CONIM_ITS ---
Providers/Reason For Consult Consulting Physician/Specialty*: COLTON Wilson MD/cardiology Reason for Consult*: Patient with end-stage renal disease, diabetes, presenting with a fever and positive blood culture. Abnormal transthoracic echocardiogram. Consult is requested to do a DONI to rule out endocarditis Attending Physician: Leelee Love MD Primary Care Provider: Kate Marcelino MD History of Present Illness History of Present Illness Kerri Fregoso is a 55 year old female is admitted to hospital through the emergency room where she presented with complaints of hip pain and pelvic pain following a fall. She is on hemodialysis for end-stage renal disease. Apparently she missed 2 of her dialysis sessions. She was found to have a low- grade fever in the emergency room. Her blood culture grew staph aureus. She had a transthoracic echocardiogram which revealed echodensities in the mitral annulus, cannot exclude vegetation. Patient has been afebrile for the last 24 hours. She had the dialysis catheter taken out today because of possible infection. She has a history of catheter infection in the past. Her AV fistula also was recently infected. She denies any chest pain or chest tightness. She has a history of difficulty in swallowing. According the patient, she had a DONI attempted many years ago here in this hospital. They had a difficulty in advancing the probe. She was sent to [facility]. Patient does not recall the details. Review of Systems Narrative: CONSTITUTIONAL: Recent fever. History of recurrent infections. EYES: No blurring of vision or other visual disturbances lately. ENT: No hoarseness of voice, auditory disturbances or sore throat. CARDIOVASCULAR: As mentioned above. RESPIRATORY: No significant cough. GASTROINTESTINAL: No hematemesis or melena. GENITOURINARY: Patient with end-stage renal disease on hemodialysis. INTEGUMENTARY: History of psoriasis NEURO: No transient ischemic attacks or amaurosis. PSYCHIATRIC: No history of psychosis or major depression. HEMATOLOGIC: No bleeding disorders or significant anemia. ENDOCRINE: No history of polyuria or polydipsia. MUSCULOSKELETAL: Recent fall sustaining hip pain and pelvic pain ALLERGY/IMMUNOLOGY: As mentioned above. Meds/Allergies Home Medications and Allergies Home Medications Medication Instructions Recorded Confirmed Last Taken Type RenaPlex-D 1 tab PO DAILY 12/12/19 04/18/21 10/19/20 History calcium acetate(phosphat bind) See Rx Instructions .ROUTE .COMPLEX 12/12/19 04/18/2121 History lanthanum See Rx Instructions .ROUTE .COMPLEX 12/12/19 04/18/21 10/19/20 History diaper,brief,adult,disposable #120 each 02/04/20 04/18/21 Unknown Rx miscellaneous medical supply See Rx Instructions MISCELLANEOUS 02/09/20 04/18/21 Unknown Rx .COMPLEX #1 each acetaminophen 325 mg tablet 650 mg PO Q6H PRN tab 05/12/20 04/18/21 10/19/20 History epoetin favio 10,000 unit/mL See Rx Instructions .ROUTE .COMPLEX 05/12/20 04/18/21 Unknown History injection solution iron sucrose 100 mg iron/5 mL 100 mg IV DAILY 05/12/20 04/18/21 Unknown History intravenous solution polyethylene glycol 3350 17 17 g PO DAILY 05/12/20 04/18/21 Unknown History gram/dose oral powder magnesium sulfate (bulk) 100 % 1 applic TOPICAL BID #2500 g 05/19/20 04/18/21 10/19/20 Rx crystals mupirocin 2 % topical ointment 1 applic TOPICAL BID #22 g 05/19/20 04/18/21 10/19/20 Rx ammonium lactate 12 % topical cream 1 applic TOPICAL BID #140 g 06/11/20 04/18/21 10/19/20 Rx Lactobacillus acidophilus 10 mg PO DAILY 09/06/20 04/18/21 10/19/20 History aspirin 81 mg tablet,delayed 81 mg PO DAILY 09/06/20 04/18/21 10/19/20 History release fluticasone furoate 100 1 inh INHALATION DAILY 30 Days #60 09/06/20 04/18/21 10/19/20 Rx mcg-vilanterol 25 mcg/dose ea inhalation powder pravastatin 10 mg tablet 10 mg PO DAILY #30 tab 09/21/20 04/18/21 10/19/20 Rx albuterol sulfate 90 mcg/actuation 2 puff INHALATION QID PRN 30 Days 10/18/20 04/18/21 10/19/20 Rx aerosol inhaler #18 gm clopidogrel 75 mg tablet 75 mg PO DAILY 90 Days #90 tab 10/18/20 04/18/21 10/19/20 Rx miscellaneous medical supply See Rx Instructions MISCELLANEOUS 11/03/20 04/18/21 Unknown Rx .COMPLEX #1 ea calcipotriene 0.005 % topical cream 1 applic TOPICAL BID #120 g 11/17/20 04/18/21 Unknown Rx clobetasol 0.05 % topical ointment 1 applic TOPICAL BID 14 Days #60 g 11/17/20 04/18/21 Unknown Rx hydrocortisone 2.5 % topical 1 applic TOPICAL BID PRN #453.6 g 11/17/20 04/18/21 Unknown Rx ointment triamcinolone acetonide 0.1 % 1 applic TOPICAL BID #453.6 g 11/17/20 04/18/21 Unknown Rx topical ointment cyclobenzaprine 5 mg tablet 5 mg PO TID PRN #90 tab 01/18/21 04/18/21 Unknown Rx gabapentin 300 mg capsule 300 mg PO TID PRN 30 Days #90 cap 01/18/21 04/18/21 Unknown Rx ropinirole 0.5 mg tablet 0.5 mg PO DAILY 30 Days #30 tab 01/18/21 04/18/21 Unknown Rx linagliptin 5 mg tablet 5 mg PO DAILY #90 tab 01/20/21 04/18/21 Unknown Rx cetirizine 10 mg tablet 10 mg PO DAILY 30 Days #30 tab 01/23/21 04/18/21 Unknown Rx midodrine 5 mg tablet See Rx Instructions .ROUTE 01/27/21 04/18/21 Unknown Rx .COMPLEX #30 tab nitroglycerin 0.4 mg sublingual 0.4 mg SUBLINGUAL Q5M PRN #30 tab 01/27/21 04/18/21 Unknown Rx tablet hydroxyzine pamoate 25 mg capsule See Rx Instructions .ROUTE 02/23/21 04/18/21 Unknown Rx .COMPLEX #90 capsule bupropion HCl 150 mg 24 hr tablet, 150 mg PO DAILY #30 tab 04/14/21 04/18/21 Unknown Rx extended release citalopram 20 mg tablet 20 mg PO DAILY #30 tab 04/14/21 04/18/21 Unknown Rx trazodone 150 mg tablet 75 - 150 mg PO BEDTIME #30 tab 04/14/21 04/18/21 Unknown Rx lidocaine-prilocaine 1 applic TOPICAL . DIRECTED PRN 04/18/21 04/18/21 Unknown History Allergies Allergy/AdvReac Type Severity Reaction Status Date / Time codeine Allergy algy-rash Verified 04/18/21 08:12 latex Allergy algy-rash Verified 04/18/21 08:12 Milk Containing Products Allergy ADR-Abdominal Verified 04/18/21 08:12 Pain penicillamine Allergy ALGY-Difficulty Verified 04/18/21 08:12 Swallowing Current Medications Current Medications Generic Name Dose Route Start Last Admin Trade Name Freq PRN Reason Stop Dose Admin Acetaminophen 650 mg 04/19/21 03:44 04/20/21 10:56 Acetaminophen 325 Mg Tablet PO 650 mg Q6H PRN Administration MILD PAIN Aspirin 81 mg 04/19/21 09:00 04/20/21 08:00 Aspirin 81 Mg Ec Tablet PO 81 mg DAILY ABIGAIL Administration Atorvastatin Calcium 20 mg 04/19/21 09:00 04/20/21 08:00 Atorvastatin 40 Mg Tablet PO 20 mg DAILY ABIGAIL Administration Bupropion HCl 150 mg 04/19/21 09:00 04/20/21 08:07 Bupropion Xl (24 Hr) 150 Mg Tablet PO 150 mg DAILY ABIGAIL Administration Calcium Acetate 1,334 mg 04/18/21 15:00 04/20/21 15:29 Calcium Acetate 667 Mg Capsule PO 1,334 mg TID ABIGAIL Administration Citalopram Hydrobromide 20 mg 04/19/21 09:00 04/20/21 08:00 Citalopram 20 Mg Tablet PO 20 mg DAILY ABIGAIL Administration Heparin Sodium (Porcine) 5,000 unit 04/19/21 20:30 04/20/21 12:38 Heparin 5,000 Unit/Ml Inj 1 Ml SUBCUT Not Given Q8H ABIGAIL Vancomycin HCl 1,000 mg/ 250 mls @ 250 mls/hr 04/20/21 16:00 04/20/21 16:29 Sodium Chloride IV Infused MoWeFr [facility] Infusion Protocol Insulin Human Lispro 0 unit 04/18/21 18:00 04/20/21 17:46 Insulin Lispro 100 Unit/1 Ml SUBCUT 6 unit TIDWM [facility] Administration Protocol Midodrine 5 mg 04/18/21 17:45 04/20/21 08:00 Midodrine 5 Mg Tablet PO 5 mg MoWeFr PRN Administration NEEDED BEFORE DIALYSIS Mupirocin 1 applic 04/18/21 18:00 04/20/21 17:43 Mupirocin Oint 22 Gm TOPICAL Not Given BID [facility] Non-Formulary Medication 1 applic 04/18/21 18:00 04/20/21 18:16 Ammonium Lactate TOPICAL Not Given BID ABIGAIL Non-Formulary Medication 1 applic 04/18/21 18:00 04/20/21 18:16 Clobetasol TOPICAL Not Given BID ABIGAIL Ropinirole HCl 0.5 mg 04/19/21 09:00 04/20/21 08:00 Ropinirole 0.25 Mg Tablet PO 0.5 mg DAILY ABIGAIL Administration Trazodone HCl 75 mg 04/18/21 21:00 04/19/21 22:34 Trazodone 150 Mg Tablet PO 75 mg BEDTIME ABIGAIL Administration PFSH Acute PFSH: Medical History Allergic rhinitis COPD (chronic obstructive pulmonary disease) Diabetes mellitus Encounter for screening colonoscopy History of 2019 novel coronavirus disease (COVID-19) + swab on 04/12/2020 Insomnia Major depressive disorder, recurrent severe without psychotic features Mixed stress and urge urinary incontinence LUIS EDUARDO (obstructive sleep apnea) Plaque psoriasis Psoriasis Psychiatric care Restless leg syndrome Surgical History H/O hernia repair History of appendectomy History of colonoscopy Family History Family/Other Diabetes Brother Diabetes Grandmother CAD (coronary artery disease) Bleeding disorder Maternal Mother CAD (coronary artery disease) Cancer stomach cancer Denies family history of Clotting disorder Dementia Hyperlipidemia Psychiatric illness Chronic kidney disease (CKD) Suicide Anesthesia complication Family history of premature coronary artery disease Lung disease Hypertension Stroke Social History Second hand smoke exposure: Yes Alcohol intake: never Adopted: No Caregiver/support person: Yes Lives independently: Yes Household members: none Housing: Apartment Marital status: Single Number of children: 0 Number of grandchildren: 0 Highest education level completed: Bachelor's Degree Education level details: Education service: No Current occupational status: disabled Current occupational exposures/hazards: No Pets and animals: No History of recent travel: Yes (wet to [place]) Out of state: Yes Leisure activites: music, reading and other Leisure activities details: crafting Sexually active: Yes Current gender identity: Female Anna/Buddhism: Islam Special anna needs: No Agree to transfusion: Yes Financial difficulty paying for basics: Somewhat Hard Female Reproductive History: Para: 0 Spontaneous abortions: No Vitals/I&O/Wt Last Vital Signs Temp 98.5 F 04/20/21 15:28 Pulse 99 04/20/21 15:28 Resp 17 04/20/21 15:28 BP 96/57 04/20/21 15:28 Pulse Ox 94 04/20/21 15:28 04/20/21 04/20/21 04/20/21 06:59 14:59 22:59 Intake Total 240 / 1310 840 / 840 490 / 1330 Output Total 2330 / 2330 Balance 240 / 1310 -1490 / -1490 490 / -1000 Physical Exam Narrative: EXAM NARRATIVE: GENERAL: The patient is alert and oriented times three. Not in any acute distress. HEENT: Minimal pallor. No icterus or lymphadenopathy NECK: Trachea appears to be central. No masses noted. No JVD or thyromegaly appreciated. RESPIRATORY: Chest is symmetrical. No intercostals muscle retraction or any accessory muscle activation. There is no chest wall tenderness. Breath sounds are heard bilaterally. No rales or rhonchi heard. No evidence of any consolidation. BREASTS: Deferred. HEART: The heart sounds are normal. No S3 or S4. Short systolic murmur in the left sternal border. No diastolic murmurs ABDOMEN: No vessel pulsations or distention. No tenderness. No organomegaly appreciated. Bowel sounds are normally heard. : Deferred. RECTAL: Deferred. LYMPHATIC: No lymphadenopathy noted in the neck . EXTREMITIES: Features of chronic venous stasis of both lower extremities. MUSCULOSKELETAL: No acute joint deformities or swelling SKIN: extensive dry scaly lesions in the skin NEUROPSYCHIATRIC: The patient is alert and oriented x3. Appears to be in a good mood. No tremors or rigidity noted. Data Labs: Other Labs: Laboratory Last Values WBC 7.8 10^3/uL (4.0- 10.0) 04/20/21 05:30 RBC 2.62 10^6/uL (4.1 -5.3) L 04/20/21 05:30 Hgb 8.0 g/dL (11.5-15 .3) L 04/20/21 05:30 Hct 26.5 % (37.0-47.0 ) L 04/20/21 05:30 MCV 101.1 fl (81-99) H 04/20/21 05:30 MCH 30.5 pg (28.0-34. 0) 04/20/21 05:30 MCHC 30.2 g/dL (30.0-3 6.0) 04/20/21 05:30 RDW 16.4 % (12.1-15.1 ) H 04/20/21 05:30 Plt Count 115 10^3/cmm (130 -400) L 04/20/21 05:30 MPV 11.4 fL (7.4-10.4 ) H 04/20/21 05:30 Neut % (Auto) 76.3 % 04/20/21 05:30 Lymph % (Auto) 7.8 % 04/20/21 05:30 Sanders % (Auto) 7.6 % 04/20/21 05:30 Eos % (Auto) 7.3 % 04/20/21 05:30 Baso % (Auto) 0.4 % 04/20/21 05:30 Neut # (Auto) 5.95 10^3/uL (1.8 -7.7) 04/20/21 05:30 Lymph # (Auto) 0.6 10^3/uL (0.8- 4.8) L 04/20/21 05:30 Sanders # (Auto) 0.6 10^3/uL (0.2- 0.9) 04/20/21 05:30 Eos # (Auto) 0.6 10^3/uL (0.0- 0.8) 04/20/21 05:30 Baso # (Auto) 0.0 10^3/uL (0.0- 0.1) 04/20/21 05:30 Nucleated RBC % (a uto) 0 % 04/20/21 05:30 Nucleated RBCs # 0.0 /100WBC 04/20/21 05:30 Specimen Type Arterial 04/18/21 09:12 Sample Site Radial, right 04/18/21 09:12 ABG pH 7.34 (7.35-7.45) L 04/18/21 09:12 ABG pCO2 43.3 mmHg (35-45) 04/18/21 09:12 ABG pO2 73.9 mmHg (80.0-1 00.0) L 04/18/21 09:12 ABG HCO3 23.6 mmol/L (22-2 6) 04/18/21 09:12 ABG O2 Saturation 94.2 04/18/21 09:12 ABG Base Excess -2.1 mmol/L (-2.0 -2.0) L 04/18/21 09:12 Joel Test Pos 04/18/21 09:12 A-a O2 Gradient 9.2 mmHg (5-10) 04/18/21 09:12 Hematocrit 29.9 % (37-47) L 04/18/21 09:12 Hgb O2 Saturation 91.5 % (95-100) L 04/18/21 09:12 Carboxyhemoglobin 1.8 %THgb (0.4-20 .1) 04/18/21 09:12 Methemoglobin 1.1 % (0.4-1.5) 04/18/21 09:12 Total Hemoglobin 9.8 g/dL (12-16) L 04/18/21 09:12 Sodium 137.0 mmol/L (131 -143) 04/18/21 09:12 Potassium 6.0 mmol/L (3.5-5 .0) H 04/18/21 09:12 Glucose 365.0 mg/dL (70-1 15) H 04/18/21 09:12 Ionized Calcium 1.1 mmol/L (1.1-1 .4) 04/18/21 09:12 O2 Delivery Device Nc 04/18/21 09:12 O2 Liters/Min 2.0 % 04/18/21 09:12 FiO2 28.0 % 04/18/21 09:12 Project Manager Industrial ID Alex 04/18/21 09:12 Sodium 135 mmol/L (136-1 45) L 04/20/21 05:30 Potassium 5.2 mmol/L (3.5-5 .1) H 04/20/21 05:30 Chloride 94 mmol/L (98-107 ) L 04/20/21 05:30 Carbon Dioxide 21 mmol/L (22-29) L 04/20/21 05:30 Anion Gap 25.2 (5-19) H 04/20/21 05:30 BUN 48 mg/dL (6-20) H 04/20/21 05:30 Creatinine 7.4 mg/dL (0.5-0. 9) H* 04/20/21 05:30 GFR Calculation 5.7 mL/min (90-13 0) L 04/20/21 05:30 Glucose 103 mg/dL (65-115 ) 04/20/21 05:30 POC Glucose 202 mg/dL (70-110 ) H 04/20/21 16:52 Calculated Osmolal ity 293 mOsm/kg (285- 295) 04/20/21 05:30 Lactic Acid 1.9 mmol/L (0.5-2 .2) 04/18/21 08:28 Calcium 8.4 mg/dL (8.5-10 .5) L 04/20/21 05:30 Magnesium 2.0 mg/dL (1.7-2. 3) 04/19/21 05:35 Total Bilirubin 0.7 mg/dL (0.15-1 .2) 04/18/21 08:28 AST 20 U/L (0-32) 04/18/21 08:28 ALT 22 U/L (0-33) 04/18/21 08:28 Alkaline Phosphata se 101 IU/L (35-105) 04/18/21 08:28 Creatine Kinase 28 U/L (26-192) 04/18/21 08:28 Troponin T Baselin e 127 ng/L (0-10) H* 04/18/21 08:28 Troponin T 120 Min [place] 124.4 ng/L (0-10) H 04/18/21 11:22 Delta Troponin T -2.6 ABS# (0-10) L 04/18/21 11:22 Troponin T Hi Sens 6Hr 121.2 ng/L (0-10) H 04/18/21 15:59 Troponin T Hi Sens 6Hr Delta -5.8 ng/L (0-12) L 04/18/21 15:59 C-Reactive Protein 343.4 mg/L (0.0-4 .9) H 04/19/21 05:35 Total Protein 8.9 g/dL (6.6-8.7 ) H 04/18/21 08:28 Albumin 3.8 g/dL (3.5-5.2 ) 04/18/21 08:28 Globulin 5.1 g/dL (1.3-4.6 ) H 04/18/21 08:28 Lipase 14 U/L (13-60) 04/18/21 08:28 Procalcitonin 86.96 ng/mL (0-0. 5) H 04/20/21 05:30 Serum Ketones Negative (Negati ve) 04/18/21 11:22 Coronavirus 229E ( PCR) Not detected (NO T DETECT) 04/18/21 12:15 SARS-CoV-2 (PCR) Not detected (NO T DETECT) 04/18/21 12:15 Micro: Micro: Microbiology 04/18/21 11:22 Blood Culture - Pr eliminary Blood Staphylococcus aureus 04/18/21 15:59 Blood Culture - Pr eliminary Blood NEGATIVE TO BRUCE E 04/20/21 10:39 Blood Culture - Pr eliminary Blood SPECIMEN COLLEC ANDERS 04/20/21 08:30 Blood Culture - Pr eliminary Blood SPECIMEN COLLEC ANDERS A&P Assessment and plan (1) Bacteremia: Patient apparently has features of dialysis catheter infection. Is not clear whether he has any endocarditis. DONI would be appropriate to further evaluate. Status: Acute (2) End stage renal disease on dialysis: Patient is on hemodialysis 3 times a week. Status: Acute (3) Dysphagia: She has a history of dysphagia and also difficulty of esophageal intubation by a DONI probe in the past?: Details are not available. The patient had upper endoscopy before proceeding with the DONI to see feasibility of doing this procedure. Status: Acute Consult Attestations Medical Necessity Statement: Patient requires continued hospital stay for close monitoring and further management Coding Level of Care Code Acute Principle Software Engineer for Chg Fwd History Expanded Problem Focused Exam Expanded Problem Focused Medical Decision Making Low Complexity Diagnoses Bacteremia R78.81 End stage renal disease on dialysis N18.6; Z99.2 Dysphagia R13.10
[2021-04-20] MEDS: trazodone 150 mg Tablet 75 MG PO (20:46)
[2021-04-20 21:53] LABS: Glucose Point of Care 266 mg/dL (70-110)
[2021-04-21] VITALS (7 sets, daily range): BP systolic 95–114; BP diastolic 49–63; PULSE 82–104; RESP 16–18; TEMP 36.6–37.2; O2SAT 93–99
--- NOTE | 2021-04-21 05:27 | PC.NURSE ---
SHIFT SUMMARY Says she slept well first part of the night but has been awake early this morning. Watching TV. Is NPO per order. To have a DONI this am. Has been up to bathroom with assist. Had a large formed BM.Brief was damp with urine and was changed. Says she doesn't have much urine out and usually just goes in the brief. Dressing to right upper chest is C&D. Has very dry/scaley skin over body from psoriasis
[2021-04-21 06:02] LABS: Basophils % 0.5 %; Eosinophils # 0.6 10^3/uL (0.0-0.8); Eosinophils % 7.8 %; Hematocrit 28.3 % (37.0-47.0); Hemoglobin 8.5 g/dL (11.5-15.3); Lymphocytes # 0.7 10^3/uL (0.8-4.8); Lymphocytes % 8.9 %; Mean Corpuscular Hemoglobin 30.7 pg (28.0-34.0); Mean Corpuscular Volume 102.2 fl (81-99); Mean Platelet Volume 12.3 fL (7.4-10.4); Monocytes # 0.5 10^3/uL (0.2-0.9); Neutrophils # 5.99 10^3/uL (1.8-7.7); Neutrophils % 76.4 %; Nucleated Red Blood Cells % 0 %; Platelet Count 136 10^3/cmm (130-400); Red Blood Count 2.77 10^6/uL (4.1-5.3); Red Cell Distribution Width 16.5 % (12.1-15.1); White Blood Count 7.8 10^3/uL (4.0-10.0)
[2021-04-21 06:24] LABS: Blood Urea Nitrogen 33 mg/dL (6-20); Calcium 8.5 mg/dL (8.5-10.5); Carbon Dioxide 20 mmol/L (22-29); Chloride 97 mmol/L (98-107); Glucose 159 mg/dL (65-115); Osmolality Calculated 291 mOsm/kg (285-295); Sodium 135 mmol/L (136-145)
[2021-04-21 06:27] LABS: Anion Gap 22.8 (5-19); Potassium 4.8 mmol/L (3.5-5.1)
[2021-04-21 06:29] LABS: Procalcitonin 51.63 ng/mL (0-0.5)
[2021-04-21 06:44] LABS: Glucose Point of Care 173 mg/dL (70-110)
--- NOTE | 2021-04-21 07:56 | FL_ITS ---
WS: [id number] Modified barium swallow, 04/21/2021 Clinical Data: Oral dysphagia Comparison: None. Fluoroscopy time: 1.9 minutes. Findings: The patient exhibited normal function with propulsion of the barium from anterior to posterior. The h ypopharynx was normal. There was no penetration or aspiration. There was poor esophageal motility. FL/FL barium swallow modifd [id number] Impression: 1. Negative modified barium swallow. 2. Poor esophageal motility.
--- NOTE | 2021-04-21 08:59 | PM.PN ---
Subjective Subjective: Interval history: Patient was kept n.p.o. evaluating her esophageal anatomy patient is stating that last time she had transesophageal echo scheduled however it was difficult to pass the probe and she was shipped to [place], she does have history of catheter infection, AV fistula thrombosis/infection Her tunnel catheter was removed by Dr. Chung yesterday Afebrile since initiation of antibiotics Staph aureus blood culture positive Afebrile, leukocytosis trending down Vitals/I&O/Wt Last Vital Signs Temp 99.0 F 04/21/21 07:10 Pulse 103 H 04/21/21 07:10 Resp 17 04/21/21 07:10 BP 104/62 04/21/21 07:10 Pulse Ox 98 04/21/21 07:10 04/20/21 04/21/21 04/21/21 22:59 06:59 14:59 Intake Total 610 / 1450 120 / 1570 Balance 610 / -880 120 / -760 Physical Exam Narrative: EXAM NARRATIVE: Resting comfortably in a chair outside her room Saturating well on room air Psoriasis plaque Patient is extremely dry Dry mucous membranes No active chest pain or shortness of breath Appropriate mood and affect Awake and alert Nonfocal exam Data : 04/21/21 05:23 04/21/21 05:23 Micro: Microbiology 04/20/21 08:30 Blood Culture - Preliminary Blood NEGATIVE TO DATE 04/18/21 11:22 Blood Culture - Preliminary Blood Staphylococcus aureus 04/18/21 15:59 Blood Culture - Preliminary Blood NEGATIVE TO DATE 04/20/21 10:39 Blood Culture - Preliminary Blood SPECIMEN COLLECTED A&P Assessment and plan (1) Dysphagia: Status: Acute (2) End stage renal disease on dialysis: Status: Acute (3) Bacteremia: Status: Acute (4) Hyperkalemia: Status: Acute (5) Fall: Status: Acute (6) ESRD on dialysis: Status: Acute (7) Fever: Status: Acute (8) Obesity, morbid, BMI 40.0-49.9: Status: Acute (9) Restless leg syndrome: Status: Acute (10) LUIS EDUARDO (obstructive sleep apnea): Status: Acute (11) 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 renal disease): Status: Acute Additional A&P Information Bacteremia Continue vancomycin for staph aureus Sensitivity report is pending First blood culture positive on 04/18 staph aureus 3/3 bottles Afebrile, leukocytosis trending down dialysis catheter removed on 04/[address] Sheldon Wilson evaluated her and recommended evaluating her for dysphagia first before DONI We will request barium swallow today however patient has been tolerating regular diet without any dysphagia, active vomiting or regurgitation of food during hospitalization Plan to proceed with DONI later today if no severe esophageal stricture End-stage renal disease: Dialysis catheter removed yesterday, repeat blood cultures negative to date, afebrile, leukocytosis trending down, will coordinate with Dr. Scott for another dialysis catheter placement possibly on Sunday Hyperkalemia: Improved Sleep apnea: CPAP at night Full code N.p.o. Sliding scale Attestations Medical Necessity Statement*: Continue meds continue medical management Time Spent in Patient Care: 16 - 35 minutes Coding Level of Care Code Acute Fence Machine Operator for Chg Fwd Diagnoses Dysphagia R13.10 End stage renal disease on dialysis N18.6; Z99.2 Bacteremia R78.81 Hyperkalemia E87.5 Fall W19.XXXA ESRD on dialysis N18.6; Z99.2 Fever R50.9 Obesity, morbid, BMI 40.0-49.9 E66.01 Restless leg syndrome G25.81 LUIS EDUARDO (obstructive sleep apnea) G47.33 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 renal disease) E11.22; N18.6
--- NOTE | 2021-04-21 09:53 | PM.PN ---
Subjective Subjective: Interval history: Ms. Li feels relatively okay today. No acute issues. Positive blood cultures noted, 3 out of 3 bottles of staph aureus. Final isolate and sensitivities are pending. No fevers or chills. Hemodynamically robust. Had dialysis yesterday. Vitals/I&O/Wt Last Vital Signs Temp 99.0 F 04/21/21 07:10 Pulse 103 H 04/21/21 07:10 Resp 17 04/21/21 07:10 BP 104/62 04/21/21 07:10 Pulse Ox 98 04/21/21 07:10 04/20/21 04/21/21 04/21/21 22:59 06:59 14:59 Intake Total 610 / 1450 120 / 1570 Balance 610 / -880 120 / -760 Physical Exam Narrative: EXAM NARRATIVE: Constitutional: Awake, comfortable. HEENT: Wet mucosa, no jvp, non icteric. Lungs: Bilaterally clear without discernible wheeze, rales in all lung zones. CVS: S1, S2, no murmurs. Abdo: Soft, BS ok. Ext 4: Minimal edema, peripheral perfusion with no cyanosis. Neurological: Grossly non-focal Data : 04/21/21 05:23 04/21/21 05:23 Micro: Microbiology 04/21/21 09:25 Blood Culture - Preliminary Blood SPECIMEN COLLECTED 04/20/21 08:30 Blood Culture - Preliminary Blood NEGATIVE TO DATE 04/18/21 11:22 Blood Culture - Preliminary Blood Staphylococcus aureus 04/18/21 15:59 Blood Culture - Preliminary Blood NEGATIVE TO DATE 04/20/21 10:39 Blood Culture - Preliminary Blood SPECIMEN COLLECTED A&P Additional A&P Information 1. ESRD I will plan to leave her without dialysis for as long as possible, i.e., at least 48 hours and hopefully longer, so that we may replace her line with a permacath next Sunday or Sunday. Renal diet, low potassium intake. Typical schedule Sunday, Sunday and Sunday dialysis schedule Dose medications for GFR less than 15 on dialysis 2. Lytes Appear to be stable 3. Weakness Blood cultures with Staph. Abx on board Line out DONI pending 4. Hemodynamics Hemodynamics currently soft, she was given midodrine prior to dialysis and I prescribed this for her. Close monitoring during dialysis 5. Chronic ESRD issues These will be managed as an outpatient including management of anemia of ESRD, secondary hyperparathyroidism, hyperphosphatemia etc. She is on lanthanum as an outpatient, give her some PhosLo while she is admitted. Arjun Cavazos MD Nephrology [phone] Patient seen and examined via telemedicine, with the assistance of the bedside RN > 25 min spent in evaluation and mgmt of patient Attestations Medical Necessity Statement*: Eval for ESRD mgmt Coding Level of Care Code Acute Transitions Manager Rn for Kulwinder Hilario
--- NOTE | 2021-04-21 10:17 | PC.SOCIAL ---
IMM update IMM updated with patient, verbalized an understanding. Copy Pg 2 provided. Initialled, dated, timed, and placed in chart.
[2021-04-21 11:34] LABS: Glucose Point of Care 167 mg/dL (70-110)
[2021-04-21] MEDS: doxycycline 100 MG in sodium chloride 0.9% (plus) 100 ML IV ×2 (11:40→22:37)
--- NOTE | 2021-04-21 14:53 | USCV_ITS ---
Kerri Fregoso Age: 55 Gender: F : 1965 Exam Date: 04/21/2021 15:53 Ordering Phys: Jono Wilson MD ([email or web address]) Technologist: KINGS Exam Location: [facility] [place] Indication: BACTERMIA BP: / HR: Rhythm: Sinus Technical Quality: MEASUREMENTS (Male / Female) Normal Values Medications IV propofol, administered by the anesthesia service Complications None Proc. Components The patient was brought to the ICU in a fasting state after obtaining an informed consent. The DONI probe was passed into the posterior pharynx , mid-esophagus and distal esophagusTEE was performed at multiple levels. The patient tolerated the procedure well and there were no complications. . FINDINGS Left Ventricle Possibly normal LV size ejection fraction. Some thickening in the chordal structures were noted Right Ventricle No intracardiac masses . Right Atrium No intracavitary masses Left Atrium No intracavitary masses LA Appendage Normal size and contractility . IA Septum Appears to be intact with no evidence of any ASD or patent foramen ovale, based on the color flow Doppler examination Mitral Valve Mild mitral annular calcification Aortic Valve Trileaflet with no masses or vegetation Tricuspid Valve No masses or vegetation. Mild tricuspid valve regurgitation. Pulmonic Valve No masses or vegetations Pericardium No pericardial effusion. Aorta Poor proximal ascending aorta CONCLUSIONS The aortic, mitral, tricuspid valve and pulmonic valves are visualized well. No masses or vegetations noted. Mild mitral annular calcification noted. 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 Possibly normal LV size and ejection fraction. No intracardiac shunts by color flow Doppler examination. Minimal plaques in the ascending aorta. Dr Jono Wilson MD FAC (Electronically Signed) Final Date: 21 April 2021 19:18 S
--- NOTE | 2021-04-21 15:50 | W.PM.OPSUD ---
Surgery/Procedure H&P Update DATE OF PROCEDURE: April 21, 2021 DATE H&P PERFORMED: 04/20/21 H&P UPDATE INFORMATION: I have reviewed H&P completed within last 30 days, I have examined patient prior to procedure and No changes to prior documentation PREOP DIAGNOSIS: Rule out endocarditis PRIMARY INDICATION FOR PROCEDURE: Staph aureus bacteremia PLANNED PROCEDURE: DONI
--- NOTE | 2021-04-21 15:58 | ANES.PREANE2 ---
Pre-Anesthetic Assessment Pre-Anesthetic Assessment: Height/Weight: Height 1.63 m Weight 115.666 kg Temp Pulse Resp BP Pulse Ox 98.3 F 89 16 107/63 96 04/21/21 11:21 04/21/21 15:03 04/21/21 15:03 04/21/21 11:21 04/21/21 15:03 Preop Diagnosis: Rule out endocarditis Was Beta Rodney taken within 24 hours: N/A Was Clonidine taken within 24 hours: N/A Last Intake: 00:00 Social: Social History: No alcohol and No tobacco Exam: Pre-Anes Outpt Exam: alert and oriented x 3 Airway: Additional comments: very poor dentition, mulitple loose, chipped and broken, and missing Pulmonary: Pulmonary: Asthma and Sleep apnea CV/HEM: CV/HEM: Murmur Comments: on midodrine : : Chronic renal failure (ESRD. received dialysis yesterday) Hepatic: Hepatic: None reported GI: GI: GERD (occasional) Metabolic: Metabolic: DM and Morbid obesity Musc/skel: Musc/skel: Lower Back Pain Neuropsych: Neuropsych: Anxiety and Depression Anesthetic Plan: ASA status: 3 Anesthesia: Anesthesia Evaluation and MAC Risk of > 500 ml blood loss (7ml/kg in children): No Meds/Allergies Current Medications: Current Medications Generic Name Dose Route Start Last Admin Trade Name Freq PRN Reason Stop Dose Admin Acetaminophen 650 mg 04/19/21 03:44 04/20/21 20:45 Acetaminophen 32 5 Mg Tablet PO 650 mg Q6H PRN Administration MILD PAIN Aspirin 81 mg 04/19/21 09:00 04/21/21 09:00 Aspirin 81 Mg Ec Tablet PO Not Given DAILY [facility] Atorvastatin Calci um 20 mg 04/19/21 09:00 04/21/21 09:00 Atorvastatin 40 Mg Tablet PO Not Given DAILY [facility] Bupropion HCl 150 mg 04/19/21 09:00 04/21/21 09:00 Bupropion Xl (24 Hr) 150 Mg Tablet PO Not Given DAILY [facility] Calcium Acetate 1,334 mg 04/18/21 15:00 04/21/21 09:00 Calcium Acetate 667 Mg Capsule PO Not Given TID [facility] Citalopram Hydrobr omide 20 mg 04/19/21 09:00 04/21/21 09:00 Citalopram 20 Mg Tablet PO Not Given DAILY [facility] Heparin Sodium (Po rcine) 5,000 unit 04/19/21 20:30 04/20/21 12:38 Heparin 5,000 Un it/Ml Inj 1 Ml SUBCUT Not Given Q8H [facility] Doxycycline Hyclat e 100 mg/ 100 mls @ 100 mls /hr 04/21/21 11:00 04/21/21 12:40 Sodium Chloride IV Infused Q12H [facility] Infusion Protocol Insulin Human Lisp ro 0 unit 04/18/21 18:00 04/21/21 12:38 Insulin Lispro 1 00 Unit/1 Ml SUBCUT Not Given TIDWM [facility] Protocol Midodrine 5 mg 04/18/21 17:45 04/20/21 08:00 Midodrine 5 Mg T ablet PO 5 mg MoWeFr PRN Administration NEEDED BEFORE DIALYSIS Mupirocin 1 applic 04/18/21 18:00 04/21/21 09:00 Mupirocin Oint 2 2 Gm TOPICAL Not Given BID [facility] Non-Formulary Medi cation 1 applic 04/18/21 18:00 04/21/21 12:35 Ammonium Lactate TOPICAL Not Given BID [facility] Non-Formulary Medi cation 1 applic 04/18/21 18:00 04/21/21 09:00 Clobetasol TOPICAL Not Given BID [facility] Ropinirole HCl 0.5 mg 04/19/21 09:00 04/21/21 09:00 Ropinirole 0.25 Mg Tablet PO Not Given DAILY [facility] Trazodone HCl 75 mg 04/18/21 21:00 04/20/21 20:46 Trazodone 150 Mg Tablet PO 75 mg BEDTIME [facility] Administration PFSH Anesthesia PFSH: Medical History Allergic rhinitis COPD (chronic obstructive pulmonary disease) Diabetes mellitus Encounter for screening colonoscopy History of 2019 novel coronavirus disease (COVID-19) + swab on 04/12/2020 Insomnia Major depressive disorder, recurrent severe without psychotic features Mixed stress and urge urinary incontinence LUIS EDUARDO (obstructive sleep apnea) Plaque psoriasis Psoriasis Psychiatric care Restless leg syndrome Surgical History H/O hernia repair History of appendectomy History of colonoscopy Family History Family/Other Diabetes Brother Diabetes Grandmother CAD (coronary artery disease) Bleeding disorder Maternal Mother CAD (coronary artery disease) Cancer stomach cancer Denies family history of Clotting disorder Dementia Hyperlipidemia Psychiatric illness Chronic kidney disease (CKD) Suicide Anesthesia complication Family history of premature coronary artery disease Lung disease Hypertension Stroke Social History Second hand smoke exposure: Yes Alcohol intake: never Adopted: No Caregiver/support person: Yes Lives independently: Yes Household members: none Housing: Apartment Marital status: Single Number of children: 0 Number of grandchildren: 0 Highest education level completed: Bachelor's Degree Education level details: Education service: No Current occupational status: disabled Current occupational exposures/hazards: No Pets and animals: No History of recent travel: Yes ([facility] to [place]) Out of state: Yes Leisure activites: music, reading and other Leisure activities details: crafting Sexually active: Yes Current gender identity: Female Anna/Jehovah'S Witness: Hoahaoism Special anna needs: No Agree to transfusion: Yes Financial difficulty paying for basics: Somewhat Hard Female Reproductive History: Para: 0 Spontaneous abortions: No Data Anesthesia CBC & Chem 7: 04/21/21 05:23 04/21/21 05:23 Other Labs: Laboratory Results - last 48 hr 04/18/21 04/19/21 04/19/21 08:28 05:35 06:34 WBC Cancelled Corrected WBC Cancelled RBC Cancelled Hgb Cancelled 8.6 L Hct Cancelled 28.6 L MCV Cancelled 102.1 H MCH Cancelled 30.7 MCHC Cancelled 30.1 RDW Cancelled Plt Count Cancelled 123 L MPV Cancelled Gran % Cancelled Neut % (Auto) Cancelled Lymph % (Auto) Cancelled [place] % (Auto) Cancelled Eos % (Auto) Cancelled Baso % (Auto) Cancelled Neut # (Auto) Cancelled Lymph # (Auto) Cancelled [place] # (Auto) Cancelled Eos # (Auto) Cancelled Baso # (Auto) Cancelled Absolute Gran (auto) Cancelled Nucleated RBC % (auto) Cancelled Nucleated RBCs # Cancelled Sodium Potassium Chloride Carbon Dioxide Anion Gap BUN Creatinine GFR Calculation Glucose POC Glucose 142 H Calculated Osmolality Calcium Procalcitonin Random Vancomycin 04/19/21 04/19/21 04/20/21 16:50 20:45 05:30 WBC 7.8 Corrected WBC RBC 2.62 L Hgb 8.0 L Hct 26.5 L MCV 101.1 H MCH 30.5 MCHC 30.2 RDW 16.4 H Plt Count 115 L MPV 11.4 H Gran % Neut % (Auto) 76.3 Lymph % (Auto) 7.8 [place] % (Auto) 7.6 Eos % (Auto) 7.3 Baso % (Auto) 0.4 Neut # (Auto) 5.95 Lymph # (Auto) 0.6 L [place] # (Auto) 0.6 Eos # (Auto) 0.6 Baso # (Auto) 0.0 Absolute Gran (auto) Nucleated RBC % (auto) 0 Nucleated RBCs # 0.0 Sodium Potassium Chloride Carbon Dioxide Anion Gap BUN Creatinine GFR Calculation Glucose POC Glucose 215 H 145 H Calculated Osmolality Calcium Procalcitonin Random Vancomycin 04/20/21 04/20/21 04/20/21 05:30 06:38 11:25 WBC Corrected WBC RBC Hgb Hct MCV MCH MCHC RDW Plt Count MPV Gran % Neut % (Auto) Lymph % (Auto) [place] % (Auto) Eos % (Auto) Baso % (Auto) Neut # (Auto) Lymph # (Auto) [place] # (Auto) Eos # (Auto) Baso # (Auto) Absolute Gran (auto) Nucleated RBC % (auto) Nucleated RBCs # Sodium 135 L Potassium 5.2 H Chloride 94 L Carbon Dioxide 21 L Anion Gap 25.2 H BUN 48 H Creatinine 7.4 H* GFR Calculation 5.7 L Glucose 103 POC Glucose 120 H 135 H Calculated Osmolality 293 Calcium 8.4 L Procalcitonin 86.96 H Random Vancomycin 04/20/21 04/20/21 04/21/21 16:52 21:20 05:23 WBC 7.8 Corrected WBC RBC 2.77 L Hgb 8.5 L Hct 28.3 L MCV 102.2 H MCH 30.7 MCHC 30.0 RDW 16.5 H Plt Count 136 MPV 12.3 H Gran % Neut % (Auto) 76.4 Lymph % (Auto) 8.9 [place] % (Auto) 6.0 Eos % (Auto) 7.8 Baso % (Auto) 0.5 Neut # (Auto) 5.99 Lymph # (Auto) 0.7 L [place] # (Auto) 0.5 Eos # (Auto) 0.6 Baso # (Auto) 0.0 Absolute Gran (auto) Nucleated RBC % (auto) 0 Nucleated RBCs # 0.0 Sodium Potassium Chloride Carbon Dioxide Anion Gap BUN Creatinine GFR Calculation Glucose POC Glucose 202 H 266 H Calculated Osmolality Calcium Procalcitonin Random Vancomycin 04/21/21 04/21/21 04/21/21 05:23 06:22 10:44 WBC Corrected WBC RBC Hgb Hct MCV MCH MCHC RDW Plt Count MPV Gran % Neut % (Auto) Lymph % (Auto) [place] % (Auto) Eos % (Auto) Baso % (Auto) Neut # (Auto) Lymph # (Auto) [place] # (Auto) Eos # (Auto) Baso # (Auto) Absolute Gran (auto) Nucleated RBC % (auto) Nucleated RBCs # Sodium 135 L Potassium 4.8 Chloride 97 L Carbon Dioxide 20 L Anion Gap 22.8 H BUN 33 H Creatinine 5.5 H GFR Calculation 8.0 L Glucose 159 H POC Glucose 173 H 167 H Calculated Osmolality 291 Calcium 8.5 Procalcitonin 51.63 H Random Vancomycin 04/21/21 10:58 WBC Corrected WBC RBC Hgb Hct MCV MCH MCHC RDW Plt Count MPV Gran % Neut % (Auto) Lymph % (Auto) [place] % (Auto) Eos % (Auto) Baso % (Auto) Neut # (Auto) Lymph # (Auto) [place] # (Auto) Eos # (Auto) Baso # (Auto) Absolute Gran (auto) Nucleated RBC % (auto) Nucleated RBCs # Sodium Potassium Chloride Carbon Dioxide Anion Gap BUN Creatinine GFR Calculation Glucose POC Glucose Calculated Osmolality Calcium Procalcitonin Random Vancomycin 24.0 Micro: Microbiology 04/18/21 15:59 Blood Culture - Preliminary Blood Staphylococcus aureus 04/18/21 11:22 Blood Culture - Preliminary Blood Staphylococcus aureus 04/21/21 10:58 Blood Culture - Preliminary Blood SPECIMEN COLLECTED 04/20/21 10:39 Blood Culture - Preliminary Blood NEGATIVE TO DATE 04/21/21 09:25 Blood Culture - Preliminary Blood SPECIMEN COLLECTED 04/20/21 08:30 Blood Culture - Preliminary Blood NEGATIVE TO DATE Cardiac Studies: Echocardiogram 04/19/21 Sestamibi Stress Test (Cardiology) 03/09/20
[2021-04-21] MEDS: calcium acetate 667 mg Capsule 1334 MG PO (20:19)
[2021-04-21] MEDS: trazodone 150 mg Tablet 75 MG PO (20:19)
--- NOTE | 2021-04-21 20:19 | P.PN_ITS ---
Subjective Subjective: Interval history: Patient had a barium swallow today. She was found to no fixed obstruction in the esophagus. Esophageal motility was found to be poor. Subsequently she had the DONI. She was found no evidence of any intracardiac masses or vegetations Medications: Reviewed: Yes Medication Review Details: Current Medications Acetaminophen (Acetaminophen 325 Mg Tablet) 650 mg PO Q6H PRN PRN Reason: MILD PAIN Last Admin: 04/20/21 20:45 Dose: 650 mg Documented by: Albuterol/Ipratropium (Ipratropium-Albuterol 3 Ml Neb) 3 ml INHALATION Q6H.RESPIRATORY PRN PRN Reason: SHORTNESS OF BREATH Aspirin (Aspirin 81 Mg Ec Tablet) 81 mg PO DAILY [facility] Last Admin: 04/21/21 09:00 Dose: Not Given Documented by: Atorvastatin Calcium (Atorvastatin 40 Mg Tablet) 20 mg PO DAILY [facility] Last Admin: 04/21/21 09:00 Dose: Not Given Documented by: Bupropion HCl (Bupropion Xl (24 Hr) 150 Mg Tablet) 150 mg PO DAILY [facility] Last Admin: 04/21/21 09:00 Dose: Not Given Documented by: Calcium Acetate (Calcium Acetate 667 Mg Capsule) 1,334 mg PO TID [facility] Last Admin: 04/21/21 17:15 Dose: Not Given Documented by: Citalopram Hydrobromide (Citalopram 20 Mg Tablet) 20 mg PO DAILY [facility] Last Admin: 04/21/21 09:00 Dose: Not Given Documented by: Dextrose (Dextrose 50% Syringe 50 Ml) 25 ml IVP ONCE PRN; Protocol PRN Reason: hypoglycemia protocol Dextrose (Dextrose 50% Syringe 50 Ml) 50 ml IVP PRN PRN; Protocol PRN Reason: hypoglycemia protocol Glucagon (Glucagon 1 Mg/Ml Inj 1 Ml) 1 mg IM ONCE PRN; Protocol PRN Reason: Adult Acute Hypoglycemia Prot. Heparin Sodium (Porcine) (Heparin 5,000 Unit/Ml Inj 1 Ml) 5,000 unit SUBCUT Q8H [facility] Last Admin: 04/20/21 12:38 Dose: Not Given Documented by: Dextrose (D5w) 500 mls @ 100 mls/hr IV ONCE PRN; Protocol PRN Reason: Adult Acute Hypoglycemia Prot Doxycycline Hyclate 100 mg/ (Sodium Chloride) 100 mls @ 100 mls/hr IV Q12H [facility]; Protocol Last Infusion: 04/21/21 12:40 Dose: Infused Documented by: Insulin Human Lispro (Insulin Lispro 100 Unit/1 Ml) 0 unit SUBCUT TIDWM [facility]; Protocol Last Admin: 04/21/21 17:55 Dose: Not Given Documented by: Lanolin (Lanolin Oint 7 Gm) 1 applic TOPICAL PRN PRN PRN Reason: DRYNESS Midodrine (Midodrine 5 Mg Tablet) 5 mg PO MoWeFr PRN PRN Reason: NEEDED BEFORE DIALYSIS Last Admin: 04/20/21 08:00 Dose: 5 mg Documented by: Mupirocin (Mupirocin Oint 22 Gm) 1 applic TOPICAL BID [facility] Last Admin: 04/21/21 17:55 Dose: Not Given Documented by: Non-Formulary Medication (Ammonium Lactate) 1 applic TOPICAL BID [facility] Last Admin: 04/21/21 17:15 Dose: Not Given Documented by: Non-Formulary Medication (Clobetasol) 1 applic TOPICAL BID [facility] Last Admin: 04/21/21 17:15 Dose: Not Given Documented by: Non-Formulary Medication (Vit B,W-Sx-Lhrj-Selen-Vit D3-E [Renaplex-D]) 1 tab PO DAILY [facility] Ropinirole HCl (Ropinirole 0.25 Mg Tablet) 0.5 mg PO DAILY [facility] Last Admin: 04/21/21 09:00 Dose: Not Given Documented by: Senna/Docusate Sodium (Sennosides-Docusate Tablet) 1 tab PO BID PRN PRN Reason: constipation Trazodone HCl (Trazodone 150 Mg Tablet) 75 mg PO BEDTIME [facility] Last Admin: 04/20/21 20:46 Dose: 75 mg Documented by: Vitals/I&O/Wt Last Vital Signs Temp 98.1 F 04/21/21 17:50 Pulse 92 04/21/21 17:50 Resp 18 04/21/21 17:50 BP 98/55 04/21/21 17:50 Pulse Ox 96 04/21/21 17:50 04/21/21 04/21/21 04/21/21 06:59 14:59 22:59 Intake Total 120 / 1570 100 / 100 1050 / 1150 Balance 120 / -760 100 / 100 1050 / 1150 Physical Exam Narrative: EXAM NARRATIVE: GENERAL: The patient is alert and oriented times three. Not in any acute distress. HEENT: Minimal pallor. No icterus or lymphadenopathy NECK: Trachea appears to be central. No masses noted. No JVD or thyromegaly appreciated. RESPIRATORY: Chest is symmetrical. No intercostals muscle retraction or any accessory muscle activation. There is no chest wall tenderness. Breath sounds are heard bilaterally. No rales or rhonchi heard. No evidence of any consolidation. BREASTS: Deferred. HEART: The heart sounds are normal. No S3 or S4. Short systolic murmur in the left sternal border. No diastolic murmurs ABDOMEN: No vessel pulsations or distention. No tenderness. No organomegaly appreciated. Bowel sounds are normally heard. : Deferred. RECTAL: Deferred. LYMPHATIC: No lymphadenopathy noted in the neck . EXTREMITIES: Features of chronic venous stasis of both lower extremities. MUSCULOSKELETAL: No acute joint deformities or swelling SKIN: extensive dry scaly lesions in the skin NEUROPSYCHIATRIC: The patient is alert and oriented x3. Appears to be in a good mood. No tremors or rigidity noted. Data : 04/21/21 05:23 04/21/21 05:23 Micro: Microbiology 04/18/21 15:59 Blood Culture - Preliminary Blood Staphylococcus aureus 04/18/21 11:22 Blood Culture - Preliminary Blood Staphylococcus aureus 04/21/21 10:58 Blood Culture - Preliminary Blood SPECIMEN COLLECTED 04/20/21 10:39 Blood Culture - Preliminary Blood NEGATIVE TO DATE 04/21/21 09:25 Blood Culture - Preliminary Blood SPECIMEN COLLECTED 04/20/21 08:30 Blood Culture - Preliminary Blood NEGATIVE TO DATE A&P Assessment and plan (1) Bacteremia: DONI was performed. No intracardiac masses or vegetations noted Status: Acute (2) End stage renal disease on dialysis: Patient is on hemodialysis Status: Acute (3) Dysphagia: Secondary to poor esophageal motility. No fixed obstruction. 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
[2021-04-22] VITALS (8 sets, daily range): BP systolic 123–146; BP diastolic 67–90; PULSE 74–105; RESP 16–20; TEMP 36.7–36.9; O2SAT 91–100
[2021-04-22 05:56] LABS: Basophils # 0.1 10^3/uL (0.0-0.1); Basophils % 0.7 %; Eosinophils # 0.7 10^3/uL (0.0-0.8); Eosinophils % 9.3 %; Hematocrit 28.7 % (37.0-47.0); Hemoglobin 8.7 g/dL (11.5-15.3); Lymphocytes # 0.8 10^3/uL (0.8-4.8); Lymphocytes % 10.7 %; Mean Corpuscular HGB Conc 30.3 g/dL (30.0-36.0); Mean Corpuscular Hemoglobin 30.6 pg (28.0-34.0); Mean Corpuscular Volume 101.1 fl (81-99); Mean Platelet Volume 11.2 fL (7.4-10.4); Monocytes # 0.5 10^3/uL (0.2-0.9); Monocytes % 6.8 %; Neutrophils # 5.47 10^3/uL (1.8-7.7); Neutrophils % 71.6 %; Nucleated Red Blood Cells % 0 %; Platelet Count 159 10^3/cmm (130-400); Red Blood Count 2.84 10^6/uL (4.1-5.3); Red Cell Distribution Width 16.3 % (12.1-15.1); White Blood Count 7.6 10^3/uL (4.0-10.0)
[2021-04-22 06:11] LABS: Anion Gap 22.7 (5-19); Blood Urea Nitrogen 41 mg/dL (6-20); Calcium 8.7 mg/dL (8.5-10.5); Carbon Dioxide 22 mmol/L (22-29); Chloride 99 mmol/L (98-107); Glomerular Filtration Rate 6.7 mL/min (90-130); Glucose 124 mg/dL (65-115); Osmolality Calculated 300 mOsm/kg (285-295); Potassium 4.7 mmol/L (3.5-5.1); Sodium 139 mmol/L (136-145)
[2021-04-22 06:50] LABS: Glucose Point of Care 135 mg/dL (70-110)
--- NOTE | 2021-04-22 09:08 | PM.PN ---
Subjective Subjective: Interval history: Feels much better. TTEE shows no IE. No fever or chills, no chest pain, no SOB. No uremic Sx. No hypervolemic Sx. Medications: Reviewed: Yes Medication Review Details: Current Medications Acetaminophen (Acetaminophen 325 Mg Tablet) 650 mg PO Q6H PRN PRN Reason: MILD PAIN Last Admin: 04/20/21 20:45 Dose: 650 mg Documented by: Albuterol/Ipratropium (Ipratropium-Albuterol 3 Ml Neb) 3 ml INHALATION Q6H.RESPIRATORY PRN PRN Reason: SHORTNESS OF BREATH Aspirin (Aspirin 81 Mg Ec Tablet) 81 mg PO DAILY [facility] Last Admin: 04/21/21 09:00 Dose: Not Given Documented by: Atorvastatin Calcium (Atorvastatin 40 Mg Tablet) 20 mg PO DAILY [facility] Last Admin: 04/21/21 09:00 Dose: Not Given Documented by: Bupropion HCl (Bupropion Xl (24 Hr) 150 Mg Tablet) 150 mg PO DAILY [facility] Last Admin: 04/21/21 09:00 Dose: Not Given Documented by: Calcium Acetate (Calcium Acetate 667 Mg Capsule) 1,334 mg PO TID [facility] Last Admin: 04/21/21 17:15 Dose: Not Given Documented by: Citalopram Hydrobromide (Citalopram 20 Mg Tablet) 20 mg PO DAILY [facility] Last Admin: 04/21/21 09:00 Dose: Not Given Documented by: Dextrose (Dextrose 50% Syringe 50 Ml) 25 ml IVP ONCE PRN; Protocol PRN Reason: hypoglycemia protocol Dextrose (Dextrose 50% Syringe 50 Ml) 50 ml IVP PRN PRN; Protocol PRN Reason: hypoglycemia protocol Glucagon (Glucagon 1 Mg/Ml Inj 1 Ml) 1 mg IM ONCE PRN; Protocol PRN Reason: Adult Acute Hypoglycemia Prot. Heparin Sodium (Porcine) (Heparin 5,000 Unit/Ml Inj 1 Ml) 5,000 unit SUBCUT Q8H [facility] Last Admin: 04/20/21 12:38 Dose: Not Given Documented by: Dextrose (D5w) 500 mls @ 100 mls/hr IV ONCE PRN; Protocol PRN Reason: Adult Acute Hypoglycemia Prot Doxycycline Hyclate 100 mg/ (Sodium Chloride) 100 mls @ 100 mls/hr IV Q12H [facility]; Protocol Last Infusion: 04/21/21 12:40 Dose: Infused Documented by: Insulin Human Lispro (Insulin Lispro 100 Unit/1 Ml) 0 unit SUBCUT TIDWM [facility]; Protocol Last Admin: 04/21/21 17:55 Dose: Not Given Documented by: Lanolin (Lanolin Oint 7 Gm) 1 applic TOPICAL PRN PRN PRN Reason: DRYNESS Midodrine (Midodrine 5 Mg Tablet) 5 mg PO MoWeFr PRN PRN Reason: NEEDED BEFORE DIALYSIS Last Admin: 04/20/21 08:00 Dose: 5 mg Documented by: Mupirocin (Mupirocin Oint 22 Gm) 1 applic TOPICAL BID [facility] Last Admin: 04/21/21 17:55 Dose: Not Given Documented by: Non-Formulary Medication (Ammonium Lactate) 1 applic TOPICAL BID [facility] Last Admin: 04/21/21 17:15 Dose: Not Given Documented by: Non-Formulary Medication (Clobetasol) 1 applic TOPICAL BID [facility] Last Admin: 04/21/21 17:15 Dose: Not Given Documented by: Non-Formulary Medication (Vit B,Z-Cm-Zeem-Selen-Vit D3-E [Renaplex-D]) 1 tab PO DAILY [facility] Ropinirole HCl (Ropinirole 0.25 Mg Tablet) 0.5 mg PO DAILY [facility] Last Admin: 04/21/21 09:00 Dose: Not Given Documented by: Senna/Docusate Sodium (Sennosides-Docusate Tablet) 1 tab PO BID PRN PRN Reason: constipation Trazodone HCl (Trazodone 150 Mg Tablet) 75 mg PO BEDTIME [facility] Last Admin: 04/20/21 20:46 Dose: 75 mg Documented by: Vitals/I&O/Wt Last Vital Signs Temp 98.0 F 04/22/21 07:31 Pulse 90 04/22/21 08:57 Resp 16 04/22/21 08:57 BP 124/75 04/22/21 07:31 Pulse Ox 96 04/22/21 08:57 04/21/21 04/22/21 04/22/21 22:59 06:59 14:59 Intake Total 1050 / 1150 320 / 1470 Output Total 480 / 480 Balance 1050 / 1150 -160 / 990 Physical Exam Narrative: EXAM NARRATIVE: Constitutional: Awake, comfortable. HEENT: Wet mucosa, no jvp, non icteric. Lungs: Bilaterally clear without discernible wheeze, rales in all lung zones. CVS: S1, S2, no murmurs. Abdo: Soft, BS ok. Ext 4: Minimal edema, peripheral perfusion with no cyanosis. Neurological: Grossly non-focal Data : 04/22/21 05:35 04/22/21 05:35 Micro: Microbiology 04/18/21 15:59 Blood Culture - Preliminary Blood Staphylococcus aureus 04/18/21 11:22 Blood Culture - Preliminary Blood Staphylococcus aureus 04/21/21 10:58 Blood Culture - Preliminary Blood SPECIMEN COLLECTED 04/20/21 10:39 Blood Culture - Preliminary Blood NEGATIVE TO DATE 04/21/21 09:25 Blood Culture - Preliminary Blood SPECIMEN COLLECTED 04/20/21 08:30 Blood Culture - Preliminary Blood NEGATIVE TO DATE A&P Additional A&P Information 1. ESRD Permacath ok for Sunday if blood cultures remain negative Renal diet, low potassium intake. Can use Kayexalate if K creeps up Typical schedule Sunday, Sunday and Sunday dialysis schedule Dose medications for GFR less than 15 on dialysis 2. Lytes Appear to be stable 3. Weakness Blood cultures with Staph. Abx on board Line out DONI shows no IE 4. Hemodynamics Hemodynamics currently soft, midodrine prior to dialysis 5. Chronic ESRD issues These will be managed as an outpatient including management of anemia of ESRD, secondary hyperparathyroidism, hyperphosphatemia etc. She is on lanthanum as an outpatient, give her some PhosLo while she is admitted. 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
[2021-04-22] MEDS: aspirin 81 mg EC Tablet PO (09:42)
[2021-04-22] MEDS: calcium acetate 667 mg Capsule 1334 MG PO ×3 (09:42→20:22)
[2021-04-22] MEDS: ropinirole 0.25 mg Tablet 0.5 MG PO (09:42)
[2021-04-22] MEDS: buPROPion XL (24 HR) 150 mg Tablet PO (09:42)
[2021-04-22] MEDS: atorvastatin 40 mg Tablet 20 MG PO (09:42)
[2021-04-22] MEDS: citalopram 20 mg Tablet PO (09:43)
[2021-04-22] MEDS: mupirocin oint 22 gm 1 APPLIC TOPICAL ×2 (09:45→18:37)
[2021-04-22] MEDS: cefTRIAXone 2,000 MG in sodium chloride 0.9% (plus) 50 ML 100 MG IV (09:45)
--- NOTE | 2021-04-22 09:59 | P.PN_ITS ---
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 Chung updated Repeat cultures negative I started giving her doxycycline yesterday to cover him staph aureus Today I changed antibiotics to ceftriaxone 2 g Requested ID consult Vitals/I&O/Wt Last Vital Signs Temp 98.0 F 04/22/21 07:31 Pulse 90 04/22/21 08:57 Resp 16 04/22/21 08:57 BP 124/75 04/22/21 07:31 Pulse Ox 96 04/22/21 08:57 04/21/21 04/22/21 04/22/21 22:59 06:59 14:59 Intake Total 1050 / 1150 320 / 1470 240 / 240 Output Total 480 / 480 Balance 1050 / 1150 -160 / 990 240 / 240 Physical Exam Narrative: EXAM NARRATIVE: In a chair Feeling comfortable She looks well rested Doing well on 2 L nasal cannula No conversational dyspnea Does not look fluid overloaded Psoriasis plaque No signs of fluid overload EOMI, PERRLA nonfocal neuro exam Distended abdomen with obesity Data : 04/22/21 05:35 04/22/21 05:35 Micro: Microbiology 04/21/21 09:25 Blood Culture - Preliminary Blood NEGATIVE TO DATE 04/18/21 15:59 Blood Culture - Preliminary Blood Staphylococcus aureus 04/18/21 11:22 Blood Culture - Preliminary Blood Staphylococcus aureus 04/21/21 10:58 Blood Culture - Preliminary Blood SPECIMEN COLLECTED 04/20/21 10:39 Blood Culture - Preliminary Blood NEGATIVE TO DATE 04/20/21 08:30 Blood Culture - Preliminary Blood NEGATIVE TO DATE A&P Assessment and plan (1) Dysphagia: Status: Acute (2) End stage renal disease on dialysis: Status: Acute (3) Fall: Status: Acute (4) Hyperkalemia: Status: Acute (5) 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 renal disease): Status: Acute (6) Plaque psoriasis: Status: Acute (7) LUIS EDUARDO (obstructive sleep apnea): Status: Acute Additional A&P Information Patient presented hospital after sustaining a fall at home, lives with her at home, blood culture +04/18 for gram-positive cocci, methicillin sensitive staph aureus, since initiation of antibiotics she has been afebrile, leukocytosis is improved, dialysis catheter has been removed, repeat blood cul tures 04/20 and 04/21 -marleni to date, transesophageal echo did not show any signs of vegetation Today after reviewing culture and sensitivity antibiotics changed to ceftriaxone 2 g daily, will request Dr. Ingram to help us with the timing and duration of antibiotics, did update her this morning, Vancomycin has been discontinued as she is not getting dialyzed, on 04/21 she did receive doxycycline IV regimen End-stage renal disease: Plan to place dialysis catheter on Sunday as per nephrology Type 2 diabetes: Currently euglycemic continue sliding-scale Psoriasis plaque, will need dermatology follow-up outpatient Hyperkalemia improved No acute indication for dialysis Obstructive sleep apnea: CPAP overnight Patient is independent does not require PT or long-term Renal dialysis diet Full code Attestations Medical Necessity Statement*: Continue medical management Time Spent in Patient Care: 16 - 35 minutes Coding Level of Care Code Acute Rn Pool for [employer] Fwd Diagnoses Dysphagia R13.10 End stage renal disease on dialysis N18.6; Z99.2 Fall W19.XXXA Hyperkalemia E87.5 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 renal disease) E11.22; N18.6 Plaque psoriasis L40.0 LUIS EDUARDO (obstructive sleep apnea) G47.33
[2021-04-22 11:23] LABS: Glucose Point of Care 215 mg/dL (70-110)
[2021-04-22] MEDS: insulin lispro 100 unit/1 mL SUBCUT (13:01)
[2021-04-22] MEDS: heparin 5,000 unit/mL INJ 1 mL 5000 UNIT SUBCUT ×2 (13:02→20:23)
--- NOTE | 2021-04-22 13:34 | PC.CHAP ---
Pastoral Care Encounter/Spiritual Assessment Type of Contact [] Declined supply chain design manager visit [] Patient/Family/Request visit [] Outpatient visit [xx] Follow-up visit [] Physician referral [] Code/Alert [xx] Routine visit [] Staff referral [] Actively dying [] Patient sleeping [] Family support [] [] Out of room [] Palliative care [] [] Receiving care in room [] Pre-surgical visit [] Trauma [] Long length of stay [] ICU visit [] Other: Relational/Emotional Strength [xx] Patient feels connected with others/family/visitors/staff [] Distress [] Loneliness/isolation [] Abandonment Spirituality of Patient [xx] Person of Anna [] Attends Gnosticist of their Anna [xx] Believes in Prayer [xx] Reads Bible or Buddhist materials [] There are Spiritual issues to be addressed Product Accountant Interventions [xx] Prayer [xx] Active listening [xx] Non-anxious presence [] Spiritual/emotional support [] Crisis/trauma care [] Spiritual counseling [] Bereavement support [] Provided bereavement packet [xx] Provided Bible/devotional materials [] Provided toy/stuffed animal, coloring book to patient or family member [] Provided Communion [] Anointing/[place] [] Salvation [xx] Completed spiritual assessment [] Other: Impact on Illness or Injury [] Angry [] Fearful [] Anxious [] Often cries [] Exhaustion [] Unable to work [] Unable to attend rastafarian [] Unable to walk/stand [] Unable to read [] Unable to drive [] Unable to eat/drink [] Unable to sleep [] Unable to be with family [] Patient intubated [] Other: Summary Patient was upset because her stay has been extended by her doctor because she is not improving fast enough to go home. Time spent with patient 10 minutes
[2021-04-22] MEDS: acetaminophen 325 mg Tablet 650 MG PO (16:10)
[2021-04-22 17:03] LABS: Glucose Point of Care 99 mg/dL (70-110)
[2021-04-22] MEDS: trazodone 150 mg Tablet 75 MG PO (20:23)
[2021-04-22 20:38] LABS: Glucose Point of Care 208 mg/dL (70-110)
--- NOTE | 2021-04-22 23:48 | PM.CONSULT ---
Providers/Reason For Consult Consulting Physician/Specialty*: Darlyn Ingram MD /Infectious disease Reason for Consult*: MSSA bacteremia, duration of therapy Attending Physician: Leelee Love MD Primary Care Provider: Kate Marcelino MD History of Present Illness History of Present Illness Kerri Fregoso is a 55 year old female with ESRD on HD, COPD admitted on 04/18 with generalized weakness having missed her last 2 dialysis sessions, hyperkalemia, fever developed on 04/19, leukocytosis. Blood cx eventually resulted positive for MSSA. 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 Blood cx + 04/18 and 04/20. HD cath removed 04/20. Blood cx thus far negative from 04/21. Currently on rx with Ceftriaxone 2 g iv q24h Review of Systems General: Reports: 10 or more systems reviewed and unremarkable except in HPI and below Const: Denies: fever(s), chills or body aches Eyes: Denies: change in vision, blurry vision or photophobia ENMT: Reports: hoarseness; Denies: throat pain, enlarged tonsils, odynophagia or nasal congestion Card: Denies: chest pain, palpitations, irregular heart rhythm, edema, swelling of feet/ankles, lightheadedness, pre-syncope, dyspnea on exertion or orthopnea Resp: Denies: dyspnea, productive cough, non-productive cough, wheezing, stridor, pain on inspiration, change in phlegm color, hemoptysis or chest congestion GI: Denies: abdominal pain, nausea, vomiting, hematemesis, coffee ground emesis, dysphagia, heartburn, diarrhea, constipation, GI cramping, change in stool character, hematochezia or melena : Denies: flank pain, difficulty voiding, dysuria, urinary frequency, urinary urgency, urinary hesitancy or hematuria Musc: Denies: neck pain, back pain, extremity pain, joint swelling, joint warmth or deformity Neuro: Denies: headache(s), numbness in extremities, weakness in extremities, sensory changes, difficulty walking, frequent falls, dizziness, vertigo, behavioral changes, Slurred speech present or seizure-like activity Psych: Denies: anxiety, depression, suicidal ideation or homicidal ideation Endo: Denies: polyuria, polydipsia, tired all the time, cold intolerance or hot flashes Latrell/Lymph: Denies: easy bruising or easy bleeding Meds/Allergies Home Medications and Allergies Home Medications Medication Instructions Recorded Confirmed Last Taken Type RenaPlex-D 1 tab PO DAILY 12/12/19 04/18/21 10/19/20 History calcium acetate(phosphat bind) See Rx Instructions .ROUTE .COMPLEX 12/12/19 04/18/21 10/19/20 History lanthanum See Rx Instructions .ROUTE .COMPLEX 12/12/19 04/18/21 10/19/20 History diaper,brief,adult,disposable #120 each 02/04/20 04/18/21 Unknown Rx miscellaneous medical supply See Rx Instructions MISCELLANEOUS 02/09/20 04/18/21 Unknown Rx .COMPLEX #1 each acetaminophen 325 mg tablet 650 mg PO Q6H PRN tab 05/12/20 04/18/21 10/19/20 History epoetin favio 10,000 unit/mL See Rx Instructions .ROUTE .COMPLEX 05/12/20 04/18/21 Unknown History injection solution iron sucrose 100 mg iron/5 mL 100 mg IV DAILY 05/12/20 04/18/21 Unknown History intravenous solution polyethylene glycol 3350 17 17 g PO DAILY 05/12/20 04/18/21 Unknown History gram/dose oral powder magnesium sulfate (bulk) 100 % 1 applic TOPICAL BID #2500 g 05/19/20 04/18/21 10/19/20 Rx crystals mupirocin 2 % topical ointment 1 applic TOPICAL BID #22 g 05/19/20 04/18/21 10/19/20 Rx ammonium lactate 12 % topical cream 1 applic TOPICAL BID #140 g 06/11/20 04/18/21 10/19/20 Rx Lactobacillus acidophilus 10 mg PO DAILY 09/06/20 04/18/21 10/19/20 History aspirin 81 mg tablet,delayed 81 mg PO DAILY 09/06/20 04/18/21 10/19/20 History release fluticasone furoate 100 1 inh INHALATION DAILY 30 Days #60 09/06/20 04/18/21 10/19/20 Rx mcg-vilanterol 25 mcg/dose ea inhalation powder pravastatin 10 mg tablet 10 mg PO DAILY #30 tab 09/21/20 04/18/21 10/19/20 Rx albuterol sulfate 90 mcg/actuation 2 puff INHALATION QID PRN 30 Days 10/18/20 04/18/21 10/19/20 Rx aerosol inhaler #18 gm clopidogrel 75 mg tablet 75 mg PO DAILY 90 Days #90 tab 10/18/20 04/18/21 10/19/20 Rx miscellaneous medical supply See Rx Instructions MISCELLANEOUS 11/03/20 04/18/21 Unknown Rx .COMPLEX #1 ea calcipotriene 0.005 % topical cream 1 applic TOPICAL BID #120 g 11/17/20 04/18/21 Unknown Rx clobetasol 0.05 % topical ointment 1 applic TOPICAL BID 14 Days #60 g 11/17/20 04/18/21 Unknown Rx hydrocortisone 2.5 % topical 1 applic TOPICAL BID PRN #453.6 g 11/17/20 04/18/21 Unknown Rx ointment triamcinolone acetonide 0.1 % 1 applic TOPICAL BID #453.6 g 11/17/20 04/18/21 Unknown Rx topical ointment cyclobenzaprine 5 mg tablet 5 mg PO TID PRN #90 tab 01/18/21 04/18/21 Unknown Rx gabapentin 300 mg capsule 300 mg PO TID PRN 30 Days #90 cap 01/18/21 04/18/21 Unknown Rx ropinirole 0.5 mg tablet 0.5 mg PO DAILY 30 Days #30 tab 01/18/21 04/18/21 Unknown Rx linagliptin 5 mg tablet 5 mg PO DAILY #90 tab 01/20/21 04/18/21 Unknown Rx cetirizine 10 mg tablet 10 mg PO DAILY 30 Days #30 tab 01/23/21 04/18/21 Unknown Rx midodrine 5 mg tablet See Rx Instructions .ROUTE 01/27/21 04/18/21 Unknown Rx .COMPLEX #30 tab nitroglycerin 0.4 mg sublingual 0.4 mg SUBLINGUAL Q5M PRN #30 tab 01/27/21 04/18/21 Unknown Rx tablet hydroxyzine pamoate 25 mg capsule See Rx Instructions .ROUTE 02/23/21 04/18/21 Unknown Rx .COMPLEX #90 capsule bupropion HCl 150 mg 24 hr tablet, 150 mg PO DAILY #30 tab 04/14/21 04/18/21 Unknown Rx extended release citalopram 20 mg tablet 20 mg PO DAILY #30 tab 04/14/21 04/18/21 Unknown Rx trazodone 150 mg tablet 75 - 150 mg PO BEDTIME #30 tab 04/14/21 04/18/21 Unknown Rx lidocaine-prilocaine 1 applic TOPICAL . DIRECTED PRN 04/18/21 04/18/21 Unknown History Allergies Allergy/AdvReac Type Severity Reaction Status Date / Time codeine Allergy algy-rash Verified 04/18/21 08:12 latex Allergy algy-rash Verified 04/18/21 08:12 Milk Containing Products Allergy ADR-Abdominal Verified 04/18/21 08:12 Pain penicillamine Allergy ALGY-Difficulty Verified 04/18/21 08:12 Swallowing Current Medications Current Medications Generic Name Dose Route Start Last Admin Trade Name Freq PRN Reason Stop Dose Admin Acetaminophen 650 mg 04/19/21 03:44 04/22/21 16:10 Acetaminophen 325 Mg Tablet PO 650 mg Q6H PRN Administration MILD PAIN Aspirin 81 mg 04/19/21 09:00 04/22/21 09:42 Aspirin 81 Mg Ec Tablet PO 81 mg DAILY ABIGAIL Administration Atorvastatin Calcium 20 mg 04/19/21 09:00 04/22/21 09:42 Atorvastatin 40 Mg Tablet PO 20 mg DAILY ABIGAIL Administration Bupropion HCl 150 mg 04/19/21 09:00 04/22/21 09:42 Bupropion Xl (24 Hr) 150 Mg Tablet PO 150 mg DAILY ABIGIAL Administration Calcium Acetate 1,334 mg 04/18/21 15:00 04/22/21 20:22 Calcium Acetate 667 Mg Capsule PO 1,334 mg TID ABIGAIL Administration Citalopram Hydrobromide 20 mg 04/19/21 09:00 04/22/21 09:43 Citalopram 20 Mg Tablet PO 20 mg DAILY ABIGAIL Administration Heparin Sodium (Porcine) 5,000 unit 04/19/21 20:30 04/22/21 20:23 Heparin 5,000 Unit/Ml Inj 1 Ml SUBCUT 5,000 unit Q8H ABIGAIL Administration Ceftriaxone Sodium 2,000 mg/ 50 mls @ 100 mls/hr 04/22/21 08:00 04/22/21 11:07 Sodium Chloride IV Infused Q24H [facility] Infusion Protocol Insulin Human Lispro 0 unit 04/18/21 18:00 04/22/21 17:18 Insulin Lispro 100 Unit/1 Ml SUBCUT Not Given TIDWM [facility] Protocol Midodrine 5 mg 04/18/21 17:45 04/20/21 08:00 Midodrine 5 Mg Tablet PO 5 mg MoWeFr PRN Administration NEEDED BEFORE DIALYSIS Mupirocin 1 applic 04/18/21 18:00 04/22/21 18:37 Mupirocin Oint 22 Gm TOPICAL 1 applic BID ABIGAIL Administration Non-Formulary Medication 1 applic 04/18/21 18:00 04/22/21 17:19 Ammonium Lactate TOPICAL Not Given BID ABIGAIL Non-Formulary Medication 1 applic 04/18/21 18:00 04/22/21 17:19 Clobetasol TOPICAL Not Given BID ABIGAIL Ropinirole HCl 0.5 mg 04/19/21 09:00 04/22/21 09:42 Ropinirole 0.25 Mg Tablet PO 0.5 mg DAILY ABIGAIL Administration Trazodone HCl 75 mg 04/18/21 21:00 04/22/21 20:23 Trazodone 150 Mg Tablet PO 75 mg BEDTIME ABIGAIL Administration PFSH Acute PFSH: Medical History Allergic rhinitis COPD (chronic obstructive pulmonary disease) Diabetes mellitus Encounter for screening colonoscopy History of 2019 novel coronavirus disease (COVID-19) + swab on 04/12/2020 Insomnia Major depressive disorder, recurrent severe without psychotic features Mixed stress and urge urinary incontinence LUIS EDUARDO (obstructive sleep apnea) Plaque psoriasis Psoriasis Psychiatric care Restless leg syndrome Surgical History H/O hernia repair History of appendectomy History of colonoscopy Family History Family/Other Diabetes Brother Diabetes Grandmother CAD (coronary artery disease) Bleeding disorder Maternal Mother CAD (coronary artery disease) Cancer stomach cancer Denies family history of Clotting disorder Dementia Hyperlipidemia Psychiatric illness Chronic kidney disease (CKD) Suicide Anesthesia complication Family history of premature coronary artery disease Lung disease Hypertension Stroke Social History Second hand smoke exposure: Yes Alcohol intake: never Adopted: No Caregiver/support person: Yes Lives independently: Yes Household members: none Housing: Apartment Marital status: Single Number of children: 0 Number of grandchildren: 0 Highest education level completed: Bachelor's Degree Education level details: Education service: No Current occupational status: disabled Current occupational exposures/hazards: No Pets and animals: No History of recent travel: Yes (wet to [place]) Out of state: Yes Leisure activites: music, reading and other Leisure activities details: crafting Sexually active: Yes Current gender identity: Female Anna/Mandaeism: Episcopal Special anna needs: No Agree to transfusion: Yes Financial difficulty paying for basics: Somewhat Hard Female Reproductive History: Para: 0 Spontaneous abortions: No Vitals/I&O/Wt Last Vital Signs Temp 98.2 F 04/22/21 20:00 Pulse 100 04/22/21 21:05 Resp 18 04/22/21 21:05 BP 123/68 04/22/21 20:00 Pulse Ox 95 04/22/21 21:05 04/22/21 04/22/21 04/23/21 14:59 22:59 06:59 Intake Total 530 / 530 240 / 770 Balance 530 / 530 240 / 770 Physical Exam Narrative: EXAM NARRATIVE: GEN: Awake, alert and oriented, no acute distress CVS: S1S2 N RS: CTA B/L Abd: Soft, nt/nd , bs+ FIRE FIGHTING EQUIPMENT SPECIALIST: no focal neuro deficits Data Micro: Micro: Microbiology 04/20/21 17:22 Catheter Tip Cultu re - Preliminary Sub-Clavian Tip Staphylococcus aureus- MSSA 04/20/21 08:30 Blood Culture - Pr eliminary Blood Staphylococcus aureus 04/21/21 10:58 Blood Culture - Pr eliminary Blood NEGATIVE TO BRUCE E 04/18/21 15:59 Blood Culture - Fi nal Blood Staphylococcus aureus 04/18/21 11:22 Blood Culture - Fi nal Blood Staphylococcus aureus 04/21/21 09:25 Blood Culture - Pr eliminary Blood NEGATIVE TO BRUCE E A&P Assessment and plan (1) Bacteremia due to methicillin susceptible Staphylococcus aureus (MSSA): MSSA bacteremia likely related to HS catheter infection Blood cx negative since HD cath removed on 04/20 Currently line free, planned replacement of catheter on 04/25/20 (>72 hrs after clearance) Currently on rx with ceftriaxone 2g iv q24h Once HD access is restored, can switch treatment to iv cefazolin 2g iv after dialysis three times a week. This regimen can be continued on discharge. Recommend AT LEAST 4 weeks of iv treatment from removal of infected line (04/21-05/19) DONI without evidence of endocarditis Follow up in ID clinic in one month, prior to discontinuation of abx. 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
[2021-04-23] VITALS (7 sets, daily range): BP systolic 89–143; BP diastolic 44–97; PULSE 81–98; RESP 18–20; TEMP 36.4–37.3; O2SAT 90–94
[2021-04-23] MEDS: heparin 5,000 unit/mL INJ 1 mL 5000 UNIT SUBCUT ×3 (04:16→20:30)
[2021-04-23 06:07] LABS: Basophils # 0.1 10^3/uL (0.0-0.1); Basophils % 0.6 %; Eosinophils # 0.7 10^3/uL (0.0-0.8); Eosinophils % 8.7 %; Hemoglobin 8.9 g/dL (11.5-15.3); Lymphocytes # 0.8 10^3/uL (0.8-4.8); Lymphocytes % 9.6 %; Mean Corpuscular HGB Conc 29.7 g/dL (30.0-36.0); Mean Corpuscular Hemoglobin 29.5 pg (28.0-34.0); Mean Corpuscular Volume 99.3 fl (81-99); Mean Platelet Volume 11.2 fL (7.4-10.4); Monocytes # 0.5 10^3/uL (0.2-0.9); Monocytes % 5.4 %; Neutrophils # 6.34 10^3/uL (1.8-7.7); Neutrophils % 74.8 %; Nucleated Red Blood Cells % 0 %; Platelet Count 229 10^3/cmm (130-400); Red Blood Count 3.02 10^6/uL (4.1-5.3); Red Cell Distribution Width 16.1 % (12.1-15.1); White Blood Count 8.5 10^3/uL (4.0-10.0)
[2021-04-23 06:33] LABS: Anion Gap 28.1 (5-19); Blood Urea Nitrogen 46 mg/dL (6-20); Calcium 8.8 mg/dL (8.5-10.5); Carbon Dioxide 18 mmol/L (22-29); Chloride 97 mmol/L (98-107); Glomerular Filtration Rate 5.1 mL/min (90-130); Glucose 139 mg/dL (65-115); Osmolality Calculated 300 mOsm/kg (285-295); Potassium 5.1 mmol/L (3.5-5.1); Sodium 138 mmol/L (136-145)
[2021-04-23 06:38] LABS: Procalcitonin 24.76 ng/mL (0-0.5)
[2021-04-23] MEDS: cefTRIAXone 2,000 MG in sodium chloride 0.9% (plus) 50 ML 100 MG IV (07:56)
[2021-04-23] MEDS: insulin lispro 100 unit/1 mL SUBCUT ×2 (08:27→12:22)
[2021-04-23] MEDS: citalopram 20 mg Tablet PO (08:27)
[2021-04-23] MEDS: ropinirole 0.25 mg Tablet 0.5 MG PO (08:27)
[2021-04-23] MEDS: atorvastatin 40 mg Tablet 20 MG PO (08:27)
[2021-04-23] MEDS: aspirin 81 mg EC Tablet PO (08:27)
[2021-04-23] MEDS: calcium acetate 667 mg Capsule 1334 MG PO ×3 (08:27→20:30)
[2021-04-23] MEDS: buPROPion XL (24 HR) 150 mg Tablet PO (08:45)
[2021-04-23] MEDS: mupirocin oint 22 gm 1 APPLIC TOPICAL ×2 (08:49→16:37)
--- NOTE | 2021-04-23 09:27 | PC.SOCIAL ---
IMM Update Discussed Medicare rights with patient, verbalized understanding. Provided patient with a copy and initialed, timed, dated copy in chart.
--- NOTE | 2021-04-23 10:29 | PM.PN ---
Subjective Subjective: Interval history: Ms. Fregoso is having some back spasms today. No fevers or chills. No uremic symptoms. Hemodynamics reviewed, remained stable. No other acute issues since yesterday. Medications: Reviewed: Yes Medication Review Details: Current Medications Acetaminophen (Acetaminophen 325 Mg Tablet) 650 mg PO Q6H PRN PRN Reason: MILD PAIN Last Admin: 04/20/21 20:45 Dose: 650 mg Documented by: Albuterol/Ipratropium (Ipratropium-Albuterol 3 Ml Neb) 3 ml INHALATION Q6H.RESPIRATORY PRN PRN Reason: SHORTNESS OF BREATH Aspirin (Aspirin 81 Mg Ec Tablet) 81 mg PO DAILY [facility] Last Admin: 04/21/21 09:00 Dose: Not Given Documented by: Atorvastatin Calcium (Atorvastatin 40 Mg Tablet) 20 mg PO DAILY [facility] Last Admin: 04/21/21 09:00 Dose: Not Given Documented by: Bupropion HCl (Bupropion Xl (24 Hr) 150 Mg Tablet) 150 mg PO DAILY [facility] Last Admin: 04/21/21 09:00 Dose: Not Given Documented by: Calcium Acetate (Calcium Acetate 667 Mg Capsule) 1,334 mg PO TID [facility] Last Admin: 04/21/21 17:15 Dose: Not Given Documented by: Citalopram Hydrobromide (Citalopram 20 Mg Tablet) 20 mg PO DAILY [facility] Last Admin: 04/21/21 09:00 Dose: Not Given Documented by: Dextrose (Dextrose 50% Syringe 50 Ml) 25 ml IVP ONCE PRN; Protocol PRN Reason: hypoglycemia protocol Dextrose (Dextrose 50% Syringe 50 Ml) 50 ml IVP PRN PRN; Protocol PRN Reason: hypoglycemia protocol Glucagon (Glucagon 1 Mg/Ml Inj 1 Ml) 1 mg IM ONCE PRN; Protocol PRN Reason: Adult Acute Hypoglycemia Prot. Heparin Sodium (Porcine) (Heparin 5,000 Unit/Ml Inj 1 Ml) 5,000 unit SUBCUT Q8H [facility] Last Admin: 04/20/21 12:38 Dose: Not Given Documented by: Dextrose (D5w) 500 mls @ 100 mls/hr IV ONCE PRN; Protocol PRN Reason: Adult Acute Hypoglycemia Prot Doxycycline Hyclate 100 mg/ (Sodium Chloride) 100 mls @ 100 mls/hr IV Q12H [facility]; Protocol Last Infusion: 04/21/21 12:40 Dose: Infused Documented by: Insulin Human Lispro (Insulin Lispro 100 Unit/1 Ml) 0 unit SUBCUT TIDWM [facility]; Protocol Last Admin: 04/21/21 17:55 Dose: Not Given Documented by: Lanolin (Lanolin Oint 7 Gm) 1 applic TOPICAL PRN PRN PRN Reason: DRYNESS Midodrine (Midodrine 5 Mg Tablet) 5 mg PO MoWeFr PRN PRN Reason: NEEDED BEFORE DIALYSIS Last Admin: 04/20/21 08:00 Dose: 5 mg Documented by: Mupirocin (Mupirocin Oint 22 Gm) 1 applic TOPICAL BID [facility] Last Admin: 04/21/21 17:55 Dose: Not Given Documented by: Non-Formulary Medication (Ammonium Lactate) 1 applic TOPICAL BID [facility] Last Admin: 04/21/21 17:15 Dose: Not Given Documented by: Non-Formulary Medication (Clobetasol) 1 applic TOPICAL BID [facility] Last Admin: 04/21/21 17:15 Dose: Not Given Documented by: Non-Formulary Medication (Vit B,T-Db-Szqj-Selen-Vit D3-E [Renaplex-D]) 1 tab PO DAILY [facility] Ropinirole HCl (Ropinirole 0.25 Mg Tablet) 0.5 mg PO DAILY [facility] Last Admin: 04/21/21 09:00 Dose: Not Given Documented by: Senna/Docusate Sodium (Sennosides-Docusate Tablet) 1 tab PO BID PRN PRN Reason: constipation Trazodone HCl (Trazodone 150 Mg Tablet) 75 mg PO BEDTIME [facility] Last Admin: 04/20/21 20:46 Dose: 75 mg Documented by: Vitals/I&O/Wt Last Vital Signs Temp 98.1 F 04/23/21 07:30 Pulse 81 04/23/21 08:06 Resp 18 04/23/21 08:06 BP 131/82 04/23/21 07:30 Pulse Ox 94 04/23/21 08:06 04/22/21 04/23/21 04/23/21 22:59 06:59 14:59 Intake Total 390 / 920 390 / 1310 710 / 710 Balance 390 / 920 390 / 1310 710 / 710 Physical Exam Narrative: EXAM NARRATIVE: Constitutional: Awake, comfortable. HEENT: Wet mucosa, no jvp, non icteric. Lungs: Bilaterally clear without discernible wheeze, rales in all lung zones. CVS: S1, S2, no murmurs. Abdo: Soft, BS ok. Ext 4: Minimal edema, peripheral perfusion with no cyanosis. Neurological: Grossly non-focal Data : 04/23/21 05:15 04/23/21 05:15 Micro: Microbiology 04/20/21 17:22 Catheter Tip Culture - Preliminary Sub-Clavian Tip Staphylococcus aureus 04/20/21 08:30 Blood Culture - Preliminary Blood Staphylococcus aureus 04/21/21 10:58 Blood Culture - Preliminary Blood NEGATIVE TO DATE 04/18/21 15:59 Blood Culture - Final Blood Staphylococcus aureus 04/18/21 11:22 Blood Culture - Final Blood Staphylococcus aureus 04/21/21 09:25 Blood Culture - Preliminary Blood NEGATIVE TO DATE A&P Additional A&P Information 1. ESRD Permacath ok for Sunday if blood cultures remain negative (last positive culutre 04/20) Renal diet, low potassium intake. Kayexalate added to regimen Typical schedule Sunday, Sunday and Sunday dialysis schedule Dose medications for GFR less than 15 on dialysis 2. Lytes K 5.1; kayexalate added 3. Weakness Blood cultures with Staph. Abx on board Line out DONI shows no IE tip positive last positive culture 04/20, 04/21 NGTD 4. Hemodynamics Hemodynamics currently soft, midodrine prior to dialysis 5. Chronic ESRD issues These will be managed as an outpatient including management of anemia of ESRD, secondary hyperparathyroidism, hyperphosphatemia etc. She is on lanthanum as an outpatient, give her some PhosLo while she is admitted. Arjun Cavazos MD Nephrology [phone] Patient seen and examined via telemedicine, with the assistance of the bedside RN > 25 min spent in evaluation and mgmt of patient Attestations Medical Necessity Statement*: eval for ESRd mgmt Coding Level of Care Code Acute Marketing Proposal Specialist for Kulwinder Hilario
[2021-04-23] MEDS: cyclobenzaprine 10 mg Tablet 5 MG PO ×2 (10:48→16:35)
[2021-04-23] MEDS: sodium polystyrene sulfonate 15 gm/60 mL Btl PO (10:48)
--- NOTE | 2021-04-23 11:35 | PM.PN ---
Subjective Subjective: Interval history: Patient remains afebrile Small amount of urine at night Leukocytosis trending down She is feeling better Vitals/I&O/Wt Last Vital Signs Temp 97.5 F L 04/23/21 11:13 Pulse 94 04/23/21 11:13 Resp 18 04/23/21 11:13 BP 143/83 04/23/21 11:13 Pulse Ox 93 04/23/21 11:13 04/22/21 04/23/21 04/23/21 22:59 06:59 14:59 Intake Total 390 / 920 390 / 1310 710 / 710 Balance 390 / 920 390 / 1310 710 / 710 Physical Exam Narrative: EXAM NARRATIVE: patient was sitting at the bedside Saturating well on 2.5 L, Nonfocal neuro exam Abdomen soft No signs of edema No active chest pain or shortness of breath Clinically euvolemic Data : 04/23/21 05:15 04/23/21 05:15 Micro: Microbiology 04/21/21 10:58 Blood Culture - Preliminary Blood 04/20/21 17:22 Catheter Tip Culture - Preliminary Sub-Clavian Tip Staphylococcus aureus 04/20/21 08:30 Blood Culture - Preliminary Blood Staphylococcus aureus 04/18/21 15:59 Blood Culture - Final Blood Staphylococcus aureus 04/18/21 11:22 Blood Culture - Final Blood Staphylococcus aureus 04/21/21 09:25 Blood Culture - Preliminary Blood NEGATIVE TO DATE A&P Assessment and plan (1) Dysphagia: Status: Acute (2) End stage renal disease on dialysis: Status: Acute (3) Bacteremia: Status: Acute (4) Hyperkalemia: Status: Acute (5) Fall: Status: Acute (6) ESRD on dialysis: Status: Acute (7) Fever: Status: Acute (8) Plaque psoriasis: Status: Acute (9) COPD (chronic obstructive pulmonary disease): Status: Acute (10) 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 renal disease): Status: Acute Additional A&P Information MSSA bacteremia Antibiotics changed to ceftriaxone Repeat cultures negative to date Appreciate ID recommendations Afebrile Leukocytosis improved Catheter tip showed staph aureus Dialysis catheter has been removed, plan to place dialysis catheter on Sunday, Dr. Chung is planning to do it, patient is already on the schedule End-stage renal disease: Start dialysis for Sunday No acute indication for dialysis, appreciate nephro recommendations Hyperkalemia: Improved Plaque psoriasis: No acute exacerbation COPD without acute exacerbation Motility disorder causing dysphagia patient tolerating her diet Renal dialysis diet Hyperglycemia with underlying type 2 diabetes Sliding scale Patient will be discharged home once medically cleared Attestations Medical Necessity Statement*: Awaiting dialysis catheter dialysis catheter placement on Sunday Time Spent in Patient Care: less than 15 minutes Coding Level of Care Code Acute Apartment Maintenance Worker for g Fwd Diagnoses Dysphagia R13.10 End stage renal disease on dialysis N18.6; Z99.2 Bacteremia R78.81 Hyperkalemia E87.5 Fall W19.XXXA ESRD on dialysis N18.6; Z99.2 Fever R50.9 Plaque psoriasis L40.0 COPD (chronic obstructive pulmonary disease) J44.9 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 renal disease) E11.22; N18.6
[2021-04-23 13:13] LABS: Glucose Point of Care 166 mg/dL (70-110)
[2021-04-23 13:13] LABS: Glucose Point of Care 175 mg/dL (70-110)
[2021-04-23] MEDS: trazodone 150 mg Tablet 75 MG PO (20:30)
[2021-04-23 20:59] LABS: Glucose Point of Care 96 mg/dL (70-110)
[2021-04-23 20:59] LABS: Glucose Point of Care 151 mg/dL (70-110)
[2021-04-24] VITALS (8 sets, daily range): BP systolic 114–164; BP diastolic 56–95; PULSE 66–101; RESP 16–20; TEMP 36.3–37.2; O2SAT 90–99
[2021-04-24] MEDS: heparin 5,000 unit/mL INJ 1 mL 5000 UNIT SUBCUT (05:01)
[2021-04-24 06:29] LABS: Basophils % 0.5 %; Eosinophils # 0.7 10^3/uL (0.0-0.8); Eosinophils % 7.9 %; Hematocrit 25.7 % (37.0-47.0); Hemoglobin 7.7 g/dL (11.5-15.3); Lymphocytes # 0.9 10^3/uL (0.8-4.8); Lymphocytes % 11.3 %; Mean Corpuscular Hemoglobin 29.8 pg (28.0-34.0); Mean Corpuscular Volume 99.6 fl (81-99); Mean Platelet Volume 11.1 fL (7.4-10.4); Monocytes # 0.5 10^3/uL (0.2-0.9); Monocytes % 5.8 %; Neutrophils # 6.11 10^3/uL (1.8-7.7); Neutrophils % 73.3 %; Nucleated Red Blood Cells % 0 %; Platelet Count 254 10^3/cmm (130-400); Red Blood Count 2.58 10^6/uL (4.1-5.3); White Blood Count 8.3 10^3/uL (4.0-10.0)
[2021-04-24 06:53] LABS: Glucose Point of Care 114 mg/dL (70-110)
[2021-04-24 06:55] LABS: Anion Gap 27.1 (5-19); Blood Urea Nitrogen 52 mg/dL (6-20); Calcium 8.7 mg/dL (8.5-10.5); Carbon Dioxide 18 mmol/L (22-29); Chloride 99 mmol/L (98-107); Glomerular Filtration Rate 4.1 mL/min (90-130); Glucose 105 mg/dL (65-115); Osmolality Calculated 302 mOsm/kg (285-295); Potassium 5.1 mmol/L (3.5-5.1); Sodium 139 mmol/L (136-145)
--- NOTE | 2021-04-24 07:49 | USCV_ITS ---
Kerri Fregoso Age: 55 Gender: F : 1965 Exam Date: 04/24/2021 10:04 Ordering Phys: Darlyn Ingram MD Technologist: Bernadette Vásquez [place] [facility] [place]: THROMBOPHEBITIS PERSISTENT MSSA HISTORY: Suggestion of thrombophebitis with persistent MSSA PROCEDURES: Venous duplex imaging was performed in only the right upper extremity. The following venous structures were evaluated: internal jugular vein, subclavian vein, axillary vein, and brachial veins. In addition, the basilic vein, cephalic vein, radial vein, and ulnar vein. In addition, the radial vein and ulnar vein. Serial compression, augmentation maneuvers, and spectral Doppler flow evaluation were performed. FINDINGS: Rt Jugular vein has wall debris. There is flow Rt. Cephalic vein has debris and diminished flow . All other vessels appear free of DVT. Some echodensities of the goldman of the right jugular vein and cephalic vein. CONCLUSIONS Features of venous thrombosis with recanalization of the right internal jugular vein. Features of venous thrombosis with recanalization in the right cephalic vein No significant venous reflux in the above-mentioned veins Dr Jono Wilson MD [facility] (Electronically Signed) Final Date: 24 April 2021 18:39 S
--- NOTE | 2021-04-24 07:54 | P.PN_ITS ---
Subjective Subjective: Interval history: infectious disease follow up note blood cx from 04/21 prelim + with GPC in clusters, repeated and pending Tmax 99.2F Medications: Reviewed: Yes Vitals/I&O/Wt Last Vital Signs Temp 99 F 04/24/21 04:00 Pulse 101 H 04/24/21 04:00 Resp 17 04/24/21 04:00 BP 162/85 04/24/21 04:00 Pulse Ox 90 04/24/21 04:00 04/23/21 04/24/21 04/24/21 22:59 06:59 14:59 Intake Total 360 / 1310 Output Total 480 / 480 Balance -120 / 830 Data : 04/24/21 05:31 04/24/21 05:31 Micro: Microbiology 04/23/21 12:33 Blood Culture - Preliminary Blood SPECIMEN COLLECTED 04/23/21 12:36 Blood Culture - Preliminary Blood SPECIMEN COLLECTED 04/20/21 17:22 Catheter Tip Culture - Final Sub-Clavian Tip Staphylococcus aureus 04/21/21 10:58 Blood Culture - Preliminary Blood A&P Assessment and plan (1) Bacteremia due to methicillin susceptible Staphylococcus aureus (MSSA): MSSA bacteremia likely related to hemodialysis catheter infection Blood cx now reported prelim positive on 04/21 with GPC in clusters, awaiting identification Hold off on tunnelled HD cath replacement until blood cx negative at least 72 hrs in the interim if HD needs to be restarted considered temporary cath. Currently on rx with ceftriaxone 2g iv q24h , continue same Once HD access is restored, can switch treatment to iv cefazolin 2g iv after dialysis three times a week post HD. Check RUE venous duplex to evaluate for septic thrombophlebitis If blood cx persistent positive after removal of line, will additionally recommend MR imaging of spine to exclude secondary epidural abscess given patient's c/o back pain, though the latter appears to be more chronic in nature. will follow Status: Acute Attestations Medical Necessity Statement*: per admitting, awaiting clearance of bacteremia, restore HD acess Coding Level of Care Code Acute Purchasing Officer for [facility] Fwd Diagnoses Bacteremia due to methicillin susceptible Staphylococcus aureus (MSSA) R78.81; B95.61
[2021-04-24] MEDS: sodium polystyrene sulfonate 15 gm/60 mL Btl PO (08:22)
[2021-04-24] MEDS: cefTRIAXone 2,000 MG in sodium chloride 0.9% (plus) 50 ML 100 MG IV (08:22)
[2021-04-24] MEDS: aspirin 81 mg EC Tablet PO (08:23)
[2021-04-24] MEDS: citalopram 20 mg Tablet PO (08:23)
[2021-04-24] MEDS: buPROPion XL (24 HR) 150 mg Tablet PO (08:23)
[2021-04-24] MEDS: cyclobenzaprine 10 mg Tablet 5 MG PO (08:23)
[2021-04-24] MEDS: calcium acetate 667 mg Capsule 1334 MG PO ×3 (08:23→20:42)
[2021-04-24] MEDS: ropinirole 0.25 mg Tablet 0.5 MG PO (08:23)
[2021-04-24] MEDS: atorvastatin 40 mg Tablet 20 MG PO (08:23)
[2021-04-24] MEDS: mupirocin oint 22 gm 1 APPLIC TOPICAL (08:23)
--- NOTE | 2021-04-24 11:40 | P.PN_ITS ---
Subjective Subjective: Interval history: Feels ok, no new issues, no uremic Sx. No fevers or chills Medications: Reviewed: Yes Medication Review Details: Current Medications Acetaminophen (Acetaminophen 325 Mg Tablet) 650 mg PO Q6H PRN PRN Reason: MILD PAIN Last Admin: 04/20/21 20:45 Dose: 650 mg Documented by: Albuterol/Ipratropium (Ipratropium-Albuterol 3 Ml Neb) 3 ml INHALATION Q6H.RESPIRATORY PRN PRN Reason: SHORTNESS OF BREATH Aspirin (Aspirin 81 Mg Ec Tablet) 81 mg PO DAILY [facility] Last Admin: 04/21/21 09:00 Dose: Not Given Documented by: Atorvastatin Calcium (Atorvastatin 40 Mg Tablet) 20 mg PO DAILY [facility] Last Admin: 04/21/21 09:00 Dose: Not Given Documented by: Bupropion HCl (Bupropion Xl (24 Hr) 150 Mg Tablet) 150 mg PO DAILY [facility] Last Admin: 04/21/21 09:00 Dose: Not Given Documented by: Calcium Acetate (Calcium Acetate 667 Mg Capsule) 1,334 mg PO TID [facility] Last Admin: 04/21/21 17:15 Dose: Not Given Documented by: Citalopram Hydrobromide (Citalopram 20 Mg Tablet) 20 mg PO DAILY [facility] Last Admin: 04/21/21 09:00 Dose: Not Given Documented by: Dextrose (Dextrose 50% Syringe 50 Ml) 25 ml IVP ONCE PRN; Protocol PRN Reason: hypoglycemia protocol Dextrose (Dextrose 50% Syringe 50 Ml) 50 ml IVP PRN PRN; Protocol PRN Reason: hypoglycemia protocol Glucagon (Glucagon 1 Mg/Ml Inj 1 Ml) 1 mg IM ONCE PRN; Protocol PRN Reason: Adult Acute Hypoglycemia Prot. Heparin Sodium (Porcine) (Heparin 5,000 Unit/Ml Inj 1 Ml) 5,000 unit SUBCUT Q8H [facility] Last Admin: 04/20/21 12:38 Dose: Not Given Documented by: Dextrose (D5w) 500 mls @ 100 mls/hr IV ONCE PRN; Protocol PRN Reason: Adult Acute Hypoglycemia Prot Doxycycline Hyclate 100 mg/ (Sodium Chloride) 100 mls @ 100 mls/hr IV Q12H [facility]; Protocol Last Infusion: 04/21/21 12:40 Dose: Infused Documented by: Insulin Human Lispro (Insulin Lispro 100 Unit/1 Ml) 0 unit SUBCUT TIDWM [facility]; Protocol Last Admin: 04/21/21 17:55 Dose: Not Given Documented by: Lanolin (Lanolin Oint 7 Gm) 1 applic TOPICAL PRN PRN PRN Reason: DRYNESS Midodrine (Midodrine 5 Mg Tablet) 5 mg PO MoWeFr PRN PRN Reason: NEEDED BEFORE DIALYSIS Last Admin: 04/20/21 08:00 Dose: 5 mg Documented by: Mupirocin (Mupirocin Oint 22 Gm) 1 applic TOPICAL BID [facility] Last Admin: 04/21/21 17:55 Dose: Not Given Documented by: Non-Formulary Medication (Ammonium Lactate) 1 applic TOPICAL BID [facility] Last Admin: 04/21/21 17:15 Dose: Not Given Documented by: Non-Formulary Medication (Clobetasol) 1 applic TOPICAL BID [facility] Last Admin: 04/21/21 17:15 Dose: Not Given Documented by: Non-Formulary Medication (Vit B,V-Pt-Jpcj-Selen-Vit D3-E [Renaplex-D]) 1 tab PO DAILY [facility] Ropinirole HCl (Ropinirole 0.25 Mg Tablet) 0.5 mg PO DAILY [facility] Last Admin: 04/21/21 09:00 Dose: Not Given Documented by: Senna/Docusate Sodium (Sennosides-Docusate Tablet) 1 tab PO BID PRN PRN Reason: constipation Trazodone HCl (Trazodone 150 Mg Tablet) 75 mg PO BEDTIME [facility] Last Admin: 04/20/21 20:46 Dose: 75 mg Documented by: Vitals/I&O/Wt Last Vital Signs Temp 97.3 F L 04/24/21 08:00 Pulse 100 04/24/21 09:13 Resp 17 04/24/21 09:13 BP 164/95 04/24/21 08:00 Pulse Ox 95 04/24/21 09:13 04/23/21 04/24/21 04/24/21 22:59 06:59 14:59 Intake Total 360 / 1310 290 / 290 Output Total 480 / 480 Balance -120 / 830 290 / 290 Physical Exam Narrative: EXAM NARRATIVE: Constitutional: Awake, comfortable. HEENT: Wet mucosa, no jvp, non icteric. Lungs: Bilaterally clear without discernible wheeze, rales in all lung zones. CVS: S1, S2, no murmurs. Abdo: Soft, BS ok. Ext 4: Minimal edema, peripheral perfusion with no cyanosis. Neurological: Grossly non-focal Data : 04/24/21 05:31 04/24/21 05:31 Micro: Microbiology 04/23/21 12:33 Blood Culture - Preliminary Blood SPECIMEN COLLECTED 04/23/21 12:36 Blood Culture - Preliminary Blood SPECIMEN COLLECTED 04/20/21 17:22 Catheter Tip Culture - Final Sub-Clavian Tip Staphylococcus aureus 04/21/21 10:58 Blood Culture - Preliminary Blood A&P Additional A&P Information 1. ESRD Temp line in am and dialysis, 2K, UF 2-3L Renal diet, low potassium intake. Kayexalate added to regimen Typical schedule Sunday, Sunday and Sunday dialysis schedule Dose medications for GFR less than 15 on dialysis 2. Lytes K 5.1; kayexalate added; will stop tomorrow 3. Weakness Blood cultures with Staph. Abx on board Line out DONI shows no IE tip positive last positive culture 04/20, 04/21 pre-downs positive input from Dr Ingram noted Permacath when culture free x 72 hrs Spine imaging noted 4. Hemodynamics Hemodynamics currently soft, midodrine prior to dialysis 5. Chronic ESRD issues These will be managed as an outpatient including management of anemia of ESRD, secondary hyperparathyroidism, hyperphosphatemia etc. She is on lanthanum as an outpatient, give her some PhosLo while she is admitted. 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
[2021-04-24 12:36] LABS: Glucose Point of Care 171 mg/dL (70-110)
[2021-04-24] MEDS: insulin lispro 100 unit/1 mL SUBCUT (14:19)
--- NOTE | 2021-04-24 14:29 | PM.PN ---
Subjective Subjective: Interval history: Patient is overall doing okay, no significant hematoma at the site of the dialysis catheter removal Vitals/I&O/Wt Last Vital Signs Temp 97.3 F L 04/24/21 08:00 Pulse 100 04/24/21 09:13 Resp 17 04/24/21 09:13 BP 164/95 04/24/21 08:00 Pulse Ox 95 04/24/21 09:13 04/23/21 04/24/21 04/24/21 22:59 06:59 14:59 Intake Total 360 / 1310 290 / 290 Output Total 480 / 480 Balance -120 / 830 290 / 290 Physical Exam Narrative: EXAM NARRATIVE: Right chest: No cellulitis or hematoma Data : 04/24/21 05:31 04/24/21 05:31 Micro: Microbiology 04/23/21 12:33 Blood Culture - Preliminary Blood NEGATIVE TO DATE 04/23/21 12:36 Blood Culture - Preliminary Blood NEGATIVE TO DATE 04/20/21 17:22 Catheter Tip Culture - Final Sub-Clavian Tip Staphylococcus aureus 04/21/21 10:58 Blood Culture - Preliminary Blood A&P Assessment and plan (1) End stage renal disease on dialysis: 55-year-old female with ESRD who has MSSA bacteremia and has not had dialysis for 4 days. Her potassium was 5.1 Plan for placement of temporary dialysis catheter under MAC as per patient request tomorrow N.p.o. after midnight Status: Acute Attestations Medical Necessity Statement*: As per primary Coding Level of Care Code Acute Director Of Coding for Kulwinder 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
--- NOTE | 2021-04-24 14:32 | P.PN_ITS ---
Subjective Subjective: Interval history: Patient is complaining of back pain which is chronic in nature however not in distress at the time of my evaluation Repeat blood culture negative to date Afebrile Leukocytosis trending down Dr. Chung notified regarding positive blood cultures, blood cultures repeated yesterday Appreciate ID and nephro recommendations Plan for temporary dialysis catheter placement tomorrow Drop in hemoglobin noted, no active GI bleed Vitals/I&O/Wt Last Vital Signs Temp 97.3 F L 04/24/21 08:00 Pulse 100 04/24/21 09:13 Resp 17 04/24/21 09:13 BP 164/95 04/24/21 08:00 Pulse Ox 95 04/24/21 09:13 04/23/21 04/24/21 04/24/21 22:59 06:59 14:59 Intake Total 360 / 1310 290 / 290 Output Total 480 / 480 Balance -120 / 830 290 / 290 Physical Exam Narrative: EXAM NARRATIVE: Patient sitting comfortably at the bedside S1, S2 No sign of clinical hypervolemia S1, S2 Abdomen soft Psoriasis plaque EOMI, PERRLA Nonfocal neuro exam Data : 04/24/21 05:31 04/24/21 05:31 Micro: Microbiology 04/23/21 12:33 Blood Culture - Preliminary Blood NEGATIVE TO DATE 04/23/21 12:36 Blood Culture - Preliminary Blood NEGATIVE TO DATE 04/20/21 17:22 Catheter Tip Culture - Final Sub-Clavian Tip Staphylococcus aureus 04/21/21 10:58 Blood Culture - Preliminary Blood A&P Assessment and plan (1) Bacteremia due to methicillin susceptible Staphylococcus aureus (MSSA): Status: Acute (2) Dysphagia: Status: Acute (3) End stage renal disease on dialysis: Status: Acute (4) Bacteremia: Status: Acute Additional A&P Information MSSA bacteremia Repeat blood cultures 04/21+ Plan for temporary dialysis catheter placement tomorrow Appreciate ID nephro recommendations Hold DVT prophylaxis N.p.o. after midnight Continue ceftriaxone 2 g daily for now No signs of endocarditis, in case of persistent bacteremia would recommend MRI of spine to rule out abscess Attestations Medical Necessity Statement*: Continue medical management Time Spent in Patient Care: less than 15 minutes Coding Level of Care Code Acute Well Service Floor Worker for g Fwd Diagnoses Bacteremia due to methicillin susceptible Staphylococcus aureus (MSSA) R78.81; B95.61 Dysphagia R13.10 End stage renal disease on dialysis N18.6; Z99.2 Bacteremia R78.81
[2021-04-24 16:49] LABS: Glucose Point of Care 101 mg/dL (70-110)
[2021-04-24] MEDS: trazodone 150 mg Tablet 75 MG PO (20:42)
[2021-04-24 20:53] LABS: Glucose Point of Care 165 mg/dL (70-110)
[2021-04-25] VITALS (18 sets, daily range): BP systolic 112–160; BP diastolic 62–88; PULSE 72–105; RESP 12–20; TEMP 36.1–36.6; O2SAT 90–100
--- NOTE | 2021-04-25 | SCC_ITS ---
Procedure Done: 1. Placement of temporary 20 cm long 12 [place] dialysis catheter in the right subclavian vein 2. Fluoroscopic guidance and interpretation for placement of catheter 3. Ultrasound guidance to access the right internal and left internal jugular vein 214.8 seconds of fluoroscopic guidance, for a cumulative dose of 49.25 mGy, was provided to Dr. Chung by the radiology department. C-arm images of the chest were saved for the patient's permanent record. MARLIN
[2021-04-25 05:40] LABS: Basophils % 0.3 %; Eosinophils # 0.7 10^3/uL (0.0-0.8); Eosinophils % 7.5 %; Hematocrit 25.5 % (37.0-47.0); Hemoglobin 7.5 g/dL (11.5-15.3); Lymphocytes # 1.1 10^3/uL (0.8-4.8); Lymphocytes % 11.9 %; Mean Corpuscular HGB Conc 29.4 g/dL (30.0-36.0); Mean Corpuscular Hemoglobin 29.8 pg (28.0-34.0); Mean Corpuscular Volume 101.2 fl (81-99); Mean Platelet Volume 10.4 fL (7.4-10.4); Monocytes # 0.6 10^3/uL (0.2-0.9); Monocytes % 6.5 %; Neutrophils # 6.55 10^3/uL (1.8-7.7); Neutrophils % 72.5 %; Nucleated Red Blood Cells % 0 %; Platelet Count 288 10^3/cmm (130-400); Red Blood Count 2.52 10^6/uL (4.1-5.3); Red Cell Distribution Width 16.1 % (12.1-15.1); White Blood Count 9.1 10^3/uL (4.0-10.0)
[2021-04-25 06:05] LABS: Anion Gap 27.9 (5-19); Blood Urea Nitrogen 61 mg/dL (6-20); Calcium 8.3 mg/dL (8.5-10.5); Carbon Dioxide 19 mmol/L (22-29); Chloride 95 mmol/L (98-107); Glomerular Filtration Rate 3.8 mL/min (90-130); Glucose 111 mg/dL (65-115); Osmolality Calculated 302 mOsm/kg (285-295); Potassium 4.9 mmol/L (3.5-5.1); Sodium 137 mmol/L (136-145)
[2021-04-25 06:41] LABS: Glucose Point of Care 111 mg/dL (70-110)
[2021-04-25] MEDS: cefTRIAXone 2,000 MG in sodium chloride 0.9% (plus) 50 ML 100 MG IV (08:10)
[2021-04-25] MEDS: ropinirole 0.25 mg Tablet 0.5 MG PO (08:13)
[2021-04-25] MEDS: citalopram 20 mg Tablet PO (08:13)
[2021-04-25] MEDS: buPROPion XL (24 HR) 150 mg Tablet PO (08:17)
[2021-04-25] MEDS: mupirocin oint 22 gm 1 APPLIC TOPICAL (08:20)
--- NOTE | 2021-04-25 09:23 | P.PN_ITS ---
Subjective Subjective: Interval history: Kerri reports no concerns today. She is going to have a temporary dialysis catheter placed. She reports her back pain is minor currently. History and physical reviewed. Medications: Reviewed: Yes Vitals/I&O/Wt Last Vital Signs Temp 97.6 F 04/25/21 08:00 Pulse 81 04/25/21 08:42 Resp 20 H 04/25/21 08:42 BP 116/70 04/25/21 08:00 Pulse Ox 96 04/25/21 08:42 04/24/21 04/25/21 04/25/21 22:59 06:59 14:59 Intake Total 360 / 890 50 / 50 Balance 360 / 890 50 / 50 Physical Exam Narrative: EXAM NARRATIVE: General exam no distress Neck is supple Cardiovascular regular rate and rhythm, no murmur Lungs clear Abdomen is soft Extremities no cyanosis or clubbing. 2+ edema is noted bilaterally. Skin demonstrates widespread psoriatic changes Data : 04/25/21 04:57 04/25/21 04:57 Micro: Microbiology 04/21/21 10:58 Blood Culture - Preliminary Blood Staphylococcus aureus 04/23/21 12:33 Blood Culture - Preliminary Blood NEGATIVE TO DATE 04/23/21 12:36 Blood Culture - Preliminary Blood NEGATIVE TO DATE Other data: April 23 blood cultures negative to date A&P Assessment and plan (1) Bacteremia due to methicillin susceptible Staphylococcus aureus (MSSA): Culture from April 23 - to date. It appears this was obtained early in the afternoon. Source is suspected to be dialysis catheter line. This was removed. Temporary dialysis catheter is to be placed today, and dialysis resumed If cultures from the first turn positive, we will need to redraw blood cultures. If cultures remain negative could have a tunneled catheter as early as April 27. Please refer to infectious disease note. After discharge will need converted to cefazolin as per ID note. Status: Acute (2) End stage renal disease on dialysis: Dialysis today, after temporary dialysis catheter placed Status: Acute (3) Asthma: Currently no evidence of exacerbation. DuoNeb as needed. 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 Continue to monitor Likely related to renal disease Status: Acute Additional A&P Information Heparin for DVT prophylaxis Attestations Medical Necessity Statement*: Needs continued hospitalization secondary to bacteremia from methicillin sensitive staph aureus. 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
--- NOTE | 2021-04-25 10:26 | P.PN_ITS ---
Subjective Subjective: Interval history: No new issues today. Feels generally weak and unwell but nothing specific. Still waiting for the hemodialysis catheter to be placed and subsequent dialys is. No extremity edema, no other high volume symptoms, no uremic symptoms. Medications: Reviewed: Yes Medication Review Details: Current Medications Acetaminophen (Acetaminophen 325 Mg Tablet) 650 mg PO Q6H PRN PRN Reason: MILD PAIN Last Admin: 04/20/21 20:45 Dose: 650 mg Documented by: Albuterol/Ipratropium (Ipratropium-Albuterol 3 Ml Neb) 3 ml INHALATION Q6H.RESPIRATORY PRN PRN Reason: SHORTNESS OF BREATH Aspirin (Aspirin 81 Mg Ec Tablet) 81 mg PO DAILY [facility] Last Admin: 04/21/21 09:00 Dose: Not Given Documented by: Atorvastatin Calcium (Atorvastatin 40 Mg Tablet) 20 mg PO DAILY [facility] Last Admin: 04/21/21 09:00 Dose: Not Given Documented by: Bupropion HCl (Bupropion Xl (24 Hr) 150 Mg Tablet) 150 mg PO DAILY [facility] Last Admin: 04/21/21 09:00 Dose: Not Given Documented by: Calcium Acetate (Calcium Acetate 667 Mg Capsule) 1,334 mg PO TID [facility] Last Admin: 04/21/21 17:15 Dose: Not Given Documented by: Citalopram Hydrobromide (Citalopram 20 Mg Tablet) 20 mg PO DAILY [facility] Last Admin: 04/21/21 09:00 Dose: Not Given Documented by: Dextrose (Dextrose 50% Syringe 50 Ml) 25 ml IVP ONCE PRN; Protocol PRN Reason: hypoglycemia protocol Dextrose (Dextrose 50% Syringe 50 Ml) 50 ml IVP PRN PRN; Protocol PRN Reason: hypoglycemia protocol Glucagon (Glucagon 1 Mg/Ml Inj 1 Ml) 1 mg IM ONCE PRN; Protocol PRN Reason: Adult Acute Hypoglycemia Prot. Heparin Sodium (Porcine) (Heparin 5,000 Unit/Ml Inj 1 Ml) 5,000 unit SUBCUT Q8H [facility] Last Admin: 04/20/21 12:38 Dose: Not Given Documented by: Dextrose (D5w) 500 mls @ 100 mls/hr IV ONCE PRN; Protocol PRN Reason: Adult Acute Hypoglycemia Prot Doxycycline Hyclate 100 mg/ (Sodium Chloride) 100 mls @ 100 mls/hr IV Q12H [facility]; Protocol Last Infusion: 04/21/21 12:40 Dose: Infused Documented by: Insulin Human Lispro (Insulin Lispro 100 Unit/1 Ml) 0 unit SUBCUT TIDWM [facility]; Protocol Last Admin: 04/21/21 17:55 Dose: Not Given Documented by: Lanolin (Lanolin Oint 7 Gm) 1 applic TOPICAL PRN PRN PRN Reason: DRYNESS Midodrine (Midodrine 5 Mg Tablet) 5 mg PO MoWeFr PRN PRN Reason: NEEDED BEFORE DIALYSIS Last Admin: 04/20/21 08:00 Dose: 5 mg Documented by: Mupirocin (Mupirocin Oint 22 Gm) 1 applic TOPICAL BID [facility] Last Admin: 04/21/21 17:55 Dose: Not Given Documented by: Non-Formulary Medication (Ammonium Lactate) 1 applic TOPICAL BID [facility] Last Admin: 04/21/21 17:15 Dose: Not Given Documented by: Non-Formulary Medication (Clobetasol) 1 applic TOPICAL BID [facility] Last Admin: 04/21/21 17:15 Dose: Not Given Documented by: Non-Formulary Medication (Vit B,I-Tc-Kfzq-Selen-Vit D3-E [Renaplex-D]) 1 tab PO DAILY [facility] Ropinirole HCl (Ropinirole 0.25 Mg Tablet) 0.5 mg PO DAILY [facility] Last Admin: 04/21/21 09:00 Dose: Not Given Documented by: Senna/Docusate Sodium (Sennosides-Docusate Tablet) 1 tab PO BID PRN PRN Reason: constipation Trazodone HCl (Trazodone 150 Mg Tablet) 75 mg PO BEDTIME [facility] Last Admin: 04/20/21 20:46 Dose: 75 mg Documented by: Vitals/I&O/Wt Last Vital Signs Temp 97.6 F 04/25/21 08:00 Pulse 81 04/25/21 08:42 Resp 20 H 04/25/21 08:42 BP 116/70 04/25/21 08:00 Pulse Ox 96 04/25/21 08:42 04/24/21 04/25/21 04/25/21 22:59 06:59 14:59 Intake Total 360 / 890 50 / 50 Balance 360 / 890 50 / 50 Physical Exam Narrative: EXAM NARRATIVE: Constitutional: Awake, comfortable. HEENT: Wet mucosa, no jvp, non icteric. Lungs: Bilaterally clear without discernible wheeze, rales in all lung zones. CVS: S1, S2, no murmurs. Abdo: Soft, BS ok. Ext 4: Minimal edema, peripheral perfusion with no cyanosis. Neurological: Grossly non-focal Data : 04/25/21 04:57 04/25/21 04:57 Micro: Microbiology 04/21/21 10:58 Blood Culture - Preliminary Blood Staphylococcus aureus 04/23/21 12:33 Blood Culture - Preliminary Blood NEGATIVE TO DATE 04/23/21 12:36 Blood Culture - Preliminary Blood NEGATIVE TO DATE A&P Additional A&P Information 1. ESRD Today temp line and dialysis, 2K, UF 2-3L Renal diet, low potassium intake. Kayexalate added to regimen; will DC Typical schedule Sunday, Sunday and Sunday dialysis schedule Dose medications for GFR less than 15 on dialysis 2. Lytes Well balanced 3. Weakness Blood cultures with Staph. Abx on board Line out DONI shows no IE tip positive last positive culture 04/[address] Ingram noted Permacath when culture free x 72 hrs Spine imaging noted 4. Hemodynamics Hemodynamics currently soft, midodrine prior to dialysis 5. Chronic ESRD issues These will be managed as an outpatient including management of anemia of ESRD, secondary hyperparathyroidism, hyperphosphatemia etc. She is on lanthanum as an outpatient, give her some PhosLo while she is admitted. Arjun Cavazos MD Nephrology [phone] Patient seen and examined via telemedicine, with the assistance of the bedside RN > 25 min spent in evaluation and mgmt of patient Attestations Medical Necessity Statement*: Eval for ESRD mgmt Coding Level of Care Code Acute Lode Miner for Chg Sulaiman
[2021-04-25 11:13] LABS: Glucose Point of Care 105 mg/dL (70-110)
--- NOTE | 2021-04-25 11:56 | PC.SOCIAL ---
IMM Updated Updated pt on IMM. No questions voiced. Provided pt a copy. Initialed, dated, & timed copy in chart.
--- NOTE | 2021-04-25 12:42 | PM.PN ---
Subjective Subjective: Interval history: no issues overnight Vitals/I&O/Wt Last Vital Signs Temp 97.6 F 04/25/21 11:17 Pulse 79 04/25/21 11:17 Resp 20 H 04/25/21 11:17 BP 119/62 04/25/21 11:17 Pulse Ox 95 04/25/21 11:17 04/24/21 04/25/21 04/25/21 22:59 06:59 14:59 Intake Total 360 / 890 50 / 50 Balance 360 / 890 50 / 50 Physical Exam Narrative: EXAM NARRATIVE: Abdomen: soft , ND Data : 04/25/21 04:57 04/25/21 04:57 Micro: Microbiology 04/20/21 10:39 Blood Culture - Final Blood NO GROWTH AFTER 5 DAYS 04/21/21 10:58 Blood Culture - Preliminary Blood Staphylococcus aureus 04/23/21 12:33 Blood Culture - Preliminary Blood NEGATIVE TO DATE 04/23/21 12:36 Blood Culture - Preliminary Blood NEGATIVE TO DATE A&P Assessment and plan (1) End stage renal disease on dialysis: 55-year-old female with ESRD who has MSSA bacteremia Plan for placement of temporary dialysis catheter under MAC as per patient request today Status: Acute Attestations Medical Necessity Statement*: as per primary Coding Level of Care Code 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
--- NOTE | 2021-04-25 12:44 | P.ANESASSM_ITS ---
Pre-Anesthetic Assessment Pre-Anesthetic Assessment: Height/Weight: Height 1.63 m Weight 115.666 kg Temp Pulse Resp BP Pulse Ox 97.6 F 79 20 H 119/62 95 04/25/21 11:17 04/25/21 11:17 04/25/21 11:17 04/25/21 11:17 04/25/21 11:17 Preop Diagnosis: ESRD Proposed Procedure: Operation Date: 04/25/21 13:30 Proposed Procedures p Dialysis Catheter Insertion(Not Applicable) - Adrian Chung MD Was Beta Rodney taken within 24 hours: N/A Was Clonidine taken within 24 hours: N/A Last intake: 04/24/21 Social: Social History: No alcohol and No tobacco Exam: Pre-Anes Outpt Exam: alert, oriented x 3, clear to auscultation bilaterally and regular rate & rhythm Airway: Submandibular: WNL Cervical ROM: WNL MP: 2 Dentition: Chipped (Missing) History/ROS: No significant history except as noted Pulmonary: Pulmonary: Asthma, COPD, Sleep apnea and SOB CV/HEM: CV/HEM: WI Comments: Venous Duplex Study 04/24/21 FINDINGS: Rt Jugular vein has wall debris. There is flow Rt. Cephalic vein has debris and diminished flow . All other vessels appear free of DVT. Some echodensities of the goldman of the right jugular vein and cephalic vein. CONCLUSIONS Features of venous thrombosis with recanalization of the right internal jugular vein. Features of venous thrombosis with recanalization in the right cephalic vein No significant venous reflux in the above-mentioned veins TTE 04/21/21 CONCLUSIONS The aortic, mitral, tricuspid valve and pulmonic valves are visualized well. No masses or vegetations noted. Mild mitral annular calcification noted. 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 Possibly normal LV size and ejection fraction. No intracardiac shunts by color flow Doppler examination. Minimal plaques in the ascending aorta. TTE 04/18/21 CONCLUSIONS Normal left ventricular size and systolic function, EF 56 %. No regional wall motion abnormalities. Echodensity in the right atrium, may suggest a catheter tip. Echodensity in the posterior mitral annulus may suggest calcification. Cannot exclude any vegetation on this structure. Moderate tricuspid valve regurgitation. Mild pulmonary hypertension with estimated pulmonary artery peak systolic pressure of 43 mmHg. Trace pulmonary valve regurgitation. There is no pericardial effusion. There are no intracardiac masses. Consider DONI, to better evaluate for any vegetation, if clinically indicated EKG 04/18/21 INUS TACHYCARDIA LOW QRS VOLTAGE IN PRECORDIAL LEADS [QRS DEFLECTION < 1.0 mV IN CHEST LEADS] SEPTAL MYOCARDIAL INFARCTION , OF INDETERMINATE AGE [40+ ms Q WAVE IN V1/V2] Compared to ECG 04/18/2021 11:14:03 Atrial fibrillation no longer present Myocardial infarct finding still present Electronically Signed On 04-18-2021 22:20:11 C[employer] APPLICATIONS SPECIALIST by Yasmin Priest M.D. [email or web address] : : Chronic renal failure (ESRD on dialysis ) GI: GI: GERD Comments: Poor esophageal motility on barium study Metabolic: Metabolic: DM Musc/skel: Musc/skel: OA/DJD Comments: Psoriasis Neuropsych: Neuropsych: Anxiety and Depression Anesthetic Plan: ASA status: 4 Anesthesia: Anesthesia Evaluation and MAC Risk of > 500 ml blood loss (7ml/kg in children): No Meds/Allergies Current Medications: Current Medications Generic Name Dose Route Start Last Admin Trade Name Freq PRN Reason Stop Dose Admin Acetaminophen 650 mg 04/19/21 03:44 04/22/21 16:10 Acetaminophen 32 5 Mg Tablet PO 650 mg Q6H PRN Administration MILD PAIN Aspirin 81 mg 04/19/21 09:00 04/25/21 08:14 Aspirin 81 Mg Ec Tablet PO Not Given DAILY [facility] Atorvastatin Calci um 20 mg 04/19/21 09:00 04/25/21 11:43 Atorvastatin 40 Mg Tablet PO Not Given DAILY [facility] Bupropion HCl 150 mg 04/19/21 09:00 04/25/21 08:17 Bupropion Xl (24 Hr) 150 Mg Tablet PO 150 mg DAILY [facility] Administration Calcium Acetate 1,334 mg 04/18/21 15:00 04/25/21 08:20 Calcium Acetate 667 Mg Capsule PO Not Given TID [facility] Citalopram Hydrobr omide 20 mg 04/19/21 09:00 04/25/21 08:13 Citalopram 20 Mg Tablet PO 20 mg DAILY [facility] Administration Cyclobenzaprine HC l 5 mg 04/23/21 10:26 04/24/21 08:23 Cyclobenzaprine 10 Mg Tablet PO 5 mg TID PRN Administration MUSCLE SPASMS Heparin Sodium (Po rcine) 5,000 unit 04/19/21 20:30 04/24/21 05:01 Heparin 5,000 Un it/Ml Inj 1 Ml SUBCUT 5,000 unit Q8H [facility] Administration Ceftriaxone Sodium 2,000 mg/ 50 mls @ 100 mls/ hr 04/22/21 08:00 04/25/21 08:40 Sodium Chloride IV Infused Q24H [facility] Infusion Protocol Insulin Human Lisp ro 0 unit 04/18/21 18:00 04/25/21 08:11 Insulin Lispro 1 00 Unit/1 Ml SUBCUT Not Given TIDWM [facility] Protocol Midodrine 5 mg 04/18/21 17:45 04/20/21 08:00 Midodrine 5 Mg T ablet PO 5 mg MoWeFr PRN Administration NEEDED BEFORE DIALYSIS Mupirocin 1 applic 04/18/21 18:00 04/25/21 08:20 Mupirocin Oint 2 2 Gm TOPICAL 1 applic BID [facility] Administration Non-Formulary Medi cation 1 applic 04/18/21 18:00 04/25/21 08:18 Ammonium Lactate TOPICAL Not Given BID [facility] Non-Formulary Medi cation 1 applic 04/18/21 18:00 04/25/21 08:18 Clobetasol TOPICAL Not Given BID [facility] Ropinirole HCl 0.5 mg 04/19/21 09:00 04/25/21 08:13 Ropinirole 0.25 Mg Tablet PO 0.5 mg DAILY [facility] Administration Trazodone HCl 75 mg 04/18/21 21:00 04/24/21 20:42 Trazodone 150 Mg Tablet PO 75 mg BEDTIME [facility] Administration PFSH Anesthesia PFSH: Medical History Allergic rhinitis COPD (chronic obstructive pulmonary disease) Diabetes mellitus Encounter for screening colonoscopy History of 2019 novel coronavirus disease (COVID-19) + swab on 04/12/2020 Insomnia Major depressive disorder, recurrent severe without psychotic features Mixed stress and urge urinary incontinence LUIS EDUARDO (obstructive sleep apnea) Plaque psoriasis Psoriasis Psychiatric care Restless leg syndrome Surgical History H/O hernia repair History of appendectomy History of colonoscopy Family History Family/Other Diabetes Brother Diabetes Grandmother CAD (coronary artery disease) Bleeding disorder Maternal Mother CAD (coronary artery disease) Cancer stomach cancer Denies family history of Clotting disorder Dementia Hyperlipidemia Psychiatric illness Chronic kidney disease (CKD) Suicide Anesthesia complication Family history of premature coronary artery disease Lung disease Hypertension Stroke Social History Second hand smoke exposure: Yes Alcohol intake: never Adopted: No Caregiver/support person: Yes Lives independently: Yes Household members: none Housing: Apartment Marital status: Single Number of children: 0 Number of grandchildren: 0 Highest education level completed: Bachelor's Degree Education level details: Education service: No Current occupational status: disabled Current occupational exposures/hazards: No Pets and animals: No History of recent travel: Yes ([facility] to [place]) Out of state: Yes Leisure activites: music, reading and other Leisure activities details: crafting Sexually active: Yes Current gender identity: Female Anna/Sikhism: Yazidi Special anna needs: No Agree to transfusion: Yes Financial difficulty paying for basics: Somewhat Hard Female Reproductive History: Para: 0 Spontaneous abortions: No Data Anesthesia CBC & Chem 7: 04/25/21 04:57 04/25/21 04:57 Other Labs: Laboratory Results - last 48 hr 04/23/21 04/23/21 04/23/21 07:33 10:52 17:03 WBC RBC Hgb Hct MCV MCH MCHC RDW Plt Count MPV Neut % (Auto) Lymph % (Auto) [place] % (Auto) Eos % (Auto) Baso % (Auto) Neut # (Auto) Lymph # (Auto) [place] # (Auto) Eos # (Auto) Baso # (Auto) Nucleated RBC % (auto) Nucleated RBCs # Sodium Potassium Chloride Carbon Dioxide Anion Gap BUN Creatinine GFR Calculation Glucose POC Glucose 166 H 175 H 96 Calculated Osmolality Calcium 04/23/21 04/24/21 04/24/21 20:31 05:31 05:31 WBC 8.3 RBC 2.58 L Hgb 7.7 L Hct 25.7 L MCV 99.6 H MCH 29.8 MCHC 30.0 RDW 16.0 H Plt Count 254 MPV 11.1 H Neut % (Auto) 73.3 Lymph % (Auto) 11.3 [place] % (Auto) 5.8 Eos % (Auto) 7.9 Baso % (Auto) 0.5 Neut # (Auto) 6.11 Lymph # (Auto) 0.9 [place] # (Auto) 0.5 Eos # (Auto) 0.7 Baso # (Auto) 0.0 Nucleated RBC % (auto) 0 Nucleated RBCs # 0.0 Sodium 139 Potassium 5.1 Chloride 99 Carbon Dioxide 18 L Anion Gap 27.1 H BUN 52 H Creatinine 9.8 H* GFR Calculation 4.1 L Glucose 105 POC Glucose 151 H Calculated Osmolality 302 H Calcium 8.7 04/24/21 04/24/21 04/24/21 06:26 12:13 16:46 WBC RBC Hgb Hct MCV MCH MCHC RDW Plt Count MPV Neut % (Auto) Lymph % (Auto) [place] % (Auto) Eos % (Auto) Baso % (Auto) Neut # (Auto) Lymph # (Auto) [place] # (Auto) Eos # (Auto) Baso # (Auto) Nucleated RBC % (auto) Nucleated RBCs # Sodium Potassium Chloride Carbon Dioxide Anion Gap BUN Creatinine GFR Calculation Glucose POC Glucose 114 H 171 H 101 Calculated Osmolality Calcium 04/24/21 04/25/21 04/25/21 20:45 04:57 04:57 WBC 9.1 RBC 2.52 L Hgb 7.5 L Hct 25.5 L MCV 101.2 H MCH 29.8 MCHC 29.4 L RDW 16.1 H Plt Count 288 MPV 10.4 Neut % (Auto) 72.5 Lymph % (Auto) 11.9 [place] % (Auto) 6.5 Eos % (Auto) 7.5 Baso % (Auto) 0.3 Neut # (Auto) 6.55 Lymph # (Auto) 1.1 [place] # (Auto) 0.6 Eos # (Auto) 0.7 Baso # (Auto) 0.0 Nucleated RBC % (auto) 0 Nucleated RBCs # 0.0 Sodium 137 Potassium 4.9 Chloride 95 L Carbon Dioxide 19 L Anion Gap 27.9 H BUN 61 H Creatinine 10.5 H* GFR Calculation 3.8 L Glucose 111 POC Glucose 165 H Calculated Osmolality 302 H Calcium 8.3 L 04/25/21 04/25/21 06:29 11:07 WBC RBC Hgb Hct MCV MCH MCHC RDW Plt Count MPV Neut % (Auto) Lymph % (Auto) [place] % (Auto) Eos % (Auto) Baso % (Auto) Neut # (Auto) Lymph # (Auto) [place] # (Auto) Eos # (Auto) Baso # (Auto) Nucleated RBC % (auto) Nucleated RBCs # Sodium Potassium Chloride Carbon Dioxide Anion Gap BUN Creatinine GFR Calculation Glucose POC Glucose 111 H 105 Calculated Osmolality Calcium Micro: Microbiology 04/20/21 10:39 Blood Culture - Final Blood NO GROWTH AFTER 5 DAYS 04/21/21 10:58 Blood Culture - Preliminary Blood Staphylococcus aureus 04/23/21 12:33 Blood Culture - Preliminary Blood NEGATIVE TO DATE 04/23/21 12:36 Blood Culture - Preliminary Blood NEGATIVE TO DATE Cardiac Studies: Echocardiogram 04/19/21 Transesophageal Echocardiogram 04/21/21 Sestamibi Stress Test (Cardiology) 03/09/20
--- NOTE | 2021-04-25 13:17 | ANES.PROC ---
Anesthesia Procedures Procedure/Date: 04/25/21 After unsuccesful attempt by RN PIV placed by physician. After sterile preparation of site using US for real time target selection and US for real time visualization of needle entry and catheter advancement a PIV was placed. 1 attempt. Left forearm. 20 g.
[2021-04-25] MEDS: lidocaine 1% INJ 20 mL INJECTION (14:15)
[2021-04-25] MEDS: heparin, porcine 1,000 unit/mL INJ 10 mL 6000 UNIT IRRIGATION (14:30)
--- NOTE | 2021-04-25 14:53 | XRR_ITS ---
PROCEDURE INFORMATION: Exam: XR Chest Exam date and time: 04/25/2021 2:53 PM Age: 55 years old Clinical indication: Device placement; Other: Placement of temporary 20 cm long 12 czech dialysis catheter in the right subclavian vein; Prior surgery; Surgery date: Post-operative (0-2 days); Additional info: Surgical procedure TECHNIQUE: Imaging protocol: XR of the chest. Views: 1 view. COMPARISON: CR XR chest 1V portable [id number] 04/18/2021 8:35 AM FINDINGS: Tubes, catheters and devices: Right central line terminates at the cavoatrial junction. Lungs: Hypoinflated lungs. Linear opacities at the left lung base. Pleural spaces: Possible trace left pleural effusion. No pneumothorax. Heart/Mediastinum: Similar cardiomegaly. Bones/joints: Unremarkable. XR/XR chest 1V portable [id number] IMPRESSION: 1. Right central line in expected positioning. 2. Linear opacities at the left lung base, favored atelectasis with infiltrates not excluded. Possible trace left pleural effusion.
--- NOTE | 2021-04-25 14:57 | P.OP_ITS ---
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 Placement of temporary 20 cm long 12 Samoan dialysis catheter in the right subclavian vein 2. Fluoroscopic guidance and interpretation for placement of catheter 3. Ultrasound guidance to access the right internal and left internal jugular vein Pathology: none sent Surgeon: Adrian Chung Procedure: The patient was taken to the operating room and placed under MAC. She is on therapeutic IV antibiotics. The patient's chest and neck was prepped and draped in a sterile manner. Using ultrasound guidance the right internal jugular vein was accessed and I was unable to pass the guidewire. A second attempt was made using a 0.035 J-wire which was also unsuccessful. I then attempted to access the left internal jugular vein using ultrasound guidance. There was no thrombus noted and an introducer needle was used to access the left internal jugular vein and a guidewire was passed but could not be advanced under fluoroscopy due to occlusion downstream. 5 mL of 1% lidocaine was infiltrated at the site of planned entry, an introducer needle was used to access the right subclavian vein. Guidewire was passed through the introducer needle and the introducer needle was removed. Serial dilators were passed over the guidewire after the skin incision was extended using 11 blade and 20 cm long 12 Samoan temporary dialysis catheter was passed over the guidewire and the guidewire was removed. The catheter tip was noted to be in the right atrium under fluoroscopy. The catheter was sutured to the skin using 3-0 Prolene suture. Sterile dressings were applied. The patient was transferred to recovery room in stable condition
--- NOTE | 2021-04-25 15:08 | P.PCN_ITS ---
PACU note PACU note: VSS, Good respiratory effort, report to DIRECTOR OF SALES SUPPORT Post-Anesthesia Exam: awake
--- NOTE | 2021-04-25 15:08 | PM.PACU ---
PACU note PACU note: VSS, Good respiratory effort, report to CONTRACTS LAW PROFESSOR Post-Anesthesia Exam: awake
--- NOTE | 2021-04-25 16:12 | PC.NURSE ---
pt was in dialysis
[2021-04-25] MEDS: acetaminophen 325 mg Tablet 650 MG PO (17:12)
[2021-04-25] MEDS: cyclobenzaprine 10 mg Tablet 5 MG PO (17:12)
--- NOTE | 2021-04-25 18:42 | PC.HD ---
Patient arrived at HD from OR via stretcher. stated she preferred to sit in HD chair, however special education associate did not wish to have patient transferring so soon after surgery, having witnessed patient's apparent baseline unsteadiness.and weakness at other dialysis sessions. patient c/o 7/10 foot, leg, and shoulder pain for which she received tylenol and flexeril with no reported improvement. patient was repositioned multiple times, bedpan was given, and additional blankets offered. however patient continued to cry out and moan loudly while moving about the stretcher nearly constantly throughout her treatment.
[2021-04-25] MEDS: heparin 5,000 unit/mL INJ 1 mL 5000 UNIT SUBCUT (20:44)
[2021-04-25] MEDS: calcium acetate 667 mg Capsule 1334 MG PO (20:45)
[2021-04-25] MEDS: trazodone 150 mg Tablet 75 MG PO (20:45)
[2021-04-25 21:13] LABS: Glucose Point of Care 143 mg/dL (70-110)
[2021-04-25] MEDS: sodium chloride 0.9% 1,000 ML 30 ML IV (21:45)
[2021-04-26] VITALS (10 sets, daily range): BP systolic 93–131; BP diastolic 56–87; PULSE 78–109; RESP 14–24; TEMP 36.6–37.2; O2SAT 90–100
--- NOTE | 2021-04-26 01:07 | PC.NURSE ---
1944 returns from dialysis on stretcher. Assisted to bed from stretcher. O2 at 3liters per NC. IV to right FA patent. Pt moaning, crying out randomly at times. When asked what is wrong, reports her feet are cold and hurt. Not time for pain med. Heated blankets applied to body.
--- NOTE | 2021-04-26 01:09 | PC.NURSE ---
1999 Pt continues to moan and cry out at times. Continues to reports feet are cold. Refuses SCDs. Warm blanket in use. Repositioned pt.
--- NOTE | 2021-04-26 01:14 | PC.NURSE ---
2039 Assisted to bathroom using rolling walker. Attempts to have BM. Smear noted.
--- NOTE | 2021-04-26 01:15 | PC.NURSE ---
2230Assited to BR with rolling walker. Attempt to have BM. Smear noted.
--- NOTE | 2021-04-26 01:15 | PC.NURSE ---
2100 CPAP applied per RT.
--- NOTE | 2021-04-26 01:16 | PC.NURSE ---
0005 Pt resting in bed with CPAP in use.
[2021-04-26] MEDS: cyclobenzaprine 10 mg Tablet 5 MG PO ×2 (01:45→09:58)
[2021-04-26] MEDS: acetaminophen 325 mg Tablet 650 MG PO ×2 (01:45→10:02)
[2021-04-26] MEDS: sennosides-docusate Tablet 1 TAB PO (01:48)
--- NOTE | 2021-04-26 02:18 | PC.NURSE ---
0200Assisted up to bathroom. Unable to have bM. PRN med given as ordered. C/o feet being cold and hurting. Socks in use, warm blanket to feet.
[2021-04-26] MEDS: heparin 5,000 unit/mL INJ 1 mL 5000 UNIT SUBCUT ×3 (04:10→20:35)
[2021-04-26 04:59] LABS: Basophils # 0.1 10^3/uL (0.0-0.1); Basophils % 0.6 %; Eosinophils # 0.7 10^3/uL (0.0-0.8); Eosinophils % 8.6 %; Hematocrit 27.9 % (37.0-47.0); Hemoglobin 8.2 g/dL (11.5-15.3); Lymphocytes # 0.8 10^3/uL (0.8-4.8); Lymphocytes % 9.7 %; Mean Corpuscular HGB Conc 29.4 g/dL (30.0-36.0); Mean Corpuscular Hemoglobin 29.9 pg (28.0-34.0); Mean Corpuscular Volume 101.8 fl (81-99); Monocytes # 0.5 10^3/uL (0.2-0.9); Monocytes % 6.8 %; Neutrophils # 5.59 10^3/uL (1.8-7.7); Neutrophils % 72.1 %; Nucleated Red Blood Cells % 0 %; Platelet Count 297 10^3/cmm (130-400); Red Blood Count 2.74 10^6/uL (4.1-5.3); Red Cell Distribution Width 16.1 % (12.1-15.1); White Blood Count 7.8 10^3/uL (4.0-10.0)
[2021-04-26 05:22] LABS: Anion Gap 20.6 (5-19); Blood Urea Nitrogen 28 mg/dL (6-20); Calcium 8.6 mg/dL (8.5-10.5); Carbon Dioxide 25 mmol/L (22-29); Chloride 98 mmol/L (98-107); Glomerular Filtration Rate 6.7 mL/min (90-130); Glucose 102 mg/dL (65-115); Osmolality Calculated 294 mOsm/kg (285-295); Potassium 4.6 mmol/L (3.5-5.1); Sodium 139 mmol/L (136-145)
[2021-04-26 06:42] LABS: Glucose Point of Care 100 mg/dL (70-110)
[2021-04-26] MEDS: cefTRIAXone 2,000 MG in sodium chloride 0.9% (plus) 50 ML 100 MG IV (09:55)
[2021-04-26] MEDS: buPROPion XL (24 HR) 150 mg Tablet PO (09:59)
[2021-04-26] MEDS: calcium acetate 667 mg Capsule 1334 MG PO ×3 (09:59→20:35)
[2021-04-26] MEDS: citalopram 20 mg Tablet PO (09:59)
[2021-04-26] MEDS: atorvastatin 40 mg Tablet 20 MG PO (09:59)
[2021-04-26] MEDS: ropinirole 0.25 mg Tablet 0.5 MG PO (09:59)
[2021-04-26] MEDS: mupirocin oint 22 gm 1 APPLIC TOPICAL ×2 (10:00→18:38)
[2021-04-26] MEDS: aspirin 81 mg EC Tablet PO (10:00)
--- NOTE | 2021-04-26 10:02 | PC.CHAP ---
Pastoral Care Encounter/Spiritual Assessment Type of Contact [] Declined bunk house worker visit [] Patient/Family/Request visit [] Outpatient visit [] Follow-up visit [] Physician referral [] Code/Alert [x] Routine visit [] Staff referral [] Actively dying [] Patient sleeping [] Family support [] [] Out of room [] Palliative care [] [] Receiving care in room [] Pre-surgical visit [] Trauma [] Long length of stay [] ICU visit [] Other: Relational/Emotional Strength [x] Patient feels connected with others/family/visitors/staff [] Distress [] Loneliness/isolation [] Abandonment Spirituality of Patient [x] Person of Anna [] Attends Gnosticism of their Anna [x] Believes in Prayer [x] Reads Bible or Temple materials [] There are Spiritual issues to be addressed Boiler Tenders Supervisor Interventions [x] Prayer [x] Active listening [x] Non-anxious presence [x] Spiritual/emotional support [] Crisis/trauma care [] Spiritual counseling [] Bereavement support [] Provided bereavement packet [] Provided Bible/devotional materials [] Provided toy/stuffed animal, coloring book to patient or family member [] Provided Communion [] Anointing/[place] [] Salvation [x] Completed spiritual assessment [] Other: Impact on Illness or Injury [] Angry [] Fearful [] Anxious [] Often cries [] Exhaustion [] Unable to work [] Unable to attend oriental orthodox [] Unable to walk/stand [] Unable to read [] Unable to drive [] Unable to eat/drink [] Unable to sleep [] Unable to be with family [] Patient intubated [] Other: Summary Pt very talkative but not necessarily about self. Pt lives in [place] but has a brother that lives in . She has spoke with him over the phone since she has been here but he has not visited. She indicated he has been ill. She complained she does not have his phone number and requested a phone book. Boiler Tenders Supervisor provided one for her. Pt stated her parents are , she did not mention children or a . She talked a lot about an aunt who had been a bunk house worker. At times it seemed she would forget what she had told bunk house worker. She is hoping to be released tomorrow. She has been in hospital since before [place]. Time spent with patient 30m
[2021-04-26 11:55] LABS: Glucose Point of Care 91 mg/dL (70-110)
[2021-04-26 11:55] LABS: Glucose Point of Care 166 mg/dL (70-110)
[2021-04-26] MEDS: insulin lispro 100 unit/1 mL SUBCUT ×2 (12:58→18:37)
--- NOTE | 2021-04-26 14:49 | P.PN_ITS ---
Subjective Subjective: Interval history: Dialysis was uneventful yesterday. She feels well with no specific complaints. Temporary dialysis line placed yesterday. No further fevers or chills. No ex tremity edema, shortness of breath or other hypervolemic symptoms or uremic symptoms. Medications: Reviewed: Yes Medication Review Details: Current Medications Acetaminophen (Acetaminophen 325 Mg Tablet) 650 mg PO Q6H PRN PRN Reason: MILD PAIN Last Admin: 04/20/21 20:45 Dose: 650 mg Documented by: Albuterol/Ipratropium (Ipratropium-Albuterol 3 Ml Neb) 3 ml INHALATION Q6H.RESPIRATORY PRN PRN Reason: SHORTNESS OF BREATH Aspirin (Aspirin 81 Mg Ec Tablet) 81 mg PO DAILY [facility] Last Admin: 04/21/21 09:00 Dose: Not Given Documented by: Atorvastatin Calcium (Atorvastatin 40 Mg Tablet) 20 mg PO DAILY [facility] Last Admin: 04/21/21 09:00 Dose: Not Given Documented by: Bupropion HCl (Bupropion Xl (24 Hr) 150 Mg Tablet) 150 mg PO DAILY [facility] Last Admin: 04/21/21 09:00 Dose: Not Given Documented by: Calcium Acetate (Calcium Acetate 667 Mg Capsule) 1,334 mg PO TID [facility] Last Admin: 04/21/21 17:15 Dose: Not Given Documented by: Citalopram Hydrobromide (Citalopram 20 Mg Tablet) 20 mg PO DAILY [facility] Last Admin: 04/21/21 09:00 Dose: Not Given Documented by: Dextrose (Dextrose 50% Syringe 50 Ml) 25 ml IVP ONCE PRN; Protocol PRN Reason: hypoglycemia protocol Dextrose (Dextrose 50% Syringe 50 Ml) 50 ml IVP PRN PRN; Protocol PRN Reason: hypoglycemia protocol Glucagon (Glucagon 1 Mg/Ml Inj 1 Ml) 1 mg IM ONCE PRN; Protocol PRN Reason: Adult Acute Hypoglycemia Prot. Heparin Sodium (Porcine) (Heparin 5,000 Unit/Ml Inj 1 Ml) 5,000 unit SUBCUT Q8H [facility] Last Admin: 04/20/21 12:38 Dose: Not Given Documented by: Dextrose (D5w) 500 mls @ 100 mls/hr IV ONCE PRN; Protocol PRN Reason: Adult Acute Hypoglycemia Prot Doxycycline Hyclate 100 mg/ (Sodium Chloride) 100 mls @ 100 mls/hr IV Q12H [facility]; Protocol Last Infusion: 04/21/21 12:40 Dose: Infused Documented by: Insulin Human Lispro (Insulin Lispro 100 Unit/1 Ml) 0 unit SUBCUT TIDWM [facility]; Protocol Last Admin: 04/21/21 17:55 Dose: Not Given Documented by: Lanolin (Lanolin Oint 7 Gm) 1 applic TOPICAL PRN PRN PRN Reason: DRYNESS Midodrine (Midodrine 5 Mg Tablet) 5 mg PO MoWeFr PRN PRN Reason: NEEDED BEFORE DIALYSIS Last Admin: 04/20/21 08:00 Dose: 5 mg Documented by: Mupirocin (Mupirocin Oint 22 Gm) 1 applic TOPICAL BID [facility] Last Admin: 04/21/21 17:55 Dose: Not Given Documented by: Non-Formulary Medication (Ammonium Lactate) 1 applic TOPICAL BID [facility] Last Admin: 04/21/21 17:15 Dose: Not Given Documented by: Non-Formulary Medication (Clobetasol) 1 applic TOPICAL BID [facility] Last Admin: 04/21/21 17:15 Dose: Not Given Documented by: Non-Formulary Medication (Vit B,C-Zl-Ihxn-Selen-Vit D3-E [Renaplex-D]) 1 tab PO DAILY [facility] Ropinirole HCl (Ropinirole 0.25 Mg Tablet) 0.5 mg PO DAILY [facility] Last Admin: 04/21/21 09:00 Dose: Not Given Documented by: Senna/Docusate Sodium (Sennosides-Docusate Tablet) 1 tab PO BID PRN PRN Reason: constipation Trazodone HCl (Trazodone 150 Mg Tablet) 75 mg PO BEDTIME [facility] Last Admin: 04/20/21 20:46 Dose: 75 mg Documented by: Vitals/I&O/Wt Last Vital Signs Temp 98.0 F 04/26/21 11:26 Pulse 86 04/26/21 11:26 Resp 17 04/26/21 11:26 BP 113/56 04/26/21 11:26 Pulse Ox 98 04/26/21 11:26 04/25/21 04/26/21 04/26/21 22:59 06:59 14:59 Intake Total 1240 / 1290 650 / 650 Output Total 0 / 0 Balance 1240 / 1290 650 / 650 Physical Exam Narrative: EXAM NARRATIVE: Constitutional: Awake, comfortable. HEENT: Wet mucosa, no jvp, non icteric. Lungs: Bilaterally clear without discernible wheeze, rales in all lung zones. CVS: S1, S2, no murmurs. Abdo: Soft, BS ok. Ext 4: Minimal edema, peripheral perfusion with no cyanosis. Neurological: Grossly non-focal Data : 04/26/21 04:47 04/26/21 04:47 Micro: Microbiology 04/21/21 10:58 Blood Culture - Final Blood Staphylococcus aureus 04/21/21 09:25 Blood Culture - Final Blood NO GROWTH AFTER 5 DAYS 04/20/21 08:30 Blood Culture - Final Blood Staphylococcus aureus 04/20/21 10:39 Blood Culture - Final Blood NO GROWTH AFTER 5 DAYS A&P Additional A&P Information 1. ESRD Today temp line and dialysis, Will plan for tomorrow 2K, UF 2-3L Typical schedule Sunday, Sunday and Sunday dialysis schedule Dose medications for GFR less than 15 on dialysis 2. Lytes Mild acosidosis only 3. Weakness Blood cultures with Staph. Abx on board Line out DONI shows no IE tip positive last positive culture 04/[address] Ingram noted Permacath when culture free x 72 hrs Spine imaging noted Plan for permacath maybe tomorrow? 4. Hemodynamics Hemodynamics currently soft, midodrine prior to dialysis 5. Chronic ESRD issues These will be managed as an outpatient including management of anemia of ESRD, secondary hyperparathyroidism, hyperphosphatemia etc. She is on lanthanum as an outpatient, give her some PhosLo while she is admitted. Arjun Cavazos MD Nephrology [phone] Patient seen and examined via telemedicine, with the assistance of the bedside RN > 25 min spent in evaluation and mgmt of patient Attestations Medical Necessity Statement*: eval for ESRD mgmt Coding Level of Care Code Acute Biomedical Engineer for Chg Sulaiman
--- NOTE | 2021-04-26 15:26 | PM.PN ---
Subjective Subjective: Interval history: Kerri reports she is sleepy today but otherwise does not have any complaints. Medications: Reviewed: Yes Vitals/I&O/Wt Last Vital Signs Temp 98.0 F 04/26/21 11:26 Pulse 86 04/26/21 11:26 Resp 17 04/26/21 11:26 BP 113/56 04/26/21 11:26 Pulse Ox 98 04/26/21 11:26 04/26/21 04/26/21 04/26/21 06:59 14:59 22:59 Intake Total 650 / 650 Balance 650 / 650 Physical Exam Narrative: EXAM NARRATIVE: General exam no distress Neck is supple Cardiovascular regular rate and rhythm, no murmur Lungs clear Abdomen is soft Extremities no cyanosis or clubbing. 1+ edema is noted bilaterally. Skin demonstrates widespread psoriatic changes Data : 04/26/21 04:47 04/26/21 04:47 Micro: Microbiology 04/21/21 10:58 Blood Culture - Final Blood Staphylococcus aureus 04/21/21 09:25 Blood Culture - Final Blood NO GROWTH AFTER 5 DAYS 04/20/21 08:30 Blood Culture - Final Blood Staphylococcus aureus 04/20/21 10:39 Blood Culture - Final Blood NO GROWTH AFTER 5 DAYS A&P Assessment and plan (1) Bacteremia due to methicillin susceptible Staphylococcus aureus (MSSA): Culture from April 23 - to date. It appears this was obtained early in the afternoon. Source is suspected to be dialysis catheter line. This was removed. Temporary dialysis catheter is to be placed today, and dialysis resumed If cultures from the first turn positive, we will need to redraw blood cultures. If cultures remain negative could have a tunneled catheter as early as April 27. Please refer to infectious disease note. Cultures remain negative today. After discharge will need converted to cefazolin as per ID note. Status: Acute (2) End stage renal disease on dialysis: Dialysis per nephrology through temporary dialysis catheter. She underwent dialysis yesterday. Status: Acute (3) Asthma: Currently no evidence of exacerbation. DuoNeb as needed. Status: Acute Qualifiers: Asthma severity: moderate Asthma persistence: persistent Asthma complication type: uncomplicated Qualified Code(s): J45.40 - Moderate persistent asthma, uncomplicated (4) 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 renal disease): Sliding scale insulin Status: Acute (5) Anemia: No evidence of active blood loss. Continue to monitor Likely related to renal disease Status: Acute Additional A&P Information Heparin for DVT prophylaxis Attestations Medical Necessity Statement*: Needs continued hospitalization for IV antibiotics secondary to bacteremia, pending placement of tunneled catheter prior to discharge. Coding Level of Care Code Acute Accounts Receivable Accountant for g Fwd Diagnoses Bacteremia due to methicillin susceptible Staphylococcus aureus (MSSA) R78.81; B95.61 End stage renal disease on dialysis N18.6; Z99.2 Asthma J45.40 Asthma severity: moderate Asthma persistence: persistent Asthma complication type: uncomplicated 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 renal disease) E11.22; N18.6 Anemia D64.9
[2021-04-26 16:49] LABS: Glucose Point of Care 141 mg/dL (70-110)
[2021-04-26] MEDS: trazodone 150 mg Tablet 75 MG PO (20:36)
[2021-04-26 21:09] LABS: Glucose Point of Care 167 mg/dL (70-110)
[2021-04-27] VITALS (14 sets, daily range): BP systolic 102–135; BP diastolic 57–71; PULSE 72–102; RESP 16–27; TEMP 36.2–37.2; O2SAT 92–100
--- NOTE | 2021-04-27 | SCC_ITS ---
Procedure Done: 1. Removal of temporary dialysis catheter 2. Basement of 31 cm long 16 [place] Ash[employer] tunneled hemodialysis catheter in the left subclavian vein 3. Fluoroscopic guidance and interpretation for placement of catheter 403.3 seconds of fluoroscopic guidance, for a cumulative dose of 90.67 mGy, was provided to Dr. Chung by the radiology department. C-arm images of the chest were saved for the patient's permanent record. BLANCHED
[2021-04-27] MEDS: heparin 5,000 unit/mL INJ 1 mL 5000 UNIT SUBCUT ×2 (03:53→20:18)
--- NOTE | 2021-04-27 04:14 | PC.NURSE ---
0400 awakens easily. No distress. CPAP removed per pt request and O2 at 3L NC applied as ordered.
[2021-04-27 06:10] LABS: Basophils # 0.1 10^3/uL (0.0-0.1); Basophils % 0.8 %; Eosinophils # 0.6 10^3/uL (0.0-0.8); Eosinophils % 10.2 %; Hematocrit 29.4 % (37.0-47.0); Hemoglobin 8.6 g/dL (11.5-15.3); Lymphocytes # 1.1 10^3/uL (0.8-4.8); Lymphocytes % 18.2 %; Mean Corpuscular HGB Conc 29.3 g/dL (30.0-36.0); Mean Corpuscular Volume 102.4 fl (81-99); Mean Platelet Volume 10.3 fL (7.4-10.4); Monocytes # 0.5 10^3/uL (0.2-0.9); Monocytes % 7.6 %; Neutrophils % 61.2 %; Nucleated Red Blood Cells % 0 %; Platelet Count 328 10^3/cmm (130-400); Red Blood Count 2.87 10^6/uL (4.1-5.3); Red Cell Distribution Width 15.8 % (12.1-15.1); White Blood Count 5.9 10^3/uL (4.0-10.0)
[2021-04-27 06:38] LABS: Anion Gap 27.2 (5-19); Blood Urea Nitrogen 42 mg/dL (6-20); Calcium 8.6 mg/dL (8.5-10.5); Carbon Dioxide 20 mmol/L (22-29); Chloride 99 mmol/L (98-107); Glomerular Filtration Rate 5.1 mL/min (90-130); Glucose 88 mg/dL (65-115); Osmolality Calculated 302 mOsm/kg (285-295); Potassium 5.2 mmol/L (3.5-5.1); Sodium 141 mmol/L (136-145)
[2021-04-27 06:44] LABS: Glucose Point of Care 120 mg/dL (70-110)
--- NOTE | 2021-04-27 07:31 | P.ANESASSM_ITS ---
Pre-Anesthetic Assessment Pre-Anesthetic Assessment: Height/Weight: Height 1.63 m Weight 115.666 kg Temp Pulse Resp BP Pulse Ox 98.2 F 79 18 107/64 94 04/27/21 03:50 04/27/21 03:50 04/27/21 03:50 04/27/21 03:50 04/27/21 03:50 Preop Diagnosis: ESRD requiring dialysis access Proposed Procedure: Operation Date: 04/25/21 13:30 Proposed Procedures p Dialysis Catheter Insertion(Not Applicable) - Adrian Chung MD Operation Date: 04/27/21 11:20 Proposed Procedures p Exchange to tunnelled hemodialysis catheter(Not Applicable) - Adrian Chung MD Familial anesthetic complications: None Was Beta Rodney taken within 24 hours: N/A Last intake: 04/26/21 Social: Social History: No alcohol and No tobacco Exam: Pre-Anes Outpt Exam: alert, oriented x 3, clear to auscultation bilaterally and regular rate & rhythm Airway: Submandibular: WNL Cervical ROM: WNL MP: 2 Dentition: Chipped Additional comments: Very poor dention Pulmonary: Pulmonary: Asthma, COPD and Sleep apnea CV/HEM: Comments: Anemia (Hgb 8.6) TTE 04/21 CONCLUSIONS The aortic, mitral, tricuspid valve and pulmonic valves are visualized well. No masses or vegetations noted. Mild mitral annular calcification noted. 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 Possibly normal LV size and ejection fraction. No intracardiac shunts by color flow Doppler examination. Minimal plaques in the ascending aorta. : : Chronic renal failure Comments: Hypkerkalemia (K 5.2) ESRD on HD Hepatic: Hepatic: None reported Comments: Incontinence GI: GI: GERD Metabolic: Metabolic: DM (With ESRD and retinopathy) and Morbid obesity Musc/skel: Comments: Psoriasis Neuropsych: Neuropsych: Anxiety and Depression Comments: RLS Anesthetic Plan: ASA status: 4 (Morbidly obese 55 year old diabetic with ESRD on HD, LUIS EDUARDO, anemia, and psoriasis) Anesthesia: MAC Risk of > 500 ml blood loss (7ml/kg in children): No Other Pertinent Information: MSSA bacteremia Meds/Allergies Current Medications: Current Medications Generic Name Dose Route Start Last Admin Trade Name Freq PRN Reason Stop Dose Admin Acetaminophen 650 mg 04/19/21 03:44 04/26/21 10:02 Acetaminophen 32 5 Mg Tablet PO 650 mg Q6H PRN Administration MILD PAIN Aspirin 81 mg 04/19/21 09:00 04/26/21 10:00 Aspirin 81 Mg Ec Tablet PO 81 mg DAILY [facility] Administration Atorvastatin Calci um 20 mg 04/19/21 09:00 04/26/21 09:59 Atorvastatin 40 Mg Tablet PO 20 mg DAILY [facility] Administration Bupropion HCl 150 mg 04/19/21 09:00 04/26/21 09:59 Bupropion Xl (24 Hr) 150 Mg Tablet PO 150 mg DAILY [facility] Administration Calcium Acetate 1,334 mg 04/18/21 15:00 04/26/21 20:35 Calcium Acetate 667 Mg Capsule PO 1,334 mg TID [facility] Administration Citalopram Hydrobr omide 20 mg 04/19/21 09:00 04/26/21 09:59 Citalopram 20 Mg Tablet PO 20 mg DAILY [facility] Administration Cyclobenzaprine HC l 5 mg 04/23/21 10:26 04/26/21 09:58 Cyclobenzaprine 10 Mg Tablet PO 5 mg TID PRN Administration MUSCLE SPASMS Heparin Sodium (Po rcine) 5,000 unit 04/19/21 20:30 04/27/21 03:53 Heparin 5,000 Un it/Ml Inj 1 Ml SUBCUT 5,000 unit Q8H [facility] Administration Ceftriaxone Sodium 2,000 mg/ 50 mls @ 100 mls/ hr 04/22/21 08:00 04/26/21 10:57 Sodium Chloride IV Infused Q24H [facility] Infusion Protocol Insulin Human Lisp ro 0 unit 04/18/21 18:00 04/27/21 07:23 Insulin Lispro 1 00 Unit/1 Ml SUBCUT Not Given TIDWM [facility] Protocol Midodrine 5 mg 04/18/21 17:45 04/20/21 08:00 Midodrine 5 Mg T ablet PO 5 mg MoWeFr PRN Administration NEEDED BEFORE DIALYSIS Mupirocin 1 applic 04/18/21 18:00 04/26/21 18:38 Mupirocin Oint 2 2 Gm TOPICAL 1 applic BID [facility] Administration Non-Formulary Medi cation 1 applic 04/18/21 18:00 04/26/21 18:22 Ammonium Lactate TOPICAL Not Given BID [facility] Non-Formulary Medi cation 1 applic 04/18/21 18:00 04/26/21 18:22 Clobetasol TOPICAL Not Given BID [facility] Ropinirole HCl 0.5 mg 04/19/21 09:00 04/26/21 09:59 Ropinirole 0.25 Mg Tablet PO 0.5 mg DAILY [facility] Administration Senna/Docusate Sod ium 1 tab 04/19/21 11:45 04/26/21 01:48 Sennosides-Docus ate Tablet PO 1 tab BID PRN Administration constipation Trazodone HCl 75 mg 04/18/21 21:00 04/26/21 20:36 Trazodone 150 Mg Tablet PO 75 mg BEDTIME [facility] Administration PFSH Anesthesia PFSH: Medical History Allergic rhinitis COPD (chronic obstructive pulmonary disease) Diabetes mellitus Encounter for screening colonoscopy History of 2019 novel coronavirus disease (COVID-19) + swab on 04/12/2020 Insomnia Major depressive disorder, recurrent severe without psychotic features Mixed stress and urge urinary incontinence LUIS EDUARDO (obstructive sleep apnea) Plaque psoriasis Psoriasis Psychiatric care Restless leg syndrome Surgical History H/O hernia repair History of appendectomy History of colonoscopy Family History Family/Other Diabetes Brother Diabetes Grandmother CAD (coronary artery disease) Bleeding disorder Maternal Mother CAD (coronary artery disease) Cancer stomach cancer Denies family history of Clotting disorder Dementia Hyperlipidemia Psychiatric illness Chronic kidney disease (CKD) Suicide Anesthesia complication Family history of premature coronary artery disease Lung disease Hypertension Stroke Social History Second hand smoke exposure: Yes Alcohol intake: never Adopted: No Caregiver/support person: Yes Lives independently: Yes Household members: none Housing: Apartment Marital status: Single Number of children: 0 Number of grandchildren: 0 Highest education level completed: Bachelor's Degree Education level details: Education service: No Current occupational status: disabled Current occupational exposures/hazards: No Pets and animals: No History of recent travel: Yes (wet to [place]) Out of state: Yes Leisure activites: music, reading and other Leisure activities details: crafting Sexually active: Yes Current gender identity: Female Anna/Yarsani: Mu-Ism Special anna needs: No Agree to transfusion: Yes Financial difficulty paying for basics: Somewhat Hard Female Reproductive History: Para: 0 Spontaneous abortions: No Data Anesthesia CBC & Chem 7: 04/27/21 05:06 04/27/21 05:06 Other Labs: Laboratory Results - last 48 hr 04/25/21 04/25/21 04/25/21 11:07 17:21 21:03 WBC RBC Hgb Hct MCV MCH MCHC RDW Plt Count MPV Neut % (Auto) Lymph % (Auto) Charles % (Auto) Eos % (Auto) Baso % (Auto) Neut # (Auto) Lymph # (Auto) Charles # (Auto) Eos # (Auto) Baso # (Auto) Nucleated RBC % (auto) Nucleated RBCs # Sodium Potassium Chloride Carbon Dioxide Anion Gap BUN Creatinine GFR Calculation Glucose POC Glucose 105 91 143 H Calculated Osmolality Calcium 04/26/21 04/26/21 04/26/21 04:47 04:47 06:29 WBC 7.8 RBC 2.74 L Hgb 8.2 L Hct 27.9 L MCV 101.8 H MCH 29.9 MCHC 29.4 L RDW 16.1 H Plt Count 297 MPV 10.0 Neut % (Auto) 72.1 Lymph % (Auto) 9.7 Charles % (Auto) 6.8 Eos % (Auto) 8.6 Baso % (Auto) 0.6 Neut # (Auto) 5.59 Lymph # (Auto) 0.8 Charles # (Auto) 0.5 Eos # (Auto) 0.7 Baso # (Auto) 0.1 Nucleated RBC % (auto) 0 Nucleated RBCs # 0.0 Sodium 139 Potassium 4.6 Chloride 98 Carbon Dioxide 25 Anion Gap 20.6 H BUN 28 H Creatinine 6.4 H* GFR Calculation 6.7 L Glucose 102 POC Glucose 100 Calculated Osmolality 294 Calcium 8.6 04/26/21 04/26/21 04/26/21 11:28 16:45 20:49 WBC RBC Hgb Hct MCV MCH MCHC RDW Plt Count MPV Neut % (Auto) Lymph % (Auto) Charles % (Auto) Eos % (Auto) Baso % (Auto) Neut # (Auto) Lymph # (Auto) Charles # (Auto) Eos # (Auto) Baso # (Auto) Nucleated RBC % (auto) Nucleated RBCs # Sodium Potassium Chloride Carbon Dioxide Anion Gap BUN Creatinine GFR Calculation Glucose POC Glucose 166 H 141 H 167 H Calculated Osmolality Calcium 04/27/21 04/27/21 04/27/21 05:06 05:06 06:30 WBC 5.9 RBC 2.87 L Hgb 8.6 L Hct 29.4 L MCV 102.4 H MCH 30.0 MCHC 29.3 L RDW 15.8 H Plt Count 328 MPV 10.3 Neut % (Auto) 61.2 Lymph % (Auto) 18.2 Charles % (Auto) 7.6 Eos % (Auto) 10.2 Baso % (Auto) 0.8 Neut # (Auto) 3.60 Lymph # (Auto) 1.1 Charles # (Auto) 0.5 Eos # (Auto) 0.6 Baso # (Auto) 0.1 Nucleated RBC % (auto) 0 Nucleated RBCs # 0.0 Sodium 141 Potassium 5.2 H Chloride 99 Carbon Dioxide 20 L Anion Gap 27.2 H BUN 42 H Creatinine 8.1 H* GFR Calculation 5.1 L Glucose 88 POC Glucose 120 H Calculated Osmolality 302 H Calcium 8.6 Micro: Microbiology 04/21/21 10:58 Blood Culture - Final Blood Staphylococcus aureus 04/21/21 09:25 Blood Culture - Final Blood NO GROWTH AFTER 5 DAYS Cardiac Studies: Echocardiogram 04/19/21 Transesophageal Echocardiogram 04/21/21 Sestamibi Stress Test (Cardiology) 03/09/20
[2021-04-27] MEDS: cefTRIAXone 2,000 MG in sodium chloride 0.9% (plus) 50 ML 100 MG IV (07:42)
[2021-04-27] MEDS: acetaminophen 325 mg Tablet 650 MG PO (07:44)
[2021-04-27] MEDS: calcium acetate 667 mg Capsule 1334 MG PO ×3 (08:06→20:17)
[2021-04-27] MEDS: ropinirole 0.25 mg Tablet 0.5 MG PO (08:06)
[2021-04-27] MEDS: aspirin 81 mg EC Tablet PO (08:06)
[2021-04-27] MEDS: atorvastatin 40 mg Tablet 20 MG PO (08:07)
[2021-04-27] MEDS: citalopram 20 mg Tablet PO (08:07)
[2021-04-27] MEDS: buPROPion XL (24 HR) 150 mg Tablet PO (08:11)
[2021-04-27] MEDS: mupirocin oint 22 gm 1 APPLIC TOPICAL ×2 (08:15→18:02)
--- NOTE | 2021-04-27 10:35 | PC.CHAP ---
Pastoral Care Encounter/Spiritual Assessment Type of Contact [] Declined real estate internship visit [] Patient/Family/Request visit [] Outpatient visit [] Follow-up visit [] Physician referral [] Code/Alert [x] Routine visit [] Staff referral [] Actively dying [] Patient sleeping [] Family support [] [] Out of room [] Palliative care [] [] Receiving care in room [] Pre-surgical visit [] Trauma [] Long length of stay [] ICU visit [] Other: Relational/Emotional Strength [x] Patient feels connected with others/family/visitors/staff [] Distress [] Loneliness/isolation [] Abandonment Spirituality of Patient [x] Person of Anna [] Attends Sabianism of their Anna [x] Believes in Prayer [] Reads Bible or Uatsdin materials [] There are Spiritual issues to be addressed Adjunct Psychology Instructor Interventions [x] Prayer [x] Active listening [x] Non-anxious presence [] Spiritual/emotional support [] Crisis/trauma care [] Spiritual counseling [] Bereavement support [] Provided bereavement packet [] Provided Bible/devotional materials [] Provided toy/stuffed animal, coloring book to patient or family member [] Provided Communion [] Anointing/[place] [] Salvation [x] Completed spiritual assessment [] Other: Impact on Illness or Injury [] Angry [] Fearful [] Anxious [] Often cries [] Exhaustion [] Unable to work [] Unable to attend pentecostalism [] Unable to walk/stand [] Unable to read [] Unable to drive [] Unable to eat/drink [] Unable to sleep [] Unable to be with family [] Patient intubated [] Other: Summary Time spent with patient 5 min
--- NOTE | 2021-04-27 11:38 | PM.PN ---
Vitals/I&O/Wt Last Vital Signs Temp 97.8 F 04/27/21 11:12 Pulse 86 04/27/21 11:12 Resp 18 04/27/21 11:12 BP 125/65 04/27/21 11:12 Pulse Ox 94 04/27/21 11:12 04/26/21 04/27/21 04/27/21 22:59 06:59 14:59 Intake Total 680 / 1330 0 / 1330 50 / 50 Output Total 0 / 0 Balance 680 / 1330 0 / 1330 50 / 50 Physical Exam Narrative: EXAM NARRATIVE: Abdomen : soft Chest: Right SC dialysis catheter in place Data : 04/27/21 05:06 04/27/21 05:06 Micro: Microbiology 04/21/21 10:58 Blood Culture - Final Blood Staphylococcus aureus 04/21/21 09:25 Blood Culture - Final Blood NO GROWTH AFTER 5 DAYS A&P Assessment and plan (1) End stage renal disease on dialysis: 55-year-old female with ESRD who has MSSA bacteremia Plan for placement of tunelled dialysis catheter under MAC today Status: Acute Attestations Medical Necessity Statement*: as per primary Coding Level of Care Code Acute Interventional Tech for Kulwinder Fwd Diagnoses End stage renal disease on dialysis N18.6; Z99.2
--- NOTE | 2021-04-27 11:39 | SC_ITS ---
WS: [id number] Dialysis catheter insertion, 04/27/2021. Clinical Data: hemodialysis catheter Comparison: None. Findings: Insertion of left dialysis catheter. SC/C-arm FL for CVA [id number] Impression: Left dialysis catheter.
[2021-04-27] MEDS: heparin, porcine 1,000 unit/mL INJ 10 mL 10000 UNIT IRRIGATION (12:23)
[2021-04-27] MEDS: lidocaine 1% INJ 20 mL INJECTION (12:23)
--- NOTE | 2021-04-27 12:28 | PC.SOCIAL ---
IMM Updated Updated pt on IMM. No questions voiced. Provided pt a copy. Initialed, dated, & timed copy in chart.
--- NOTE | 2021-04-27 14:02 | PM.PN ---
Subjective Subjective: Interval history: Chart reviewed, blood cx clear since 04/23, tunneled HD catheter placed today. Venous upper extremity duplex with partial thrombosis. Care discussed with Dr. Chacon Medications: Reviewed: Yes Vitals/I&O/Wt Last Vital Signs Temp 97.1 F L 04/27/21 13:50 Pulse 78 04/27/21 13:50 Resp 18 04/27/21 13:50 BP 135/66 04/27/21 13:50 Pulse Ox 93 04/27/21 13:50 04/26/21 04/27/21 04/27/21 22:59 06:59 14:59 Intake Total 680 / 1330 0 / 1330 450 / 450 Output Total 0 / 0 Balance 680 / 1330 0 / 1330 430 / 430 Physical Exam Narrative: EXAM NARRATIVE: Patient not examined today. Chart reviewed and care discussed with hospitalist. Data : 04/27/21 05:06 04/27/21 05:06 Other Labs: CONCLUSIONS Right upper extremity venous duplex: 04/24/21 Features of venous thrombosis with recanalization of the right internal jugular vein. Features of venous thrombosis with recanalization in the right cephalic vein No significant venous reflux in the above-mentioned veins Micro: Microbiology 04/21/21 10:58 Blood Culture - Final Blood Staphylococcus aureus 04/21/21 09:25 Blood Culture - Final Blood NO GROWTH AFTER 5 DAYS 04/23: Blood cx : NGTD A&P Assessment and plan (1) Bacteremia due to methicillin susceptible Staphylococcus aureus (MSSA): MSSA bacteremia likely related to hemodialysis catheter infection Blood cx last positive on 04/21. From 04/23, blood cx with no growth thus far. Currently on rx with ceftriaxone 2g iv q24h , continue same for now Once HD access is restored, can switch treatment to iv cefazolin 2g iv after dialysis three times a week post HD. RUE venous duplex with partial thrombosis, may be related to prior access, however cannot exclude septic thrombophlebitis additionally. Recommend total duration of rx to be 6 weeks from clearance (04/23-06/04) for presumed endovascular infection with staph aureus. follow up in ID clinic on May 24, 2021 Status: Acute Attestations Medical Necessity Statement*: per admitting note Coding Level of Care Code Acute Filter Assembler for [facility] Fwd Diagnoses Bacteremia due to methicillin susceptible Staphylococcus aureus (MSSA) R78.81; B95.61
--- NOTE | 2021-04-27 14:57 | PM.PN ---
Subjective Subjective: Interval history: She is seen and examined on hemodialysis. She is a little sleepy from the anesthetic agents, but otherwise she is comfortable at this time. So far she is tolerating the dialysis treatment well. Hemodynamics reviewed. Blood cultures remain negative from 04/23/2019 Medications: Reviewed: Yes Medication Review Details: Current Medications Acetaminophen (Acetaminophen 325 Mg Tablet) 650 mg PO Q6H PRN PRN Reason: MILD PAIN Last Admin: 04/20/21 20:45 Dose: 650 mg Documented by: Albuterol/Ipratropium (Ipratropium-Albuterol 3 Ml Neb) 3 ml INHALATION Q6H.RESPIRATORY PRN PRN Reason: SHORTNESS OF BREATH Aspirin (Aspirin 81 Mg Ec Tablet) 81 mg PO DAILY [facility] Last Admin: 04/21/21 09:00 Dose: Not Given Documented by: Atorvastatin Calcium (Atorvastatin 40 Mg Tablet) 20 mg PO DAILY [facility] Last Admin: 04/21/21 09:00 Dose: Not Given Documented by: Bupropion HCl (Bupropion Xl (24 Hr) 150 Mg Tablet) 150 mg PO DAILY [facility] Last Admin: 04/21/21 09:00 Dose: Not Given Documented by: Calcium Acetate (Calcium Acetate 667 Mg Capsule) 1,334 mg PO TID [facility] Last Admin: 04/21/21 17:15 Dose: Not Given Documented by: Citalopram Hydrobromide (Citalopram 20 Mg Tablet) 20 mg PO DAILY [facility] Last Admin: 04/21/21 09:00 Dose: Not Given Documented by: Dextrose (Dextrose 50% Syringe 50 Ml) 25 ml IVP ONCE PRN; Protocol PRN Reason: hypoglycemia protocol Dextrose (Dextrose 50% Syringe 50 Ml) 50 ml IVP PRN PRN; Protocol PRN Reason: hypoglycemia protocol Glucagon (Glucagon 1 Mg/Ml Inj 1 Ml) 1 mg IM ONCE PRN; Protocol PRN Reason: Adult Acute Hypoglycemia Prot. Heparin Sodium (Porcine) (Heparin 5,000 Unit/Ml Inj 1 Ml) 5,000 unit SUBCUT Q8H [facility] Last Admin: 04/20/21 12:38 Dose: Not Given Documented by: Dextrose (D5w) 500 mls @ 100 mls/hr IV ONCE PRN; Protocol PRN Reason: Adult Acute Hypoglycemia Prot Doxycycline Hyclate 100 mg/ (Sodium Chloride) 100 mls @ 100 mls/hr IV Q12H [facility]; Protocol Last Infusion: 04/21/21 12:40 Dose: Infused Documented by: Insulin Human Lispro (Insulin Lispro 100 Unit/1 Ml) 0 unit SUBCUT TIDWM [facility]; Protocol Last Admin: 04/21/21 17:55 Dose: Not Given Documented by: Lanolin (Lanolin Oint 7 Gm) 1 applic TOPICAL PRN PRN PRN Reason: DRYNESS Midodrine (Midodrine 5 Mg Tablet) 5 mg PO MoWeFr PRN PRN Reason: NEEDED BEFORE DIALYSIS Last Admin: 04/20/21 08:00 Dose: 5 mg Documented by: Mupirocin (Mupirocin Oint 22 Gm) 1 applic TOPICAL BID [facility] Last Admin: 04/21/21 17:55 Dose: Not Given Documented by: Non-Formulary Medication (Ammonium Lactate) 1 applic TOPICAL BID [facility] Last Admin: 04/21/21 17:15 Dose: Not Given Documented by: Non-Formulary Medication (Clobetasol) 1 applic TOPICAL BID [facility] Last Admin: 04/21/21 17:15 Dose: Not Given Documented by: Non-Formulary Medication (Vit B,J-Kf-Mntv-Selen-Vit D3-E [Renaplex-D]) 1 tab PO DAILY [facility] Ropinirole HCl (Ropinirole 0.25 Mg Tablet) 0.5 mg PO DAILY [facility] Last Admin: 04/21/21 09:00 Dose: Not Given Documented by: Senna/Docusate Sodium (Sennosides-Docusate Tablet) 1 tab PO BID PRN PRN Reason: constipation Trazodone HCl (Trazodone 150 Mg Tablet) 75 mg PO BEDTIME [facility] Last Admin: 04/20/21 20:46 Dose: 75 mg Documented by: Vitals/I&O/Wt Last Vital Signs Temp 97.1 F L 04/27/21 13:50 Pulse 78 04/27/21 13:50 Resp 18 04/27/21 13:50 BP 135/66 04/27/21 13:50 Pulse Ox 93 04/27/21 13:50 04/26/21 04/27/21 04/27/21 22:59 06:59 14:59 Intake Total 680 / 1330 0 / 1330 450 / 450 Output Total 0 / 0 Balance 680 / 1330 0 / 1330 430 / 430 Physical Exam Narrative: EXAM NARRATIVE: Constitutional: Awake, comfortable. HEENT: Wet mucosa, no jvp, non icteric. Lungs: Bilaterally clear without discernible wheeze, rales in all lung zones. CVS: S1, S2, no murmurs. Abdo: Soft, BS ok. Ext 4: Minimal edema, peripheral perfusion with no cyanosis. Neurological: Grossly non-focal Data : 04/27/21 05:06 04/27/21 05:06 Micro: Microbiology 04/21/21 10:58 Blood Culture - Final Blood Staphylococcus aureus 04/21/21 09:25 Blood Culture - Final Blood NO GROWTH AFTER 5 DAYS A&P Additional A&P Information 1. ESRD Seen and examined on dialysis 2K, UF 2-3L Typical schedule Sunday, Sunday and Sunday dialysis schedule Dose medications for GFR less than 15 on dialysis 2. Lytes minor non critical aberration 3. Weakness Blood cultures with Staph. Abx on board Line out DONI shows no IE tip positive last positive culture 04/[address] Ingram noted Recommend total duration of rx to be 6 weeks from clearance (04/23-06/04) for presumed endovascular infection with staph aureus. Currently on rx with ceftriaxone 2g iv q24h , continue same for now Once HD access is restored, can switch treatment to iv cefazolin 2g iv after dialysis three times a week post HD. marketing segment manager to set up outpatient antibiotics 4. Hemodynamics Hemodynamics currently soft, midodrine prior to dialysis 5. Chronic ESRD issues These will be managed as an outpatient including management of anemia of ESRD, secondary hyperparathyroidism, hyperphosphatemia etc. She is on lanthanum as an outpatient, give her some PhosLo while she is admitted. Arjun Cavazos MD Nephrology [phone] Patient seen and examined via telemedicine, with the assistance of the bedside RN > 25 min spent in evaluation and mgmt of patient Attestations Medical Necessity Statement*: Eval for ESRD Coding Level of Care Code Acute Pt Skilled for [facility]
--- NOTE | 2021-04-27 15:08 | PM.PN ---
Subjective Subjective: Interval history: She is seen and examined on hemodialysis. She is a little sleepy from the anesthetic agents, but otherwise she is comfortable at this time. So far she is tolerating the dialysis treatment well. Hemodynamics reviewed. Blood cultures remain negative from 04/23/2019 Medications: Reviewed: Yes Vitals/I&O/Wt Last Vital Signs Temp 97.1 F L 04/27/21 13:50 Pulse 78 04/27/21 13:50 Resp 18 04/27/21 13:50 BP 135/66 04/27/21 13:50 Pulse Ox 93 04/27/21 13:50 04/27/21 04/27/21 04/27/21 06:59 14:59 22:59 Intake Total 0 / 1330 450 / 450 Output Total 0 / 0 Balance 0 / 1330 430 / 430 Physical Exam Narrative: EXAM NARRATIVE: General exam no distress Neck is supple Cardiovascular regular rate and rhythm, no murmur. Now with tunneled catheter Lungs clear Abdomen is soft Extremities no cyanosis or clubbing. 1+ edema is noted bilaterally. Skin demonstrates widespread psoriatic changes Data : 04/27/21 05:06 04/27/21 05:06 Micro: Microbiology 04/21/21 10:58 Blood Culture - Final Blood Staphylococcus aureus 04/21/21 09:25 Blood Culture - Final Blood NO GROWTH AFTER 5 DAYS A&P Assessment and plan (1) Bacteremia due to methicillin susceptible Staphylococcus aureus (MSSA): MSSA bacteremia likely related to hemodialysis catheter infection. This catheter was removed Cultures negative since April 23 Plan treatment with cefazolin following dialysis through June 04, secondary to concern of partial thrombosis seen on right upper extremity venous duplex as thrombophlebitis cannot be excluded. DONI was negative follow up in ID clinic on May 24, 2021 Status: Acute (2) End stage renal disease on dialysis: Receiving dialysis currently per nephrology Status: Acute (3) 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 renal disease): Sliding scale insulin Status: Acute (4) Anemia: No evidence of blood loss. 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
--- NOTE | 2021-04-27 15:36 | ANE.PACU2 ---
Inpatient post-anesthesia follow up: Airway intact: Yes Vital signs: Temperature 98.1 F Pulse Rate 77 Respiratory Rate 16 Blood Pressure 117/63 Pulse Oximetry 93 Oxygen Delivery Me thod [ Nasal Cannula Current Rate & Del ruma] Oxygen Delivery Me thod Nasal Cannula Oxygen Flow Rate [ Current Rate 2 & Delivery] Oxygen Flow Rate 3 Fraction of Inspir ed Oxygen 35 Hydration adequate: Yes Nausea and vomiting: No Pain level: 2 Mental status: Baseline
--- NOTE | 2021-04-27 16:27 | PC.NURSE ---
pt in dialysis
[2021-04-27 17:36] LABS: Glucose Point of Care 87 mg/dL (70-110)
[2021-04-27 17:36] LABS: Glucose Point of Care 89 mg/dL (70-110)
[2021-04-27] MEDS: cyclobenzaprine 10 mg Tablet 5 MG PO (18:01)
[2021-04-27 20:03] LABS: Glucose Point of Care 148 mg/dL (70-110)
[2021-04-27] MEDS: trazodone 150 mg Tablet 75 MG PO (20:17)
[2021-04-28] MEDS: heparin 5,000 unit/mL INJ 1 mL 5000 UNIT SUBCUT (03:46)
[2021-04-28 03:53] VITALS: BP 119/65; PULSE 79; RESP 26; TEMP 37.2; O2SAT 97
[2021-04-28 06:40] LABS: Glucose Point of Care 100 mg/dL (70-110)
[2021-04-28 08:00] VITALS: BP 158/84; PULSE 108; RESP 20; TEMP 36.9; O2SAT 90
[2021-04-28 08:51] VITALS: PULSE 102; RESP 18; O2SAT 96
[2021-04-28 08:52] VITALS: O2SAT 85; O2SAT 94
--- NOTE | 2021-04-28 09:54 | P.PN_ITS ---
Subjective Subjective: Interval history: Ms. Li feels well today with no specific complaints. Her right shoulder is a little on the soft side which is a chronic problem for her. She has some slight fatigue. No more fevers or chills. Blood cultures from 04/23 [address] negative. [address]ath in place. Dialysis went well yesterday. Medications: Reviewed: Yes Medication Review Details: Current Medications Acetaminophen (Acetaminophen 325 Mg Tablet) 650 mg PO Q6H PRN PRN Reason: MILD PAIN Last Admin: 04/20/21 20:45 Dose: 650 mg Documented by: Albuterol/Ipratropium (Ipratropium-Albuterol 3 Ml Neb) 3 ml INHALATION Q6H.RESPIRATORY PRN PRN Reason: SHORTNESS OF BREATH Aspirin (Aspirin 81 Mg Ec Tablet) 81 mg PO DAILY [facility] Last Admin: 04/21/21 09:00 Dose: Not Given Documented by: Atorvastatin Calcium (Atorvastatin 40 Mg Tablet) 20 mg PO DAILY [facility] Last Admin: 04/21/21 09:00 Dose: Not Given Documented by: Bupropion HCl (Bupropion Xl (24 Hr) 150 Mg Tablet) 150 mg PO DAILY [facility] Last Admin: 04/21/21 09:00 Dose: Not Given Documented by: Calcium Acetate (Calcium Acetate 667 Mg Capsule) 1,334 mg PO TID [facility] Last Admin: 04/21/21 17:15 Dose: Not Given Documented by: Citalopram Hydrobromide (Citalopram 20 Mg Tablet) 20 mg PO DAILY [facility] Last Admin: 04/21/21 09:00 Dose: Not Given Documented by: Dextrose (Dextrose 50% Syringe 50 Ml) 25 ml IVP ONCE PRN; Protocol PRN Reason: hypoglycemia protocol Dextrose (Dextrose 50% Syringe 50 Ml) 50 ml IVP PRN PRN; Protocol PRN Reason: hypoglycemia protocol Glucagon (Glucagon 1 Mg/Ml Inj 1 Ml) 1 mg IM ONCE PRN; Protocol PRN Reason: Adult Acute Hypoglycemia Prot. Heparin Sodium (Porcine) (Heparin 5,000 Unit/Ml Inj 1 Ml) 5,000 unit SUBCUT Q8H [facility] Last Admin: 04/20/21 12:38 Dose: Not Given Documented by: Dextrose (D5w) 500 mls @ 100 mls/hr IV ONCE PRN; Protocol PRN Reason: Adult Acute Hypoglycemia Prot Doxycycline Hyclate 100 mg/ (Sodium Chloride) 100 mls @ 100 mls/hr IV Q12H [facility]; Protocol Last Infusion: 04/21/21 12:40 Dose: Infused Documented by: Insulin Human Lispro (Insulin Lispro 100 Unit/1 Ml) 0 unit SUBCUT TIDWM [facility]; Protocol Last Admin: 04/21/21 17:55 Dose: Not Given Documented by: Lanolin (Lanolin Oint 7 Gm) 1 applic TOPICAL PRN PRN PRN Reason: DRYNESS Midodrine (Midodrine 5 Mg Tablet) 5 mg PO MoWeFr PRN PRN Reason: NEEDED BEFORE DIALYSIS Last Admin: 04/20/21 08:00 Dose: 5 mg Documented by: Mupirocin (Mupirocin Oint 22 Gm) 1 applic TOPICAL BID [facility] Last Admin: 04/21/21 17:55 Dose: Not Given Documented by: Non-Formulary Medication (Ammonium Lactate) 1 applic TOPICAL BID [facility] Last Admin: 04/21/21 17:15 Dose: Not Given Documented by: Non-Formulary Medication (Clobetasol) 1 applic TOPICAL BID [facility] Last Admin: 04/21/21 17:15 Dose: Not Given Documented by: Non-Formulary Medication (Vit B,N-Xd-Hmtf-Selen-Vit D3-E [Renaplex-D]) 1 tab PO DAILY [facility] Ropinirole HCl (Ropinirole 0.25 Mg Tablet) 0.5 mg PO DAILY [facility] Last Admin: 04/21/21 09:00 Dose: Not Given Documented by: Senna/Docusate Sodium (Sennosides-Docusate Tablet) 1 tab PO BID PRN PRN Reason: constipation Trazodone HCl (Trazodone 150 Mg Tablet) 75 mg PO BEDTIME [facility] Last Admin: 04/20/21 20:46 Dose: 75 mg Documented by: Vitals/I&O/Wt Last Vital Signs Temp 98.5 F 04/28/21 08:00 Pulse 102 H 04/28/21 08:51 Resp 18 04/28/21 08:51 BP 158/84 04/28/21 08:00 Pulse Ox 85 L 04/28/21 08:52 04/27/21 04/28/21 04/28/21 22:59 06:59 14:59 Intake Total 300 / 750 240 / 990 240 / 240 Balance 300 / 730 240 / 970 240 / 240 Physical Exam Narrative: EXAM NARRATIVE: Constitutional: Awake, comfortable. HEENT: Wet mucosa, no jvp, non icteric. Lungs: Bilaterally clear without discernible wheeze, rales in all lung zones. CVS: S1, S2, no murmurs. Abdo: Soft, BS ok. Ext 4: Minimal edema, peripheral perfusion with no cyanosis. Neurological: Grossly non-focal Data : 04/27/21 05:06 04/27/21 05:06 A&P Additional A&P Information 1. ESRD Plan for dialysis tomorrow 2K, UF 2-3L Typical schedule Sunday, Sunday and Sunday dialysis schedule Dose medications for GFR less than 15 on dialysis 2. Lytes minor non critical aberration inc acidosis 3. Weakness Blood cultures with Staph. Line out DONI shows no IE tip positive last positive culture 04/[address] Ingram noted Recommend total duration of rx to be 6 weeks from clearance (04/23-06/04) for presumed endovascular infection with staph aureus. Currently on rx with ceftriaxone 2g iv q24h , continue same for now Once HD access is restored, can switch treatment to iv cefazolin 2g iv after dialysis three times a week post HD. advanced manager to set up outpatient antibiotics 4. Hemodynamics Hemodynamics currently soft, midodrine prior to dialysis 5. Chronic ESRD issues These will be managed as an outpatient including management of anemia of ESRD, secondary hyperparathyroidism, hyperphosphatemia etc. She is on lanthanum as an outpatient, give her some PhosLo while she is admitted. 6. 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
[2021-04-28] MEDS: cefTRIAXone 2,000 MG in sodium chloride 0.9% (plus) 50 ML 100 MG IV (10:20)
[2021-04-28] MEDS: ropinirole 0.25 mg Tablet 0.5 MG PO (10:20)
[2021-04-28] MEDS: buPROPion XL (24 HR) 150 mg Tablet PO (10:20)
[2021-04-28] MEDS: atorvastatin 40 mg Tablet 20 MG PO (10:21)
[2021-04-28] MEDS: aspirin 81 mg EC Tablet PO (10:21)
[2021-04-28] MEDS: citalopram 20 mg Tablet PO (10:21)
[2021-04-28] MEDS: calcium acetate 667 mg Capsule 1334 MG PO (10:21)
--- NOTE | 2021-04-28 10:37 | P.DS_ITS ---
Discharge Providers Date of Admission: 04/18/21 16:43 Date of Discharge: April 28, 2021 Attending Provider at Admission: Leelee Love MD Attending Provider at Discharge: Osvaldo Chacon MD Primary Care Provider: Kate Marcelino MD Diagnoses at Discharge Discharge Diagnosis (1) Bacteremia due to methicillin susceptible Staphylococcus aureus (MSSA): Status: Acute (2) End stage renal disease on dialysis: Status: Acute (3) 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 renal disease): Status: Acute (4) Anemia: Status: Acute Reason for Visit Reason for Visit: FALL FROM CHAIR/ HIP PAIN Hospital Course Hospital Course NumberMs. Li presented to the hospital on . She had missed several dialysis treatments. She had significant weakness, hypotension. She was placed in the hospital and nephrology was consulted. There was concern almost immediately after admission regarding infection. She was placed on va ncomycin and cefepime. Dialysis catheter was possible source of infection. Transthoracic echocardiogram was done that was not definitive to exclude vegetation. Blood cultures ultimately grew out methicillin sensitive staph aureus. Dialysis catheter was removed April 20. Serial cultures were obtained during her hospital stay before and after which demonstrated clearing of her bacteremia on April 23. A temporary dialysis catheter was placed in the interim, and eventually a tunneled dialysis catheter on April 27. Cultures from the first continue to remain negative. Infectious disease had seen her earlier on in the course and I discussed treatment briefly with them. She will need to continue IV antibiotics in the form of cefazolin following dialysis until June 04. She will have an infectious disease appointment on May 24. Longer course of antibiotics than anticipated secondary to possibility of thrombophlebitis noted on venous duplex scanning of the upper extremity on the right. At discharge she was afebrile and in good spirits. DONI was also performed during her hospital course which demonstrated no vegetation. Physical Exam Narrative: EXAM NARRATIVE: General exam no distress Neck is supple Cardiovascular regular rate and rhythm Lungs clear Abdomen is soft Extremities no cyanosis clubbing or edema, tunneled catheter right chest Discharge Data Data Completed and Pending: Completed Studies During Hospitalization Category Date Time Status CT head wo con* 7 0450 Stat Cat Scan 04/18/21 08:18 Completed FL barium swallow modifd 48633 Stat Exams 04/21/21 07:56 Completed XR chest 1V wesley ble 94212 Routine Exams 04/25/21 14:53 Completed XR chest 1V wesley ble 17677 Stat Exams 04/18/21 08:19 Completed XR pelvis 1-2V* 7 2170 Stat Exams 04/18/21 08:19 [place] [address] Routin e Ultrasound 04/24/21 07:49 Completed CV. echo complete * [id number] Routine Ultrasound 04/19/21 11:46 Completed CV. echo transeso phageal 60045 Rout ine Ultrasound 04/21/21 14:53 Completed Pending at discharge Category Date Time Status C-arm [place] for CVA 58933 Routine Exams 04/27/21 11:39 Taken Blood Culture Sta t Lab 04/23/21 12:33 Results Labs from last 24 hours 04/28/21 04/27/21 04/27/21 06:22 19:59 17:14 POC Glucose 100 148 H 87 04/27/21 11:06 POC Glucose 89 Vitals: Last Vital Signs Temp 98.5 F 04/28/21 08:00 Pulse 102 H 04/28/21 08:51 Resp 18 04/28/21 08:51 BP 158/84 04/28/21 08:00 Pulse Ox 85 L 04/28/21 08:52 Discharge Plan Discharge Patient Disposition: Home Health Service Condition: Stable Prescriptions: Continued epoetin favio 10,000 unit/mL solution See Rx Instructions .ROUTE .COMPLEX RF: 0 acetaminophen 325 mg tablet 650 mg PO Q6H PRN (Reason: Pain) RF: 0 polyethylene glycol 3350 17 gram/dose powder 17 g PO DAILY RF: 0 magnesium sulfate (bulk) [Epsom Salt] 100 % crystals 1 applic topical BID Qty: 2500 RF: 1 mupirocin 2 % ointment 1 applic topical BID Qty: 22 RF: 1 ammonium lactate 12 % cream 1 applic topical BID Qty: 140 RF: 5 albuterol sulfate [ProAir HFA] 90 mcg/actuation HFA aerosol inhaler 2 puff INHALATION QID PRN (Reason: shortness of breath or wheezing) 30 Days Qty: 18 RF: 5 clopidogrel [Plavix] 75 mg tablet 75 mg PO DAILY 90 Days Qty: 90 RF: 1 Tradjenta 5 mg tablet 5 mg PO DAILY Qty: 90 RF: 3 aspirin [Adult Aspirin Regimen] 81 mg tablet,delayed release (DR/EC) 81 mg PO DAILY RF: 0 Lactobacillus acidophilus [Acidophilus] Capsule 10 mg PO DAILY RF: 0 Breo Ellipta 100-25 mcg/dose blister with device 1 inh inhalation DAILY 30 Days Qty: 60 RF: 3 (DME) Depend Underwear For Women XL Misc See Rx Instructions .ROUTE .MEDSUPPLY Qty: 120 RF: 11 midodrine 5 mg tablet See Rx Instructions .ROUTE .COMPLEX Qty: 30 RF: 3 nitroglycerin 0.4 mg tablet, sublingual 0.4 mg sublingual Q5M PRN (Reason: chest pain) Qty: 30 RF: 6 triamcinolone acetonide 0.1 % ointment 1 applic topical BID Qty: 453.6 RF: 2 calcipotriene 0.005 % cream 1 applic topical BID Qty: 120 RF: 2 clobetasol 0.05 % ointment 1 applic topical BID 14 Days Qty: 60 RF: 3 hydrocortisone 2.5 % ointment 1 applic topical BID PRN (Reason: skin irritation) Qty: 453.6 RF: 1 ropinirole 0.5 mg tablet 0.5 mg PO DAILY 30 Days Qty: 30 RF: 2 miscellaneous medical supply [facility] See Rx Instructions miscellaneous .COMPLEX Qty: 1 RF: 0 trazodone 150 mg tablet 75 - 150 mg PO BEDTIME Qty: 30 RF: 2 Wellbutrin XL 150 mg tablet extended release 24 hr 150 mg PO DAILY Qty: 30 RF: 3 citalopram [Celexa] 20 mg tablet 20 mg PO DAILY Qty: 30 RF: 3 miscellaneous medical supply [facility] See Rx Instructions miscellaneous .COMPLEX Qty: 1 RF: 0 pravastatin 10 mg tablet 10 mg PO DAILY Qty: 30 RF: 5 cetirizine [Zyrtec] 10 mg tablet 10 mg PO DAILY 30 Days Qty: 30 RF: 5 hydroxyzine pamoate 25 mg capsule See Rx Instructions .ROUTE .COMPLEX Qty: 90 RF: 0 calcium acetate(phosphat bind) 667 mg capsule See Rx Instructions .ROUTE .COMPLEX RF: 0 lanthanum 750 mg tablet,chewable See Rx Instructions .ROUTE .COMPLEX RF: 0 RenaPlex-D 800 mcg-12.5 mg -2,000 unit tablet 1 tab PO DAILY RF: 0 lidocaine-prilocaine 2.5-2.5 % Cream 1 applic topical . DIRECTED PRN (Reason: Port/Catheter Care) RF: 0 Discontinued Venofer 100 mg iron/5 mL solution 100 mg IV DAILY RF: 0 cyclobenzaprine 5 mg tablet 5 mg PO TID PRN (Reason: muscle spasm) Qty: 90 RF: 2 gabapentin 300 mg capsule 300 mg PO TID PRN (Reason: pain in leg) 30 Days Qty: 90 RF: 2 Discharge Orders: Discharge Order (Routine); Ordered 04/28/21 Ordered By: Osvaldo Chacon Referrals: Darlyn Ingram MD [Hospitalist] - (To follow-up with Dr. Ingram May 24. Please confirm with her office prior to discharge.) Kate Marcelino MD [Primary Care Provider] - 4-7 days Discharge Diet: Usual diet Discharge Activity: Increase activity as tolerated Patient Instructions: Opioid Safety Activity Restrictions/Additional Instructions: Take all medicine as prescribed Follow-up in infectious disease clinic, primary care provider as noted Cefazolin 2 g IV 3 times a week after dialysis to end April 29. Resume renal diet Return for any fever CBC, CMP weekly, sent to Dr. Ingram Keep regular dialysis appointments. Discharge Attestations Time Spent in Discharge Care*: greater than 30 min Quality Metrics Clinical Quality Measures During this hospital stay, did patient experience: None Coding Level of Care Code Acute [facility] note Diagnoses Bacteremia due to methicillin susceptible Staphylococcus aureus (MSSA) R78.81; B95.61 End stage renal disease on dialysis N18.6; Z99.2 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 renal disease) E11.22; N18.6 Anemia D64.9
[2021-04-28 12:18] LABS: Glucose Point of Care 118 mg/dL (70-110)
--- NOTE | 2021-04-28 13:32 | P.OP_ITS ---
Operative Report Date of procedure: April 27, 2021 Pre-op Diagnosis: ESRD requiring long-term central venous access for dialysis Post-op Diagnosis: 1. 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 Occluded right subclavian vein, unable to pass a guidewire through the existing temporary dialysis catheter Procedure Done: 1. Removal of temporary dialysis catheter 2. Basement of 31 cm long 16 [place] [employer] tunneled hemodialysis catheter in the left subclavian vein 3. Fluoroscopic guidance and interpretation for placement of catheter Pathology: none sent Surgeon: Adrian Chung Anesthesia: MAC Condition: stable Disposition: PACU Procedure: The patient was taken to the operating room and placed under MAC after IV antibiotic had been administered. The chest and neck were prepped and draped in a sterile manner bilaterally. I attempted to pass a guidewire through the existing temporary dialysis catheter that had placed couple of days ago in the right subclavian vein. Unfortunately multiple attempts including using a 0.035 J-wire was unsuccessful in passing the guidewire into the superior vena cava. I therefore removed the existing temporary catheter. Using introducer needle the subclavian vein on the left side was accessed and guidewire passed into the right atrium under fluoroscopy. Under fluoroscopy the location for the dialysis catheter was marked. Using 11 blade a skin incision was extended at the vein access site as well as the previously marked location on the left chest wall. The dialysis catheter was attached to the tunneler and passed subcutaneously, exiting at the venous access site. Serial dilators were passed over the guidewire under fluoroscopy. Finally the dilator peel-away sheath was passed over the guidewire and the inner dilator and guidewire was removed and the dialysis catheter was introduced into the left subclavian vein as the peel-away sheath was removed. The tip of the catheter was noted to be in the right atrium. Both ports of the catheter yamilet blood and flushed easily. The catheter was sutured to the skin using 2-0 Prolene and the venous access site was closed with 4-0 Monocryl and Dermabond. A total of 5 mL of 1:10,000 heparin was injected into the 2 ports under dialysis catheter. Fluoroscopic guidance and interpretation for passage of guidewire and dilator and placement of catheter in the right atrium.
[2021-04-28 15:29] VITALS: PULSE 102; RESP 18; O2SAT 96
== END 2021-04-28 15:30 | disposition home health service (06) | DRG 314 ==
LOC: ER 11:25 → MEDSURG 04-19 21:54
PROVIDERS: Surgery; Admitting Provider Internal Medicine; Emergency Provider Family Medicine; PCP Family Medicine; Visit Provider Internal Medicine
PROC: 05PYX3Z Removal of Infusion Device from Upper Vein, External Approach (ICD-10-PCS; principal; 2021-04-25 13:30)
DX: T80.211A Bloodstream infection due to central venous catheter, initial encounter (principal); N18.6 End stage renal disease; Z68.41 Body mass index [BMI] 40.0-44.9, adult; E11.22 Type 2 diabetes mellitus with diabetic chronic kidney disease; B95.61 Methicillin susceptible Staphylococcus aureus infection as the cause of diseases classified elsewhere; Z99.2 Dependence on renal dialysis; Z79.82 Long term (current) use of aspirin; E87.5 Hyperkalemia; Z99.81 Dependence on supplemental oxygen; Z91.15 Patient's noncompliance with renal dialysis; I48.0 Paroxysmal atrial fibrillation; G47.33 Obstructive sleep apnea (adult) (pediatric); J44.9 Chronic obstructive pulmonary disease, unspecified; Z79.4 Long term (current) use of insulin; E66.01 Morbid (severe) obesity due to excess calories; R13.19 Other dysphagia; Y82.8 Other medical devices associated with adverse incidents; Z91.81 History of falling; D63.1 Anemia in chronic kidney disease; I95.9 Hypotension, unspecified; F32.9 Major depressive disorder, single episode, unspecified; Z79.01 Long term (current) use of anticoagulants; G25.81 Restless legs syndrome; E11.65 Type 2 diabetes mellitus with hyperglycemia; Z86.16 Personal history of COVID-19; L40.0 Psoriasis vulgaris; Z79.84 Long term (current) use of oral hypoglycemic drugs; E83.39 Other disorders of phosphorus metabolism
CPT/HCPCS: 36410; 36415; 36416; 36600; 70450; 71045; 72170; 74230; 77001; 80048; 80051; 80053; 80202; 82009; 82330; 82550; 82805; 82962; 83605; 83690; 83735; 84145; 84484; 85025; 86140; 87040; 87070; 87075; 87077; 87186; 87205; 87635; 92611; 93005; 93306; 93312; 93320; 93325; 93971; 96365; 96372; 96375; 97110; 97116; 97162; 97530; 99285; C1750; J0610; J0692; J0696; J1644; J1815; J2704; J3010; J3370; J3490; J7030; J7050; Q3014

== ENCOUNTER 2021-06-17 16:17 | Emergency (ER) | payer MEDICARE, MEDICAID, SELFPAY ==
[2021-04-19 15:32] VITALS: BP 104/58; BMI 38.5
[2021-06-17 16:23] VITALS: BP 132/67; PULSE 91; RESP 22; TEMP 36.6; O2SAT 92; BMI 38.6
--- NOTE | 2021-06-17 16:29 | ED_ITS ---
Documented by User: Fritz Jaeger DO 06/18/21 07:27 HPI - Chest Pain General: Chief Complaint: Chest Pain Stated Complaint: CP Time Seen by Provider: 06/17/21 16:23 Source: patient Mode of arrival: EMS History of Present Illness: 55-year-old female with a history of end-stage renal disease presenting with chest discomfort. Patient is super morbidly obese. She had been getting dialysis was nearly complete with around and began to complain of some shortness of breath and chest discomfort they discontinued the dialysis and transferred her here via ambulance. She is complaining of vague nonspecific symptoms varying positional numbness in her arms and legs particularly her left leg at this time however she is able to move it and reposition herself without any difficulty. When I came in the room she is complaining that she was laying in the left lateral recumbent with the head of the bed slightly inclined. After repositioning the symptoms resolved. She is not currently having any chest discomfort at this time she denies any recent cough. No fever. MD complaint: chest pain Onset (ago): minute(s) Timing of current episode: episodic Prior episodes: Yes Onset: during rest Pain location: left chest Pain radiation: none Severity: mild Quality: aching and heaviness Relieving factors: nothing Exacerbating factors: nothing Associated symptoms: Reports dyspnea and leg edema; Deny abdominal pain, diaphoresis, fever(s), nausea, palpitations, sense of impending doom, syncope or vomiting Treatment prior to arrival: oxygen Review of Systems Const: Denies: fever(s) or diaphoresis ENMT: Denies: throat pain, ear or mastoid pain, nasal discharge or nasal congestion Card: Denies: palpitations or syncope Resp: Reports: dyspnea GI: Denies: abdominal pain, nausea or vomiting : Denies: flank pain, difficulty voiding, dysuria, urinary frequency or urinary urgency Skin/Breast: Denies: rash or pruritus PFSH ED PFSH: Medical History Allergic rhinitis Bacteremia no Intracardiac masses or vegetations noted. COPD (chronic obstructive pulmonary disease) Diabetes mellitus Encounter for screening colonoscopy History of 2019 novel coronavirus disease (COVID-19) + swab on 04/12/2020 Insomnia Major depressive disorder, recurrent severe without psychotic features Mixed stress and urge urinary incontinence LUIS EDUARDO (obstructive sleep apnea) Plaque psoriasis Psoriasis Psychiatric care Restless leg syndrome Surgical History H/O hernia repair History of appendectomy History of colonoscopy Family History Family/Other Diabetes Brother Diabetes Grandmother CAD (coronary artery disease) Bleeding disorder Maternal Mother CAD (coronary artery disease) Cancer stomach cancer Denies family history of Clotting disorder Dementia Hyperlipidemia Psychiatric illness Chronic kidney disease (CKD) Suicide Anesthesia complication Family history of premature coronary artery disease Lung disease Hypertension Stroke Social History Smoking and tobacco status: never smoked Second hand smoke exposure: Yes Alcohol intake: never Adopted: No Caregiver/support person: Yes Lives independently: Yes Household members: none Housing: Apartment Marital status: Single Number of children: 0 Number of grandchildren: 0 Highest education level completed: Bachelor's Degree Education level details: Education service: No Current occupational status: disabled Current occupational exposures/hazards: No Pets and animals: No History of recent travel: Yes ([facility] to [place]) Out of state: Yes Leisure activites: music, reading and other Leisure activities details: crafting Sexually active: Yes Current gender identity: Female Anna/Yarsanism: Mosque Special anna needs: No Agree to transfusion: Yes Financial difficulty paying for basics: Somewhat Hard Female Reproductive History: Para: 0 Spontaneous abortions: No Physical Exam Const: GENERAL APPEARANCE: cooperative and comfortable ORIENTATION/CONSCIOUSNESS: Yes awake, Yes oriented to person, Yes oriented to place and Yes oriented to time HENMT: COMMON NORMALS: normocephalic, atraumatic and hearing grossly normal bilaterally HEAD & SCALP: normocephalic and atraumatic Neck/C-Spine: COMMON NORMALS: no JVD Resp: COMMON NORMALS: normal respiratory effort, No retractions, No use of accessory muscles and clear to auscultation bilaterally AUSCULTATION: clear to auscultation bilaterally Cardio: COMMON NORMALS: no JVD, regular rate, regular rhythm and No murmurs present (Cardio) RATE: regular rate RHYTHM: regular rhythm GI: COMMON NORMALS: Soft to palpation and No hepatosplenomegaly present AUSCULTATION: Yes normoactive bowel sounds PALPATION: Yes Soft to palpation, No Tenderness to palpation present (GI), No Guarding due to palpation present (GI) and Yes No hepatosplenomegaly present Extremity: COMMON NORMALS: capillary refill normal and no calf tenderness GENERAL: Yes edema (1+ lower extremities) Neuro: SENSORIUM/ORIENTATION: Yes oriented to person, Yes oriented to place and Yes oriented to time Skin: COMMON NORMALS: no rashes or lesions noted GENERAL SKIN EXAM: no rashes or lesions noted Course Vital Signs: Vital signs: Vital Signs Temperature 97.9 F 06/17/21 16:23 Pulse Rate 86 06/17/21 18:19 Respiratory Rate 20 H 06/17/21 18:52 Blood Pressure 123/60 06/17/21 18:19 Pulse Oximetry 94 06/17/21 18:19 MDM - Chest Pain Medical Decision Making Care signed out to Dr. Mcintyre at change of shift. See final notes for diagnosis and disposition. 55-year-old female with a history of end-stage renal disease on dialysis. She presents with chest discomfort. She was checked out to me at shift change by Dr. Jaeger. Her second troponin did not elevate significantly.She is resting comfortably on my exam. She is not complaining of any pain. Chest x-ray did reveal a right lower lobe atelectasis. Clinically, she does not have pneumonia. She was told return if she develops significant shortness of breath, cough, or other concerning symptoms. Medical Records I reviewed the patient's medical records. Lab Data I reviewed the patient's lab results. : 06/17/21 17:43 06/17/21 17:43 Radiology Impressions Chest X-Ray 06/17/21 16:30 IMPRESSION: 1. Cardiomegaly. 2. Right lower lobe atelectasis versus infiltrate. 3. Left-sided central venous catheter. Laboratory Results WBC 7.2 10^3/uL (4.0-10.0) 06/17/21 17:43 RBC 4.18 10^6/uL (4.1-5.3) 06/17/21 17:43 Hgb 12.8 g/dL (11.5-15.3) 06/17/21 17:43 Hct 41.1 % (37.0-47.0) 06/17/21 17:43 MCV 98.3 fl (81-99) 06/17/21 17:43 MCH 30.6 pg (28.0-34.0) 06/17/21 17:43 MCHC 31.1 g/dL (30.0-36.0) 06/17/21 17:43 RDW 15.6 % (12.1-15.1) H 06/17/21 17:43 Plt Count 143 10^3/cmm (130-400) 06/17/21 17:43 MPV 9.8 fL (7.4-10.4) 06/17/21 17:43 Neut % (Auto) 73.9 % 06/17/21 17:43 Lymph % (Auto) 14.8 % 06/17/21 17:43 Tompkins % (Auto) 5.0 % 06/17/21 17:43 Eos % (Auto) 5.4 % 06/17/21 17:43 Baso % (Auto) 0.6 % 06/17/21 17:43 Neut # (Auto) 5.29 10^3/uL (1.8-7.7) 06/17/21 17:43 Lymph # (Auto) 1.1 10^3/uL (0.8-4.8) 06/17/21 17:43 Tompkins # (Auto) 0.4 10^3/uL (0.2-0.9) 06/17/21 17:43 Eos # (Auto) 0.4 10^3/uL (0.0-0.8) 06/17/21 17:43 Baso # (Auto) 0.0 10^3/uL (0.0-0.1) 06/17/21 17:43 Nucleated RBC % (auto) 0 % 06/17/21 17:43 Nucleated RBCs # 0.0 /100WBC 06/17/21 17:43 Sodium 135 mmol/L (136-145) L 06/17/21 17:43 Potassium 4.8 mmol/L (3.5-5.1) 06/17/21 17:43 Chloride 94 mmol/L (98-107) L 06/17/21 17:43 Carbon Dioxide 26 mmol/L (22-29) 06/17/21 17:43 Anion Gap 19.8 (5-19) H 06/17/21 17:43 BUN 34 mg/dL (6-20) H 06/17/21 17:43 Creatinine 5.4 mg/dL (0.5-0.9) H 06/17/21 17:43 GFR Calculation 8.2 mL/min (90-130) L 06/17/21 17:43 Glucose 83 mg/dL (65-115) 06/17/21 17:43 POC Glucose 80 mg/dL (70-110) 06/17/21 19:47 Calculated Osmolality 287 mOsm/kg (285-295) 06/17/21 17:43 Calcium 9.1 mg/dL (8.5-10.5) 06/17/21 17:43 Total Bilirubin 0.7 mg/dL (0.15-1.2) 06/17/21 17:43 AST 13 U/L (0-32) 06/17/21 17:43 ALT 9 U/L (0-33) 06/17/21 17:43 Alkaline Phosphatase 102 IU/L (35-105) 06/17/21 17:43 Creatine Kinase 30 U/L (26-192) 06/17/21 17:43 Troponin T Baseline 71 ng/L (0-10) H 06/17/21 17:43 Troponin T 120 Minute 45.56 ng/L (0-10) H 06/17/21 19:25 Delta Troponin T -25.44 ABS# (0-10) L 06/17/21 19:25 Total Protein 9.0 g/dL (6.6-8.7) H 06/17/21 17:43 Albumin 4.5 g/dL (3.5-5.2) 06/17/21 17:43 Globulin 4.5 g/dL (1.3-4.6) 06/17/21 17:43 Discharge Plan Discharge Patient Disposition: Home Clinical Impression: Chest pain Condition: Stable Prescriptions: No Action epoetin favio 10,000 unit/mL solution See Rx Instructions .ROUTE .COMPLEX 0RF Rx Instructions: intravenously ;Inject 07472 unit(1ml) Sunday, Sunday, Sunday acetaminophen 325 mg tablet 650 mg PO Q6H PRN (Reason: Pain) 0RF polyethylene glycol 3350 17 gram/dose powder 17 g PO .ONCE A WEEK PRN (Reason: Constipation) 0RF magnesium sulfate (bulk) [Epsom Salt] 100 % crystals 1 applic topical BID Qty: 2500 1RF Rx Instructions: soak feet twice daily for 15 minutes mupirocin 2 % ointment 1 applic topical BID Qty: 22 1RF albuterol sulfate [ProAir HFA] 90 mcg/actuation HFA aerosol inhaler 2 puff INHALATION QID PRN (Reason: shortness of breath or wheezing) 30 Days Qty: 18 5RF Tradjenta 5 mg tablet 5 mg PO DAILY Qty: 90 3RF aspirin [Adult Aspirin Regimen] 81 mg tablet,delayed release (DR/EC) 81 mg PO DAILY 0RF Lactobacillus acidophilus [Acidophilus] Capsule 1 cap PO DAILY 0RF Rx Instructions: administer with large glass of water (DME) Depend Underwear For Women XL Misc See Rx Instructions .ROUTE .MEDSUPPLY Qty: 120 11RF Rx Instructions: As directed, may adjust brand as needed, 4 daily midodrine 5 mg tablet See Rx Instructions .ROUTE .COMPLEX Qty: 30 3RF Rx Instructions: 5mg po on mon,wed, and fri 30 min before dialysis and may repeat another dose if needed nitroglycerin 0.4 mg tablet, sublingual 0.4 mg sublingual Q5M PRN (Reason: chest pain) Qty: 30 6RF Rx Instructions: do not exceed 3 doses per episode miscellaneous medical supply Misc See Rx Instructions miscellaneous .COMPLEX Qty: 1 0RF Rx Instructions: 2L O2 by NC with activity; portable oxygen machine with supplies trazodone 150 mg tablet 75 - 150 mg PO BEDTIME Qty: 30 2RF Wellbutrin XL 150 mg tablet extended release 24 hr 150 mg PO DAILY Qty: 30 3RF citalopram [Celexa] 20 mg tablet 20 mg PO DAILY Qty: 30 3RF pravastatin 10 mg tablet 10 mg PO DAILY Qty: 30 5RF clopidogrel [Plavix] 75 mg tablet 75 mg PO DAILY 90 Days Qty: 90 1RF cetirizine [Zyrtec] 10 mg tablet 10 mg PO DAILY 30 Days Qty: 30 5RF miscellaneous medical supply Misc See Rx Instructions miscellaneous .COMPLEX Qty: 1 0RF Rx Instructions: Hospital Bed; head of bed to be elevated at greater than 30 degrees for COPD lanthanum 750 mg tablet,chewable See Rx Instructions .ROUTE .COMPLEX 0RF Rx Instructions: 2 tab po tid with meals and 1 tab with snacks RenaPlex-D 800 mcg-12.5 mg -2,000 unit tablet 1 tab PO DAILY 0RF lidocaine-prilocaine 2.5-2.5 % Cream 1 applic topical . DIRECTED PRN (Reason: unknown) 0RF calcium acetate(phosphat bind) 667 mg capsule 667 mg PO .WITH EVERY MEAL 0RF Humalog KwikPen Insulin 100 unit/mL Insulin Pen See Rx Instructions .ROUTE .COMPLEX 0RF Rx Instructions: sliding scale subcutaneously before meals prn ropinirole 0.5 mg tablet 0.5 mg PO BEDTIME 0RF Breo Ellipta 100-25 mcg/dose blister with device 1 inh inhalation DAILY PRN (Reason: unknown) 0RF Discharge Orders: Discharge ED (Routine); Ordered 06/17/21 Ordered By: Abilio Mcintyre Referrals: Kate Marcelino MD [Primary Care Provider] - 1-3 days Patient Instructions: Chest Pain (ED) Activity Restrictions/Additional Instructions: Return for return of or worsening chest discomfort, development of significant cough, sputum production, shortness of breath, fever greater than 100, any other concerning symptoms. Coding Level of Care Code ED Sheriff Detective for Chg Fwd Documented by User: Abilio Mcintyre DO 06/18/21 00:28 HPI - Chest Pain General: Chief Complaint: Chest Pain Stated Complaint: CP Time Seen by Provider: 06/17/21 16:23 History of Present Illness: 55-year-old female with a history of end-stage renal disease presenting with chest discomfort. [facility] ED PFSH: Medical History Allergic rhinitis Bacteremia no Intracardiac masses or vegetations noted. COPD (chronic obstructive pulmonary disease) Diabetes mellitus Encounter for screening colonoscopy History of 2019 novel coronavirus disease (COVID-19) + swab on 04/12/2020 Insomnia Major depressive disorder, recurrent severe without psychotic features Mixed stress and urge urinary incontinence LUIS EDUARDO (obstructive sleep apnea) Plaque psoriasis Psoriasis Psychiatric care Restless leg syndrome Surgical History H/O hernia repair History of appendectomy History of colonoscopy Family History Family/Other Diabetes Brother Diabetes Grandmother CAD (coronary artery disease) Bleeding disorder Maternal Mother CAD (coronary artery disease) Cancer stomach cancer Denies family history of Clotting disorder Dementia Hyperlipidemia Psychiatric illness Chronic kidney disease (CKD) Suicide Anesthesia complication Family history of premature coronary artery disease Lung disease Hypertension Stroke Social History Smoking and tobacco status: never smoked Second hand smoke exposure: Yes Alcohol intake: never Adopted: No Caregiver/support person: Yes Lives independently: Yes Household members: none Housing: Apartment Marital status: Single Number of children: 0 Number of grandchildren: 0 Highest education level completed: Bachelor's Degree Education level details: Education service: No Current occupational status: disabled Current occupational exposures/hazards: No Pets and animals: No History of recent travel: Yes ([facility] to [place]) Out of state: Yes Leisure activites: music, reading and other Leisure activities details: crafting Sexually active: Yes Current gender identity: Female Anna/Yarsanism: Mosque Special anna needs: No Agree to transfusion: Yes Financial difficulty paying for basics: Somewhat Hard Course Vital Signs: Vital signs: Vital Signs Temperature 97.9 F 06/17/21 16:23 Pulse Rate 86 06/17/21 18:19 Respiratory Rate 20 H 06/17/21 18:52 Blood Pressure 123/60 06/17/21 18:19 Pulse Oximetry 94 06/17/21 18:19 MDM - Chest Pain Medical Decision Making 55-year-old female with a history of end-stage renal disease on dialysis. She presents with chest discomfort. She was checked out to me at shift change by Dr. Jaeger. Her second troponin did not elevate significantly.She is resting comfortably on my exam. She is not complaining of any pain. Chest x-ray did reveal a right lower lobe atelectasis. Clinically, she does not have pneumonia. She was told return if she develops significant shortness of breath, cough, or other concerning symptoms. Lab Data : 06/17/21 17:43 06/17/21 17:43 Radiology Impressions Chest X-Ray 06/17/21 16:30 IMPRESSION: 1. Cardiomegaly. 2. Right lower lobe atelectasis versus infiltrate. 3. Left-sided central venous catheter. Laboratory Results WBC 7.2 10^3/uL (4.0-10.0) 06/17/21 17:43 RBC 4.18 10^6/uL (4.1-5.3) 06/17/21 17:43 Hgb 12.8 g/dL (11.5-15.3) 06/17/21 17:43 Hct 41.1 % (37.0-47.0) 06/17/21 17:43 MCV 98.3 fl (81-99) 06/17/21 17:43 MCH 30.6 pg (28.0-34.0) 06/17/21 17:43 MCHC 31.1 g/dL (30.0-36.0) 06/17/21 17:43 RDW 15.6 % (12.1-15.1) H 06/17/21 17:43 Plt Count 143 10^3/cmm (130-400) 06/17/21 17:43 MPV 9.8 fL (7.4-10.4) 06/17/21 17:43 Neut % (Auto) 73.9 % 06/17/21 17:43 Lymph % (Auto) 14.8 % 06/17/21 17:43 Tompkins % (Auto) 5.0 % 06/17/21 17:43 Eos % (Auto) 5.4 % 06/17/21 17:43 Baso % (Auto) 0.6 % 06/17/21 17:43 Neut # (Auto) 5.29 10^3/uL (1.8-7.7) 06/17/21 17:43 Lymph # (Auto) 1.1 10^3/uL (0.8-4.8) 06/17/21 17:43 Tompkins # (Auto) 0.4 10^3/uL (0.2-0.9) 06/17/21 17:43 Eos # (Auto) 0.4 10^3/uL (0.0-0.8) 06/17/21 17:43 Baso # (Auto) 0.0 10^3/uL (0.0-0.1) 06/17/21 17:43 Nucleated RBC % (auto) 0 % 06/17/21 17:43 Nucleated RBCs # 0.0 /100WBC 06/17/21 17:43 Sodium 135 mmol/L (136-145) L 06/17/21 17:43 Potassium 4.8 mmol/L (3.5-5.1) 06/17/21 17:43 Chloride 94 mmol/L (98-107) L 06/17/21 17:43 Carbon Dioxide 26 mmol/L (22-29) 06/17/21 17:43 Anion Gap 19.8 (5-19) H 06/17/21 17:43 BUN 34 mg/dL (6-20) H 06/17/21 17:43 Creatinine 5.4 mg/dL (0.5-0.9) H 06/17/21 17:43 GFR Calculation 8.2 mL/min (90-130) L 06/17/21 17:43 Glucose 83 mg/dL (65-115) 06/17/21 17:43 POC Glucose 80 mg/dL (70-110) 06/17/21 19:47 Calculated Osmolality 287 mOsm/kg (285-295) 06/17/21 17:43 Calcium 9.1 mg/dL (8.5-10.5) 06/17/21 17:43 Total Bilirubin 0.7 mg/dL (0.15-1.2) 06/17/21 17:43 AST 13 U/L (0-32) 06/17/21 17:43 ALT 9 U/L (0-33) 06/17/21 17:43 Alkaline Phosphatase 102 IU/L (35-105) 06/17/21 17:43 Creatine Kinase 30 U/L (26-192) 06/17/21 17:43 Troponin T Baseline 71 ng/L (0-10) H 06/17/21 17:43 Troponin T 120 Minute 45.56 ng/L (0-10) H 06/17/21 19:25 Delta Troponin T -25.44 ABS# (0-10) L 06/17/21 19:25 Total Protein 9.0 g/dL (6.6-8.7) H 06/17/21 17:43 Albumin 4.5 g/dL (3.5-5.2) 06/17/21 17:43 Globulin 4.5 g/dL (1.3-4.6) 06/17/21 17:43 Discharge Plan Discharge Patient Disposition: Home Clinical Impression: Chest pain Condition: Stable Prescriptions: No Action epoetin favio 10,000 unit/mL solution See Rx Instructions .ROUTE .COMPLEX 0RF Rx Instructions: intravenously ;Inject 35767 unit(1ml) Sunday, Sunday, Sunday acetaminophen 325 mg tablet 650 mg PO Q6H PRN (Reason: Pain) 0RF polyethylene glycol 3350 17 gram/dose powder 17 g PO .ONCE A WEEK PRN (Reason: Constipation) 0RF magnesium sulfate (bulk) [Epsom Salt] 100 % crystals 1 applic topical BID Qty: 2500 1RF Rx Instructions: soak feet twice daily for 15 minutes mupirocin 2 % ointment 1 applic topical BID Qty: 22 1RF albuterol sulfate [ProAir HFA] 90 mcg/actuation HFA aerosol inhaler 2 puff INHALATION QID PRN (Reason: shortness of breath or wheezing) 30 Days Qty: 18 5RF Tradjenta 5 mg tablet 5 mg PO DAILY Qty: 90 3RF aspirin [Adult Aspirin Regimen] 81 mg tablet,delayed release (DR/EC) 81 mg PO DAILY 0RF Lactobacillus acidophilus [Acidophilus] Capsule 1 cap PO DAILY 0RF Rx Instructions: administer with large glass of water (DME) Depend Underwear For Women XL [facility] See Rx Instructions .ROUTE .MEDSUPPLY Qty: 120 11RF Rx Instructions: As directed, may adjust brand as needed, 4 daily midodrine 5 mg tablet See Rx Instructions .ROUTE .COMPLEX Qty: 30 3RF Rx Instructions: 5mg po on mon,wed, and fri 30 min before dialysis and may repeat another dose if needed nitroglycerin 0.4 mg tablet, sublingual 0.4 mg sublingual Q5M PRN (Reason: chest pain) Qty: 30 6RF Rx Instructions: do not exceed 3 doses per episode miscellaneous medical supply Mis See Rx Instructions miscellaneous .COMPLEX Qty: 1 0RF Rx Instructions: 2L O2 by NC with activity; portable oxygen machine with supplies trazodone 150 mg tablet 75 - 150 mg PO BEDTIME Qty: 30 2RF Wellbutrin XL 150 mg tablet extended release 24 hr 150 mg PO DAILY Qty: 30 3RF citalopram [Celexa] 20 mg tablet 20 mg PO DAILY Qty: 30 3RF pravastatin 10 mg tablet 10 mg PO DAILY Qty: 30 5RF clopidogrel [Plavix] 75 mg tablet 75 mg PO DAILY 90 Days Qty: 90 1RF cetirizine [Zyrtec] 10 mg tablet 10 mg PO DAILY 30 Days Qty: 30 5RF miscellaneous medical supply Misc See Rx Instructions miscellaneous .COMPLEX Qty: 1 0RF Rx Instructions: Hospital Bed; head of bed to be elevated at greater than 30 degrees for COPD lanthanum 750 mg tablet,chewable See Rx Instructions .ROUTE .COMPLEX 0RF Rx Instructions: 2 tab po tid with meals and 1 tab with snacks RenaPlex-D 800 mcg-12.5 mg -2,000 unit tablet 1 tab PO DAILY 0RF lidocaine-prilocaine 2.5-2.5 % Cream 1 applic topical . DIRECTED PRN (Reason: unknown) 0RF calcium acetate(phosphat bind) 667 mg capsule 667 mg PO .WITH EVERY MEAL 0RF Humalog KwikPen Insulin 100 unit/mL Insulin Pen See Rx Instructions .ROUTE .COMPLEX 0RF Rx Instructions: sliding scale subcutaneously before meals prn ropinirole 0.5 mg tablet 0.5 mg PO BEDTIME 0RF Breo Ellipta 100-25 mcg/dose blister with device 1 inh inhalation DAILY PRN (Reason: unknown) 0RF Discharge Orders: Discharge ED (Routine); Ordered 06/17/21 Ordered By: Abilio Mcintyre Referrals: Kate Marcelino MD [Primary Care Provider] - 1-3 days Patient Instructions: Chest Pain (ED) Activity Restrictions/Additional Instructions: Return for return of or worsening chest discomfort, development of significant cough, sputum production, shortness of breath, fever greater than 100, any other concerning symptoms. Coding Level of Care Code ED Sheriff Detective for Kulwinder Hilario
--- NOTE | 2021-06-17 16:30 | XRR_ITS ---
PROCEDURE INFORMATION: Exam: XR Chest Exam date and time: 06/17/2021 4:30 PM Age: 55 years old Clinical indication: Pain; Chest pressure; Additional info: Chest pain TECHNIQUE: Imaging protocol: XR of the chest. Views: 1 view. COMPARISON: CR XR chest 1V portable [id number] 04/25/2021 3:10 PM FINDINGS: Tubes, catheters and devices: Left-sided central venous catheter. Lungs: Right lower lobe atelectasis versus infiltrate. Pleural spaces: Unremarkable. No pleural effusion. No pneumothorax. Heart/Mediastinum: Cardiomegaly. Bones/joints: Unremarkable. XR/XR chest 1V portable [id number] IMPRESSION: 1. Cardiomegaly. 2. Right lower lobe atelectasis versus infiltrate. 3. Left-sided central venous catheter.
--- NOTE | 2021-06-17 16:30 | ECG_ITS ---
[facility] Test Date: 2021-06-17 Pat Name: Kerri Fregoso Department: Room: Gender: Female E Tailer: : 1965 Requested By: Fritz Alejandre Order Number: [id number] Reading MD: Armaan Palacios M.D. Measurements Intervals [place] Rate: 95 P: -12 TX: 151 QRS: -11 QRSD: 82 T: 51 QT: 351 QTc: 443 Interpretive Statements SINUS RHYTHM LOW QRS VOLTAGE IN PRECORDIAL LEADS [QRS DEFLECTION < 1.0 mV IN CHEST LEADS] POSSIBLE RIGHT VENTRICULAR CONDUCTION DELAY [RSR (QR) IN V1/V2] ANTEROSEPTAL MYOCARDIAL INFARCTION , OF INDETERMINATE AGE [40+ ms Q WAVE IN V1-V4] Compared to ECG 04/18/2021 17:08:11 Sinus tachycardia no longer present Myocardial infarct finding still present Electronically Signed On 06-18-2021 6:57:53 OFFICE AUTOMATION CLERK by Armaan Palacios M.D. [email or web address]mentsGeeklistmercy health urbana hospitalHealthy [employer]store/[id number]
[2021-06-17 16:45] VITALS: BP 132/67; PULSE 90; RESP 16
--- NOTE | 2021-06-17 17:10 | PC.PHAR ---
medications entered are meds that she states she takes and what ext med history shows has been filled recently-notes are made in the pharmacy comments
[2021-06-17 17:51] LABS: Basophils % 0.6 %; Eosinophils # 0.4 10^3/uL (0.0-0.8); Eosinophils % 5.4 %; Hematocrit 41.1 % (37.0-47.0); Hemoglobin 12.8 g/dL (11.5-15.3); Lymphocytes # 1.1 10^3/uL (0.8-4.8); Lymphocytes % 14.8 %; Mean Corpuscular HGB Conc 31.1 g/dL (30.0-36.0); Mean Corpuscular Hemoglobin 30.6 pg (28.0-34.0); Mean Corpuscular Volume 98.3 fl (81-99); Mean Platelet Volume 9.8 fL (7.4-10.4); Monocytes # 0.4 10^3/uL (0.2-0.9); Neutrophils # 5.29 10^3/uL (1.8-7.7); Neutrophils % 73.9 %; Nucleated Red Blood Cells % 0 %; Platelet Count 143 10^3/cmm (130-400); Red Blood Count 4.18 10^6/uL (4.1-5.3); Red Cell Distribution Width 15.6 % (12.1-15.1); White Blood Count 7.2 10^3/uL (4.0-10.0)
[2021-06-17 18:14] LABS: Troponin(5th) Baseline 71 ng/L (0-10)
[2021-06-17 18:16] LABS: Alanine Aminotransferase 9 U/L (0-33); Albumin Level 4.5 g/dL (3.5-5.2); Alkaline Phosphatase 102 IU/L (35-105); Anion Gap 19.8 (5-19); Aspartate Amino Transferase 13 U/L (0-32); Blood Urea Nitrogen 34 mg/dL (6-20); Calcium 9.1 mg/dL (8.5-10.5); Carbon Dioxide 26 mmol/L (22-29); Chloride 94 mmol/L (98-107); Creatine Phosphokinase 30 U/L (26-192); Globulin 4.5 g/dL (1.3-4.6); Glomerular Filtration Rate 8.2 mL/min (90-130); Glucose 83 mg/dL (65-115); Osmolality Calculated 287 mOsm/kg (285-295); Potassium 4.8 mmol/L (3.5-5.1); Sodium 135 mmol/L (136-145); Total Bilirubin 0.7 mg/dL (0.15-1.2)
[2021-06-17 18:19] VITALS: BP 123/60; PULSE 86; RESP 20; O2SAT 94
--- NOTE | 2021-06-17 18:19 | PC.NURSE ---
Continuous cardiac, BP, and SpO2 monitoring initiated upon arrival into room.
--- NOTE | 2021-06-17 18:30 | ECG_ITS ---
[facility] Test Date: 2021-06-17 Pat Name: Kerri Fregoso Department: Room: Gender: Female Rnfa: : 1965 Requested By: Fritz Alejandre Order Number: [id number] Marisela MD: Jono Wilson M.D. Measurements Intervals [place] Rate: 88 P: 5 WA: 161 QRS: -19 QRSD: 81 T: 56 QT: 372 QTc: 451 Interpretive Statements SINUS RHYTHM LOW QRS VOLTAGE IN PRECORDIAL LEADS [QRS DEFLECTION < 1.0 mV IN CHEST LEADS] POSSIBLE RIGHT VENTRICULAR CONDUCTION DELAY [RSR (QR) IN V1/V2] ANTEROSEPTAL MYOCARDIAL INFARCTION , OF INDETERMINATE AGE [40+ ms Q WAVE IN V1-V4] Compared to ECG 06/17/2021 16:34:40 No significant changes Electronically Signed On 06-18-2021 18:06:07 STAFFING ADMINISTRATOR by Jono Wilson M.D. [id number]
[2021-06-17 18:52] VITALS: RESP 20
[2021-06-17] MEDS: fentaNYL 50 mcg/mL INJ 2mL IVP (18:52)
[2021-06-17 19:54] LABS: Troponin 5 2HR 45.56 ng/L (0-10)
[2021-06-18 03:59] LABS: Glucose Point of Care 80 mg/dL (70-110)
== END 2021-06-17 22:06 | disposition home or self-care (01) ==
PROVIDERS: Family Medicine; Emergency Provider Emergency Medicine; PCP Family Medicine
DX: R07.9 Chest pain, unspecified (principal); Z79.02 Long term (current) use of antithrombotics/antiplatelets; Z79.82 Long term (current) use of aspirin; Z79.4 Long term (current) use of insulin; J44.9 Chronic obstructive pulmonary disease, unspecified; E11.9 Type 2 diabetes mellitus without complications; Z77.22 Contact with and (suspected) exposure to environmental tobacco smoke (acute) (chronic)
CPT/HCPCS: 36416; 71045; 80053; 82550; 82962; 84484; 85025; 93005; 96374; 99284; J3010

== ENCOUNTER → 2021-06-21 14:40 | Outpatient (BNVA) | payer MEDICARE, MEDICAID, SELFPAY ==
[2021-04-19 15:32] VITALS: BP 104/58; BMI 38.5
== END ==
PROVIDERS: PCP Family Medicine; Visit Provider Family Medicine
DX: G25.81 Restless legs syndrome (principal); E11.22 Type 2 diabetes mellitus with diabetic chronic kidney disease; N18.6 End stage renal disease; J44.9 Chronic obstructive pulmonary disease, unspecified; G47.33 Obstructive sleep apnea (adult) (pediatric); N39.46 Mixed incontinence; R15.9 Full incontinence of feces; R15.2 Fecal urgency
CPT/HCPCS: 83036

== ENCOUNTER 2021-07-05 13:46 | Outpatient (CLI) | payer MEDICARE, MEDICAID, SELFPAY ==
[2020-05-25 09:01] VITALS: BP 153/85; BMI 44.4
[2021-04-19 15:32] VITALS: BP 104/58; BMI 38.5
--- NOTE | 2021-07-05 14:04 | MM_ITS ---
WS: [id number] Bilateral screening 3D tomosynthesis digital mammogram, 07/05/2021 Clinical Data: SCREENING Comparison: 02/26/2020, 03/11/2019, 02/14/2018, 09/14/2015, 11/04/2012. Findings: The breast parenchymal pattern shows fibroglandular tissue No spiculated masses or clustered calcific ations are seen. There are no secondary signs of carcinoma. There are scattered benign calcifications throughout both breasts. There are large veins overlying both breasts. There is a dialysis catheter overlying the medial aspect of the left breast. MM/[id number] Impression: 1. Negative bilateral mammogram unchanged. 2. Recommend annual screening mammograms. BIRADS: 2-Benign FOLLOW UP: 1 Year Follow-up The [employer] aircraft shipping checker was used.
== END 2021-07-05 13:47 | disposition home or self-care (01) ==
LOC: RAD 13:49
PROVIDERS: PCP Family Medicine; Visit Provider Family Medicine
DX: Z12.31 Encounter for screening mammogram for malignant neoplasm of breast (principal)
CPT/HCPCS: 77063; 77067

== ENCOUNTER 2021-07-25 15:46 | Inpatient (IN) | payer MEDICARE, MEDICAID, SELFPAY ==
[2021-04-19 15:32] VITALS: BP 104/58; BMI 38.5
[2021-07-25] VITALS (54 sets, daily range): BP systolic 90–144; BP diastolic 43–93; PULSE 50–107; RESP 9–35; TEMP 36.7–37.1; O2SAT 90–100
--- NOTE | 2021-07-25 16:02 | ECG_ITS ---
[facility] Test Date: 2021-07-25 Pat Name: Kerri Fregoso Department: Room: [facility] Gender: Female Wet [place] Head: : 1965 Requested By: Era Dunn Order Number: [id number] Marisela MD: Armaan Palacios M.D. Measurements Intervals [place] Rate: 72 P: [place]: QRS: -55 QRSD: 102 T: 11 QT: 435 QTc: 478 Interpretive Statements ATRIAL FIBRILLATION LOW QRS VOLTAGE IN PRECORDIAL LEADS [QRS DEFLECTION < 1.0 mV IN CHEST LEADS] INFERIOR MYOCARDIAL INFARCTION , PROBABLY OLD [40+ ms Q WAVE AND/OR ST/T ABNORMALITY IN II/aVF] Compared to ECG 06/17/2021 18:27:29 ST (T wave) deviation now present Sinus rhythm no longer present Myocardial infarct finding still present Electronically Signed On 07-26-2021 9:18:33 CDT by Armaan Palacios M.D. [id number]
[2021-07-25] MEDS: heparin 5,000 unit/mL INJ 1 mL 5000 UNIT SUBCUT (16:19)
--- NOTE | 2021-07-25 16:26 | PM.CONSULT ---
Providers/Reason For Consult Consulting Physician/Specialty*: alice law md / telenephrology Reason for Consult*: ESRD, htn, hyoerkalemia Requesting Physician: Dr Analia Dunn Attending Physician: Era Dunn MD Primary Care Provider: Kate Marcelino MD History of Present Illness History of Present Illness Kerri Fregoso is a 55 year old female h/o ESRD, Psoriasis, COPD- home 0 2 dep, depression, anemia, IDDM. Pt last had HD on 07-22-21. Pt is here w/ sob, falls, weakness. Pt has ecchymosis on face and facial laceration w/ stitches. Review of Systems Narrative: weak, falls, sob, face laceration, cp, sob, edema, insomnia. Medications/Allergies Home Medications Medication Instructions Recorded Confirmed Last Taken Type lanthanum 750 mg chewable tablet See Rx Instructions .ROUTE .COMPLEX 12/12/19 06/23/21 10/19/20 History vit B,C-folic ac 800 mcg-zinc 12.5 1 tab PO DAILY 12/12/19 06/23/21 10/19/20 History mg-selen-D3 2,000 unit-vit E tablet (RenaPlex-D) diaper,brief,adult,disposable #120 each 02/04/20 06/23/21 Unknown Rx (Depend Underwear For Women XL) miscellaneous medical supply See Rx Instructions MISCELLANEOUS 02/09/20 06/23/21 Unknown Rx .COMPLEX #1 each acetaminophen 325 mg tablet 650 mg PO Q6H PRN tab 05/12/20 06/23/21 06/17/21 History polyethylene glycol 3350 17 17 g PO .ONCE A WEEK PRN 05/12/20 06/23/21 Unknown History gram/dose oral powder magnesium sulfate (bulk) 100 % 1 applic TOPICAL BID #2500 g 05/19/20 06/23/21 10/19/20 Rx crystals (Epsom Salt) mupirocin 2 % topical ointment 1 applic TOPICAL BID #22 g 05/19/20 06/23/21 10/19/20 Rx Lactobacillus acidophilus 1 cap PO DAILY 09/06/20 06/23/21 10/19/20 History (Acidophilus) aspirin 81 mg tablet,delayed 81 mg PO DAILY 09/06/20 06/23/21 10/19/20 History release (Adult Aspirin Regimen) albuterol sulfate 90 mcg/actuation 2 puff INHALATION QID PRN 30 Days 10/18/20 06/23/21 10/19/20 Rx aerosol inhaler (ProAir HFA) #18 gm miscellaneous medical supply See Rx Instructions MISCELLANEOUS 11/03/20 06/23/21 Unknown Rx .COMPLEX #1 ea linagliptin 5 mg tablet (Tradjenta) 5 mg PO DAILY #90 tab 01/20/21 06/23/21 Unknown Rx midodrine 5 mg tablet See Rx Instructions .ROUTE 01/27/21 06/23/21 Unknown Rx .COMPLEX #30 tab nitroglycerin 0.4 mg sublingual 0.4 mg SUBLINGUAL Q5M PRN #30 tab 01/27/21 06/23/21 Unknown Rx tablet bupropion HCl 150 mg 24 hr tablet, 150 mg PO DAILY #30 tab 04/14/21 06/23/21 Unknown Rx extended release (Wellbutrin XL) citalopram 20 mg tablet (Celexa) 20 mg PO DAILY #30 tab 04/14/21 06/23/21 Unknown Rx trazodone 150 mg tablet 75 - 150 mg PO BEDTIME #30 tab 04/14/21 06/23/21 Unknown Rx cetirizine 10 mg tablet (Zyrtec) 10 mg PO DAILY 30 Days #30 tab 05/17/21 06/23/21 Unknown Rx clopidogrel 75 mg tablet (Plavix) 75 mg PO DAILY 90 Days #90 tab 05/17/21 06/23/21 Unknown Rx pravastatin 10 mg tablet 10 mg PO DAILY #30 tab 05/17/21 06/23/21 Unknown Rx calcium acetate(phosphat bind) 667 667 mg PO .WITH EVERY MEAL 06/17/21 06/23/21 Unknown History mg capsule fluticasone furoate 100 1 inh INHALATION DAILY PRN 06/17/21 06/23/21 Unknown History mcg-vilanterol 25 mcg/dose inhalation powder (Breo Ellipta) insulin lispro 100 unit/mL See Rx Instructions .ROUTE .COMPLEX 06/17/21 06/23/21 Unknown History subcutaneous pen (Humalog KwikPen (U-100) Insulin) alcohol swabs 1 pad TOPICAL TID PRN 30 Days #100 06/21/21 06/23/21 Unknown Rx ea blood sugar diagnostic (Blood #50 ea 06/21/21 06/23/21 Unknown Rx Glucose Test) blood-glucose meter (Blood Glucose #1 ea 06/21/21 06/23/21 Unknown Rx Monitoring) lancets #100 ea 06/21/21 06/23/21 Unknown Rx ropinirole 0.5 mg tablet 0.5 mg PO BEDTIME 90 Days #90 tab 06/21/21 06/23/21 Unknown Rx triamcinolone acetonide 0.1 % 1 applic TOPICAL BID #453.6 g 06/23/21 06/23/21 Unknown Rx topical ointment Allergies Allergy/AdvReac Type Severity Reaction Status Date / Time codeine Allergy algy-rash Verified 06/23/21 14:36 latex Allergy algy-rash Verified 06/23/21 14:36 Milk Containing Products Allergy ADR-Abdominal Verified 06/23/21 14:36 Pain penicillamine Allergy ALGY-Difficulty Verified 06/23/21 14:36 Swallowing Current Medications Generic Name Dose Route Start Last Admin Trade Name Freq PRN Reason Stop Dose Admin Heparin Sodium (Porcine) 5,000 unit 07/25/21 16:15 07/25/21 16:19 Heparin 5,000 Unit/Ml Inj 1 Ml SUBCUT 5,000 unit Q12H ABIGAIL Administration PFSH Acute PFSH: Medical History (Updated 07/25/21 @ 14:16 by Era Dunn MD) Allergic rhinitis Anemia Asthma Bacteremia due to methicillin susceptible Staphylococcus aureus (MSSA) (~04/2021) no intracardiac masses or vegetations noted COPD (chronic obstructive pulmonary disease) Diabetes mellitus Diabetic retinopathy Dysphagia Motility disorder End stage renal disease on dialysis Fecal incontinence History of 2019 novel coronavirus disease (COVID-19) + swab on 04/12/2020 History of colon polyps History of gastric polyp Hyperlipidemia associated with type 2 diabetes mellitus Insomnia Major depressive disorder, recurrent severe without psychotic features Mixed stress and urge urinary incontinence Obesity, morbid, BMI 40.0-49.9 LUIS EDUARDO (obstructive sleep apnea) Plaque psoriasis Psychiatric care Restless leg syndrome Surgical History (Updated 07/25/21 @ 14:16 by Era Dunn MD) H/O hernia repair History of appendectomy History of colonoscopy History of colonoscopy with polypectomy Family History Family/Other Diabetes Brother Diabetes Grandmother CAD (coronary artery disease) Bleeding disorder Maternal Mother CAD (coronary artery disease) Cancer stomach cancer Denies family history of Clotting disorder Dementia Hyperlipidemia Psychiatric illness Chronic kidney disease (CKD) Suicide Anesthesia complication Family history of premature coronary artery disease Lung disease Hypertension Stroke Social History Smoking and tobacco status: never smoked Second hand smoke exposure: Yes Alcohol intake: never Adopted: No Caregiver/support person: Yes Lives independently: Yes Household members: none Housing: Apartment Marital status: Single Number of children: 0 Number of grandchildren: 0 Highest education level completed: Bachelor's Degree Education level details: Education service: No Current occupational status: disabled Current occupational exposures/hazards: No Pets and animals: No History of recent travel: Yes ([facility] to [place]) Out of state: Yes Leisure activites: music, reading and other Leisure activities details: crafting Sexually active: Yes Current gender identity: Female Anna/Mosque: Sikhism Special anna needs: No Agree to transfusion: Yes Financial difficulty paying for basics: Somewhat Hard Female Reproductive History: Para: 0 Spontaneous abortions: No Vitals/I&O/Wt Last Vital Signs Temp 98.7 F 07/25/21 16:10 Pulse 74 07/25/21 16:10 Resp 22 H 07/25/21 16:10 BP 118/93 07/25/21 16:10 Pulse Ox 91 07/25/21 16:10 Weight last 48 hrs Weight 109.939 kg Physical Exam Narrative: sob, uncomfortable in bed vs noted heent- face laceration, ecchymosis neck supple lungs- crackles and wheezes Left sided permacath heart reg abd soft, nt, nd ext b/l edmea LUE AVF neuro- a,a, o 2+ skin- psoriasis A&P Assessment and plan (1) End stage renal disease on dialysis: 55 year old female 1. eSRD- hd now- 3.5 hrs- 2k, remove 3 liter as laina 2. HTN - monitor w/ hd 3. dm control 4 monitor hgb 5. copd/ LUIS EDUARDO- on home 02 6. face trauma 7. monitor phos and pth seen and examine dw/ rn- telehealth visit informed consdent for telehealth obtained Status: Chronic Consult Attestations Medical Necessity Statement: hyperkalemia, falls, ESRD Time Spent in Patient Care: Greater than 35 minutes (>than 50% of time spent in counselling and/or direct pt care on unit). Coding Level of Care Code Acute Waste Collection Driver for Maurig Fwaldo Diagnoses End stage renal disease on dialysis N18.6; Z99.2
[2021-07-25 16:33] LABS: Arterial Blood Gas Hematocrit 34.6 % (37-47); Base Excess ABG -8.5 mmol/L (-2.0-2.0); Blood Gas Allen Test Pos; Blood Gas Operator Identificat BD; Blood Gas Sample Site Brachial, right; Blood Gas Sample Type Arterial; HCO3 ABG 22.1 mmol/L (22-26); Oxygen Device NRB; PO2 ABG 79.2 mmHg (80.0-100.0)
[2021-07-25 16:36] LABS: ABG PCO2 72.6 mmHg (35-45); ABG PH Result 7.09 (7.35-7.45)
--- NOTE | 2021-07-25 16:41 | P.HP_ITS ---
Providers/Chief Complaint Admitting Physician: Era Dunn MD Primary Care Provider: Kate Marcelino MD Chief Complaint: Hyperkalemia History of Present Illness Kerri Fregoso is a 55 year old female known to have chronic kidney disease on hemodialysis Wednesdays and Fridays. She has other comorbid conditions as outlined below. She presented to [facility] emergency room today with weakness and what was described as a fall and nursing records there. From what the ER doctor told me she was weak after getting up and slid down the wall. No injuries today. She had been seen over the weekend at [facility] after another fall in which she sustained a laceration to her head on the forehead. She has stitches in place from that injury. She has been weak and tired since then. Denies new double vision. Does report some discomfort in her head and hurting all over. Some nausea today but no vomiting. Denied any new neurological symptoms other than the weakness. No reports of any fevers. Work- up in the ER at [facility] revealed a potassium of 8.7. BUN and creatinine are 131/12. Request was made for transfer for emergent dialysis. Again today is her usual dialysis day but she was too weak to get up to make her usual appointment. In the emergency room there she received a 500 cc normal saline bolus, sodium bicarbonate, insulin and D50, calcium gluconate and a dose of Kayexalate as well as a nebulizer treatment prior to transfer. She was noted to be requiring heated high flow at [facility] and was transported with a nonrebreather in place. Nephrology was consulted and saw Mrs. Li just after arrival. Dialysis nurse is here. Patient is lethargic and requires frequent wakening but does awaken and answer questions with yes no and occasionally a bit of information in 1-2 word answers. 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 She is recently had dialysis catheter placement there at [facility] occurring since the last one was placed here in April. From the information that the dialysis nurse obtained, patient has been having difficulty at dialysis lately despite attending Mondays, Wednesdays and Fridays where they have not been able to clean out her blood like to due to challenges with the dialysis catheters. Review of Systems Const: Reports: body aches and fatigue; Denies: fever(s) or chills Eyes: Reports: blurry vision (Sometimes, including intermittent double vision); Denies: change in vision ENMT: Denies: throat pain or nasal congestion Card: Reports: palpitations, edema and orthopnea; Denies: chest pain Resp: Reports: dyspnea and non-productive cough; Denies: hemoptysis GI: Reports: abdominal pain and nausea; Denies: vomiting, diarrhea or hematochezia : Reports: other (No longer makes urine) Musc: Reports: other (Hurting all over) Skin/Breast: Reports: new lesions (Sutures at laceration on forehead) and lesions (Known plaque psoriasis, denies new skin lesions beyond her forehead) Neuro: Reports: headache(s), numbness in extremities (Chronic neuropathy), weakness in extremities (General rather than focal) and frequent falls Psych: Reports: depression Medications/Allergies Home Medications Medication Instructions Recorded Confirmed Last Taken Type lanthanum 750 mg chewable tablet See Rx Instructions .ROUTE .COMPLEX 12/12/19 07/25/21 10/19/20 History vit B,C-folic ac 800 mcg-zinc 12.5 1 tab PO DAILY 12/12/19 07/25/21 10/19/20 History mg-selen-D3 2,000 unit-vit E tablet (RenaPlex-D) diaper,brief,adult,disposable #120 each 02/04/20 07/25/21 Unknown Rx (Depend Underwear For Women XL) miscellaneous medical supply See Rx Instructions MISCELLANEOUS 02/09/20 07/25/21 Unknown Rx .COMPLEX #1 each acetaminophen 325 mg tablet 650 mg PO Q6H PRN tab 05/12/20 07/25/21 06/17/21 History polyethylene glycol 3350 17 17 g PO .ONCE A WEEK PRN 05/12/20 07/25/21 Unknown History gram/dose oral powder magnesium sulfate (bulk) 100 % 1 applic TOPICAL BID #2500 g 05/19/20 07/25/21 10/19/20 Rx crystals (Epsom Salt) Lactobacillus acidophilus 1 cap PO QPM 09/06/20 07/25/21 10/19/20 History (Acidophilus) aspirin 81 mg tablet,delayed 81 mg PO QPM 09/06/20 07/25/21 10/19/20 History release (Adult Aspirin Regimen) albuterol sulfate 90 mcg/actuation 2 puff INHALATION QID PRN 30 Days 10/18/20 07/25/21 10/19/20 Rx aerosol inhaler (ProAir HFA) #18 gm miscellaneous medical supply See Rx Instructions MISCELLANEOUS 11/03/20 07/25/21 Unknown Rx .COMPLEX #1 ea linagliptin 5 mg tablet (Tradjenta) 5 mg PO DAILY #90 tab 01/20/21 07/25/21 Unknown Rx midodrine 5 mg tablet See Rx Instructions .ROUTE 01/27/21 07/25/21 Unknown Rx .COMPLEX #30 tab nitroglycerin 0.4 mg sublingual 0.4 mg SUBLINGUAL Q5M PRN #30 tab 01/27/21 07/25/21 Unknown Rx tablet bupropion HCl 150 mg 24 hr tablet, 150 mg PO DAILY #30 tab 04/14/21 07/25/21 Unknown Rx extended release (Wellbutrin XL) citalopram 20 mg tablet (Celexa) 20 mg PO DAILY #30 tab 04/14/21 07/25/21 Unknown Rx trazodone 150 mg tablet 75 - 150 mg PO BEDTIME #30 tab 04/14/21 07/25/21 Unknown Rx cetirizine 10 mg tablet (Zyrtec) 10 mg PO DAILY 30 Days #30 tab 05/17/21 07/25/21 Unknown Rx clopidogrel 75 mg tablet (Plavix) 75 mg PO DAILY 90 Days #90 tab 05/17/21 07/25/21 Unknown Rx pravastatin 10 mg tablet 10 mg PO DAILY #30 tab 05/17/21 07/25/21 Unknown Rx calcium acetate(phosphat bind) 667 667 mg PO .WITH EVERY MEAL 06/17/21 07/25/21 Unknown History mg capsule fluticasone furoate 100 1 inh INHALATION DAILY PRN 06/17/21 07/25/21 Unknown History mcg-vilanterol 25 mcg/dose inhalation powder (Breo Ellipta) insulin lispro 100 unit/mL See Rx Instructions .ROUTE .COMPLEX 06/17/21 07/25/21 Unknown History subcutaneous pen (Humalog KwikPen (U-100) Insulin) alcohol swabs 1 pad TOPICAL TID PRN 30 Days #100 06/21/21 07/25/21 Unknown Rx ea blood sugar diagnostic (Blood #50 ea 06/21/21 07/25/21 Unknown Rx Glucose Test) blood-glucose meter (Blood Glucose #1 ea 06/21/21 07/25/21 Unknown Rx Monitoring) lancets #100 ea 06/21/21 07/25/21 Unknown Rx ropinirole 0.5 mg tablet 0.5 mg PO BEDTIME 90 Days #90 tab 06/21/21 07/25/21 Unknown Rx triamcinolone acetonide 0.1 % 1 applic TOPICAL BID #453.6 g 06/23/21 07/25/21 Unknown Rx topical ointment cyclobenzaprine 5 mg tablet 5 mg PO TID PRN 07/25/21 07/25/21 Unknown History docusate sodium 100 mg capsule 100 mg PO DAILY PRN 07/25/21 07/25/21 Unknown History (Colace) epoetin beta, methoxy peg 100 100 mcg IV .EVERY 2 WEEKS 07/25/21 07/25/21 Unknown History mcg/0.3 mL injection syringe (Mircera) fluticasone propionate 50 1 spray INTRANASAL DAILY 07/25/21 07/25/21 Unknown History mcg/actuation nasal spray,suspension gabapentin 100 mg capsule 100 mg PO BID 07/25/21 07/25/21 Unknown History lidocaine-prilocaine 2.5 %-2.5 % 1 applic TOPICAL . DIRECTED 07/25/21 07/25/21 Unknown History topical cream multivitamin 1 tab PO DAILY 07/25/21 07/25/21 Unknown History mupirocin 2 % topical ointment 1 applic TOPICAL BID 07/25/21 07/25/21 Unknown History Allergies Allergy/AdvReac Type Severity Reaction Status Date / Time codeine Allergy ALGY-Anaphy Verified 07/25/21 17:26 laxis latex Allergy algy-rash Verified 06/23/21 14:36 penicillamine Allergy ALGY-Difficulty Verified 06/23/21 14:36 Swallowing Penicillins Allergy ALGY-Anaphy Verified 07/25/21 17:26 laxis milk AdvReac ADR-Abdominal Verified 07/25/21 17:54 Pain PFSH Acute PFSH: Medical History (Updated 07/25/21 @ 18:40 by Era Dunn MD) Allergic rhinitis Anemia Asthma Bacteremia due to methicillin susceptible Staphylococcus aureus (MSSA) (~04/2021) no intracardiac masses or vegetations noted COPD (chronic obstructive pulmonary disease) Diabetes mellitus Diabetic retinopathy Dysphagia Motility disorder End stage renal disease on dialysis Fecal incontinence History of 2019 novel coronavirus disease (COVID-19) + swab on 04/12/2020 History of colon polyps History of gastric polyp Hyperlipidemia associated with type 2 diabetes mellitus Insomnia Major depressive disorder, recurrent severe without psychotic features Mixed stress and urge urinary incontinence Obesity, morbid, BMI 40.0-49.9 LUIS EDUARDO (obstructive sleep apnea) on home CPAP or Bipap Plaque psoriasis Psychiatric care Restless leg syndrome Surgical History (Updated 07/25/21 @ 16:52 by Era Dunn MD) A-V fistula left upper extremity, thrombosed H/O hernia repair History of appendectomy History of colonoscopy History of colonoscopy with polypectomy Vascular dialysis catheter in place June 2021 [facility]/28/[facility] Family History Family/Other Diabetes Brother Diabetes Grandmother CAD (coronary artery disease) Bleeding disorder Maternal Mother CAD (coronary artery disease) Cancer stomach cancer Denies family history of Clotting disorder Dementia Hyperlipidemia Psychiatric illness Chronic kidney disease (CKD) Suicide Anesthesia complication Family history of premature coronary artery disease Lung disease Hypertension Stroke Social History (Updated 07/25/21 @ 16:54 by Era Dunn MD) Smoking and tobacco status: never smoked Second hand smoke exposure: Yes Alcohol intake: never Substance/Drug Use: never Adopted: No Caregiver/support person: Yes Lives independently: Yes Household members: none Housing: Apartment Marital status: Single Number of children: 0 Number of grandchildren: 0 Highest education level completed: Bachelor's Degree service: No Current occupational status: disabled Current occupational exposures/hazards: No Pets and animals: No Leisure activites: music, reading and other Leisure activities details: crafting Sexually active: Yes Current gender identity: Female Anna/Mormonism: Yazidi Special anna needs: No Agree to transfusion: Yes Financial difficulty paying for basics: Somewhat Hard Female Reproductive History: Para: 0 Spontaneous abortions: No Vitals/I&O/Wt Last Vital Signs Temp 98.7 F 07/25/21 16:10 Pulse 74 07/25/21 16:10 Resp 22 H 07/25/21 16:10 BP 118/93 07/25/21 16:10 Pulse Ox 91 07/25/21 16:10 Weight last 48 hrs Weight 109.939 kg Physical Exam Narrative: Constitutional: Lethargic, able to awaken with stimuli and she will answer questions with consistent answers on repeated asking, looks both acutely and chronically ill-appearing HEENT: Bruising noted around both eyes with approximately 2 cm long laceration sutured on forehead to the right side with dried blood over it, swelling around the laceration noted. Extraocular movements are intact. Oropharynx with dry lips but moist mucous membranes. BiPAP placed. Neck: Large but supple Respiratory: Decreased, shallow breath sounds with retractions and prominent abdominal breathing, tachypneic prior to being placed on BiPAP; less tachypnea though only able to speak in 1-2 word groupings BiPAP placement, decreased retractions and belly breathing Cardiovascular: Bradycardic but regular rhythm, distant heart sounds, dialysis catheter in place left upper chest Abdomen: Soft, obese, nonlocalizable tenderness : Normal external genitalia, erythema and moisture noted to both groins Extremities: 2+ peripheral edema with chronic stasis changes noted to both lower extremities, no calf tenderness, fistula left upper extremity without palpable thrill Skin: Chronic psoriatic skin changes involving scalp, face, trunk and upper extremities more so than lower extremities; chronic stasis changes noted to both distal extremities with discoloration, no open wounds noted to the feet, peeling nailbeds noted; overall has a bronze appearance to skin Neuro: Lethargic but arousable generally weak but moves all extremities, speech is clear Psych: Flat affect Data : 07/25/21 16:20 Other Labs: Labs from [facility] today are as follows: White count 10, H&H 10.9/36.6, platelet count 119 Sodium 138, potassium 8.7, chloride 98, CO2 21, BUN 131, creatinine 12.1, total bilirubin 0.3, total protein 8.8, albumin 4.4, calcium 7.9, alkaline phosphatase 112, AST 13, ALT 10, lipase 84 Covid testing and influenza testing were negative I do not have any imaging studies or EKG from outside facility at my disposal but was told EKG did not show any acute changes by ER physician there Micro: Microbiology 07/25/21 16:25 Blood Culture - Preliminary Blood SPECIMEN COLLECTED 07/25/21 16:20 Blood Culture - Preliminary Blood SPECIMEN COLLECTED A&P Assessment and plan (1) Weakness: Both acute and chronic, exacerbated by azotemia, hyperkalemia, bradycardia, peripheral neuropathy and likely some home medications. Was able to slide down to the floor with no injury today. Has had recurrent frequent falls notated by primary care provider. Status: Acute (2) Hyperkalemia: No EKG changes noted per outside facility though on arrival here had bradycardia with heart rate in the low 50s which is unusual for her. This is consistent with impact from her hyperkalemia, not on any chronic medications to account for such. Status: Acute (3) Volume overload: Secondary to missing hemodialysis today plus or minus impact of bradycardia Status: Acute Qualifiers: Hypervolemia type: other Qualified Code(s): E87.79 - Other fluid overload (4) Acidosis: Mixed respiratory metabolic alkalosis with compensation Status: Acute (5) Metabolic encephalopathy: Secondary to azotemia, hypercapnia and bradycardia not improving with dialysis already Status: Acute (6) Closed head injury: Happened over the weekend with her fall associated with laceration of the forehead requiring sutures Status: Acute Qualifiers: Encounter type: subsequent encounter Qualified Code(s): S09.90XD - Unspecified injury of head, subsequent encounter (7) End stage renal disease on dialysis: Usual dialysis days Mondays, Wednesdays, Fridays Has nonfunctioning AV fistula in the left upper extremity Has dialysis catheter in place in left upper chest but has been having issues with it, most recent catheter was placed at [facility] and that has occurred since she had a line placed here in April of this year Status: Chronic (8) 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 renal disease): Chronically on insulin Status: Chronic (9) COPD (chronic obstructive pulmonary disease): Not presently definitively acute by history although with respiratory acidosis apparent after being on nonrebreather in route from outside facility, baseline degree of hypercapnia not clear at this point in time though suspect probably in the 50s Has oxygen if needed 2 L by nasal cannula with exertion at home Status: Chronic Qualifiers: COPD type: emphysema Emphysema type: panlobular Qualified Code(s): J43.1 - Panlobular emphysema (10) LUIS EDUARDO (obstructive sleep apnea): Uses home BiPAP Status: Chronic (11) Falls frequently: Multifactorial from neuropathy and other comorbid conditions Status: Chronic (12) Plaque psoriasis: Only using topical treatments, not on any biologic agents Status: Chronic (13) Obesity, morbid, BMI 40.0-49.9: Status: Chronic Plan Inpatient admission Stat nephrology consultation for dialysis After dialysis is complete check chest x-ray and CT of the head without contrast Repeat EKG after dialysis BiPAP therapy Monitor mental status and respiratory status closely for need to intervene further Repeat ABG in a couple of hours Serial neuro exams Repeat laboratory studies in the morning Monitor laceration to forehead for changes and for suture removal ending on length of hospital stay Sliding scale insulin for diabetes Hold home linagliptin Continue home aspirin and Plavix > need to clarify if there is a specific diagnosis for which she is on 2 antiplatelet agents as have been unable to ascertain this this evening Breathing treatments as needed On PhosLo, gets Epogen q2 weeks Continue home gabapentin, as needed Flexeril, Requip, citalopram and bupropion Continue home statin therapy, check CK level Decreased sleeping pill dosage Stool softeners as needed Subcu heparin for DVT prophylaxis Triamcinolone cream for psoriasis N.p.o. until able to come off of BiPAP and then can initiate renal diabetic diet Supportive care otherwise Findings, plans and concerns were discussed with patient is much as she could understand and she was given an opportunity to ask questions though not really alert enough to have them presently Full code though would consider having discussion again with patient when she is more alert Attestations Medical Necessity Statement*: Anticipated stay greater than 2 midnights in a patient presenting with significant weakness, alteration in mental status, found to have potassium greater than 8 and severe metabolic and respiratory acidosis. She is a known dialysis patient who's dialysis day is today however has had recent fall sustaining head injury and has not not missed any dialysis last week. This presented with symptomatic hyperkalemia. She is at high risk of rapid clinical decline without appropriate emergent care and close monitoring. Critical Care Time: The high probability of a clinically significant, sudden or life threatening deterioration of the patient's cardiovascular, renal and pulmonary system(s) required my full and direct attention, intervention and personal management. The critical care time is as shown. This time is in addition to time spent performing any reported procedures but includes the following: [x] Data and vital sign review and interpretation [x] Patient assessment, examination and intervention [x] Documentation [x] Medication orders and management Critical Care Time (min): 78 Coding Level of Care Code Acute [place] Inspector for g Fwd Diagnoses Weakness R53.1 Hyperkalemia E87.5 End stage renal disease on dialysis N18.6; Z99.2 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 renal disease) E11.22; N18.6 Volume overload E87.79 Hypervolemia type: other Acidosis E87.2 COPD (chronic obstructive pulmonary disease) J43.1 COPD type: emphysema Emphysema type: panlobular LUIS EDUARDO (obstructive sleep apnea) G47.33 Obesity, morbid, BMI 40.0-49.9 E66.01 Falls frequently R29.6 Closed head injury S09.90XD Encounter type: subsequent encounter Plaque psoriasis L40.0 Metabolic encephalopathy G93.41
[2021-07-25] MEDS: heparin, porcine 1,000 unit/mL INJ 10 mL 20000 UNIT HE ×2 (17:28→20:31)
[2021-07-25 17:30] LABS: INR 1.02 (0.8-1.2)
[2021-07-25 17:35] LABS: Glucose Point of Care 187 mg/dL (70-110)
[2021-07-25 17:41] LABS: Hepatitis B Surface AB 3.5 (11.5-1000); Hepatitis B Surface Antigen Non-Reactive (Nonreactive); Hepatitis C Virus Antibody Non-Reactive (Nonreactive)
--- NOTE | 2021-07-25 17:41 | CTR_ITS ---
PROCEDURE INFORMATION: Exam: CT Head Without Contrast Exam date and time: 07/25/2021 10:52 PM Age: 55 years old Clinical indication: Injury or trauma; Fall; Laceration; Consciousness not specified; Without residual foreign body; Forehead; Dizziness and weakness, extremity; Injury date: Unknown; Additional info: Fall, weakness, head lac, dialysis patient, AMS TECHNIQUE: Imaging protocol: Computed tomography of the head without contrast. Radiation optimization: All CT scans at this facility use at least one of these dose optimization techniques: automated exposure control; mA and/or kV adjustment per patient size (includes targeted exams where dose is matched to clinical indication); or iterative reconstruction. COMPARISON: CT head wo con* [id number] 04/18/2021 9:01 AM RADIATION DOSE METRICS: Total DLP (mGy-cm): 925.06 FINDINGS: Brain: Moderate diffuse white matter disease likely reflecting chronic microvascular ischemic changes. Cerebral ventricles: No ventriculomegaly. Paranasal sinuses: Visualized sinuses are unremarkable. No fluid levels. Mastoid air cells: Visualized mastoid air cells are well aerated. Bones/joints: Unremarkable. No acute fracture. Soft tissues: Unremarkable. CT/CT head wo con* [id number] IMPRESSION: Negative for intracranial hemorrhage or mass effect.
[2021-07-25] MEDS: insulin lispro 100 unit/1 mL SUBCUT (17:44)
--- NOTE | 2021-07-25 17:45 | PC.PHAR ---
pt unable to verify all medications-pt states she has homehealth pt was unsure of the home health companies name-[facility] has 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
[2021-07-25] MEDS: calcium acetate 667 mg Capsule PO (18:17)
[2021-07-25] MEDS: gabapentin 100 mg Capsule PO (18:17)
[2021-07-25] MEDS: lactobacillus 1 Tablet 1 TAB PO (18:17)
[2021-07-25] MEDS: aspirin 81 mg EC Tablet PO (18:17)
[2021-07-25 18:30] LABS: Anion Gap 24.7 (5-19); Calcium 8.6 mg/dL (8.5-10.5); Carbon Dioxide 24 mmol/L (22-29); Chloride 95 mmol/L (98-107); Glomerular Filtration Rate 5.6 mL/min (90-130); Glucose 181 mg/dL (65-115); Magnesium 2.3 mg/dL (1.7-2.3); Osmolality Calculated 314 mOsm/kg (285-295); Phosphorus 6.9 mg/dL (2.5-4.5); Sodium 137 mmol/L (136-145)
[2021-07-25 18:34] LABS: Potassium 6.7 mmol/L (3.5-5.1)
[2021-07-25 18:35] LABS: Blood Urea Nitrogen 85 mg/dL (6-20)
--- NOTE | 2021-07-25 19:24 | PC.NURSE ---
Dialysis in progress, pt sleeping but wakes easily.
--- NOTE | 2021-07-25 19:30 | ECG_ITS ---
[facility] Test Date: 2021-07-25 Pat Name: Kerri Fregoso Department: Room: [id number] Gender: Female [place] Hold: : 1965 Requested By: Era Dunn Order Number: [id number] Marisela MD: Armaan Palacios M.D. Measurements Intervals [place] Rate: 84 P: -6 CA: 165 QRS: 11 QRSD: 81 T: 28 QT: 376 QTc: 444 Interpretive Statements SINUS RHYTHM LOW QRS VOLTAGE IN PRECORDIAL LEADS [QRS DEFLECTION < 1.0 mV IN CHEST LEADS] Compared to ECG 07/25/2021 16:19:40 Atrial fibrillation no longer present Myocardial infarct finding no longer present ST (T wave) deviation no longer present Electronically Signed On 07-26-2021 9:25:39 CDT by Armaan Palacios M.D. [email or web address]
--- NOTE | 2021-07-25 20:50 | PC.NURSE ---
Pt appears very sleepy. She does open eyes to name and light touch. Her speech is very soft spoken and mumbled. Attempted to try to give pills. Pt placed on NRB 15L. This nurse did not feel safe giving pt PO meds at this time due to risk of aspiration.
[2021-07-25 20:51] LABS: Glucose Point of Care 76 mg/dL (70-110)
--- NOTE | 2021-07-25 21:00 | XR_ITS ---
WS: [id number] XR chest 1V portable [id number] REASON FOR EXAM: hypoxemia FINDINGS: Left subclavian dual lumen central line is in place with the tip at the junction of the left innomina te vein and superior vena cava. This position is somewhat retracted compared to the previous examinat ion of 06/17/2021. Compared to the previous examination there is increased opacity in the left lower hemithorax with obs curation of the left hemidiaphragm. Likely this is combination of left pleural fluid and left lower l katheryn consolidation. Previously demonstrated reticular opacities in the right lower lung field appear to have resolved. XR/XR chest 1V portable [id number] IMPRESSION: Increasing abnormality in the left lower hemithorax as above.
[2021-07-25 21:15] LABS: ABG PCO2 51.2 mmHg (35-45); ABG PH Result 7.35 (7.35-7.45); Alveolar-Arterial Oxygen Gradi 16.4 mmHg (5-10); Arterial Blood Gas Hematocrit 30.5 % (37-47); Blood Gas Allen Test Pos; Blood Gas Sample Site Radial, right; Blood Gas Sample Type Arterial; Carboxyhemoglobin 0.9 %THgb (0.4-20.1); HCO3 ABG 28.3 mmol/L (22-26); HGB O2 Sat 94.7 % (95-100); Ionized Calcium Level - ABG 1.1 mmol/L (1.1-1.4); Methemoglobin 1.3 % (0.4-1.5); Oxygen Device BIPAP; Oxygen Saturation ABG 96.8; PO2 ABG 93.8 mmHg (80.0-100.0); Total Hemoglobin 9.9 g/dL (12-16)
[2021-07-25 21:56] LABS: Glucose Point of Care 59 mg/dL (70-110)
--- NOTE | 2021-07-25 22:07 | PC.NURSE ---
Per Dr. De La Cruz does not wish to start D5 at 100 mls per hour per hypoglycemia protocol due to pt's renal issues.
--- NOTE | 2021-07-25 22:22 | PC.NURSE ---
Pt appears to have restless legs. She will answer yes and no questions, but no answers greater than 1 or 2 words at this time. She does say hospital when asked where she is. #20 IVL inserted into right forearm.
--- NOTE | 2021-07-25 22:41 | PC.HD ---
Contacted pt's outpatient clinic. They report her cath runs very poorly. Cath has been replaced multiple times including last week and twice last month, but they have still not been able to run her at BFR >200-250. They state she is compliant with HD and her last treatment was on Sunday. She runs 4.5 hours. Her last K+ early last month was 5.1, today 8.7. They also state that she typically recieves Heparin 7000 unit loading dose and 1000 units per hour though this was held on Sunday d/t her fall with head injury that day. Information above shared with Dr Rodriguez and Dr Dunn. Upon examination, HD catheter to left chest had a visibly dirty dressing hanging loosely, no longer occlusive or protecting cath. Narrow red margin noted to cath insertion site but no warmth or drainage noted.
--- NOTE | 2021-07-25 23:19 | PC.NURSE ---
Pt transported to [place] and back on NRB 15L. Pt tolerated well, with oxygen saturation in the upper 90s. Upon return to the room, pt requesting food and drink. Pt placed on 6L per nasal cannula. Pt able to feed herself, sitting up in bed watching TV. Oxygen saturation 98%.
[2021-07-26] VITALS (86 sets, daily range): BP systolic 105–138; BP diastolic 60–96; PULSE 67–103; RESP 6–37; TEMP 36.4–37.1; O2SAT 90–99
[2021-07-26] MEDS: ropinirole 0.25 mg Tablet 0.5 MG PO (00:03)
--- NOTE | 2021-07-26 00:45 | PC.NURSE ---
Sutures in place. No drainage noted at this time.
--- NOTE | 2021-07-26 00:46 | PC.NURSE ---
Skin covered in psoriasis like rash. Large amount of flaking skin noted over entire body.
[2021-07-26 01:17] LABS: Glucose Point of Care 134 mg/dL (70-110)
[2021-07-26 01:17] LABS: Glucose Point of Care 111 mg/dL (70-110)
--- NOTE | 2021-07-26 02:01 | PC.NURSE ---
Pt resting quietly in bed with eyes closed. Respirations are even and unlabored. Pt tolerating BiPAP well.
[2021-07-26 03:59] LABS: Basophils % 0.5 %; Eosinophils # 0.2 10^3/uL (0.0-0.8); Eosinophils % 2.6 %; Hematocrit 29.6 % (37.0-47.0); Lymphocytes # 0.9 10^3/uL (0.8-4.8); Lymphocytes % 11.1 %; Mean Corpuscular HGB Conc 30.4 g/dL (30.0-36.0); Mean Corpuscular Hemoglobin 30.4 pg (28.0-34.0); Mean Platelet Volume 11.4 fL (7.4-10.4); Monocytes # 0.4 10^3/uL (0.2-0.9); Monocytes % 5.4 %; Neutrophils # 6.55 10^3/uL (1.8-7.7); Neutrophils % 79.7 %; Nucleated Red Blood Cells % 0 %; Platelet Count 124 10^3/cmm (130-400); Red Blood Count 2.96 10^6/uL (4.1-5.3); Red Cell Distribution Width 15.9 % (12.1-15.1); White Blood Count 8.2 10^3/uL (4.0-10.0)
[2021-07-26 04:10] LABS: Estmated Average Glucose 134; Hemoglobin A1C 6.3 % (4.0-6.0)
[2021-07-26 04:27] LABS: Parathyroid Hormone 266.2 pg/mL (15-65)
[2021-07-26] MEDS: heparin 5,000 unit/mL INJ 1 mL 5000 UNIT SUBCUT ×2 (04:31→15:23)
[2021-07-26 04:37] LABS: 25 Hydroxy Vitamin D 38 ng/mL (30-100); Alanine Aminotransferase 6 U/L (0-33); Albumin Level 3.4 g/dL (3.5-5.2); Alkaline Phosphatase 75 IU/L (35-105); Anion Gap 20.7 (5-19); Aspartate Amino Transferase 8 U/L (0-32); Blood Urea Nitrogen 72 mg/dL (6-20); Calcium 8.2 mg/dL (8.5-10.5); Carbon Dioxide 26 mmol/L (22-29); Chloride 97 mmol/L (98-107); Globulin 3.7 g/dL (1.3-4.6); Glomerular Filtration Rate 5.8 mL/min (90-130); Glucose 90 mg/dL (65-115); Iron 75 ug/dL (37-145); Magnesium 2.1 mg/dL (1.7-2.3); Osmolality Calculated 309 mOsm/kg (285-295); Percent Saturation 55.1 % (20-50); Phosphorus 7.1 mg/dL (2.5-4.5); Potassium 4.7 mmol/L (3.5-5.1); Sodium 139 mmol/L (136-145); Total Bilirubin 0.4 mg/dL (0.15-1.2); Total Iron Binding Capacity 136 mcg/dl; Total Protein 7.1 g/dL (6.6-8.7); Unsaturated Iron Binding 61 ug/dL (112-347)
[2021-07-26 04:53] LABS: Ferritin 1697 ng/mL (15-150)
--- NOTE | 2021-07-26 05:53 | PC.NURSE ---
Pt refuses to wear bipap at this time. States that it is too tight.
--- NOTE | 2021-07-26 07:04 | P.PN_ITS ---
Subjective Subjective: feels better. was falling at home. has ecchymosis Medications: Reviewed: Yes Medication Review Details: Current Medications Acetaminophen (Acetaminophen 325 Mg Tablet) 650 mg PO Q6H PRN PRN Reason: Pain Albuterol/Ipratropium (Ipratropium-Albuterol 3 Ml Neb) 3 ml INHALATION Q6H PRN PRN Reason: SHORTNESS OF BREATH Aspirin (Aspirin 81 Mg Ec Tablet) 81 mg PO QPM [facility] Last Admin: 07/25/21 18:17 Dose: 81 mg Documented by: Atorvastatin Calcium (Atorvastatin 40 Mg Tablet) 10 mg PO BEDTIME [facility] Last Admin: 07/25/21 21:08 Dose: Not Given Documented by: Bupropion HCl (Bupropion Xl (24 Hr) 150 Mg Tablet) 150 mg PO DAILY [facility] Calcium Acetate (Calcium Acetate 667 Mg Capsule) 667 mg PO TIDWM [facility] Last Admin: 07/25/21 18:17 Dose: 667 mg Documented by: Cetirizine HCl (Cetirizine 10 Mg Tablet) 10 mg PO DAILY [facility] Citalopram Hydrobromide (Citalopram 20 Mg Tablet) 20 mg PO DAILY [facility] Clopidogrel Bisulfate (Clopidogrel 75 Mg Tablet) 75 mg PO DAILY [facility] Cyclobenzaprine HCl (Cyclobenzaprine 10 Mg Tablet) 5 mg PO TID PRN PRN Reason: MUSCLE SPASMS Dextrose (Dextrose 50% Syringe 50 Ml) 25 ml IVP ONCE PRN; Protocol PRN Reason: hypoglycemia protocol Dextrose (Dextrose 50% Syringe 50 Ml) 50 ml IVP PRN PRN; Protocol PRN Reason: hypoglycemia protocol Docusate Sodium (Docusate Sodium 100 Mg Capsule) 100 mg PO BID [facility] Last Admin: 07/25/21 17:21 Dose: Not Given Documented by: Docusate Sodium (Docusate Sodium 100 Mg Capsule) 100 mg PO DAILY PRN PRN Reason: Constipation Fluticasone Propionate (Fluticasone Nasal [place] 16gm Btl) 1 spray INTRANASAL DAILY [facility] Gabapentin (Gabapentin 100 Mg Capsule) 100 mg PO BID [facility] Last Admin: 07/25/21 18:17 Dose: 100 mg Documented by: Glucagon (Glucagon 1 Mg/Ml Inj 1 Ml) 1 mg IM ONCE PRN; Protocol PRN Reason: Adult Acute Hypoglycemia Prot. Heparin Sodium (Porcine) (Heparin 5,000 Unit/Ml Inj 1 Ml) 5,000 unit SUBCUT Q12H [facility] Last Admin: 07/26/21 04:31 Dose: 5,000 unit Documented by: calcium gluconate 0.9% NaCL (Calcium Gluconate 0.9% Nacl) 1 gm in 50 mls @ 50 mls/hr IV ONCE PRN PRN Reason: doctor verbal order to give for hyperkalemia Dextrose (D5w) 500 mls @ 100 mls/hr IV ONCE PRN; Protocol PRN Reason: Adult Acute Hypoglycemia Prot Insulin Human Lispro (Insulin Lispro 100 Unit/1 Ml) 0 unit SUBCUT TIDWM [facility]; Pr otocol Last Admin: 07/25/21 17:44 Dose: 4 unit Documented by: Insulin Human Lispro (Insulin Lispro 100 Unit/1 Ml) 0 unit SUBCUT BEDTIME [facility]; Protocol Last Admin: 07/25/21 21:08 Dose: Not Given Documented by: Lactobacillus Acidophilus (Lactobacillus 1 Tablet) 1 tab PO BID [facility] Last Admin: 07/25/21 18:17 Dose: 1 tab Documented by: Midodrine (Midodrine 5 Mg Tablet) 5 mg PO MoWeFr [facility] Multivitamins Therapeutic (Multivitamin Therapeutic Tablet) 1 tab PO DAILY [facility] Nitroglycerin (Nitroglycerin 0.4 Mg Sublingual Tablet) 0.4 mg SUBLINGUAL Q5M PRN PRN Reason: chest pain Ondansetron HCl (Ondansetron 2 Mg/Ml Sdv 2 Ml) 4 mg IVP Q8H PRN PRN Reason: NAUSEA AND VOMITING Ropinirole HCl (Ropinirole 0.25 Mg Tablet) 0.5 mg PO BEDTIME [facility] Last Admin: 07/26/21 00:03 Dose: 0.5 mg Documented by: Trazodone HCl (Trazodone 150 Mg Tablet) 75 mg PO BEDTIME PRN PRN Reason: insomnia Triamcinolone Acetonide (Triamcinolone 0.1% Oint 15 Gm) 1 applic TOPICAL BID [facility] Last Admin: 07/25/21 18:17 Dose: 1 applic Documented by: Vitals/I&O/Wt Last Vital Signs Temp 97.9 F 07/26/21 04:00 Pulse 76 07/26/21 06:00 Resp 20 H 07/26/21 06:00 BP 116/65 07/26/21 06:00 Pulse Ox 97 07/26/21 06:00 07/25/21 07/26/21 07/26/21 22:59 06:59 14:59 Intake Total 220 / 220 200 / 420 Output Total 2248 / 2248 Balance -2027 / -2027 200 / -1828 Weight last 48 hrs Weight 109.316 kg Weight 108.5 kg Weight 109.939 kg Physical Exam Narrative: more comfortable in bed, NARD vs noted heent- face laceration, ecchymosis neck supple lungs- improverd air movement b/l Left sided permacath heart reg abd soft, nt, nd ext b/l trace edema LUE AVF w/ thrill neuro- a,a, o x3 skin- psoriasis Data : 07/26/21 03:26 07/26/21 03:26 Micro: Microbiology 07/25/21 16:25 Blood Culture - Preliminary Blood SPECIMEN COLLECTED 07/25/21 16:20 Blood Culture - Preliminary Blood SPECIMEN COLLECTED A&P Assessment and plan (1) End stage renal disease on dialysis: 55 year old female 1. ESRD- s/p HD last night. -cont HD MWF- 3.5 hrs- 2k, remove 2.5 liter as laina 2. falls per medicine 3. dm control - was hypoglycemic this am hgb a 1c=6.3 4 monitor hgb- ferritin 1697- no iv iron. Epo as needed 5. mild thrombocytopenia 5. copd/ LUIS EDUARDO- on home 02 -resp acidosis improved 6. monitor phos on phoslo - pth controlled at 266 normal vit d seen and examined w/ rn- telehealth visit time spent 30 min Status: Chronic Plan see above Attestations Medical Necessity Statement*: per emdicine Time Spent in Patient Care: 16 - 35 minutes (>than 50% of time spent in counselling and/or direct pt care on unit) . Coding Level of Care Code Acute Press Operator for Chg Fwd Diagnoses End stage renal disease on dialysis N18.6; Z99.2
[2021-07-26 07:40] LABS: Glucose Point of Care 123 mg/dL (70-110)
[2021-07-26] MEDS: multivitamin therapeutic Tablet 1 TAB PO (08:21)
[2021-07-26] MEDS: clopidogrel 75 mg Tablet PO (08:21)
[2021-07-26] MEDS: lactobacillus 1 Tablet 1 TAB PO ×2 (08:21→18:11)
[2021-07-26] MEDS: buPROPion XL (24 HR) 150 mg Tablet PO (08:21)
[2021-07-26] MEDS: calcium acetate 667 mg Capsule PO ×3 (08:21→18:12)
[2021-07-26] MEDS: citalopram 20 mg Tablet PO (08:21)
[2021-07-26] MEDS: docusate sodium 100 mg Capsule PO ×2 (08:22→18:12)
[2021-07-26] MEDS: cetirizine 10 mg Tablet PO (08:22)
[2021-07-26] MEDS: gabapentin 100 mg Capsule PO ×2 (08:22→18:12)
[2021-07-26] MEDS: fluticasone nasal spray 16gm Btl 1 SPRAY INTRANASAL (08:22)
--- NOTE | 2021-07-26 08:51 | PC.NURSE ---
Dr. Stevens rounded this am discussing POC, includes transfer to [facility] and PT consult.
[2021-07-26 11:05] LABS: Glucose Point of Care 118 mg/dL (70-110)
--- NOTE | 2021-07-26 16:47 | PM.PN ---
Subjective Subjective: Patient was seen and examined this morning denies any shortness of breath, alert awake oriented, Was complaining of generalized weakness. Her other vitals and labs have been reviewed. Medications: Medication Review Details: Generic Name Dose Route Start Last Admin Trade Name Adrian PRN Reason Stop Dose Admin Aspirin 81 mg 07/25/21 18:00 07/25/21 18:17 Aspirin 81 Mg Ec Tablet PO 81 mg QPM [facility] Administration Atorvastatin Calci um 10 mg 07/25/21 21:00 07/25/21 21:08 Atorvastatin 40 Mg Tablet PO Not Given BEDTIME [facility] Bupropion HCl 150 mg 07/26/21 09:00 07/26/21 08:21 Bupropion Xl (24 Hr) 150 Mg Tablet PO 150 mg DAILY [facility] Administration Calcium Acetate 667 mg 07/25/21 18:00 07/26/21 12:28 Calcium Acetate 667 Mg Capsule PO 667 mg TIDWM [facility] Administration Cetirizine HCl 10 mg 07/26/21 09:00 07/26/21 08:22 Cetirizine 10 Mg Tablet PO 10 mg DAILY [facility] Administration Citalopram Hydrobr omide 20 mg 07/26/21 09:00 07/26/21 08:21 Citalopram 20 Mg Tablet PO 20 mg DAILY [facility] Administration Clopidogrel Bisulf ate 75 mg 07/26/21 09:00 07/26/21 08:21 Clopidogrel 75 M g Tablet PO 75 mg DAILY [facility] Administration Docusate Sodium 100 mg 07/25/21 18:00 07/26/21 08:22 Docusate Sodium 100 Mg Capsule PO 100 mg BID [facility] Administration Fluticasone Propio leo 1 spray 07/26/21 09:00 07/26/21 08:22 Fluticasone [place] 16gm Btl INTRANASAL 1 applic DAILY [facility] Administration Gabapentin 100 mg 07/25/21 18:00 07/26/21 08:22 Gabapentin 100 M g Capsule PO 100 mg BID [facility] Administration Heparin Sodium (Po rcine) 5,000 unit 07/25/21 16:15 07/26/21 15:23 Heparin 5,000 Un it/Ml Inj 1 Ml SUBCUT 5,000 unit Q12H [facility] Administration Insulin Human Lisp ro 0 unit 07/25/21 18:00 07/26/21 11:46 Insulin Lispro 1 00 Unit/1 Ml SUBCUT Not Given TIDWM COUNTS INCLUDE 234 BEDS AT THE [facility] Protocol Insulin Human Lisp ro 0 unit 07/25/21 21:00 07/25/21 21:08 Insulin Lispro 1 00 Unit/1 Ml SUBCUT Not Given BEDTIME COUNTS INCLUDE 234 BEDS AT THE [facility] Protocol Lactobacillus Acid ophilus 1 tab 07/25/21 18:00 07/26/21 08:21 Lactobacillus 1 Tablet PO 1 tab BID [facility] Administration Multivitamins Ther apeutic 1 tab 07/26/21 09:00 07/26/21 08:21 Multivitamin The rapeutic Tablet PO 1 tab DAILY [facility] Administration Ropinirole HCl 0.5 mg 07/25/21 21:00 07/26/21 00:03 Ropinirole 0.25 Mg Tablet PO 0.5 mg BEDTIME [facility] Administration Triamcinolone Acet onide 1 applic 07/25/21 18:00 07/26/21 08:23 Triamcinolone 0. 1% Oint 15 Gm TOPICAL 1 applic BID [facility] Administration Vitals/I&O/Wt Last Vital Signs Temp 98.0 F 07/26/21 15:06 Pulse 69 07/26/21 15:06 Resp 18 07/26/21 15:06 BP 125/73 07/26/21 15:06 Pulse Ox 93 07/26/21 15:06 07/26/21 07/26/21 07/26/21 06:59 14:59 22:59 Intake Total 200 / 420 360 / 360 Balance 200 / -1828 360 / 360 Weight last 48 hrs Weight 109.316 kg Weight 108.5 kg Weight 109.939 kg Physical Exam Const: COMMON NORMALS: patient oriented x3 HENMT: COMMON NORMALS: normocephalic and atraumatic HEAD & SCALP: normocephalic and atraumatic OTHER: Seborrheic scaling present in face Eye: GENERAL EYE: appearance normal, both eyes and all related structures Chest: CHEST: Yes Symmetrical chest wall rise Resp: COMMON NORMALS: normal respiratory effort, No retractions, No use of accessory muscles and clear to auscultation bilaterally EFFORT & INSPECTION: Yes symmetric chest movement AUSCULTATION: clear to auscultation bilaterally Cardio: COMMON NORMALS: regular rate, regular rhythm, S1 normal heart sound present, S2 normal heart sound present, No gallops present (Cardio), No murmurs present (Cardio), No rub (Cardio) and Peripheral pulses 2+ throughout RATE: regular rate RHYTHM: regular rhythm HEART SOUNDS: S1 normal heart sound present and S2 normal heart sound present PERIPHERAL PULSES: Peripheral pulses 2+ throughout GI: COMMON NORMALS: Normal to inspection, nondistended, normoactive bowel sounds present, Soft to palpation, non-tender, No hepatosplenomegaly present and no masses AUSCULTATION: Yes normoactive bowel sounds PALPATION: Yes Soft to palpation and Yes No hepatosplenomegaly present RECTAL EXAM: deferred Extremity: COMMON NORMALS: no clubbing, cyanosis or edema and no pedal edema Neuro: COMMON NORMALS: patient oriented x3 Data : 07/26/21 03:26 07/26/21 03:26 Micro: Microbiology 07/25/21 16:25 Blood Culture - Preliminary Blood NEGATIVE TO DATE 07/25/21 16:20 Blood Culture - Preliminary Blood NEGATIVE TO DATE A&P Assessment and plan (1) Plaque psoriasis: Status: Chronic (2) LUIS EDUARDO (obstructive sleep apnea): Status: Chronic (3) COPD (chronic obstructive pulmonary disease): Status: Chronic Qualifiers: COPD type: emphysema Emphysema type: panlobular Qualified Code(s): J43.1 - Panlobular emphysema (4) Restless leg syndrome: Status: Chronic (5) 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 (6) Major depressive disorder, recurrent, severe w/o psychotic behavior: Status: Chronic (7) Obesity, morbid, BMI 40.0-49.9: Status: Chronic (8) End stage renal disease on dialysis: Status: Chronic (9) Weakness: Status: Acute (10) Falls frequently: Status: Chronic (11) Volume overload: Status: Acute Qualifiers: Hypervolemia type: other Qualified Code(s): E87.79 - Other fluid overload (12) Acidosis: Status: Acute (13) Closed head injury: Status: Acute Qualifiers: Encounter type: subsequent encounter Qualified Code(s): S09.90XD - Unspecified injury of head, subsequent encounter Plan 55-year-old female with past medical history of end-stage renal disease dialysis dependent ( MWF ) , DM , COPD , obstructive sleep apnea on BiPAP at home, plaque psoriasis, was brought in from home after experiencing fall Likely secondary to generalized weakness, she was initially sent to [facility] and was then transferred here. Assessment #Acute hyperkalemia secondary to missed dialysis: Patient was started on routine hemodialysis yesterday Follow BMP #Volume overload secondary to missed dialysis: Continue with routine hemodialysis. Currently she has no signs of volume overload postdialysis Denies any shortness of breath, saturating well on minimal supplemental oxygen through nasal cannula #Respiratory acidosis with metabolic compensation: Admission ABG: pH 7.09 PCO2 72.6, PO2 79, FiO2 15 L/min nonrebreather mask, 100% FiO2 Repeat ABG: pH 7.35 PCO2 51, PO2 93, Continue BiPAP, continue to monitor ABG X-ray chest: No infiltrates, no effusion #Acute metabolic encephalopathy: Secondary to hypercapnia, azotemia: CT head without contrast: No acute intracranial pathology Currently patient is at baseline mentation alert awake oriented x3 Continue to monitor mentation Continue with BiPAP, hemodialysis #Diabetes: HbA1c 6.3 Continue low-dose Lantus insulin Monitor fingerstick glucose #Frequent falls likely secondary to generalized weakness: Patient uses walker at home for ambulation PT OT on board. #Closed head injury: #ESRD D/D : Continue routine hemodialysis Renal on board #COPD: Currently not exacerbation, continue duo nebs as needed BiPAP at night #Obstructive apnea: #Plaque psoriasis #CODE STATUS: Full code #DVT prophylaxis: On heparin Attestations Medical Necessity Statement*: Patient is to be in hospital for continued hemodialysis, physical therapy, evaluation for recurrent fall. Coding Level of Care Code Acute [employer] for Chg Fwd Diagnoses Plaque psoriasis L40.0 LUIS EDUARDO (obstructive sleep apnea) G47.33 COPD (chronic obstructive pulmonary disease) J43.1 COPD type: emphysema Emphysema type: panlobular Restless leg syndrome G25.81 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 renal disease) E11.22; N18.6 Major depressive disorder, recurrent, severe w/o psychotic behavior F33.2 Obesity, morbid, BMI 40.0-49.9 E66.01 End stage renal disease on dialysis N18.6; Z99.2 Weakness R53.1 Falls frequently R29.6 Volume overload E87.79 Hypervolemia type: other Acidosis E87.2 Closed head injury S09.90XD Encounter type: subsequent encounter
[2021-07-26 17:20] LABS: Glucose Point of Care 80 mg/dL (70-110)
[2021-07-26] MEDS: aspirin 81 mg EC Tablet PO (18:11)
[2021-07-26] MEDS: atorvastatin 40 mg Tablet 10 MG PO (20:29)
[2021-07-26] MEDS: trazodone 150 mg Tablet 75 MG PO (20:36)
[2021-07-26 21:27] LABS: Glucose Point of Care 104 mg/dL (70-110)
[2021-07-27] VITALS (11 sets, daily range): BP systolic 121–156; BP diastolic 65–85; PULSE 65–96; RESP 14–20; TEMP 36.3–37.2; O2SAT 94–99
[2021-07-27] MEDS: heparin 5,000 unit/mL INJ 1 mL 5000 UNIT SUBCUT ×2 (04:28→16:33)
[2021-07-27 06:14] LABS: Glucose Point of Care 78 mg/dL (70-110)
[2021-07-27 06:24] LABS: Basophils # 0.1 10^3/uL (0.0-0.1); Basophils % 0.9 %; Eosinophils # 0.5 10^3/uL (0.0-0.8); Eosinophils % 6.7 %; Hematocrit 32.5 % (37.0-47.0); Hemoglobin 9.9 g/dL (11.5-15.3); Lymphocytes # 1.2 10^3/uL (0.8-4.8); Lymphocytes % 17.6 %; Mean Corpuscular HGB Conc 30.5 g/dL (30.0-36.0); Mean Corpuscular Hemoglobin 30.7 pg (28.0-34.0); Mean Corpuscular Volume 100.9 fl (81-99); Mean Platelet Volume 10.9 fL (7.4-10.4); Monocytes # 0.5 10^3/uL (0.2-0.9); Monocytes % 7.4 %; Neutrophils % 66.8 %; Nucleated Red Blood Cells % 0 %; Platelet Count 134 10^3/cmm (130-400); Red Blood Count 3.22 10^6/uL (4.1-5.3); Red Cell Distribution Width 15.5 % (12.1-15.1)
[2021-07-27 06:42] LABS: Alanine Aminotransferase 7 U/L (0-33); Albumin Level 3.6 g/dL (3.5-5.2); Alkaline Phosphatase 84 IU/L (35-105); Anion Gap 24.2 (5-19); Aspartate Amino Transferase 7 U/L (0-32); Calcium 8.4 mg/dL (8.5-10.5); Carbon Dioxide 24 mmol/L (22-29); Chloride 95 mmol/L (98-107); Globulin 3.4 g/dL (1.3-4.6); Glomerular Filtration Rate 4.2 mL/min (90-130); Glucose 82 mg/dL (65-115); Magnesium 2.3 mg/dL (1.7-2.3); Osmolality Calculated 312 mOsm/kg (285-295); Potassium 6.2 mmol/L (3.5-5.1); Sodium 137 mmol/L (136-145); Total Bilirubin 0.4 mg/dL (0.15-1.2)
[2021-07-27 06:50] LABS: Blood Urea Nitrogen 94 mg/dL (6-20)
[2021-07-27 06:51] LABS: Phosphorus 10.6 mg/dL (2.5-4.5)
[2021-07-27] MEDS: clopidogrel 75 mg Tablet PO (08:01)
[2021-07-27] MEDS: buPROPion XL (24 HR) 150 mg Tablet PO (08:01)
[2021-07-27] MEDS: calcium acetate 667 mg Capsule PO ×3 (08:01→18:26)
[2021-07-27] MEDS: multivitamin therapeutic Tablet 1 TAB PO (08:01)
[2021-07-27] MEDS: gabapentin 100 mg Capsule PO ×2 (08:01→18:26)
[2021-07-27] MEDS: lactobacillus 1 Tablet 1 TAB PO ×2 (08:01→18:26)
[2021-07-27] MEDS: cetirizine 10 mg Tablet PO (08:01)
[2021-07-27] MEDS: docusate sodium 100 mg Capsule PO ×2 (08:02→18:26)
[2021-07-27] MEDS: citalopram 20 mg Tablet PO (08:02)
[2021-07-27] MEDS: fluticasone nasal spray 16gm Btl 1 SPRAY INTRANASAL (08:04)
--- NOTE | 2021-07-27 08:20 | PM.PN ---
Subjective Subjective: feels better. denies n/v/f/c/smyth/d. some lightheadedness Medications: Reviewed: Yes Medication Review Details: Current Medications Acetaminophen (Acetaminophen 325 Mg Tablet) 650 mg PO Q6H PRN PRN Reason: Pain Albuterol/Ipratropium (Ipratropium-Albuterol 3 Ml Neb) 3 ml INHALATION Q6H PRN PRN Reason: SHORTNESS OF BREATH Aspirin (Aspirin 81 Mg Ec Tablet) 81 mg PO QPM [facility] Last Admin: 07/26/21 18:11 Dose: 81 mg Documented by: Atorvastatin Calcium (Atorvastatin 40 Mg Tablet) 10 mg PO BEDTIME [facility] Last Admin: 07/26/21 20:29 Dose: 10 mg Documented by: Bupropion HCl (Bupropion Xl (24 Hr) 150 Mg Tablet) 150 mg PO DAILY [facility] Last Admin: 07/27/21 08:01 Dose: 150 mg Documented by: Calcium Acetate (Calcium Acetate 667 Mg Capsule) 667 mg PO TIDWM [facility] Last Admin: 07/27/21 08:01 Dose: 667 mg Documented by: Cetirizine HCl (Cetirizine 10 Mg Tablet) 10 mg PO DAILY [facility] Last Admin: 07/27/21 08:01 Dose: 10 mg Documented by: Citalopram Hydrobromide (Citalopram 20 Mg Tablet) 20 mg PO DAILY [facility] Last Admin: 07/27/21 08:02 Dose: 20 mg Documented by: Clopidogrel Bisulfate (Clopidogrel 75 Mg Tablet) 75 mg PO DAILY [facility] Last Admin: 07/27/21 08:01 Dose: 75 mg Documented by: Cyclobenzaprine HCl (Cyclobenzaprine 10 Mg Tablet) 5 mg PO TID PRN PRN Reason: MUSCLE SPASMS Dextrose (Dextrose 50% Syringe 50 Ml) 25 ml IVP ONCE PRN; Protocol PRN Reason: hypoglycemia protocol Dextrose (Dextrose 50% Syringe 50 Ml) 50 ml IVP PRN PRN; Protocol PRN Reason: hypoglycemia protocol Docusate Sodium (Docusate Sodium 100 Mg Capsule) 100 mg PO BID [facility] Last Admin: 07/27/21 08:02 Dose: 100 mg Documented by: Docusate Sodium (Docusate Sodium 100 Mg Capsule) 100 mg PO DAILY PRN PRN Reason: Constipation Fluticasone Propionate (Fluticasone Nasal [place] 16gm Btl) 1 spray INTRANASAL DAILY [facility] Last Admin: 07/27/21 08:04 Dose: 1 applic Documented by: Gabapentin (Gabapentin 100 Mg Capsule) 100 mg PO BID [facility] Last Admin: 07/27/21 08:01 Dose: 100 mg Documented by: Glucagon (Glucagon 1 Mg/Ml Inj 1 Ml) 1 mg IM ONCE PRN; Protocol PRN Reason: Adult Acute Hypoglycemia Prot. Heparin Sodium (Porcine) (Heparin 5,000 Unit/Ml Inj 1 Ml) 5,000 unit SUBCUT Q12H [facility] Last Admin: 07/27/21 04:28 Dose: 5,000 unit Documented by: calcium gluconate 0.9% NaCL (Calcium Gluconate 0.9% Nacl) 1 gm in 50 mls @ 50 mls/hr IV ONCE PRN PRN Reason: doctor verbal order to give for hyperkalemia Dextrose (D5w) 500 mls @ 100 mls/hr IV ONCE PRN; Protocol PRN Reason: Adult Acute Hypoglycemia Prot Insulin Human Lispro (Insulin Lispro 100 Unit/1 Ml) 0 unit SUBCUT TIDWM [facility]; Protocol Last Admin: 07/27/21 07:20 Dose: Not Given Documented by: Insulin Human Lispro (Insulin Lispro 100 Unit/1 Ml) 0 unit SUBCUT BEDTIME [facility]; Protocol Last Admin: 07/26/21 21:29 Dose: Not Given Documented by: Lactobacillus Acidophilus (Lactobacillus 1 Tablet) 1 tab PO BID [facility] Last Admin: 07/27/21 08:01 Dose: 1 tab Documented by: Midodrine (Midodrine 5 Mg Tablet) 5 mg PO MoWeFr [facility] Multivitamins Therapeutic (Multivitamin Therapeutic Tablet) 1 tab PO DAILY [facility] Last Admin: 07/27/21 08:01 Dose: 1 tab Documented by: Nitroglycerin (Nitroglycerin 0.4 Mg Sublingual Tablet) 0.4 mg SUBLINGUAL Q5M PRN PRN Reason: chest pain Ondansetron HCl (Ondansetron 2 Mg/Ml Sdv 2 Ml) 4 mg IVP Q8H PRN PRN Reason: NAUSEA AND VOMITING Ropinirole HCl (Ropinirole 0.25 Mg Tablet) 0.5 mg PO BEDTIME [facility] Last Admin: 07/26/21 00:03 Dose: 0.5 mg Documented by: Sevelamer Carbonate (Sevelamer 800 Mg Tablet) 1,600 mg PO TID [facility] Trazodone HCl (Trazodone 150 Mg Tablet) 75 mg PO BEDTIME PRN PRN Reason: insomnia Last Admin: 07/26/21 20:36 Dose: 75 mg Documented by: Triamcinolone Acetonide (Triamcinolone 0.1% Oint 15 Gm) 1 applic TOPICAL BID [facility] Last Admin: 07/27/21 08:04 Dose: 1 applic Documented by: Vitals/I&O/Wt Last Vital Signs Temp 98.3 F 07/27/21 07:16 Pulse 68 07/27/21 07:16 Resp 14 07/27/21 07:16 BP 147/85 07/27/21 07:16 Pulse Ox 97 07/27/21 07:16 07/26/21 07/27/21 07/27/21 22:59 06:59 14:59 Intake Total 600 / 960 340 / 1300 Output Total 0 / 0 Balance 600 / 960 340 / 1300 Weight last 48 hrs Weight 107.864 kg Weight 109.316 kg Weight 108.5 kg Weight 109.939 kg Physical Exam Narrative: comfortable in chair, NARD vs noted heent- face laceration, ecchymosis neck supple lungs- crackles b/l Left sided permacath heart reg abd soft, nt, nd ext b/l trace edema LUE AVF w/ thrill neuro- a,a, o x3 skin- psoriasis Data : 07/27/21 05:52 07/27/21 05:52 Micro: Microbiology 07/25/21 16:25 Blood Culture - Preliminary Blood NEGATIVE TO DATE 07/25/21 16:20 Blood Culture - Preliminary Blood NEGATIVE TO DATE A&P Assessment and plan (1) End stage renal disease on dialysis: 55 year old female 1. ESRD- -cont HD MWF- 3.5 hrs- 2k, remove 2.5 liter as laina 2. falls per medicine 3. dm control - was hypoglycemic this am hgb a 1c=6.3 4 monitor hgb- ferritin 1697- no iv iron. Epo as needed 5. mild thrombocytopenia 5. copd/ LUIS EDUARDO- on home 02 -resp acidosis improved 6. monitor phos on phoslo, add renvela - pth controlled at 266 normal vit d seen and examined w/ rn- telehealth visit time spent 25 min Status: Chronic Plan see above Attestations Medical Necessity Statement*: esrd, hyperkalemia Time Spent in Patient Care: 16 - 35 minutes (>than 50% of time spent in counselling and/or direct pt care on unit). 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
[2021-07-27] MEDS: sodium polystyrene sulfonate 15 gm/60 mL Btl 30 GM PO (08:27)
[2021-07-27] MEDS: sevelamer 800 mg Tablet 1600 MG PO ×3 (08:27→21:07)
--- NOTE | 2021-07-27 12:39 | P.PN_ITS ---
Subjective Subjective: Patient was seen and examined this morning during dialysis, complaining of significant generalized weakness. Medications: Medication Review Details: Generic Name Dose Route Start Last Admin Trade Name Adrian PRN Reason Stop Dose Admin Aspirin 81 mg 07/25/21 18:00 07/25/21 18:17 Aspirin 81 Mg Ec Tablet PO 81 mg QPM ABIGAIL Administration Atorvastatin Calci um 10 mg 07/25/21 21:00 07/25/21 21:08 Atorvastatin 40 Mg Tablet PO Not Given BEDTIME ABIGAIL Bupropion HCl 150 mg 07/26/21 09:00 07/26/21 08:21 Bupropion Xl (24 Hr) 150 Mg Tablet PO 150 mg DAILY ABIGAIL Administration Calcium Acetate 667 mg 07/25/21 18:00 07/26/21 12:28 Calcium Acetate 667 Mg Capsule PO 667 mg TIDWM ABIGAIL Administration Cetirizine HCl 10 mg 07/26/21 09:00 07/26/21 08:22 Cetirizine 10 Mg Tablet PO 10 mg DAILY ABIGAIL Administration Citalopram Hydrobr omide 20 mg 07/26/21 09:00 07/26/21 08:21 Citalopram 20 Mg Tablet PO 20 mg DAILY ABIGAIL Administration Clopidogrel Bisulf ate 75 mg 07/26/21 09:00 07/26/21 08:21 Clopidogrel 75 M g Tablet PO 75 mg DAILY ABIGAIL Administration Docusate Sodium 100 mg 07/25/21 18:00 07/26/21 08:22 Docusate Sodium 100 Mg Capsule PO 100 mg BID ABIGAIL Administration Fluticasone Propio leo 1 spray 07/26/21 09:00 07/26/21 08:22 Fluticasone Nasa l [place] 16gm Btl INTRANASAL 1 applic DAILY ABIGAIL Administration Gabapentin 100 mg 07/25/21 18:00 07/26/21 08:22 Gabapentin 100 M g Capsule PO 100 mg BID ABIGAIL Administration Heparin Sodium (Po rcine) 5,000 unit 07/25/21 16:15 07/26/21 15:23 Heparin 5,000 Un it/Ml Inj 1 Ml SUBCUT 5,000 unit Q12H ABIGAIL Administration Insulin Human Lisp ro 0 unit 07/25/21 18:00 07/26/21 11:46 Insulin Lispro 1 00 Unit/1 Ml SUBCUT Not Given TIDWM [facility] Protocol Insulin Human Lisp ro 0 unit 07/25/21 21:00 07/25/21 21:08 Insulin Lispro 1 00 Unit/1 Ml SUBCUT Not Given BEDTIME [facility] Protocol Lactobacillus Acid ophilus 1 tab 07/25/21 18:00 07/26/21 08:21 Lactobacillus 1 Tablet PO 1 tab BID ABIGAIL Administration Multivitamins Ther apeutic 1 tab 07/26/21 09:00 07/26/21 08:21 Multivitamin The rapeutic Tablet PO 1 tab DAILY ABIGAIL Administration Ropinirole HCl 0.5 mg 07/25/21 21:00 07/26/21 00:03 Ropinirole 0.25 Mg Tablet PO 0.5 mg BEDTIME ABIGAIL Administration Triamcinolone Acet onide 1 applic 07/25/21 18:00 07/26/21 08:23 Triamcinolone 0. 1% Oint 15 Gm TOPICAL 1 applic BID ABIGAIL Administration Vitals/I&O/Wt Last Vital Signs Temp 98.3 F 07/27/21 07:16 Pulse 68 07/27/21 07:16 Resp 14 07/27/21 07:16 BP 147/85 07/27/21 07:16 Pulse Ox 97 07/27/21 07:16 07/26/21 07/27/21 07/27/21 22:59 06:59 14:59 Intake Total 600 / 960 340 / 1300 360 / 360 Output Total 0 / 0 Balance 600 / 960 340 / 1300 360 / 360 Weight last 48 hrs Weight 107.864 kg Weight 109.316 kg Weight 108.5 kg Weight 109.939 kg Physical Exam Const: COMMON NORMALS: patient oriented x3 HENMT: COMMON NORMALS: normocephalic and atraumatic HEAD & SCALP: normocephalic and atraumatic OTHER: Seborrheic scaling present in face Eye: GENERAL EYE: appearance normal, both eyes and all related structures Chest: CHEST: Yes Symmetrical chest wall rise Resp: COMMON NORMALS: normal respiratory effort, No retractions, No use of accessory muscles and clear to auscultation bilaterally EFFORT & INSPECTION: Yes symmetric chest movement AUSCULTATION: clear to auscultation bilaterally Cardio: COMMON NORMALS: regular rate, regular rhythm, S1 normal heart sound present, S2 normal heart sound present, No gallops present (Cardio), No murmurs present (Cardio), No rub (Cardio) and Peripheral pulses 2+ throughout RATE: regular rate RHYTHM: regular rhythm HEART SOUNDS: S1 normal heart sound present and S2 normal heart sound present PERIPHERAL PULSES: Peripheral pulses 2+ throughout GI: COMMON NORMALS: Normal to inspection, nondistended, normoactive bowel sounds present, Soft to palpation, non-tender, No hepatosplenomegaly present and no masses AUSCULTATION: Yes normoactive bowel sounds PALPATION: Yes Soft to palpation and Yes No hepatosplenomegaly present RECTAL EXAM: deferred Extremity: COMMON NORMALS: no clubbing, cyanosis or edema and no pedal edema Neuro: COMMON NORMALS: patient oriented x3 Data : 07/27/21 05:52 07/27/21 05:52 Micro: Microbiology 07/25/21 16:25 Blood Culture - Preliminary Blood NEGATIVE TO DATE 07/25/21 16:20 Blood Culture - Preliminary Blood NEGATIVE TO DATE A&P Assessment and plan (1) Plaque psoriasis: Status: Chronic (2) LUIS EDUARDO (obstructive sleep apnea): Status: Chronic (3) COPD (chronic obstructive pulmonary disease): Status: Chronic Qualifiers: COPD type: emphysema Emphysema type: panlobular Qualified Code(s): J43.1 - Panlobular emphysema (4) Restless leg syndrome: Status: Chronic (5) 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 (6) Major depressive disorder, recurrent, severe w/o psychotic behavior: Status: Chronic (7) Obesity, morbid, BMI 40.0-49.9: Status: Chronic (8) End stage renal disease on dialysis: Status: Chronic (9) Weakness: Status: Acute (10) Falls frequently: Status: Chronic (11) Volume overload: Status: Acute Qualifiers: Hypervolemia type: other Qualified Code(s): E87.79 - Other fluid overload (12) Acidosis: Status: Acute (13) Closed head injury: Status: Acute Qualifiers: Encounter type: subsequent encounter Qualified Code(s): S09.90XD - Unspecified injury of head, subsequent encounter Plan 55-year-old female with past medical history of end-stage renal disease dialysis dependent ( MWF ) , DM , COPD , obstructive sleep apnea on BiPAP at home, plaque psoriasis, was brought in from home after experiencing fall Likely secondary to generalized weakness, she was initially sent to [facility] and was then transferred here. Assessment #Acute hyperkalemia secondary to missed dialysis: Patient was started on routine hemodialysis yesterday Follow BMP #Volume overload secondary to missed dialysis: Continue with routine hemodialysis. Currently she has no signs of volume overload post dialysis Denies any shortness of breath, saturating well on minimal supplemental oxygen through nasal cannula #Respiratory acidosis with metabolic compensation: Admission ABG: pH 7.09 PCO2 72.6, PO2 79, FiO2 15 L/min nonrebreather mask, 100% FiO2 Repeat ABG: pH 7.35 PCO2 51, PO2 93, Continue BiPAP, continue to monitor ABG X-ray chest: No infiltrates, no effusion #Acute metabolic encephalopathy: Secondary to hypercapnia, azotemia: CT head without contrast: No acute intracranial pathology Currently patient is at baseline mentation alert awake oriented x3 Continue to monitor mentation Continue with BiPAP, hemodialysis #Diabetes: HbA1c 6.3 Continue low-dose Lantus insulin Monitor fingerstick glucose #Frequent falls likely secondary to generalized weakness: Patient uses walker at home for ambulation PT OT on board. Patient will benefit from continued physical therapy, will attempt to place her to a custodial. Currently patient is agreeable to go to a [place] [facility] facility to regain strength and stability. #Closed head injury: No acute intervention CT head without contrast: Has failed to show any significant intracranial abnormality Suture to be removed #ESRD D/D : Continue routine hemodialysis Renal on board #COPD: Currently not exacerbation, continue duo nebs as needed BiPAP at night #Obstructive apnea: #Plaque psoriasis #CODE STATUS: Full code #DVT prophylaxis: On heparin Attestations Medical Necessity Statement*: Patient needs to be in hospital for management of significant deconditioning, continued hemodialysis, need for possible custodial placement. Time Spent in Patient Care: Greater than 35 minutes (>than 50% of time spent in counselling and/or direct pt care on unit) . Coding Level of Care Code Acute Roller Mill Tender for Chg Fwd Exam Comprehensive Diagnoses Plaque psoriasis L40.0 LUIS EDUARDO (obstructive sleep apnea) G47.33 COPD (chronic obstructive pulmonary disease) J43.1 COPD type: emphysema Emphysema type: panlobular Restless leg syndrome G25.81 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 renal disease) E11.22; N18.6 Major depressive disorder, recurrent, severe w/o psychotic behavior F33.2 Obesity, morbid, BMI 40.0-49.9 E66.01 End stage renal disease on dialysis N18.6; Z99.2 Weakness R53.1 Falls frequently R29.6 Volume overload E87.79 Hypervolemia type: other Acidosis E87.2 Closed head injury S09.90XD Encounter type: subsequent encounter
[2021-07-27 14:01] LABS: Glucose Point of Care 102 mg/dL (70-110)
[2021-07-27] MEDS: acetaminophen 325 mg Tablet 650 MG PO (16:45)
[2021-07-27 17:41] LABS: Glucose Point of Care 122 mg/dL (70-110)
[2021-07-27] MEDS: aspirin 81 mg EC Tablet PO (18:26)
[2021-07-27 20:41] LABS: Glucose Point of Care 150 mg/dL (70-110)
[2021-07-27] MEDS: ropinirole 0.25 mg Tablet 0.5 MG PO (21:07)
[2021-07-27] MEDS: trazodone 150 mg Tablet 75 MG PO (21:08)
[2021-07-27] MEDS: atorvastatin 40 mg Tablet 10 MG PO (21:08)
[2021-07-27] MEDS: insulin lispro 100 unit/1 mL SUBCUT (21:10)
[2021-07-28] VITALS (17 sets, daily range): BP systolic 112–153; BP diastolic 66–84; PULSE 65–102; RESP 14–26; TEMP 36.4–36.9; O2SAT 94–100
[2021-07-28] MEDS: heparin 5,000 unit/mL INJ 1 mL 5000 UNIT SUBCUT ×2 (03:54→15:22)
[2021-07-28 05:40] LABS: Basophils % 0.6 %; Eosinophils # 0.4 10^3/uL (0.0-0.8); Eosinophils % 6.4 %; Hematocrit 33.7 % (37.0-47.0); Hemoglobin 10.1 g/dL (11.5-15.3); Lymphocytes % 14.9 %; Mean Corpuscular Hemoglobin 30.3 pg (28.0-34.0); Mean Corpuscular Volume 101.2 fl (81-99); Mean Platelet Volume 10.9 fL (7.4-10.4); Monocytes # 0.5 10^3/uL (0.2-0.9); Monocytes % 8.5 %; Neutrophils # 4.41 10^3/uL (1.8-7.7); Neutrophils % 69.1 %; Nucleated Red Blood Cells % 0 %; Platelet Count 132 10^3/cmm (130-400); Red Blood Count 3.33 10^6/uL (4.1-5.3); Red Cell Distribution Width 15.4 % (12.1-15.1); White Blood Count 6.4 10^3/uL (4.0-10.0)
[2021-07-28 05:55] LABS: Alanine Aminotransferase 6 U/L (0-33); Albumin Level 3.2 g/dL (3.5-5.2); Alkaline Phosphatase 79 IU/L (35-105); Anion Gap 21.8 (5-19); Aspartate Amino Transferase 9 U/L (0-32); Blood Urea Nitrogen 62 mg/dL (6-20); Calcium 8.4 mg/dL (8.5-10.5); Carbon Dioxide 22 mmol/L (22-29); Chloride 98 mmol/L (98-107); Globulin 3.4 g/dL (1.3-4.6); Glomerular Filtration Rate 5.3 mL/min (90-130); Glucose 85 mg/dL (65-115); Osmolality Calculated 301 mOsm/kg (285-295); Potassium 4.8 mmol/L (3.5-5.1); Sodium 137 mmol/L (136-145); Total Bilirubin 0.5 mg/dL (0.15-1.2); Total Protein 6.6 g/dL (6.6-8.7)
[2021-07-28 06:18] LABS: Glucose Point of Care 90 mg/dL (70-110)
[2021-07-28 06:21] LABS: Creatinine Clr Calc Pharmacy 9.5567; Phosphorus 8.5 mg/dL (2.5-4.5)
--- NOTE | 2021-07-28 07:49 | PM.PN ---
Subjective Subjective: feels better. wants to go home. no n/v/f/c/smyth/d/leg pains Medications: Reviewed: Yes Medication Review Details: Current Medications Acetaminophen (Acetaminophen 325 Mg Tablet) 650 mg PO Q6H PRN PRN Reason: Pain Last Admin: 07/27/21 16:45 Dose: 650 mg Documented by: Albuterol/Ipratropium (Ipratropium-Albuterol 3 Ml Neb) 3 ml INHALATION Q6H PRN PRN Reason: SHORTNESS OF BREATH Aspirin (Aspirin 81 Mg Ec Tablet) 81 mg PO QPM [facility] Last Admin: 07/27/21 18:26 Dose: 81 mg Documented by: Atorvastatin Calcium (Atorvastatin 40 Mg Tablet) 10 mg PO BEDTIME [facility] Last Admin: 07/27/21 21:08 Dose: 10 mg Documented by: Bupropion HCl (Bupropion Xl (24 Hr) 150 Mg Tablet) 150 mg PO DAILY [facility] Last Admin: 07/27/21 08:01 Dose: 150 mg Documented by: Calcium Acetate (Calcium Acetate 667 Mg Capsule) 667 mg PO TIDWM [facility] Last Admin: 07/27/21 18:26 Dose: 667 mg Documented by: Cetirizine HCl (Cetirizine 10 Mg Tablet) 10 mg PO DAILY [facility] Last Admin: 07/27/21 08:01 Dose: 10 mg Documented by: Citalopram Hydrobromide (Citalopram 20 Mg Tablet) 20 mg PO DAILY [facility] Last Admin: 07/27/21 08:02 Dose: 20 mg Documented by: Clopidogrel Bisulfate (Clopidogrel 75 Mg Tablet) 75 mg PO DAILY [facility] Last Admin: 07/27/21 08:01 Dose: 75 mg Documented by: Cyclobenzaprine HCl (Cyclobenzaprine 10 Mg Tablet) 5 mg PO TID PRN PRN Reason: MUSCLE SPASMS Dextrose (Dextrose 50% Syringe 50 Ml) 25 ml IVP ONCE PRN; Protocol PRN Reason: hypoglycemia protocol Dextrose (Dextrose 50% Syringe 50 Ml) 50 ml IVP PRN PRN; Protocol PRN Reason: hypoglycemia protocol Docusate Sodium (Docusate Sodium 100 Mg Capsule) 100 mg PO BID [facility] Last Admin: 07/27/21 18:26 Dose: 100 mg Documented by: Docusate Sodium (Docusate Sodium 100 Mg Capsule) 100 mg PO DAILY PRN PRN Reason: Constipation Fluticasone Propionate (Fluticasone Nasal [place] 16gm Btl) 1 spray INTRANASAL DAILY [facility] Last Admin: 07/27/21 08:04 Dose: 1 applic Documented by: Gabapentin (Gabapentin 100 Mg Capsule) 100 mg PO BID [facility] Last Admin: 07/27/21 18:26 Dose: 100 mg Documented by: Glucagon (Glucagon 1 Mg/Ml Inj 1 Ml) 1 mg IM ONCE PRN; Protocol PRN Reason: Adult Acute Hypoglycemia Prot. Heparin Sodium (Porcine) (Heparin 5,000 Unit/Ml Inj 1 Ml) 5,000 unit SUBCUT Q12H [facility] Last Admin: 07/28/21 03:54 Dose: 5,000 unit Documented by: calcium gluconate 0.9% NaCL (Calcium Gluconate 0.9% Nacl) 1 gm in 50 mls @ 50 mls/hr IV ONCE PRN PRN Reason: doctor verbal order to give for hyperkalemia Dextrose (D5w) 500 mls @ 100 mls/hr IV ONCE PRN; Protocol PRN Reason: Adult Acute Hypoglycemia Prot Insulin Human Lispro (Insulin Lispro 100 Unit/1 Ml) 0 unit SUBCUT TIDWM [facility]; Protocol Last Admin: 07/28/21 07:06 Dose: Not Given Documented by: Insulin Human Lispro (Insulin Lispro 100 Unit/1 Ml) 0 unit SUBCUT BEDTIME [facility]; Protocol Last Admin: 07/27/21 21:10 Dose: 1 unit Documented by: Lactobacillus Acidophilus (Lactobacillus 1 Tablet) 1 tab PO BID [facility] Last Admin: 07/27/21 18:26 Dose: 1 tab Documented by: Midodrine (Midodrine 5 Mg Tablet) 5 mg PO MoWeFr [facility] Last Admin: 07/27/21 13:38 Dose: Not Given Documented by: Multivitamins Therapeutic (Multivitamin Therapeutic Tablet) 1 tab PO DAILY [facility] Last Admin: 07/27/21 08:01 Dose: 1 tab Documented by: Nitroglycerin (Nitroglycerin 0.4 Mg Sublingual Tablet) 0.4 mg SUBLINGUAL Q5M PRN PRN Reason: chest pain Ondansetron HCl (Ondansetron 2 Mg/Ml Sdv 2 Ml) 4 mg IVP Q8H PRN PRN Reason: NAUSEA AND VOMITING Ropinirole HCl (Ropinirole 0.25 Mg Tablet) 0.5 mg PO BEDTIME [facility] Last Admin: 07/27/21 21:07 Dose: 0.5 mg Documented by: Sevelamer Carbonate (Sevelamer 800 Mg Tablet) 1,600 mg PO TID [facility] Last Admin: 07/27/21 21:07 Dose: 1,600 mg Documented by: Trazodone HCl (Trazodone 150 Mg Tablet) 75 mg PO BEDTIME PRN PRN Reason: insomnia Last Admin: 07/27/21 21:08 Dose: 75 mg Documented by: Triamcinolone Acetonide (Triamcinolone 0.1% Oint 15 Gm) 1 applic TOPICAL BID [facility] Last Admin: 07/27/21 19:32 Dose: 1 applic Documented by: Vitals/I&O/Wt Last Vital Signs Temp 98.4 F 07/28/21 07:17 Pulse 72 07/28/21 07:17 Resp 15 07/28/21 07:17 BP 131/83 07/28/21 07:17 Pulse Ox 97 07/28/21 07:17 07/27/21 07/28/21 07/28/21 22:59 06:59 14:59 Intake Total 480 / 960 460 / 1420 Balance 480 / 960 460 / 1420 Weight last 48 hrs Weight 108.136 kg Weight 107.864 kg Physical Exam Narrative: comfortable in bed, used bipap at night, NARD vs noted heent- face laceration, ecchymosis neck supple lungs- dull bases b/l Left sided permacath heart reg abd soft, nt, nd ext b/l trace edema LUE AVF w/ thrill neuro- a,a, o x3 skin- psoriasis Data : 07/28/21 05:01 07/28/21 05:01 A&P Assessment and plan (1) End stage renal disease on dialysis: 55 year old female 1. ESRD- -cont HD MWF- 3.5 hrs- 2k, remove 3 liter as laina 2. falls per medicine 3. dm control - was hypoglycemic this am hgb a 1c=6.3 4 monitor hgb- ferritin 1697- no iv iron. Epo as needed 5. mild thrombocytopenia 6. copd/ LUIS EDUARDO- on home 02 -resp acidosis improved 7. monitor phos on phoslo and renvela - pth controlled at 266 normal vit d seen and examined w/ rn- telehealth visit time spent 25 min Status: Chronic Plan see above Attestations Medical Necessity Statement*: per medicine Time Spent in Patient Care: 16 - 35 minutes (>than 50% of time spent in counselling and/or direct pt care on unit). Coding Level of Care Code Acute Scrap Piler for Kulwinder 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
[2021-07-28] MEDS: buPROPion XL (24 HR) 150 mg Tablet PO (08:21)
[2021-07-28] MEDS: clopidogrel 75 mg Tablet PO (08:21)
[2021-07-28] MEDS: citalopram 20 mg Tablet PO (08:21)
[2021-07-28] MEDS: lactobacillus 1 Tablet 1 TAB PO ×2 (08:21→17:00)
[2021-07-28] MEDS: gabapentin 100 mg Capsule PO ×2 (08:21→17:00)
[2021-07-28] MEDS: calcium acetate 667 mg Capsule PO ×3 (08:21→17:00)
[2021-07-28] MEDS: multivitamin therapeutic Tablet 1 TAB PO (08:21)
[2021-07-28] MEDS: docusate sodium 100 mg Capsule PO ×2 (08:21→17:01)
[2021-07-28] MEDS: cetirizine 10 mg Tablet PO (08:21)
[2021-07-28] MEDS: acetaminophen 325 mg Tablet 650 MG PO (08:24)
[2021-07-28] MEDS: fluticasone nasal spray 16gm Btl 1 SPRAY INTRANASAL (08:24)
[2021-07-28] MEDS: sevelamer 800 mg Tablet 2400 MG PO ×3 (09:19→20:42)
--- NOTE | 2021-07-28 12:17 | PC.SOCIAL ---
IMM update IMM updated with patient. Verbalized an understanding. Copy Pg 2 provided. Initialled, dated, timed, and placed in chart.
[2021-07-28 12:34] LABS: Glucose Point of Care 91 mg/dL (70-110)
[2021-07-28] MEDS: aspirin 81 mg EC Tablet PO (17:00)
[2021-07-28 17:48] LABS: Glucose Point of Care 92 mg/dL (70-110)
--- NOTE | 2021-07-28 18:17 | P.PN_ITS ---
Subjective Subjective: Patient was seen and examined this morning,resting comfortably, participated with physical therapy, has weakness, denies any other complaint. Medications: Medication Review Details: Generic Name Dose Route Start Last Admin Trade Name Adrian PRN Reason Stop Dose Admin Aspirin 81 mg 07/25/21 18:00 07/25/21 18:17 Aspirin 81 Mg Ec Tablet PO 81 mg QPM ABIGAIL Administration Atorvastatin Calci um 10 mg 07/25/21 21:00 07/25/21 21:08 Atorvastatin 40 Mg Tablet PO Not Given BEDTIME ABIGAIL Bupropion HCl 150 mg 07/26/21 09:00 07/26/21 08:21 Bupropion Xl (24 Hr) 150 Mg Tablet PO 150 mg DAILY ABIGAIL Administration Calcium Acetate 667 mg 07/25/21 18:00 07/26/21 12:28 Calcium Acetate 667 Mg Capsule PO 667 mg TIDWM ABIGAIL Administration Cetirizine HCl 10 mg 07/26/21 09:00 07/26/21 08:22 Cetirizine 10 Mg Tablet PO 10 mg DAILY ABIGAIL Administration Citalopram Hydrobr omide 20 mg 07/26/21 09:00 07/26/21 08:21 Citalopram 20 Mg Tablet PO 20 mg DAILY ABIGAIL Administration Clopidogrel Bisulf ate 75 mg 07/26/21 09:00 07/26/21 08:21 Clopidogrel 75 M g Tablet PO 75 mg DAILY ABIGAIL Administration Docusate Sodium 100 mg 07/25/21 18:00 07/26/21 08:22 Docusate Sodium 100 Mg Capsule PO 100 mg BID ABIGAIL Administration Fluticasone Propio leo 1 spray 07/26/21 09:00 07/26/21 08:22 Fluticasone Nasa l [place] 16gm Btl INTRANASAL 1 applic DAILY ABIGAIL Administration Gabapentin 100 mg 07/25/21 18:00 07/26/21 08:22 Gabapentin 100 M g Capsule PO 100 mg BID ABIGAIL Administration Heparin Sodium (Po rcine) 5,000 unit 07/25/21 16:15 07/26/21 15:23 Heparin 5,000 Un it/Ml Inj 1 Ml SUBCUT 5,000 unit Q12H ABIGAIL Administration Insulin Human Lisp ro 0 unit 07/25/21 18:00 07/26/21 11:46 Insulin Lispro 1 00 Unit/1 Ml SUBCUT Not Given TIDWM [facility] Protocol Insulin Human Lisp ro 0 unit 07/25/21 21:00 07/25/21 21:08 Insulin Lispro 1 00 Unit/1 Ml SUBCUT Not Given BEDTIME [facility] Protocol Lactobacillus Acid ophilus 1 tab 07/25/21 18:00 07/26/21 08:21 Lactobacillus 1 Tablet PO 1 tab BID ABIGAIL Administration Multivitamins Ther apeutic 1 tab 07/26/21 09:00 07/26/21 08:21 Multivitamin The rapeutic Tablet PO 1 tab DAILY ABIGAIL Administration Ropinirole HCl 0.5 mg 07/25/21 21:00 07/26/21 00:03 Ropinirole 0.25 Mg Tablet PO 0.5 mg BEDTIME ABIGAIL Administration Triamcinolone Acet onide 1 applic 07/25/21 18:00 07/26/21 08:23 Triamcinolone 0. 1% Oint 15 Gm TOPICAL 1 applic BID ABIGAIL Administration Vitals/I&O/Wt Last Vital Signs Temp 97.6 F 07/28/21 17:00 Pulse 70 07/28/21 17:00 Resp 18 07/28/21 13:00 BP 153/84 07/28/21 17:00 Pulse Ox 97 07/28/21 16:00 07/28/21 07/28/21 07/28/21 06:59 14:59 22:59 Intake Total 460 / 1420 620 / 620 Balance 460 / -1080 620 / 620 Weight last 48 hrs Weight 108.136 kg Weight 105.8 kg Weight 107.864 kg Physical Exam Const: COMMON NORMALS: patient oriented x3 HENMT: COMMON NORMALS: normocephalic and atraumatic HEAD & SCALP: normocephalic and atraumatic OTHER: Seborrheic scaling present in face, laceration on the forehead is healed completely, will take out the sutures. Eye: GENERAL EYE: appearance normal, both eyes and all related structures Chest: CHEST: Yes Symmetrical chest wall rise Resp: COMMON NORMALS: normal respiratory effort, No retractions, No use of accessory muscles and clear to auscultation bilaterally EFFORT & INSPECTION: Yes symmetric chest movement AUSCULTATION: clear to auscultation bilaterally Cardio: COMMON NORMALS: regular rate, regular rhythm, S1 normal heart sound present, S2 normal heart sound present, No gallops present (Cardio), No murmurs present (Cardio), No rub (Cardio) and Peripheral pulses 2+ throughout RATE: regular rate RHYTHM: regular rhythm HEART SOUNDS: S1 normal heart sound present and S2 normal heart sound present PERIPHERAL PULSES: Peripheral pulses 2+ throughout GI: COMMON NORMALS: Normal to inspection, nondistended, normoactive bowel sounds present, Soft to palpation, non-tender, No hepatosplenomegaly present and no masses AUSCULTATION: Yes normoactive bowel sounds PALPATION: Yes Soft to palpation and Yes No hepatosplenomegaly present RECTAL EXAM: deferred Extremity: COMMON NORMALS: no clubbing, cyanosis or edema and no pedal edema Neuro: COMMON NORMALS: patient oriented x3 Data : 07/28/21 05:01 07/28/21 05:01 A&P Assessment and plan (1) Plaque psoriasis: Status: Chronic (2) LUIS EDUARDO (obstructive sleep apnea): Status: Chronic (3) COPD (chronic obstructive pulmonary disease): Status: Chronic Qualifiers: COPD type: emphysema Emphysema type: panlobular Qualified Code(s): J43.1 - Panlobular emphysema (4) Restless leg syndrome: Status: Chronic (5) 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 (6) Major depressive disorder, recurrent, severe w/o psychotic behavior: Status: Chronic (7) Obesity, morbid, BMI 40.0-49.9: Status: Chronic (8) End stage renal disease on dialysis: Status: Chronic (9) Weakness: Status: Acute (10) Falls frequently: Status: Chronic (11) Volume overload: Status: Acute Qualifiers: Hypervolemia type: other Qualified Code(s): E87.79 - Other fluid overload (12) Acidosis: Status: Acute (13) Closed head injury: Status: Acute Qualifiers: Encounter type: subsequent encounter Qualified Code(s): S09.90XD - Unspecified injury of head, subsequent encounter Plan 55-year-old female with past medical history of end-stage renal disease dialysis dependent ( MWF ) , DM , COPD , obstructive sleep apnea on BiPAP at home, plaque psoriasis, was brought in from home after experiencing fall Likely secondary to generalized weakness, she was initially sent to [facility] and was then transferred here. Assessment #Acute hyperkalemia secondary to missed dialysis:: Resolved on routine hemodialysis Follow BMP #Volume overload secondary to missed dialysis: Continue with routine hemodialysis. Currently she has no signs of volume overl oad post dialysis Denies any shortness of breath, saturating well on minimal supplemental oxygen through nasal cannula #Respiratory acidosis with metabolic compensation: Admission ABG: pH 7.09 PCO2 72.6, PO2 79, FiO2 15 L/min nonrebreather mask, 100% FiO2 Repeat ABG: pH 7.35 PCO2 51, PO2 93, Continue BiPAP, continue to monitor ABG X-ray chest: No infiltrates, no effusion #Acute metabolic encephalopathy: Secondary to hypercapnia, azotemia: CT head without contrast: No acute intracranial pathology Currently patient is at baseline mentation alert awake oriented x3 Continue to monitor mentation Continue with BiPAP, hemodialysis #Diabetes: HbA1c 6.3 Continue low-dose Lantus insulin Monitor fingerstick glucose #Frequent falls likely secondary to generalized weakness: Patient uses walker at home for ambulation PT OT on board. Patient will benefit from continued physical therapy, will attempt to place her to a long term. Currently patient is agreeable to go to a senior care facility to regain strength and stability. #Closed head injury: No acute intervention CT head without contrast: Has failed to show any significant intracranial abnormality Suture to be removed. #ESRD D/D : Continue routine hemodialysis Renal on board #COPD: Currently not exacerbation, continue duo nebs as needed BiPAP at night #Obstructive apnea: #Plaque psoriasis #CODE STATUS: Full code #Disposition: Patient will need long term placement due to significant we akness, for continued regain of strength and gait stability. #DVT prophylaxis: On heparin Attestations Medical Necessity Statement*: Patient needs to be in hospital for management of above defined problems. Currently awaiting long term placement. Coding Level of Care Code Acute Surgery Consultant for Chg Fwd Diagnoses Plaque psoriasis L40.0 LUIS EDUARDO (obstructive sleep apnea) G47.33 COPD (chronic obstructive pulmonary disease) J43.1 COPD type: emphysema Emphysema type: panlobular Restless leg syndrome G25.81 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 renal disease) E11.22; N18.6 Major depressive disorder, recurrent, severe w/o psychotic behavior F33.2 Obesity, morbid, BMI 40.0-49.9 E66.01 End stage renal disease on dialysis N18.6; Z99.2 Weakness R53.1 Falls frequently R29.6 Volume overload E87.79 Hypervolemia type: other Acidosis E87.2 Closed head injury S09.90XD Encounter type: subsequent encounter
[2021-07-28] MEDS: atorvastatin 40 mg Tablet 10 MG PO (20:41)
[2021-07-28] MEDS: ropinirole 0.25 mg Tablet 0.5 MG PO (20:41)
[2021-07-28] MEDS: trazodone 150 mg Tablet 75 MG PO (20:42)
[2021-07-28 21:04] LABS: Glucose Point of Care 94 mg/dL (70-110)
[2021-07-29] VITALS (12 sets, daily range): BP systolic 113–128; BP diastolic 64–81; PULSE 75–102; RESP 16–24; TEMP 36.4–37.1; O2SAT 95–99
[2021-07-29] MEDS: heparin 5,000 unit/mL INJ 1 mL 5000 UNIT SUBCUT ×2 (04:31→17:04)
[2021-07-29 05:29] LABS: Basophils # 0.1 10^3/uL (0.0-0.1); Basophils % 0.7 %; Eosinophils # 0.5 10^3/uL (0.0-0.8); Eosinophils % 6.5 %; Hemoglobin 9.9 g/dL (11.5-15.3); Lymphocytes # 1.1 10^3/uL (0.8-4.8); Mean Corpuscular HGB Conc 31.9 g/dL (30.0-36.0); Mean Corpuscular Hemoglobin 30.9 pg (28.0-34.0); Mean Corpuscular Volume 96.9 fl (81-99); Mean Platelet Volume 11.1 fL (7.4-10.4); Monocytes # 0.5 10^3/uL (0.2-0.9); Neutrophils % 70.2 %; Nucleated Red Blood Cells % 0 %; Platelet Count 157 10^3/cmm (130-400); Red Cell Distribution Width 15.3 % (12.1-15.1); White Blood Count 7.1 10^3/uL (4.0-10.0)
[2021-07-29 06:24] LABS: Glucose Point of Care 88 mg/dL (70-110)
[2021-07-29 06:39] LABS: Alanine Aminotransferase 7 U/L (0-33); Albumin Level 3.7 g/dL (3.5-5.2); Alkaline Phosphatase 82 IU/L (35-105); Blood Urea Nitrogen 77 mg/dL (6-20); Calcium 8.2 mg/dL (8.5-10.5); Carbon Dioxide 20 mmol/L (22-29); Chloride 93 mmol/L (98-107); Globulin 2.9 g/dL (1.3-4.6); Glomerular Filtration Rate 4.3 mL/min (90-130); Glucose 96 mg/dL (65-115); Magnesium 2.1 mg/dL (1.7-2.3); Osmolality Calculated 303 mOsm/kg (285-295); Sodium 135 mmol/L (136-145); Total Bilirubin 0.4 mg/dL (0.15-1.2); Total Protein 6.6 g/dL (6.6-8.7)
[2021-07-29 06:41] LABS: Anion Gap 27.4 (5-19); Aspartate Amino Transferase 14 U/L (0-32); Phosphorus 10.1 mg/dL (2.5-4.5); Potassium 5.4 mmol/L (3.5-5.1)
[2021-07-29] MEDS: buPROPion XL (24 HR) 150 mg Tablet PO (08:54)
[2021-07-29] MEDS: lactobacillus 1 Tablet 1 TAB PO ×2 (08:54→17:04)
[2021-07-29] MEDS: fluticasone nasal spray 16gm Btl 1 SPRAY INTRANASAL (08:55)
[2021-07-29] MEDS: calcium acetate 667 mg Capsule PO ×3 (08:55→17:04)
[2021-07-29] MEDS: citalopram 20 mg Tablet PO (08:55)
[2021-07-29] MEDS: multivitamin therapeutic Tablet 1 TAB PO (08:55)
[2021-07-29] MEDS: cetirizine 10 mg Tablet PO (08:55)
[2021-07-29] MEDS: clopidogrel 75 mg Tablet PO (08:55)
[2021-07-29] MEDS: docusate sodium 100 mg Capsule PO ×2 (08:55→17:04)
[2021-07-29] MEDS: gabapentin 100 mg Capsule PO ×2 (08:55→17:04)
[2021-07-29] MEDS: sevelamer 800 mg Tablet 2400 MG PO ×3 (09:15→20:32)
--- NOTE | 2021-07-29 09:48 | PC.CHAP ---
Pastoral Care Encounter/Spiritual Assessment Type of Contact [] Declined black topper visit [] Patient/Family/Request visit [] Outpatient visit [] Follow-up visit [] Physician referral [] Code/Alert [x] Routine visit [] Staff referral [] Actively dying [] Patient sleeping [] Family support [] [] Out of room [] Palliative care [] [] Receiving care in room [] Pre-surgical visit [] Trauma [] Long length of stay [] ICU visit [] Other: Relational/Emotional Strength [x] Patient feels connected with others/family/visitors/staff [] Distress [] Loneliness/isolation [] Abandonment Spirituality of Patient [x] Person of Anna [] Attends Muslim of their Anna [x] Believes in Prayer [] Reads Bible or Latter-Day materials [] There are Spiritual issues to be addressed Client Delivery Manager Interventions [x] Prayer [x] Active listening [x] Non-anxious presence [x] Spiritual/emotional support [] Crisis/trauma care [] Spiritual counseling [] Bereavement support [] Provided bereavement packet [] Provided Bible/devotional materials [] Provided toy/stuffed animal, coloring book to patient or family member [] Provided Communion [] Anointing/[place] [] Salvation [x] Completed spiritual assessment [] Other: Impact on Illness or Injury [] Angry [] Fearful [] Anxious [] Often cries [] Exhaustion [] Unable to work [] Unable to attend buddhist [] Unable to walk/stand [] Unable to read [] Unable to drive [] Unable to eat/drink [] Unable to sleep [] Unable to be with family [] Patient intubated [] Other: Summary patient feeling better to\day Time spent with patient 10 min
--- NOTE | 2021-07-29 11:16 | P.PN_ITS ---
Subjective Subjective: Ms. Li has no acute, new complaints at this time. She wants to go home. Tolerating her BiPAP nicely. Dialysis currently pending for today. Participating with physical and Occupational Therapy. Vitals/I&O/Wt Last Vital Signs Temp 98.3 F 07/29/21 11:06 Pulse 83 07/29/21 11:06 Resp 16 07/29/21 11:06 BP 119/72 07/29/21 11:06 Pulse Ox 98 07/29/21 11:06 07/28/21 07/29/21 07/29/21 22:59 06:59 14:59 Intake Total 480 / 1100 580 / 1680 240 / 240 Output Total 0 / 0 Balance 480 / 1100 580 / 1680 240 / 240 Weight last 48 hrs Weight 107.229 kg Weight 108.136 kg Weight 105.8 kg Physical Exam Narrative: Constitutional: Awake, comfortable HEENT: Wet mucosa, no jvp, non icteric Lungs: Bilaterally clear without discernible wheeze, rales in all lung zones CVS: S1 S2, no murmurs Abdo: Soft, BS ok Ext 4: Minimal edema, peripheral perfusion with no cyanosis Neurological: Grossly non-focal Data : 07/29/21 05:09 07/29/21 06:00 A&P Assessment and plan (1) End stage renal disease on dialysis: 1. End-stage renal disease Continue Sunday, Sunday and Sunday schedule, dialysis pending for today We will review over the weekend with plans to dialyze again on Sunday. Dose medication for GFR less than 15 on dialysis 2. Recurrent falls Likely an element of disuse and uremic myopathy, continue physical and occupational therapy 3. Chronic ESRD issues To be handled as an outpatient as part of standard monthly management including secondary hyperparathyroidism, anemia etc. Arjun Cavazos MD Nephrology [phone] Patient seen and examined via telemedicine, with the assistance of the bedside RN > 25 min spent in evaluation and mgmt of patient Status: Chronic Attestations Medical Necessity Statement*: Eval for ESRD Coding Level of Care Code Acute Rides Attendant for Chg Fwd Diagnoses End stage renal disease on dialysis N18.6; Z99.2
[2021-07-29 11:29] LABS: Glucose Point of Care 167 mg/dL (70-110)
[2021-07-29] MEDS: midodrine 5 mg TABLET PO (12:16)
[2021-07-29] MEDS: insulin lispro 100 unit/1 mL SUBCUT (12:16)
[2021-07-29] MEDS: heparin, porcine 1,000 unit/mL INJ 10 mL 20000 UNIT HE (15:33)
--- NOTE | 2021-07-29 15:49 | PC.NURSE ---
Patient went to dialysis for about 4 hours today. Vitals stable while on floor. Meds taken. Minimal needs throughout the shift. Will continue to monitor and give report to night assistant nurse.
[2021-07-29 16:55] LABS: Glucose Point of Care 115 mg/dL (70-110)
[2021-07-29] MEDS: aspirin 81 mg EC Tablet PO (17:04)
[2021-07-29] MEDS: epoetin alfa 1000 Unit/0.05 mL (ESRD) 4000 UNIT SUBCUT (17:04)
--- NOTE | 2021-07-29 17:49 | P.PN_ITS ---
Subjective Subjective: Patient was seen and examined this morning, she underwent routine hemodialysis today, she was dialyzed for 4 hours, serum potassium was: 5.4, has continued to work with physical therapy. Medications: Medication Review Details: Generic Name Dose Route Start Last Admin Trade Name Adrian PRN Reason Stop Dose Admin Aspirin 81 mg 07/25/21 18:00 07/25/21 18:17 Aspirin 81 Mg Ec Tablet PO 81 mg QPM ABIGAIL Administration Atorvastatin Calci um 10 mg 07/25/21 21:00 07/25/21 21:08 Atorvastatin 40 Mg Tablet PO Not Given BEDTIME ABIGAIL Bupropion HCl 150 mg 07/26/21 09:00 07/26/21 08:21 Bupropion Xl (24 Hr) 150 Mg Tablet PO 150 mg DAILY ABIGAIL Administration Calcium Acetate 667 mg 07/25/21 18:00 07/26/21 12:28 Calcium Acetate 667 Mg Capsule PO 667 mg TIDWM ABIGAIL Administration Cetirizine HCl 10 mg 07/26/21 09:00 07/26/21 08:22 Cetirizine 10 Mg Tablet PO 10 mg DAILY ABIGAIL Administration Citalopram Hydrobr omide 20 mg 07/26/21 09:00 07/26/21 08:21 Citalopram 20 Mg Tablet PO 20 mg DAILY ABIGAIL Administration Clopidogrel Bisulf ate 75 mg 07/26/21 09:00 07/26/21 08:21 Clopidogrel 75 M g Tablet PO 75 mg DAILY ABIGAIL Administration Docusate Sodium 100 mg 07/25/21 18:00 07/26/21 08:22 Docusate Sodium 100 Mg Capsule PO 100 mg BID ABIGAIL Administration Fluticasone Propio leo 1 spray 07/26/21 09:00 07/26/21 08:22 Fluticasone Nasa l [place] 16gm Btl INTRANASAL 1 applic DAILY ABIGAIL Administration Gabapentin 100 mg 07/25/21 18:00 07/26/21 08:22 Gabapentin 100 M g Capsule PO 100 mg BID ABIGAIL Administration Heparin Sodium (Po rcine) 5,000 unit 07/25/21 16:15 07/26/21 15:23 Heparin 5,000 Un it/Ml Inj 1 Ml SUBCUT 5,000 unit Q12H ABIGAIL Administration Insulin Human Lisp ro 0 unit 07/25/21 18:00 07/26/21 11:46 Insulin Lispro 1 00 Unit/1 Ml SUBCUT Not Given TIDWM [facility] Protocol Insulin Human Lisp ro 0 unit 07/25/21 21:00 07/25/21 21:08 Insulin Lispro 1 00 Unit/1 Ml SUBCUT Not Given BEDTIME [facility] Protocol Lactobacillus Acid ophilus 1 tab 07/25/21 18:00 07/26/21 08:21 Lactobacillus 1 Tablet PO 1 tab BID ABIGAIL Administration Multivitamins Ther apeutic 1 tab 07/26/21 09:00 07/26/21 08:21 Multivitamin The rapeutic Tablet PO 1 tab DAILY ABIGAIL Administration Ropinirole HCl 0.5 mg 07/25/21 21:00 07/26/21 00:03 Ropinirole 0.25 Mg Tablet PO 0.5 mg BEDTIME ABIGAIL Administration Triamcinolone Acet onide 1 applic 07/25/21 18:00 07/26/21 08:23 Triamcinolone 0. 1% Oint 15 Gm TOPICAL 1 applic BID ABIGAIL Administration Vitals/I&O/Wt Last Vital Signs Temp 98.6 F 07/29/21 16:45 Pulse 77 07/29/21 16:45 Resp 18 07/29/21 16:45 BP 128/70 07/29/21 16:45 Pulse Ox 97 07/29/21 15:24 07/29/21 07/29/21 07/29/21 06:59 14:59 22:59 Intake Total 580 / 1680 240 / 240 0 / 240 Output Total 0 / 0 3031 / 3031 Balance 580 / 1680 240 / 240 -3031 / -2791 Weight last 48 hrs Weight 107.2 kg Weight 107.229 kg Weight 108.136 kg Physical Exam Const: COMMON NORMALS: patient oriented x3 HENMT: COMMON NORMALS: normocephalic and atraumatic HEAD & SCALP: normocephalic and atraumatic OTHER: Seborrheic scaling present in face, laceration on the forehead is healed completely, will take out the sutures. Eye: GENERAL EYE: appearance normal, both eyes and all related structures Chest: CHEST: Yes Symmetrical chest wall rise Resp: COMMON NORMALS: normal respiratory effort, No retractions, No use of accessory muscles and clear to auscultation bilaterally EFFORT & INSPECTION: Yes symmetric chest movement AUSCULTATION: clear to auscultation bilaterally Cardio: COMMON NORMALS: regular rate, regular rhythm, S1 normal heart sound present, S2 normal heart sound present, No gallops present (Cardio), No murmurs present (Cardio), No rub (Cardio) and Peripheral pulses 2+ throughout RATE: regular rate RHYTHM: regular rhythm HEART SOUNDS: S1 normal heart sound present and S2 normal heart sound present PERIPHERAL PULSES: Peripheral pulses 2+ throughout GI: COMMON NORMALS: Normal to inspection, nondistended, normoactive bowel sounds present, Soft to palpation, non-tender, No hepatosplenomegaly present and no masses AUSCULTATION: Yes normoactive bowel sounds PALPATION: Yes Soft to palpation and Yes No hepatosplenomegaly present RECTAL EXAM: deferred Extremity: COMMON NORMALS: no clubbing, cyanosis or edema and no pedal edema Neuro: COMMON NORMALS: patient oriented x3 Data : 07/29/21 05:09 07/29/21 06:00 A&P Assessment and plan (1) Plaque psoriasis: Status: Chronic (2) LUIS EDUARDO (obstructive sleep apnea): Status: Chronic (3) COPD (chronic obstructive pulmonary disease): Status: Chronic Qualifiers: COPD type: emphysema Emphysema type: panlobular Qualified Code(s): J43.1 - Panlobular emphysema (4) Restless leg syndrome: Status: Chronic (5) 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 (6) Major depressive disorder, recurrent, severe w/o psychotic behavior: Status: Chronic (7) Obesity, morbid, BMI 40.0-49.9: Status: Chronic (8) End stage renal disease on dialysis: Status: Chronic (9) Weakness: Status: Acute (10) Falls frequently: Status: Chronic (11) Volume overload: Status: Acute Qualifiers: Hypervolemia type: other Qualified Code(s): E87.79 - Other fluid overload (12) Acidosis: Status: Acute (13) Closed head injury: Status: Acute Qualifiers: Encounter type: subsequent encounter Qualified Code(s): S09.90XD - Unspecified injury of head, subsequent encounter Plan 55-year-old female with past medical history of end-stage renal disease dialysis dependent ( MWF ) , DM , COPD , obstructive sleep apnea on BiPAP at home, plaque psoriasis, was brought in from home after experiencing fall Likely secondary to generalized weakness, she was initially sent to [facility] and was then transferred here. Assessment #Acute hyperkalemia secondary to missed dialysis: on routine hemodialysis Follow BMP #Volume overload secondary to missed dialysis: Continue with routine hemodialysis. Currently she has no signs of volume overload post dialysis Denies any shortness of breath, saturating well on minimal supplemental oxygen through nasal cannula #Respiratory acidosis with metabolic compensation: Admission ABG: pH 7.09 PCO2 72.6, PO2 79, FiO2 15 L/min nonrebreather mask, 100% FiO2 Repeat ABG: pH 7.35 PCO2 51, PO2 93, Continue BiPAP, continue to monitor ABG X-ray chest: No infiltrates, no effusion #Acute metabolic encephalopathy: Secondary to hypercapnia, azotemia: CT head without contrast: No acute intracranial pathology Currently patient is at baseline mentation alert awake oriented x3 Continue to monitor mentation Continue with BiPAP, hemodialysis #Diabetes: HbA1c 6.3 Continue low-dose Lantus insulin Monitor fingerstick glucose #Frequent falls likely secondary to generalized weakness: Patient uses walker at home for ambulation PT on board. Patient will benefit from continued physical therapy, will attempt to place her to a alf. Currently patient is agreeable to go to a senior care facility to regain s trength and stability. If alf placement is denied, she will have to return to home with home health. #Closed head injury: No acute intervention CT head without contrast: Has failed to show any significant intracranial abnormality Suture to be removed. #ESRD D/D : Continue routine hemodialysis Renal on board #COPD: Currently not exacerbation, continue duo nebs as needed BiPAP at night #Obstructive apnea: #Plaque psoriasis #CODE STATUS: Full code #Disposition: Patient will need alf placement due to significant weakness, for continued regain of strength and gait stability. #DVT prophylaxis: On heparin Attestations Medical Necessity Statement*: Patient is to be in hospital for management of above defined problems, hyperkalemia, need for hemodialysis Coding Level of Care Code Acute Ecommerce Marketing Manager for [facility] Fwd Exam Comprehensive Diagnoses Plaque psoriasis L40.0 LUIS EDUARDO (obstructive sleep apnea) G47.33 COPD (chronic obstructive pulmonary disease) J43.1 COPD type: emphysema Emphysema type: panlobular Restless leg syndrome G25.81 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 renal disease) E11.22; N18.6 Major depressive disorder, recurrent, severe w/o psychotic behavior F33.2 Obesity, morbid, BMI 40.0-49.9 E66.01 End stage renal disease on dialysis N18.6; Z99.2 Weakness R53.1 Falls frequently R29.6 Volume overload E87.79 Hypervolemia type: other Acidosis E87.2 Closed head injury S09.90XD Encounter type: subsequent encounter
[2021-07-29 20:31] LABS: Glucose Point of Care 131 mg/dL (70-110)
[2021-07-29] MEDS: atorvastatin 40 mg Tablet 10 MG PO (20:32)
[2021-07-29] MEDS: ropinirole 0.25 mg Tablet 0.5 MG PO (20:32)
[2021-07-29] MEDS: trazodone 150 mg Tablet 75 MG PO (20:33)
[2021-07-30] VITALS (11 sets, daily range): BP systolic 107–137; BP diastolic 66–79; PULSE 71–100; RESP 16–25; TEMP 36.4–36.9; O2SAT 92–100
[2021-07-30] MEDS: heparin 5,000 unit/mL INJ 1 mL 5000 UNIT SUBCUT ×2 (03:56→16:49)
[2021-07-30 05:21] LABS: Basophils % 0.6 %; Eosinophils # 0.4 10^3/uL (0.0-0.8); Eosinophils % 5.7 %; Hemoglobin 9.7 g/dL (11.5-15.3); Lymphocytes # 1.2 10^3/uL (0.8-4.8); Lymphocytes % 16.6 %; Mean Corpuscular HGB Conc 29.4 g/dL (30.0-36.0); Mean Corpuscular Hemoglobin 29.8 pg (28.0-34.0); Mean Corpuscular Volume 101.5 fl (81-99); Mean Platelet Volume 10.4 fL (7.4-10.4); Monocytes # 0.4 10^3/uL (0.2-0.9); Neutrophils # 4.99 10^3/uL (1.8-7.7); Neutrophils % 70.7 %; Nucleated Red Blood Cells % 0 %; Platelet Count 157 10^3/cmm (130-400); Red Blood Count 3.25 10^6/uL (4.1-5.3); Red Cell Distribution Width 15.2 % (12.1-15.1); White Blood Count 7.1 10^3/uL (4.0-10.0)
[2021-07-30 05:48] LABS: Alanine Aminotransferase 6 U/L (0-33); Albumin Level 3.3 g/dL (3.5-5.2); Alkaline Phosphatase 79 IU/L (35-105); Anion Gap 20.8 (5-19); Aspartate Amino Transferase 7 U/L (0-32); Blood Urea Nitrogen 54 mg/dL (6-20); Calcium 8.5 mg/dL (8.5-10.5); Carbon Dioxide 23 mmol/L (22-29); Chloride 95 mmol/L (98-107); Globulin 3.5 g/dL (1.3-4.6); Glomerular Filtration Rate 5.6 mL/min (90-130); Glucose 85 mg/dL (65-115); Magnesium 2.2 mg/dL (1.7-2.3); Osmolality Calculated 292 mOsm/kg (285-295); Potassium 4.8 mmol/L (3.5-5.1); Sodium 134 mmol/L (136-145); Total Bilirubin 0.4 mg/dL (0.15-1.2); Total Protein 6.8 g/dL (6.6-8.7)
[2021-07-30 06:22] LABS: Glucose Point of Care 115 mg/dL (70-110)
[2021-07-30] MEDS: sevelamer 800 mg Tablet 2400 MG PO ×3 (08:13→20:46)
[2021-07-30] MEDS: multivitamin therapeutic Tablet 1 TAB PO (08:14)
[2021-07-30] MEDS: lactobacillus 1 Tablet 1 TAB PO ×2 (08:14→18:02)
[2021-07-30] MEDS: calcium acetate 667 mg Capsule PO ×3 (08:14→18:02)
[2021-07-30] MEDS: docusate sodium 100 mg Capsule PO ×2 (08:14→18:03)
[2021-07-30] MEDS: buPROPion XL (24 HR) 150 mg Tablet PO (08:14)
[2021-07-30] MEDS: clopidogrel 75 mg Tablet PO (08:15)
[2021-07-30] MEDS: cetirizine 10 mg Tablet PO (08:15)
[2021-07-30] MEDS: fluticasone nasal spray 16gm Btl 1 SPRAY INTRANASAL (08:15)
[2021-07-30] MEDS: gabapentin 100 mg Capsule PO ×2 (08:15→18:03)
[2021-07-30] MEDS: citalopram 20 mg Tablet PO (08:15)
[2021-07-30] MEDS: polyethylene glycol 3350 Pkt 17 gm PO (08:19)
--- NOTE | 2021-07-30 08:19 | PM.PN ---
Subjective Subjective: Ms. Li feels comfortable today, no acute issues. She denies any chest pain, palpitations, shortness of breath etc. Dialysis went well yesterday. She is currently pending placement. No acute issues at this time. Medications: Reviewed: Yes Medication Review Details: Generic Name Dose Route Start Last Admin Trade Name Adrian PRN Reason Stop Dose Admin Aspirin 81 mg 07/25/21 18:00 07/25/21 18:17 Aspirin 81 Mg Ec Tablet PO 81 mg QPM ABIGAIL Administration Atorvastatin Calci um 10 mg 07/25/21 21:00 07/25/21 21:08 Atorvastatin 40 Mg Tablet PO Not Given BEDTIME ABIGAIL Bupropion HCl 150 mg 07/26/21 09:00 07/26/21 08:21 Bupropion Xl (24 Hr) 150 Mg Tablet PO 150 mg DAILY ABIGAIL Administration Calcium Acetate 667 mg 07/25/21 18:00 07/26/21 12:28 Calcium Acetate 667 Mg Capsule PO 667 mg TIDWM ABIGAIL Administration Cetirizine HCl 10 mg 07/26/21 09:00 07/26/21 08:22 Cetirizine 10 Mg Tablet PO 10 mg DAILY ABIGAIL Administration Citalopram Hydrobr omide 20 mg 07/26/21 09:00 07/26/21 08:21 Citalopram 20 Mg Tablet PO 20 mg DAILY ABIGAIL Administration Clopidogrel Bisulf ate 75 mg 07/26/21 09:00 07/26/21 08:21 Clopidogrel 75 M g Tablet PO 75 mg DAILY ABIGAIL Administration Docusate Sodium 100 mg 07/25/21 18:00 07/26/21 08:22 Docusate Sodium 100 Mg Capsule PO 100 mg BID ABIGAIL Administration Fluticasone Propio leo 1 spray 07/26/21 09:00 07/26/21 08:22 Fluticasone Nasa l [place] 16gm Btl INTRANASAL 1 applic DAILY ABIGAIL Administration Gabapentin 100 mg 07/25/21 18:00 07/26/21 08:22 Gabapentin 100 M g Capsule PO 100 mg BID ABIGAIL Administration Heparin Sodium (Po rcine) 5,000 unit 07/25/21 16:15 07/26/21 15:23 Heparin 5,000 Un it/Ml Inj 1 Ml SUBCUT 5,000 unit Q12H ABIGAIL Administration Insulin Human Lisp ro 0 unit 07/25/21 18:00 07/26/21 11:46 Insulin Lispro 1 00 Unit/1 Ml SUBCUT Not Given TIDWM [facility] Protocol Insulin Human Lisp ro 0 unit 07/25/21 21:00 07/25/21 21:08 Insulin Lispro 1 00 Unit/1 Ml SUBCUT Not Given BEDTIME [facility] Protocol Lactobacillus Acid ophilus 1 tab 07/25/21 18:00 07/26/21 08:21 Lactobacillus 1 Tablet PO 1 tab BID ABIGAIL Administration Multivitamins Ther apeutic 1 tab 07/26/21 09:00 07/26/21 08:21 Multivitamin The rapeutic Tablet PO 1 tab DAILY ABIGAIL Administration Ropinirole HCl 0.5 mg 07/25/21 21:00 07/26/21 00:03 Ropinirole 0.25 Mg Tablet PO 0.5 mg BEDTIME ABIGAIL Administration Triamcinolone Acet onide 1 applic 07/25/21 18:00 07/26/21 08:23 Triamcinolone 0. 1% Oint 15 Gm TOPICAL 1 applic BID ABIGAIL Administration Vitals/I&O/Wt Last Vital Signs Temp 98.0 F 07/30/21 07:06 Pulse 78 07/30/21 07:06 Resp 18 07/30/21 07:06 BP 132/79 07/30/21 07:06 Pulse Ox 100 07/30/21 07:06 07/29/21 07/30/21 07/30/21 22:59 06:59 14:59 Intake Total 240 / 480 240 / 720 Output Total 3031 / 3031 0 / 3031 Balance -2791 / -2551 240 / -2311 Weight last 48 hrs Weight 107.093 kg Weight 107.2 kg Weight 107.229 kg Physical Exam Narrative: Constitutional: Awake, comfortable HEENT: Wet mucosa, no jvp, non icteric Lungs: Bilaterally clear without discernible wheeze, rales in all lung zones CVS: S1 S2, no murmurs Abdo: Soft, BS ok Ext 4: Minimal edema, peripheral perfusion with no cyanosis Neurological: Grossly non-focal Data : 07/30/21 04:30 07/30/21 04:30 A&P Assessment and plan (1) End stage renal disease on dialysis: 1. End-stage renal disease Continue Sunday, Sunday and Sunday schedule, dialysis went well yesterday Next HD on Ankush Dose medication for GFR less than 15 on dialysis 2. Recurrent falls Likely an element of disuse and uremic myopathy, continue physical and occupational therapy 3. Chronic ESRD issues To be handled as an outpatient as part of standard monthly management including secondary hyperparathyroidism, anemia etc. Arjun Cavazos MD Nephrology [phone] Patient seen and examined via telemedicine, with the assistance of the bedside RN > 25 min spent in evaluation and mgmt of patient Status: Chronic Attestations Medical Necessity Statement*: Eval for ESRD mgmt Coding Level of Care Code Acute Floor Plan Adjuster for Chg Fwd Diagnoses End stage renal disease on dialysis N18.6; Z99.2
--- NOTE | 2021-07-30 09:46 | PC.SOCIAL ---
IMM update IMM updated with patient. Verbalized an understanding. Copy Pg 2 provided. Initialled, dated, timed, and placed in chart.
[2021-07-30 11:03] LABS: Glucose Point of Care 105 mg/dL (70-110)
--- NOTE | 2021-07-30 12:55 | P.PN_ITS ---
Subjective Subjective: Patient was seen and examined this morning, no acute events overnight, overall she is doing better working well with physical therapy. Medications: Medication Review Details: Generic Name Dose Route Start Last Admin Trade Name Adrian PRMoris Reason Stop Dose Admin Aspirin 81 mg 07/25/21 18:00 07/25/21 18:17 Aspirin 81 Mg Ec Tablet PO 81 mg QPM ABIGAIL Administration Atorvastatin Calci um 10 mg 07/25/21 21:00 07/25/21 21:08 Atorvastatin 40 Mg Tablet PO Not Given BEDTIME ABIGAIL Bupropion HCl 150 mg 07/26/21 09:00 07/26/21 08:21 Bupropion Xl (24 Hr) 150 Mg Tablet PO 150 mg DAILY ABIGAIL Administration Calcium Acetate 667 mg 07/25/21 18:00 07/26/21 12:28 Calcium Acetate 667 Mg Capsule PO 667 mg TIDWM ABIGAIL Administration Cetirizine HCl 10 mg 07/26/21 09:00 07/26/21 08:22 Cetirizine 10 Mg Tablet PO 10 mg DAILY ABIGAIL Administration Citalopram Hydrobr omide 20 mg 07/26/21 09:00 07/26/21 08:21 Citalopram 20 Mg Tablet PO 20 mg DAILY ABIGAIL Administration Clopidogrel Bisulf ate 75 mg 07/26/21 09:00 07/26/21 08:21 Clopidogrel 75 M g Tablet PO 75 mg DAILY ABIGAIL Administration Docusate Sodium 100 mg 07/25/21 18:00 07/26/21 08:22 Docusate Sodium 100 Mg Capsule PO 100 mg BID ABIGAIL Administration Fluticasone Propio leo 1 spray 07/26/21 09:00 07/26/21 08:22 Fluticasone Nasa l [place] 16gm Btl INTRANASAL 1 applic DAILY ABIGAIL Administration Gabapentin 100 mg 07/25/21 18:00 07/26/21 08:22 Gabapentin 100 M g Capsule PO 100 mg BID ABIGAIL Administration Heparin Sodium (Po rcine) 5,000 unit 07/25/21 16:15 07/26/21 15:23 Heparin 5,000 Un it/Ml Inj 1 Ml SUBCUT 5,000 unit Q12H ABIGAIL Administration Insulin Human Lisp ro 0 unit 07/25/21 18:00 07/26/21 11:46 Insulin Lispro 1 00 Unit/1 Ml SUBCUT Not Given TIDWM [facility] Protocol Insulin Human Lisp ro 0 unit 07/25/21 21:00 07/25/21 21:08 Insulin Lispro 1 00 Unit/1 Ml SUBCUT Not Given BEDTIME [facility] Protocol Lactobacillus Acid ophilus 1 tab 07/25/21 18:00 07/26/21 08:21 Lactobacillus 1 Tablet PO 1 tab BID ABIGAIL Administration Multivitamins Ther apeutic 1 tab 07/26/21 09:00 07/26/21 08:21 Multivitamin The rapeutic Tablet PO 1 tab DAILY ABIGAIL Administration Ropinirole HCl 0.5 mg 07/25/21 21:00 07/26/21 00:03 Ropinirole 0.25 Mg Tablet PO 0.5 mg BEDTIME ABIGAIL Administration Triamcinolone Acet onide 1 applic 07/25/21 18:00 07/26/21 08:23 Triamcinolone 0. 1% Oint 15 Gm TOPICAL 1 applic BID ABIGAIL Administration Vitals/I&O/Wt Last Vital Signs Temp 97.5 F L 07/30/21 11:17 Pulse 79 07/30/21 11:17 Resp 18 07/30/21 11:17 BP 125/75 07/30/21 11:17 Pulse Ox 92 07/30/21 11:17 07/29/21 07/30/21 07/30/21 22:59 06:59 14:59 Intake Total 240 / 480 240 / 720 360 / 360 Output Total 3031 / 3031 0 / 3031 Balance -2791 / -2551 240 / -2311 360 / 360 Weight last 48 hrs Weight 107.093 kg Weight 107.2 kg Weight 107.229 kg Physical Exam Const: COMMON NORMALS: patient oriented x3 HENMT: COMMON NORMALS: normocephalic and atraumatic HEAD & SCALP: normocephalic and atraumatic OTHER: Seborrheic scaling present in face, laceration on the forehead is healed completely, will take out the sutures. Eye: GENERAL EYE: appearance normal, both eyes and all related structures Chest: CHEST: Yes Symmetrical chest wall rise Resp: COMMON NORMALS: normal respiratory effort, No retractions, No use of accessory muscles and clear to auscultation bilaterally EFFORT & INSPECTION: Yes symmetric chest movement AUSCULTATION: clear to auscultation bilaterally Cardio: COMMON NORMALS: regular rate, regular rhythm, S1 normal heart sound present, S2 normal heart sound present, No gallops present (Cardio), No murmurs present (Cardio), No rub (Cardio) and Peripheral pulses 2+ throughout RATE: regular rate RHYTHM: regular rhythm HEART SOUNDS: S1 normal heart sound present and S2 normal heart sound present PERIPHERAL PULSES: Peripheral pulses 2+ throughout GI: COMMON NORMALS: Normal to inspection, nondistended, normoactive bowel sounds present, Soft to palpation, non-tender, No hepatosplenomegaly present and no masses AUSCULTATION: Yes normoactive bowel sounds PALPATION: Yes Soft to palpation and Yes No hepatosplenomegaly present RECTAL EXAM: deferred Extremity: COMMON NORMALS: no clubbing, cyanosis or edema and no pedal edema Neuro: COMMON NORMALS: patient oriented x3 Data : 07/30/21 04:30 07/30/21 04:30 A&P Assessment and plan (1) Plaque psoriasis: Status: Chronic (2) LUIS EDUARDO (obstructive sleep apnea): Status: Chronic (3) COPD (chronic obstructive pulmonary disease): Status: Chronic Qualifiers: COPD type: emphysema Emphysema type: panlobular Qualified Code(s): J43.1 - Panlobular emphysema (4) Restless leg syndrome: Status: Chronic (5) 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 (6) Major depressive disorder, recurrent, severe w/o psychotic behavior: Status: Chronic (7) Obesity, morbid, BMI 40.0-49.9: Status: Chronic (8) End stage renal disease on dialysis: Status: Chronic (9) Weakness: Status: Acute (10) Falls frequently: Status: Chronic (11) Volume overload: Status: Acute Qualifiers: Hypervolemia type: other Qualified Code(s): E87.79 - Other fluid overload (12) Acidosis: Status: Acute (13) Closed head injury: Status: Acute Qualifiers: Encounter type: subsequent encounter Qualified Code(s): S09.90XD - Unspecified injury of head, subsequent encounter Plan 55-year-old female with past medical history of end-stage renal disease dialysis dependent ( MWF ) , DM , COPD , obstructive sleep apnea on BiPAP at home, plaque psoriasis, was brought in from home after experiencing fall Likely secondary to generalized weakness, she was initially sent to [facility] and was then transferred here. Assessment #Acute hyperkalemia secondary to missed dialysis: on routine hemodialysis Follow BMP #Volume overload secondary to missed dialysis: Continue with routine hemodialysis. Currently she has no signs of volume overload post dialysis Denies any shortness of breath, saturating well on minimal supplemental oxygen through nasal cannula #Respiratory acidosis with metabolic compensation: Admission ABG: pH 7.09 PCO2 72.6, PO2 79, FiO2 15 L/min nonrebreather mask, 100% FiO2 Repeat ABG: pH 7.35 PCO2 51, PO2 93, Continue BiPAP, continue to monitor ABG X-ray chest: No infiltrates, no effusion #Acute metabolic encephalopathy: Secondary to hypercapnia, azotemia: CT head without contrast: No acute intracranial pathology Currently patient is at baseline mentation alert awake oriented x3 Continue to monitor mentation Continue with BiPAP, hemodialysis #Diabetes: HbA1c 6.3 Continue low-dose Lantus insulin Monitor fingerstick glucose #Frequent falls likely secondary to generalized weakness: Patient uses walker at home for ambulation PT on board. Patient will benefit from continued physical therapy, will attempt to place her to a halfway. Currently patient is agreeable to go to a [place] [facility] facility to regain strength and stability. If halfway placement is denied, she will have to return to home with home health. #Closed head injury: No acute intervention CT head without contrast: Has failed to show any significant intracranial abnormality Suture to be removed. #ESRD D/D : Continue routine hemodialysis Renal on board #COPD: Currently not exacerbation, continue duo nebs as needed BiPAP at night #Obstructive apnea: #Plaque psoriasis #CODE STATUS: Full code #Disposition: Patient will need halfway placement due to significant weakness, for continued regain of strength and gait stability. #DVT prophylaxis: On heparin Attestations Medical Necessity Statement*: Patient is currently awaiting halfway placement. Time Spent in Patient Care: Greater than 35 minutes (>than 50% of time spent in counselling and/or direct pt care on unit) . Coding Level of Care Code Acute Assistance Representative for Chg Fwd Diagnoses Plaque psoriasis L40.0 LUIS EDUARDO (obstructive sleep apnea) G47.33 COPD (chronic obstructive pulmonary disease) J43.1 COPD type: emphysema Emphysema type: panlobular Restless leg syndrome G25.81 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 renal disease) E11.22; N18.6 Major depressive disorder, recurrent, severe w/o psychotic behavior F33.2 Obesity, morbid, BMI 40.0-49.9 E66.01 End stage renal disease on dialysis N18.6; Z99.2 Weakness R53.1 Falls frequently R29.6 Volume overload E87.79 Hypervolemia type: other Acidosis E87.2 Closed head injury S09.90XD Encounter type: subsequent encounter
[2021-07-30 17:04] LABS: Glucose Point of Care 107 mg/dL (70-110)
[2021-07-30] MEDS: aspirin 81 mg EC Tablet PO (18:03)
[2021-07-30 20:42] LABS: Glucose Point of Care 113 mg/dL (70-110)
[2021-07-30] MEDS: atorvastatin 40 mg Tablet 10 MG PO (20:47)
[2021-07-30] MEDS: ropinirole 0.25 mg Tablet 0.5 MG PO (20:47)
[2021-07-31 03:45] VITALS: BP 115/66; PULSE 84; RESP 17; TEMP 36.4; O2SAT 96
[2021-07-31 04:52] LABS: Basophils # 0.1 10^3/uL (0.0-0.1); Basophils % 0.7 %; Eosinophils # 0.4 10^3/uL (0.0-0.8); Eosinophils % 5.7 %; Hematocrit 32.6 % (37.0-47.0); Hemoglobin 9.9 g/dL (11.5-15.3); Lymphocytes # 1.2 10^3/uL (0.8-4.8); Lymphocytes % 16.3 %; Mean Corpuscular HGB Conc 30.4 g/dL (30.0-36.0); Mean Corpuscular Hemoglobin 30.7 pg (28.0-34.0); Mean Corpuscular Volume 101.2 fl (81-99); Mean Platelet Volume 10.7 fL (7.4-10.4); Monocytes # 0.4 10^3/uL (0.2-0.9); Monocytes % 5.8 %; Neutrophils # 5.12 10^3/uL (1.8-7.7); Neutrophils % 70.9 %; Nucleated Red Blood Cells % 0 %; Platelet Count 175 10^3/cmm (130-400); Red Blood Count 3.22 10^6/uL (4.1-5.3); Red Cell Distribution Width 15.3 % (12.1-15.1); White Blood Count 7.2 10^3/uL (4.0-10.0)
[2021-07-31 05:16] LABS: Alanine Aminotransferase 7 U/L (0-33); Albumin Level 3.4 g/dL (3.5-5.2); Alkaline Phosphatase 78 IU/L (35-105); Anion Gap 25.9 (5-19); Aspartate Amino Transferase 8 U/L (0-32); Blood Urea Nitrogen 62 mg/dL (6-20); Calcium 8.5 mg/dL (8.5-10.5); Carbon Dioxide 20 mmol/L (22-29); Chloride 96 mmol/L (98-107); Globulin 3.4 g/dL (1.3-4.6); Glomerular Filtration Rate 4.4 mL/min (90-130); Glucose 84 mg/dL (65-115); Magnesium 2.3 mg/dL (1.7-2.3); Osmolality Calculated 299 mOsm/kg (285-295); Potassium 5.9 mmol/L (3.5-5.1); Sodium 136 mmol/L (136-145); Total Bilirubin 0.4 mg/dL (0.15-1.2); Total Protein 6.8 g/dL (6.6-8.7)
[2021-07-31] MEDS: heparin 5,000 unit/mL INJ 1 mL 5000 UNIT SUBCUT (05:20)
[2021-07-31 05:31] LABS: Phosphorus 9.2 mg/dL (2.5-4.5)
[2021-07-31 06:00] VITALS: PULSE 78
[2021-07-31 06:28] LABS: Glucose Point of Care 80 mg/dL (70-110)
[2021-07-31 07:20] VITALS: BP 116/72; PULSE 86; RESP 15; TEMP 36.6; O2SAT 100
[2021-07-31 07:43] VITALS: PULSE 72; RESP 16; O2SAT 94
--- NOTE | 2021-07-31 07:49 | P.PN_ITS ---
Subjective Subjective: weak. doing PT. awaiting rehab/ NH placement Medications: Reviewed: Yes Medication Review Details: Current Medications Acetaminophen (Acetaminophen 325 Mg Tablet) 650 mg PO Q6H PRN PRN Reason: Pain Last Admin: 07/28/21 08:24 Dose: 650 mg Documented by: Albuterol/Ipratropium (Ipratropium-Albuterol 3 Ml Neb) 3 ml INHALATION Q6H PRN PRN Reason: SHORTNESS OF BREATH Aspirin (Aspirin 81 Mg Ec Tablet) 81 mg PO QPM [facility] Last Admin: 07/30/21 18:03 Dose: 81 mg Documented by: Atorvastatin Calcium (Atorvastatin 40 Mg Tablet) 10 mg PO BEDTIME [facility] Last Admin: 07/30/21 20:47 Dose: 10 mg Documented by: Bupropion HCl (Bupropion Xl (24 Hr) 150 Mg Tablet) 150 mg PO DAILY [facility] Last Admin: 07/30/21 08:14 Dose: 150 mg Documented by: Calcium Acetate (Calcium Acetate 667 Mg Capsule) 667 mg PO TIDWM [facility] Last Admin: 07/30/21 18:02 Dose: 667 mg Documented by: Cetirizine HCl (Cetirizine 10 Mg Tablet) 10 mg PO DAILY [facility] Last Admin: 07/30/21 08:15 Dose: 10 mg Documented by: Citalopram Hydrobromide (Citalopram 20 Mg Tablet) 20 mg PO DAILY [facility] Last Admin: 07/30/21 08:15 Dose: 20 mg Documented by: Clopidogrel Bisulfate (Clopidogrel 75 Mg Tablet) 75 mg PO DAILY [facility] Last Admin: 07/30/21 08:15 Dose: 75 mg Documented by: Cyclobenzaprine HCl (Cyclobenzaprine 10 Mg Tablet) 5 mg PO TID PRN PRN Reason: MUSCLE SPASMS Dextrose (Dextrose 50% Syringe 50 Ml) 25 ml IVP ONCE PRN; Protocol PRN Reason: hypoglycemia protocol Dextrose (Dextrose 50% Syringe 50 Ml) 50 ml IVP PRN PRN; Protocol PRN Reason: hypoglycemia protocol Docusate Sodium (Docusate Sodium 100 Mg Capsule) 100 mg PO BID [facility] Last Admin: 07/30/21 18:03 Dose: 100 mg Documented by: Docusate Sodium (Docusate Sodium 100 Mg Capsule) 100 mg PO DAILY PRN PRN Reason: Constipation Epoetin Jeff (Epoetin Jeff 1000 Unit/0.05 Ml (Esrd)) 4,000 unit SUBCUT MoWeFr@1400 [facility] Last Admin: 07/29/21 17:04 Dose: 4,000 unit Documented by: Fluticasone Propionate (Fluticasone Nasal [place] 16gm Btl) 1 spray INTRANASAL DAILY [facility] Last Admin: 07/30/21 08:15 Dose: 1 spray Documented by: Gabapentin (Gabapentin 100 Mg Capsule) 100 mg PO BID [facility] Last Admin: 07/30/21 18:03 Dose: 100 mg Documented by: Glucagon (Glucagon 1 Mg/Ml Inj 1 Ml) 1 mg IM ONCE PRN; Protocol PRN Reason: Adult Acute Hypoglycemia Prot. Heparin Sodium (Porcine) (Heparin 5,000 Unit/Ml Inj 1 Ml) 5,000 unit SUBCUT Q12H [facility] Last Admin: 07/31/21 05:20 Dose: 5,000 unit Documented by: calcium gluconate 0.9% NaCL (Calcium Gluconate 0.9% Nacl) 1 gm in 50 mls @ 50 mls/hr IV ONCE PRN PRN Reason: doctor verbal order to give for hyperkalemia Dextrose (D5w) 500 mls @ 100 mls/hr IV ONCE PRN; Protocol PRN Reason: Adult Acute Hypoglycemia Prot Insulin Human Lispro (Insulin Lispro 100 Unit/1 Ml) 0 unit SUBCUT TIDWM [facility]; Protocol Last Admin: 07/30/21 17:10 Dose: Not Given Documented by: Insulin Human Lispro (Insulin Lispro 100 Unit/1 Ml) 0 unit SUBCUT BEDTIME [facility]; Protocol Last Admin: 07/30/21 20:56 Dose: Not Given Documented by: Lactobacillus Acidophilus (Lactobacillus 1 Tablet) 1 tab PO BID [facility] Last Admin: 07/30/21 18:02 Dose: 1 tab Documented by: Midodrine (Midodrine 5 Mg Tablet) 5 mg PO MoWeFr [facility] Last Admin: 07/29/21 12:16 Dose: 5 mg Documented by: Multivitamins Therapeutic (Multivitamin Therapeutic Tablet) 1 tab PO DAILY [facility] Last Admin: 07/30/21 08:14 Dose: 1 tab Documented by: Nitroglycerin (Nitroglycerin 0.4 Mg Sublingual Tablet) 0.4 mg SUBLINGUAL Q5M PRN PRN Reason: chest pain Ondansetron HCl (Ondansetron 2 Mg/Ml Sdv 2 Ml) 4 mg IVP Q8H PRN PRN Reason: NAUSEA AND VOMITING Ropinirole HCl (Ropinirole 0.25 Mg Tablet) 0.5 mg PO BEDTIME [facility] Last Admin: 07/30/21 20:47 Dose: 0.5 mg Documented by: Sevelamer Carbonate (Sevelamer 800 Mg Tablet) 2,400 mg PO TID [facility] Last Admin: 07/30/21 20:46 Dose: 2,400 mg Documented by: Trazodone HCl (Trazodone 150 Mg Tablet) 75 mg PO BEDTIME PRN PRN Reason: insomnia Last Admin: 07/29/21 20:33 Dose: 75 mg Documented by: Triamcinolone Acetonide (Triamcinolone 0.1% Oint 15 Gm) 1 applic TOPICAL BID [facility] Last Admin: 07/30/21 18:03 Dose: 1 applic Documented by: Vitals/I&O/Wt Last Vital Signs Temp 97.9 F 07/31/21 07:20 Pulse 72 07/31/21 07:43 Resp 16 07/31/21 07:43 BP 116/72 07/31/21 07:20 Pulse Ox 94 07/31/21 07:43 07/30/21 07/31/21 07/31/21 22:59 06:59 14:59 Intake Total 120 / 600 Balance 120 / 600 Weight last 48 hrs Weight 107.093 kg Weight 107.2 kg Physical Exam Narrative: comfortable in bed, NARD vs noted heent- face laceration, ecchymosis neck supple lungs- dull bases b/l Left sided permacath heart reg abd soft, nt, nd ext b/l trace edema LUE AVF w/ thrill neuro- a,a, o x3 skin- psoriasis Data : 07/31/21 04:12 07/31/21 04:12 Micro: Microbiology 07/25/21 16:25 Blood Culture - Final Blood NO GROWTH AFTER 5 DAYS 07/25/21 16:20 Blood Culture - Final Blood NO GROWTH AFTER 5 DAYS A&P Assessment and plan (1) End stage renal disease on dialysis: 55 year old female 1. ESRD- hyperkalemia- extra HD -3.5 hrs- 2k, remove 3 liter as laina -on MWF as outpt 2. cont rehab 3. dm control - was hypoglycemic this am hgb a 1c=6.3 4 monitor hgb- ferritin 1697- no iv iron. Epo as needed 5. copd/ LUIS EDUARDO- on home 02 -resp acidosis improved 6. monitor phos on phoslo and renvela - pth controlled at 266 normal vit d seen and examined w/ rn- telehealth visit time spent 30 min Status: Chronic Plan see above Attestations Medical Necessity Statement*: esrd, hyperkalemia, weakness, falls Time Spent in Patient Care: 16 - 35 minutes (>than 50% of time spent in counselling and/or direct pt care on unit) . Coding Level of Care Code Acute Electromechanical Inspector for Chg Fwd Diagnoses End stage renal disease on dialysis N18.6; Z99.2
--- NOTE | 2021-07-31 07:54 | P.DS_ITS ---
Discharge Providers Date of Admission: 07/25/21 15:46 Date of Discharge: July 31, 2021 Attending Provider at Admission: Era Dunn MD Attending Provider at Discharge: Emir Stevens MD Primary Care Provider: Kate Marcelino MD Diagnoses at Discharge Discharge Diagnosis (1) Plaque psoriasis: Status: Chronic (2) LUIS EDUARDO (obstructive sleep apnea): Status: Chronic Permanent problem details: on home CPAP or Bipap (3) COPD (chronic obstructive pulmonary disease): Status: Chronic Qualifiers: COPD type: emphysema Emphysema type: panlobular Qualified Code(s): J43.1 - Panlobular emphysema (4) Restless leg syndrome: Status: Chronic (5) 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 (6) Major depressive disorder, recurrent, severe w/o psychotic behavior: Status: Chronic (7) Obesity, morbid, BMI 40.0-49.9: Status: Chronic (8) End stage renal disease on dialysis: Status: Chronic (9) Weakness: Status: Acute (10) Falls frequently: Status: Chronic (11) Volume overload: Status: Acute Qualifiers: Hypervolemia type: other Qualified Code(s): E87.79 - Other fluid overload (12) Acidosis: Status: Acute (13) Closed head injury: Status: Acute Qualifiers: Encounter type: subsequent encounter Qualified Code(s): S09.90XD - Unspecified injury of head, subsequent encounter Reason for Visit Reason for Visit: Hyperkalemia Hospital Course Hospital Course 55-year-old female with past medical history of end-stage renal disease dialysis dependent ( MWF ) , DM , COPD , obstructive sleep apnea on BiPAP at home, plaque psoriasis, was brought in from home after experiencing fall Likely secondary to generalized weakness, she was initially sent to [facility] and was then transferred here. She was admitted for the management of acute hyperkalemia likely secondary to missed dialysis, volume overload, respiratory acidosis Metabolic compensation, acute metabolic encephalopathy secondary to hypercapnia and azotemia, frequent falls secondary to generalized weakness, closed head injury, she was continued on routine hemodialysis to which she responded well, she was continued with physical therapy, initial plan was to place her to a SNF given her significant weakness and recurrent fall, with progressive physical therapy during the hospital stay she did well, she was ambulating fine, no fall was experienced during the hospital, given her significant improvement, she was later discharged to home with home health and home physical therapy. She will continue to use walker at home. For her closed head injury: CT head without contrast: Negative for intracranial hemorrhage or mass effect. Initially she had stitches on the forehead which were later removed.Patient has responded well to above medical management and is being discharged in stable condition to home. Patient will continue with her routine hemodialysis as an outpatient. Physical Exam Const: COMMON NORMALS: patient oriented x3 HENMT: COMMON NORMALS: normocephalic and atraumatic HEAD & SCALP: normocephalic and atraumatic OTHER: Seborrheic scaling present in face, laceration on the forehead is healed completely, will take out the sutures. Eye: GENERAL EYE: appearance normal, both eyes and all related structures Chest: CHEST: Yes Symmetrical chest wall rise Resp: COMMON NORMALS: normal respiratory effort, No retractions, No use of accessory muscles and clear to auscultation bilaterally EFFORT & INSPECTION: Yes symmetric chest movement AUSCULTATION: clear to auscultation bilaterally Cardio: COMMON NORMALS: regular rate, regular rhythm, S1 normal heart sound present, S2 normal heart sound present, No gallops present (Cardio), No murmurs present (Cardio), No rub (Cardio) and Peripheral pulses 2+ throughout RATE: regular rate RHYTHM: regular rhythm HEART SOUNDS: S1 normal heart sound present and S2 normal heart sound present PERIPHERAL PULSES: Peripheral pulses 2+ throughout GI: COMMON NORMALS: Normal to inspection, nondistended, normoactive bowel sounds present, Soft to palpation, non-tender, No hepatosplenomegaly present and no masses AUSCULTATION: Yes normoactive bowel sounds PALPATION: Yes Soft to palpation and Yes No hepatosplenomegaly present RECTAL EXAM: deferred Extremity: COMMON NORMALS: no clubbing, cyanosis or edema and no pedal edema Neuro: COMMON NORMALS: patient oriented x3 Discharge Data Studies Completed and Pending Completed Studies During Hospitalization Category Date Time Status CT head wo con* [id number] Routine Cat Scan 07/25/21 17:41 Completed CXRP [XR chest 1V portable 04200] Routine Exams 07/25/21 21:00 Completed Radiology Impressions Head CT 07/25/21 17:41 IMPRESSION: Negative for intracranial hemorrhage or mass effect. Chest X-Ray 07/25/21 21:00 IMPRESSION: Increasing abnormality in the left lower hemithorax as above. Laboratory Results WBC 7.2 10^3/uL (4.0-10.0) 07/31/21 04:12 RBC 3.22 10^6/uL (4.1-5.3) L 07/31/21 04:12 Hgb 9.9 g/dL (11.5-15.3) L 07/31/21 04:12 Hct 32.6 % (37.0-47.0) L 07/31/21 04:12 MCV 101.2 fl (81-99) H 07/31/21 04:12 MCH 30.7 pg (28.0-34.0) 07/31/21 04:12 MCHC 30.4 g/dL (30.0-36.0) 07/31/21 04:12 RDW 15.3 % (12.1-15.1) H 07/31/21 04:12 Plt Count 175 10^3/cmm (130-400) 07/31/21 04:12 MPV 10.7 fL (7.4-10.4) H 07/31/21 04:12 Neut % (Auto) 70.9 % 07/31/21 04:12 Lymph % (Auto) 16.3 % 07/31/21 04:12 Latimer % (Auto) 5.8 % 07/31/21 04:12 Eos % (Auto) 5.7 % 07/31/21 04:12 Baso % (Auto) 0.7 % 07/31/21 04:12 Neut # (Auto) 5.12 10^3/uL (1.8-7.7) 07/31/21 04:12 Lymph # (Auto) 1.2 10^3/uL (0.8-4.8) 07/31/21 04:12 [place]imer # (Auto) 0.4 10^3/uL (0.2-0.9) 07/31/21 04:12 Eos # (Auto) 0.4 10^3/uL (0.0-0.8) 07/31/21 04:12 Baso # (Auto) 0.1 10^3/uL (0.0-0.1) 07/31/21 04:12 Nucleated RBC % (auto) 0 % 07/31/21 04:12 Nucleated RBCs # 0.0 /100WBC 07/31/21 04:12 PT 13.70 SECONDS (12.1-14.9) 07/25/21 16:20 INR 1.02 (0.8-1.2) 07/25/21 16:20 Specimen Type Arterial 07/25/21 19:30 Sample Site Radial, right 07/25/21 19:30 ABG pH 7.35 (7.35-7.45) 07/25/21 19:30 ABG pCO2 51.2 mmHg (35-45) H 07/25/21 19:30 ABG pO2 93.8 mmHg (80.0-100.0) 07/25/21 19:30 ABG HCO3 28.3 mmol/L (22-26) H 07/25/21 19:30 ABG O2 Saturation 96.8 07/25/21 19:30 ABG Base Excess 2.0 mmol/L (-2.0-2.0) 07/25/21 19:30 Joel Test Pos 07/25/21 19:30 A-a O2 Gradient 16.4 mmHg (5-10) H 07/25/21 19:30 Hematocrit 30.5 % (37-47) L 07/25/21 19:30 Hgb O2 Saturation 94.7 % (95-100) L 07/25/21 19:30 Carboxyhemoglobin 0.9 %THgb (0.4-20.1) 07/25/21 19:30 Methemoglobin 1.3 % (0.4-1.5) 07/25/21 19:30 Total Hemoglobin 9.9 g/dL (12-16) L 07/25/21 19:30 Sodium 141.0 mmol/L (131-143) 07/25/21 19:30 Potassium 5.0 mmol/L (3.5-5.0) 07/25/21 19:30 Glucose 65.0 mg/dL (70-115) L 07/25/21 19:30 Ionized Calcium 1.1 mmol/L (1.1-1.4) 07/25/21 19:30 O2 Delivery Device Bipap 07/25/21 19:30 O2 Liters/Min 15.0 % 07/25/21 16:25 FiO2 40.0 % 07/25/21 19:30 Die Cut Operator ID [email or web address] 07/25/21 19:30 Sodium 136 mmol/L (136-145) 07/31/21 04:12 Potassium 5.9 mmol/L (3.5-5.1) H 07/31/21 04:12 Chloride 96 mmol/L (98-107) L 07/31/21 04:12 Carbon Dioxide 20 mmol/L (22-29) L 07/31/21 04:12 Anion Gap 25.9 (5-19) H 07/31/21 04:12 BUN 62 mg/dL (6-20) H 07/31/21 04:12 Creatinine 9.3 mg/dL (0.5-0.9) H* 07/31/21 04:12 GFR Calculation 4.4 mL/min (90-130) L 07/31/21 04:12 Glucose 84 mg/dL (65-115) 07/31/21 04:12 POC Glucose 80 mg/dL (70-110) 07/31/21 06:21 Estimat Average Glucose 134 07/26/21 03:26 Hemoglobin A1c 6.3 % (4.0-6.0) H 07/26/21 03:26 Calculated Osmolality 299 mOsm/kg (285-295) H 07/31/21 04:12 Uric Acid 6.0 mg/dL (2.4-5.7) H 07/25/21 17:54 Calcium 8.5 mg/dL (8.5-10.5) 07/31/21 04:12 Phosphorus 9.2 mg/dL (2.5-4.5) H* 07/31/21 04:12 Magnesium 2.3 mg/dL (1.7-2.3) 07/31/21 04:12 Iron 75 ug/dL (37-145) 07/26/21 03:26 TIBC 136 mcg/dl 07/26/21 03:26 % Saturation 55.1 % (20-50) H 07/26/21 03:26 Unsat Iron Binding 61 ug/dL (112-347) L 07/26/21 03:26 Ferritin 1697 ng/mL (15-150) H 07/26/21 03:26 Total Bilirubin 0.4 mg/dL (0.15-1.2) 07/31/21 04:12 AST 8 U/L (0-32) 07/31/21 04:12 ALT 7 U/L (0-33) 07/31/21 04:12 Alkaline Phosphatase 78 IU/L (35-105) 07/31/21 04:12 Total Protein 6.8 g/dL (6.6-8.7) 07/31/21 04:12 Albumin 3.4 g/dL (3.5-5.2) L 07/31/21 04:12 Globulin 3.4 g/dL (1.3-4.6) 07/31/21 04:12 25-OH Vitamin D Total 38 ng/mL (30-100) 07/26/21 03:26 PTH Intact 266.2 pg/mL (15-65) H 07/26/21 03:26 Calcium (PTH Intact) 8.0 mg/dL (8.5-10.5) L 07/26/21 03:26 Hep Bs Antigen Non-reactive (Nonreactive) 07/25/21 16:25 Hep Bs Antibody 3.5 (11.5-1000) L 07/25/21 16:25 Hepatitis C Antibody Non-reactive (Nonreactive) 07/25/21 16:25 Vitals Last Vital Signs Temp 97.9 F 07/31/21 07:20 Pulse 72 07/31/21 07:43 Resp 16 07/31/21 07:43 BP 116/72 07/31/21 07:20 Pulse Ox 94 07/31/21 07:43 Discharge Plan Discharge Patient Disposition: Home Condition: Stable Prescriptions: Continued acetaminophen 325 mg tablet 650 mg PO Q6H PRN (Reason: Pain) 0RF polyethylene glycol 3350 17 gram/dose powder 17 g PO .ONCE A WEEK PRN (Reason: Constipation) 0RF magnesium sulfate (bulk) [Epsom Salt] 100 % crystals 1 applic topical BID Qty: 2500 1RF Rx Instructions: soak feet twice daily for 15 minutes albuterol sulfate [ProAir HFA] 90 mcg/actuation HFA aerosol inhaler 2 puff INHALATION QID PRN (Reason: shortness of breath or wheezing) 30 Days Qty: 18 5RF Tradjenta 5 mg tablet 5 mg PO DAILY Qty: 90 3RF aspirin [Adult Aspirin Regimen] 81 mg tablet,delayed release (DR/EC) 81 mg PO QPM 0RF Lactobacillus acidophilus [Acidophilus] Capsule 1 cap PO QPM 0RF Rx Instructions: administer with large glass of water triamcinolone acetonide 0.1 % ointment 1 applic topical BID Qty: 453.6 2RF Rx Instructions: Apply to affected area no more than 2 weeks per month. Not for face. ropinirole 0.5 mg tablet 0.5 mg PO BEDTIME 90 Days Qty: 90 0RF (DME) Blood Glucose Test Strip See Rx Instructions .ROUTE .MEDSUPPLY Qty: 50 11RF Rx Instructions: Brand/type to go with meter per insurance coverage (DME) [place] [facility] Rx Instructions .ROUTE .MEDSUPPLY Qty: 100 11RF Rx Instructions: For use with glucose meter, brand/type per insurance (DME) blood-glucose meter [Blood Glucose Monitoring] Kit See Rx Instructions .ROUTE .MEDSUPPLY Qty: 1 0RF Rx Instructions: Brand/type per insurance coverage alcohol swabs Pads, Medicated 1 pad topical TID PRN (Reason: as needed to check blood sugar) 30 Days Qty: 100 11RF (DME) Depend Underwear For Women [place] [facility] [place] Rx Instructions .ROUTE .MEDSUPPLY Qty: 120 11RF Rx Instructions: As directed, may adjust brand as needed, 4 daily midodrine 5 mg tablet See Rx Instructions .ROUTE .COMPLEX Qty: 30 3RF Rx Instructions: 5mg po on mon,wed, and fri 30 min before dialysis and may repeat another dose if needed nitroglycerin 0.4 mg tablet, sublingual 0.4 mg sublingual Q5M PRN (Reason: chest pain) Qty: 30 6RF Rx Instructions: do not exceed 3 doses per episode miscellaneous medical supply [facility] [place] Rx Instructions miscellaneous .COMPLEX Qty: 1 0RF Rx Instructions: 2L O2 by NC with activity; portable oxygen machine with supplies trazodone 150 mg tablet 75 - 150 mg PO BEDTIME Qty: 30 2RF Wellbutrin XL 150 mg tablet extended release 24 hr 150 mg PO DAILY Qty: 30 3RF citalopram [Celexa] 20 mg tablet 20 mg PO DAILY Qty: 30 3RF pravastatin 10 mg tablet 10 mg PO DAILY Qty: 30 5RF clopidogrel [Plavix] 75 mg tablet 75 mg PO DAILY 90 Days Qty: 90 1RF cetirizine [Zyrtec] 10 mg tablet 10 mg PO DAILY 30 Days Qty: 30 5RF miscellaneous medical supply Misc See Rx Instructions miscellaneous .COMPLEX Qty: 1 0RF Rx Instructions: Hospital Bed; head of bed to be elevated at greater than 30 degrees for COPD lanthanum 750 mg tablet,chewable See Rx Instructions .ROUTE .COMPLEX 0RF Rx Instructions: 2 tab po tid with meals and 1 tab with snacks RenaPlex-D 800 mcg-12.5 mg -2,000 unit tablet 1 tab PO DAILY 0RF calcium acetate(phosphat bind) 667 mg capsule 667 mg PO .WITH EVERY MEAL 0RF insulin lispro [Humalog KwikPen Insulin] 100 unit/mL Insulin Pen See Rx Instructions .ROUTE .COMPLEX 0RF Rx Instructions: sliding scale subcutaneously before meals prn Breo Ellipta 100-25 mcg/dose blister with device 1 inh inhalation DAILY PRN (Reason: unknown) 0RF multivitamin Tablet 1 tab PO DAILY 0RF lidocaine-prilocaine 2.5-2.5 % cream 1 applic topical . DIRECTED 0RF gabapentin 100 mg capsule 100 mg PO BID 0RF Colace 100 mg Capsule 100 mg PO DAILY PRN (Reason: Constipation) 0RF fluticasone propionate 50 mcg/actuation [place],Suspension 1 spray INTRANASAL DAILY 0RF Rx Instructions: administer into each nostril cyclobenzaprine 5 mg tablet 5 mg PO TID PRN (Reason: Muscle Spasm) 0RF Mircera 100 mcg/0.3 mL Syringe 100 mcg IV .EVERY 2 WEEKS 0RF mupirocin 2 % ointment 1 applic TOPICAL BID 0RF Discharge Orders: Discharge Order (Routine); Ordered 07/31/21 Ordered By: Emir Stevens Referrals: [facility] [Staff Physician] - Discharge Activity: Increase activity as tolerated Patient Instructions: Opioid Safety Discharge Attestations Time Spent in Discharge Care*: less than 30 min Quality Metrics Clinical Quality Measures [ No reported AMI, CVA or VTE this stay] Coding Level of Care Code Acute Chg FW DC note Diagnoses Plaque psoriasis L40.0 LUIS EDUARDO (obstructive sleep apnea) G47.33 COPD (chronic obstructive pulmonary disease) J43.1 COPD type: emphysema Emphysema type: panlobular Restless leg syndrome G25.81 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 renal disease) E11.22; N18.6 Major depressive disorder, recurrent, severe w/o psychotic behavior F33.2 Obesity, morbid, BMI 40.0-49.9 E66.01 End stage renal disease on dialysis N18.6; Z99.2 Weakness R53.1 Falls frequently R29.6 Volume overload E87.79 Hypervolemia type: other Acidosis E87.2 Closed head injury S09.90XD Encounter type: subsequent encounter
[2021-07-31] MEDS: cetirizine 10 mg Tablet PO (08:40)
[2021-07-31] MEDS: lactobacillus 1 Tablet 1 TAB PO (08:40)
[2021-07-31] MEDS: multivitamin therapeutic Tablet 1 TAB PO (08:40)
[2021-07-31] MEDS: buPROPion XL (24 HR) 150 mg Tablet PO (08:41)
[2021-07-31] MEDS: gabapentin 100 mg Capsule PO (08:41)
[2021-07-31] MEDS: docusate sodium 100 mg Capsule PO (08:41)
[2021-07-31] MEDS: citalopram 20 mg Tablet PO (08:41)
[2021-07-31] MEDS: clopidogrel 75 mg Tablet PO (08:41)
[2021-07-31] MEDS: calcium acetate 667 mg Capsule 1334 MG PO ×2 (08:47→15:50)
[2021-07-31] MEDS: fluticasone nasal spray 16gm Btl 1 SPRAY INTRANASAL (08:47)
[2021-07-31] MEDS: sevelamer 800 mg Tablet 2400 MG PO ×2 (09:29→15:52)
[2021-07-31 14:28] LABS: Glucose Point of Care 92 mg/dL (70-110)
[2021-07-31 16:30] VITALS: PULSE 72; RESP 16; O2SAT 94
== END 2021-07-31 16:31 | disposition home health service (06) | DRG 640 ==
LOC: ICU 19:24 → MEDSURG 07-26 10:50
PROVIDERS: Internal Medicine Nephrology; Admitting Provider Hospitalist; PCP Family Medicine; Visit Provider Internal Medicine
DX: E87.5 Hyperkalemia (principal); G93.41 Metabolic encephalopathy; N18.6 End stage renal disease; F33.9 Major depressive disorder, recurrent, unspecified; Z68.41 Body mass index [BMI] 40.0-44.9, adult; R29.6 Repeated falls; L40.0 Psoriasis vulgaris; E11.42 Type 2 diabetes mellitus with diabetic polyneuropathy; E11.319 Type 2 diabetes mellitus with unspecified diabetic retinopathy without macular edema; E66.01 Morbid (severe) obesity due to excess calories; G25.81 Restless legs syndrome; E78.5 Hyperlipidemia, unspecified; E87.4 Mixed disorder of acid-base balance; J43.1 Panlobular emphysema; Z79.4 Long term (current) use of insulin; Z79.02 Long term (current) use of antithrombotics/antiplatelets; Z79.82 Long term (current) use of aspirin; Z79.51 Long term (current) use of inhaled steroids; Z86.16 Personal history of COVID-19; Z99.89 Dependence on other enabling machines and devices; R53.1 Weakness; S09.90XD Unspecified injury of head, subsequent encounter; W19.XXXD Unspecified fall, subsequent encounter; G47.33 Obstructive sleep apnea (adult) (pediatric); E11.22 Type 2 diabetes mellitus with diabetic chronic kidney disease; Z99.2 Dependence on renal dialysis
CPT/HCPCS: 36415; 36416; 36600; 70450; 71045; 80048; 80051; 80053; 82306; 82310; 82330; 82728; 82803; 82805; 82962; 83036; 83540; 83550; 83735; 83970; 84100; 84550; 85025; 85610; 86706; 86803; 87040; 87340; 90935; 93005; 94660; 94664; 96372; 97110; 97116; 97161; 97530; J1644; J1815; Q3014; Q4081

== ENCOUNTER → 2021-08-17 09:26 | Outpatient (BNVA) | payer MEDICARE, MEDICAID, SELFPAY ==
[2021-04-19 15:32] VITALS: BP 104/58; BMI 38.5
== END ==
PROVIDERS: PCP Family Medicine; Visit Provider Internal Medicine Critical Care Medicine
DX: J45.909 Unspecified asthma, uncomplicated (principal); R06.02 Shortness of breath
CPT/HCPCS: 82785; 86003

== ENCOUNTER 2021-09-30 10:06 | Emergency (ER) | payer MEDICARE, MEDICAID, SELFPAY ==
[2021-04-19 15:32] VITALS: BP 104/58; BMI 38.5
[2021-09-30 10:08] VITALS: BP 143/81; PULSE 95; RESP 16; TEMP 36.2; O2SAT 96; BMI 38.6
[2021-09-30 10:30] VITALS: BP 130/75; PULSE 99; RESP 16; O2SAT 94
[2021-09-30] MEDS: ondansetron 2 mg/ML SDV 2 mL 4 MG IVP (11:42)
--- NOTE | 2021-09-30 11:49 | W.ED.NAVMDI ---
HPI - Nausea/Vomiting/Diarrhea General: Chief complaint: Nausea/Vomiting/Diarrhea Stated complaint: n/v Time Seen by Provider: 09/30/21 10:20 History of Present Illness: Patient comes in with nausea and vomiting as well as diarrhea. States that a few days ago she started to feel sick and had diarrhea for a day. States today she started having nausea and vomiting. States she got Zofran in route and the nausea has resolved. Associated nausea: Yes Associated symtoms: Reports nausea; Denies anxiety, change in vision, chest pain, dysuria, headache(s) or palpitations Review of Systems Const: Denies: fever(s) or body aches Eyes: Denies: change in vision or blurry vision ENMT: Denies: throat pain or odynophagia Card: Denies: chest pain or palpitations Resp: Denies: dyspnea or productive cough GI: Reports: nausea, vomiting and diarrhea; Denies: abdominal pain : Denies: flank pain or dysuria Musc: Denies: neck pain or back pain Skin/Breast: Denies: rash or pruritus Neuro: Denies: headache(s) or numbness in extremities Psych: Denies: anxiety or change in appetite Endo: Denies: polyuria or excessive sweating PFSH ED PFSH: Medical History Acidosis Allergic rhinitis Anemia Asthma Bacteremia due to methicillin susceptible Staphylococcus aureus (MSSA) (~04/2021) no intracardiac masses or vegetations noted Closed head injury COPD (chronic obstructive pulmonary disease) Diabetes mellitus Diabetic retinopathy Dysphagia Motility disorder End stage renal disease on dialysis Falls frequently Fecal incontinence History of 2019 novel coronavirus disease (COVID-19) + swab on 04/12/2020 History of colon polyps History of gastric polyp Hyperkalemia Hyperlipidemia associated with type 2 diabetes mellitus Insomnia Major depressive disorder, recurrent severe without psychotic features Major depressive disorder, recurrent, severe w/o psychotic behavior Metabolic encephalopathy Mixed stress and urge urinary incontinence Obesity, morbid, BMI 40.0-49.9 LUIS EDUARDO (obstructive sleep apnea) on home CPAP or Bipap Plaque psoriasis Psychiatric care Restless leg syndrome 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 renal disease) Volume overload Weakness Surgical History A-V fistula left upper extremity, thrombosed H/O hernia repair History of appendectomy History of colonoscopy History of colonoscopy with polypectomy [facility] Family History Family/Other Diabetes Brother Diabetes Grandmother CAD (coronary artery disease) Bleeding disorder Maternal Mother CAD (coronary artery disease) Cancer stomach cancer Denies family history of Clotting disorder Dementia Hyperlipidemia Psychiatric illness Chronic kidney disease (CKD) Suicide Anesthesia complication Family history of premature coronary artery disease Lung disease Hypertension Stroke Social History Smoking and tobacco status: never smoked Second hand smoke exposure: Yes Alcohol intake: never Adopted: No Caregiver/support person: Yes Lives independently: Yes Household members: none Housing: Apartment Marital status: Single Number of children: 0 Number of grandchildren: 0 Highest education level completed: Bachelor's Degree service: No Current occupational status: disabled Current occupational exposures/hazards: No Pets and animals: No Leisure activites: music, reading and other Leisure activities details: crafting Sexually active: Yes Current gender identity: Female [employer]: [employer] Special anna needs: No Agree to transfusion: Yes Financial difficulty paying for basics: Somewhat Hard Female Reproductive History: Para: 0 Spontaneous abortions: No Physical Exam Const: COMMON NORMALS: no acute distress, patient oriented x3, healthy appearing and alert HENMT: COMMON NORMALS: normocephalic and atraumatic HEAD & SCALP: normocephalic and atraumatic Eye: COMMON NORMALS: Equal, round and reactive pupils present and EOMs intact bilaterally PUPIL: Yes Equal, round and reactive pupils present Neck/C-Spine: COMMON NORMALS: full ROM and supple Resp: COMMON NORMALS: normal respiratory effort, No retractions and No use of accessory muscles Cardio: COMMON NORMALS: regular rate and regular rhythm RATE: regular rate RHYTHM: regular rhythm GI: COMMON NORMALS: Normal to inspection, nondistended, normoactive bowel sounds present, Soft to palpation and non-tender PALPATION: Yes Soft to palpation Back/Pelvis: COMMON NORMALS: thoracic and lumbar spine normal to inspection and no thoracic nor lumbar tenderness Extremity: COMMON NORMALS: normal to inspection and full ROM Neuro: COMMON NORMALS: patient oriented x3 SENSORIUM/ORIENTATION: Yes alert Psych: COMMON NORMALS: mental status grossly normal and cooperative Skin: COMMON NORMALS: no rashes or lesions noted and no wounds GENERAL SKIN EXAM: no rashes or lesions noted Course Vital Signs: Vital signs: Vital Signs Temperature 97.1 F L 09/30/21 10:08 Pulse Rate 99 09/30/21 10:30 Respiratory Rate 16 09/30/21 10:30 Blood Pressure 130/75 09/30/21 10:30 Pulse Oximetry 94 09/30/21 10:30 MDM - Nausea/Vomiting/Diarrhea Medical Decision Making Patient comes in with nausea and vomiting as well as diarrhea. States that a few days ago she started to feel sick and had diarrhea for a day. States today she started having nausea and vomiting. States she got Zofran in route and the nausea has resolved. We will give IV fluids, and reassess. The patient states she has an appointment for dialysis this afternoon that she would like to make it to. On reassessment the patient continues to feel much better after the Zofran. Her abdomen continues to be soft nontender. Will discharge home at this time with precautions to return for worsening or changing symptoms. Discharge Plan Discharge Patient Disposition: Home Clinical Impression: Vomiting Condition: Stable Prescriptions: No Action acetaminophen 325 mg tablet 650 mg PO Q6H PRN (Reason: Pain) 0RF polyethylene glycol 3350 17 gram/dose powder 17 g PO .ONCE A WEEK PRN (Reason: Constipation) 0RF magnesium sulfate (bulk) [Epsom Salt] 100 % crystals 1 applic topical BID Qty: 2500 1RF Rx Instructions: soak feet twice daily for 15 minutes albuterol sulfate [ProAir HFA] 90 mcg/actuation HFA aerosol inhaler 2 puff INHALATION QID PRN (Reason: shortness of breath or wheezing) 30 Days Qty: 18 5RF Tradjenta 5 mg tablet 5 mg PO DAILY Qty: 90 3RF aspirin [Adult Aspirin Regimen] 81 mg tablet,delayed release (DR/EC) 81 mg PO QPM 0RF Lactobacillus acidophilus [Acidophilus] Capsule 1 cap PO QPM 0RF Rx Instructions: administer with large glass of water triamcinolone acetonide 0.1 % ointment 1 applic topical BID Qty: 453.6 2RF Rx Instructions: Apply to affected area no more than 2 weeks per month. Not for face. ropinirole 0.5 mg tablet 0.5 mg PO BEDTIME 90 Days Qty: 90 0RF (DME) Blood Glucose Test Strip See Rx Instructions .ROUTE .MEDSUPPLY Qty: 50 11RF Rx Instructions: Brand/type to go with meter per insurance coverage (DME) lancets [facility] [place] See Rx Instructions .ROUTE .MEDSUPPLY Qty: 100 11RF Rx Instructions: For use with glucose meter, brand/type per insurance (DME) blood-glucose meter [Blood Glucose Monitoring] Kit See Rx Instructions .ROUTE .MEDSUPPLY Qty: 1 0RF Rx Instructions: Brand/type per insurance coverage alcohol swabs Pads, Medicated 1 pad topical TID PRN (Reason: as needed to check blood sugar) 30 Days Qty: 100 11RF (DME) Depend Underwear For Women XL [facility] [place] See Rx Instructions .ROUTE .MEDSUPPLY Qty: 120 11RF Rx Instructions: As directed, may adjust brand as needed, 4 daily midodrine 5 mg tablet See Rx Instructions .ROUTE .COMPLEX Qty: 30 3RF Rx Instructions: 5mg po on mon,wed, and fri 30 min before dialysis and may repeat another dose if needed nitroglycerin 0.4 mg tablet, sublingual 0.4 mg sublingual Q5M PRN (Reason: chest pain) Qty: 30 6RF Rx Instructions: do not exceed 3 doses per episode miscellaneous medical supply [facility] [place] See Rx Instructions miscellaneous .COMPLEX Qty: 1 0RF Rx Instructions: 2L O2 by NC with activity; portable oxygen machine with supplies trazodone 150 mg tablet 75 - 150 mg PO BEDTIME Qty: 30 2RF Wellbutrin XL 150 mg tablet extended release 24 hr 150 mg PO DAILY Qty: 30 3RF citalopram [Celexa] 20 mg tablet 20 mg PO DAILY Qty: 30 3RF pravastatin 10 mg tablet 10 mg PO DAILY Qty: 30 5RF clopidogrel [Plavix] 75 mg tablet 75 mg PO DAILY 90 Days Qty: 90 1RF cetirizine [Zyrtec] 10 mg tablet 10 mg PO DAILY 30 Days Qty: 30 5RF coal tar 3 % shampoo 1 ea topical .qod Qty: 240 3RF P and S (salicylic acid) 2 % shampoo 1 applic topical .qod Qty: 236 3RF clobetasol [Clobex] 0.05 % shampoo 1 applic topical DAILY 28 Days Qty: 118 3RF miscellaneous medical supply Misc See Rx Instructions miscellaneous .COMPLEX Qty: 1 0RF Rx Instructions: Hospital Bed; head of bed to be elevated at greater than 30 degrees for COPD lanthanum 750 mg tablet,chewable See Rx Instructions .ROUTE .COMPLEX 0RF Rx Instructions: 2 tab po tid with meals and 1 tab with snacks RenaPlex-D 800 mcg-12.5 mg -2,000 unit tablet 1 tab PO DAILY 0RF calcium acetate(phosphat bind) 667 mg capsule 667 mg PO .WITH EVERY MEAL 0RF insulin lispro [Humalog KwikPen Insulin] 100 unit/mL Insulin Pen See Rx Instructions .ROUTE .COMPLEX 0RF Rx Instructions: sliding scale subcutaneously before meals prn Breo Ellipta 100-25 mcg/dose blister with device 1 inh inhalation DAILY PRN (Reason: unknown) 0RF multivitamin Tablet 1 tab PO DAILY 0RF lidocaine-prilocaine 2.5-2.5 % cream 1 applic topical . DIRECTED 0RF gabapentin 100 mg capsule 100 mg PO BID 0RF Colace 100 mg Capsule 100 mg PO DAILY PRN (Reason: Constipation) 0RF fluticasone propionate 50 mcg/actuation [place],Suspension 1 spray INTRANASAL DAILY 0RF Rx Instructions: administer into each nostril cyclobenzaprine 5 mg tablet 5 mg PO TID PRN (Reason: Muscle Spasm) 0RF Mircera 100 mcg/0.3 mL Syringe 100 mcg IV .EVERY 2 WEEKS 0RF mupirocin 2 % ointment 1 applic TOPICAL BID 0RF Discharge Orders: Discharge ED (Routine); Ordered 09/30/21 Ordered By: Charlie Jolley Referrals: Kate Marcelino MD [Primary Care Provider] - Coding Level of Care Code ED Architect [employer] for Maurig Sulaiman
== END 2021-09-30 12:30 | disposition home or self-care (01) ==
PROVIDERS: Emergency Provider Emergency Medicine; PCP Family Medicine
DX: R11.10 Vomiting, unspecified (principal); E11.22 Type 2 diabetes mellitus with diabetic chronic kidney disease; N18.6 End stage renal disease; Z99.2 Dependence on renal dialysis; Z79.4 Long term (current) use of insulin
CPT/HCPCS: 96374; 99283; J2405